=== PATIENT | female | born 1965 | race Caucasian/White ===

== ENCOUNTER 2016-04-30 02:35 | Observation (INO) | payer BC ==
[2016-04-30] MEDS ORDERED: SODIUM CHLORIDE 0.9% 500 ML IV STA (02:52)
[2016-04-30] MEDS ORDERED: SODIUM CHLORIDE 0.9% 1,000 ML IV STA ×2 (02:52)
[2016-04-30] MEDS ORDERED: RX INFO: IV CONTRAST WAS GIVEN 1 EACH MISC MISCELLANE PRN (02:52)
[2016-04-30] MEDS ORDERED: MORPHINE SULFATE 4 MG/ML SYRINGE IV STA (02:52)
--- NOTE | 2016-04-30 02:52 | ED ---
General Adult HPI - General Chief complaint: Abdominal Pain Stated complaint: HX: copd, cough, copper taste in mouth Time Seen by Provider: 04/30/16 02:51 Source: patient, RN notes reviewed, old records reviewed Mode of arrival: ambulatory Limitations: no limitations - History of Present Illness Initial comments: This is a 50-year-old female here for evaluation. This patient presents for evaluation of chest pain. Patient is severe anterior chest pain rating to back and ripping in nature. Patient has history of COPD, CVA TIA, denies history of smoking. Symptoms earlier today getting progressively worse. Mild known nonsignificant shortness of breath, no recent cough or congestion, no recent travel history, no emergency contacts. No fevers. - Related Data Home Medications Medication Instructions Recorded Confirmed Tiotropium 18 Mcg/Puff [Spiriva] 1 cap INHALATION RT-DAILY PRN 07/17/15 04/30/16 Aspirin EC [Ecotrin Low Dose] 81 mg PO DAILY 12/12/15 12/12/15 Previous Rx's Medication Instructions Recorded Albuterol Inhaler [Ventolin Hfa 2 puff INHALATION RT-Q6H #0 12/14/15 Inhaler] Budesonide-Formot 160-4.5 Mcg 2 puff INHALATION BID #1 inhaler 12/14/15 [Symbicort 160-4.5 Mcg Inhaler] Allergies Allergy/AdvReac Type Severity Reaction Status Date / Time No Known Allergies Allergy Verified 12/12/15 08:12 Review of Systems ROS Statement: Those systems with pertinent positive or pertinent negative responses have been documented in the HPI. ROS Other: All systems not noted in ROS Statement are negative. 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 Past Anesthesia/Blood Transfusion Reactions: No Reported Reaction Past Psychological History: No Psychological Hx Reported Additional Psychological History / Comment(s): Pt resides with spouse and son. She is independent. She uses no assistive device. She drives. Smoking Status: Current every day smoker Past Alcohol Use History: Daily Additional Past Alcohol Use History / Comment(s): Pt states she is a smoker. She was up to 2 ppd but only a couple since this illness began a week ago. she drinks 8 drinks/week.Pt. states, "I'm down to 2 ppd." Past Drug Use History: None Reported - Past Family History Father History Unknown: Yes Mother Family Medical History: Cancer Additional Family Medical History / Comment(s): Mother had some kind of cancer but pt does not know what kind. She at age 65 or 67yrs. General Exam Limitations: no limitations General appearance: alert, in no apparent distress, anxious Head exam: Present: atraumatic, normocephalic, normal inspection Eye exam: Present: normal appearance, PERRL, EOMI. Absent: scleral icterus, conjunctival injection, periorbital swelling ENT exam: Present: normal exam, mucous membranes moist Neck exam: Present: normal inspection. Absent: tenderness, meningismus, lymphadenopathy Respiratory exam: Present: normal lung sounds bilaterally. Absent: respiratory distress, wheezes, rales, rhonchi, stridor Cardiovascular Exam: Present: regular rate, normal rhythm, normal heart sounds. Absent: systolic murmur, diastolic murmur, rubs, gallop, clicks GI/Abdominal exam: Present: soft, normal bowel sounds. Absent: distended, tenderness, guarding, rebound, rigid Extremities exam: Present: normal inspection, full ROM, normal capillary refill. Absent: tenderness, pedal edema, joint swelling, calf tenderness Back exam: Present: normal inspection Neurological exam: Present: alert, oriented X3, CN II-XII intact Psychiatric exam: Present: normal affect, normal mood Skin exam: Present: warm, dry, intact, normal color. Absent: rash Course Vital Signs 04/30/16 02:39 Temperature 97.3 F L Pulse Rate 78 Respiratory 18 Rate Blood Pressure 135/70 O2 Sat by Pulse 94 L Oximetry - Reevaluation(s) Reevaluation #1: 04/30/16 04:16 Patient's pain is mildly improved but not resolved EKG Findings - EKG Comments: EKG Findings:: EKG shows sinus at a rate of 73, MA 110, QRS I6, QTC 440 Medical Decision Making - Medical Decision Making 50 female here for evaluation of chest pain ripping chest pain after coughing, patient still with chest pain, CTA negative for dissection or PE, patient will be admitted for cardiac observation and treatment of COPD - Lab Data Result diagrams: 04/30/16 03:00 04/30/16 03:00 Lab Results 04/30/16 04/30/16 04/30/16 Range/Units 03:00 03:00 03:00 WBC 9.7 (3.8-10.6) k/uL RBC 4.55 (3.80-5.40) m/uL Hgb 14.9 (11.4-16.0) gm/dL Hct 44.1 (34.0-46.0) % MCV 97.0 (80.0-100.0) fL MCH 32.7 (25.0-35.0) pg MCHC 33.8 (31.0-37.0) g/dL RDW 13.5 (11.5-15.5) % Plt Count 270 (150-450) k/uL Neutrophils % 62 % Lymphocytes % 28 % Monocytes % 4 % Eosinophils % 1 % Basophils % 1 % Neutrophils # 6.1 (1.3-7.7) k/uL Lymphocytes # 2.7 (1.0-4.8) k/uL Monocytes # 0.4 (0-1.0) k/uL Eosinophils # 0.1 (0-0.7) k/uL Basophils # 0.1 (0-0.2) k/uL PT (9.0-12.0) sec INR (<1.1) Sodium 135 L (137-145) mmol/L Potassium 4.6 (3.5-5.1) mmol/L Chloride 97 L (98-107) mmol/L Carbon Dioxide 22 (22-30) mmol/L Anion Gap 16 mmol/L BUN 5 L (7-17) mg/dL Creatinine 0.50 L (0.52-1.04) mg/dL Est GFR (MDRD) Af Amer >60 (>60 ml/min/1.73 sqM) Est GFR (MDRD) Non-Af >60 (>60 ml/min/1.73 sqM) Glucose 106 H (74-99) mg/dL Calcium 9.7 (8.4-10.2) mg/dL Total Bilirubin 0.4 (0.2-1.3) mg/dL AST 49 H (14-36) U/L ALT 54 H (9-52) U/L Alkaline Phosphatase 81 (38-126) U/L Total Creatine Kinase 134 (30-135) U/L CK-MB (CK-2) 0.4 (0.0-2.4) ng/mL CK-MB (CK-2) Rel Index 0.3 Troponin I <0.012 (0.000-0.034) ng/mL Total Protein 7.9 (6.3-8.2) g/dL Albumin 4.9 (3.5-5.0) g/dL Amylase 45 (30-110) U/L Lipase 90 (23-300) U/L 04/30/16 Range/Units 03:00 WBC (3.8-10.6) k/uL RBC (3.80-5.40) m/uL Hgb (11.4-16.0) gm/dL Hct (34.0-46.0) % MCV (80.0-100.0) fL MCH (25.0-35.0) pg MCHC (31.0-37.0) g/dL RDW (11.5-15.5) % Plt Count (150-450) k/uL Neutrophils % % Lymphocytes % % Monocytes % % Eosinophils % % Basophils % % Neutrophils # (1.3-7.7) k/uL Lymphocytes # (1.0-4.8) k/uL Monocytes # (0-1.0) k/uL Eosinophils # (0-0.7) k/uL Basophils # (0-0.2) k/uL PT 10.4 (9.0-12.0) sec INR 1.0 (<1.1) Sodium (137-145) mmol/L Potassium (3.5-5.1) mmol/L Chloride (98-107) mmol/L Carbon Dioxide (22-30) mmol/L Anion Gap mmol/L BUN (7-17) mg/dL Creatinine (0.52-1.04) mg/dL Est GFR (MDRD) Af Amer (>60 ml/min/1.73 sqM) Est GFR (MDRD) Non-Af (>60 ml/min/1.73 sqM) Glucose (74-99) mg/dL Calcium (8.4-10.2) mg/dL Total Bilirubin (0.2-1.3) mg/dL AST (14-36) U/L ALT (9-52) U/L Alkaline Phosphatase (38-126) U/L Total Creatine Kinase (30-135) U/L CK-MB (CK-2) (0.0-2.4) ng/mL CK-MB (CK-2) Rel Index Troponin I (0.000-0.034) ng/mL Total Protein (6.3-8.2) g/dL Albumin (3.5-5.0) g/dL Amylase (30-110) U/L Lipase (23-300) U/L - Radiology Data Radiology results: report reviewed (CTA is negative for acute disease,), image reviewed Critical Care Time Critical Care Time: Yes Total Critical Care Time: 31 Disposition Clinical Impression: COPD with acute exacerbation, Chest pain Disposition: ADMITTED IP TO THIS HOSP Condition: Fair Referrals: Shravan Paul DO [Primary Care Provider] - 1-2 days
[2016-04-30 03:23] LABS: Basophils # (A) 0.1 k/uL (0-0.2); Basophils % (A) 1 %; CH 33.3; CHCM 34.5; Eosinophils # (A) 0.1 k/uL (0-0.7); Eosinophils % (A) 1 %; HCT 44.1 % (34.0-46.0); HDW 2.11; HGB 14.9 gm/dL (11.4-16.0); Luc # (Auto) 0.37; Luc % (Auto) 4; Lymphocytes # (A) 2.7 k/uL (1.0-4.8); Lymphocytes % (A) 28 %; MCH 32.7 pg (25.0-35.0); MCHC 33.8 g/dL (31.0-37.0); Mean Platelet Volume 7.2; Monocytes # (A) 0.4 k/uL (0-1.0); Monocytes % (A) 4 %; Neutrophils # (A) 6.1 k/uL (1.3-7.7); Neutrophils % (A) 62 %; RBC 4.55 m/uL (3.80-5.40); RDW 13.5 % (11.5-15.5); WBC 9.7 k/uL (3.8-10.6); WBC (Perox) 9.78
[2016-04-30 03:24] LABS: Prothrombin Time 10.4 sec (9.0-12.0)
[2016-04-30 03:35] LABS: ALT 54 U/L (9-52); AST 49 U/L (14-36); Alkaline Phosphatase 81 U/L (38-126); Amylase 45 U/L (30-110); Anion Gap 16 mmol/L; Blood Urea Nitrogen 5 mg/dL (7-17); Calcium 9.7 mg/dL (8.4-10.2); Carbon Dioxide 22 mmol/L (22-30); Chloride 97 mmol/L (98-107); Glucose 106 mg/dL (74-99); Non-African American GFR(MDRD) >60 (>60 ml/min/1.73 sqM); Potassium 4.6 mmol/L (3.5-5.1); Sodium 135 mmol/L (137-145); Total Bilirubin 0.4 mg/dL (0.2-1.3); Total Protein 7.9 g/dL (6.3-8.2)
[2016-04-30 03:50] LABS: Creatine Kinase 134 U/L (30-135)
--- NOTE | 2016-04-30 04:02 | CT ---
EXAMINATION TYPE: CT angio thoracic/abd aorta DATE OF EXAM: 04/30/2016 3:55 AM COMPARISON: NONE HISTORY: pt has epigastric pain, cough, congestion, and ripping sensation near diaphragm, evaluate ao rta CT DLP: 435.50 mGycm Automated exposure control for dose reduction was used. CONTRAST: Performed with IV Contrast, patient injected with 100 mL of Omnipaque 350. FINDINGS: There are 3-D post processed images. The visualized lung rincon are clear of consolidation. There is no pleural effusion. Heart size is no rmal. There are no hilar masses. There is normal contrast opacification of the thoracic aorta. There is minimal atherosclerotic calcif ication in the thoracic aorta. There is no evidence of aneurysm or dissection. There is no evidence o f pulmonary embolism. Liver spleen pancreas and gallbladder appear normal. Bile ducts are not dilated. Abdominal aorta is n ormal size. There is patency of the renal arteries, superior mesenteric, celiac arteries. There is pa tency of the iliac arteries. The bladder distends smoothly. There is no sign of a pelvic mass. Kidney s show normal contrast opacification. There is no hydronephrosis. IMPRESSION: NEGATIVE CT ANGIOGRAM OF THE THORACIC AND ABDOMINAL AORTA. MINIMAL ATHEROSCLEROTIC VASCULAR DISEASE. NO EVIDENCE OF ANEURYSM OR DISSECTION. NO EVIDENCE OF PULMONARY EMBOLISM.
[2016-04-30 04:03] LABS: Creatine Kinase MB 0.4 ng/mL (0.0-2.4); Troponin I <0.012 ng/mL (0.000-0.034)
[2016-04-30] MEDS ORDERED: MORPHINE SULFATE 4 MG/ML SYRINGE IVP STA (04:12)
[2016-04-30] MEDS ORDERED: methylPREDNISolone SOD SUCCI 125 MG/2 ML VIAL IV STA (04:12)
[2016-04-30] MEDS ORDERED: KETOROLAC 30 MG/ML 1 ML VIAL IVP STA (04:12)
[2016-04-30] MEDS ORDERED: IPRATROPIUM-ALBUTEROL 3 ML NEB INHALATION STA (04:12)
[2016-04-30] MEDS ORDERED: MORPHINE SULFATE 4 MG/ML SYRINGE IV PRN (04:13)
[2016-04-30] MEDS ORDERED: NITROGLYCERIN SL TABS 0.4 MG TAB SUBLINGUAL PRN (04:13)
[2016-04-30] MEDS ORDERED: HEPARIN SODIUM,PORCINE 5,000 UNIT/ML 1 ML VIAL IV ONE (04:13)
[2016-04-30] MEDS ORDERED: HEPARIN SODIUM,PORCINE 5,000 UNIT/ML 1 ML VIAL IV PRN (04:13)
[2016-04-30] MEDS ORDERED: HEPARIN SODIUM,PORCINE/D5W PMX 25,000 UNIT in DEXTROSE/WATER 1 500ML.BAG IV SCH (04:15)
[2016-04-30] MEDS ORDERED: SODIUM CHLORIDE 0.9% 1,000 ML IV SCH (04:15)
[2016-04-30] MEDS ORDERED: HYDROmorphone 1 MG/ML 1 ML SYRINGE IVP STA (05:38)
--- NOTE | 2016-04-30 05:40 | ED ---
Medical Decision Making - Medical Decision Making 50 female [place] with chest pain, patient now purporting more right-sided rib pain and abdominal pain. Again worse when she coughs. Mild epigastric tenderness, no elevation of liver enzymes or alk phos, no elevation of lipase. Patient wasn 't gallbladder ultrasounding addition to therapy for COPD, patient refusing therapy for her heart and she has had full evaluation of chest pain and cardiac evaluation which was negative - Lab Data Result diagrams: 04/30/16 03:00 04/30/16 03:00 Lab Results 04/30/16 04/30/16 04/30/16 Range/Units 03:00 03:00 03:00 WBC 9.7 (3.8-10.6) k/uL RBC 4.55 (3.80-5.40) m/uL Hgb 14.9 (11.4-16.0) gm/dL Hct 44.1 (34.0-46.0) % MCV 97.0 (80.0-100.0) fL MCH 32.7 (25.0-35.0) pg MCHC 33.8 (31.0-37.0) g/dL RDW 13.5 (11.5-15.5) % Plt Count 270 (150-450) k/uL Neutrophils % 62 % Lymphocytes % 28 % Monocytes % 4 % Eosinophils % 1 % Basophils % 1 % Neutrophils # 6.1 (1.3-7.7) k/uL Lymphocytes # 2.7 (1.0-4.8) k/uL Monocytes # 0.4 (0-1.0) k/uL Eosinophils # 0.1 (0-0.7) k/uL Basophils # 0.1 (0-0.2) k/uL PT (9.0-12.0) sec INR (<1.1) Sodium 135 L (137-145) mmol/L Potassium 4.6 (3.5-5.1) mmol/L Chloride 97 L (98-107) mmol/L Carbon Dioxide 22 (22-30) mmol/L Anion Gap 16 mmol/L BUN 5 L (7-17) mg/dL Creatinine 0.50 L (0.52-1.04) mg/dL Est GFR (MDRD) Af Amer >60 (>60 ml/min/1.73 sqM) Est GFR (MDRD) Non-Af >60 (>60 ml/min/1.73 sqM) Glucose 106 H (74-99) mg/dL Calcium 9.7 (8.4-10.2) mg/dL Total Bilirubin 0.4 (0.2-1.3) mg/dL AST 49 H (14-36) U/L ALT 54 H (9-52) U/L Alkaline Phosphatase 81 (38-126) U/L Total Creatine Kinase 134 (30-135) U/L CK-MB (CK-2) 0.4 (0.0-2.4) ng/mL CK-MB (CK-2) Rel Index 0.3 Troponin I <0.012 (0.000-0.034) ng/mL Total Protein 7.9 (6.3-8.2) g/dL Albumin 4.9 (3.5-5.0) g/dL Amylase 45 (30-110) U/L Lipase 90 (23-300) U/L 04/30/16 Range/Units 03:00 WBC (3.8-10.6) k/uL RBC (3.80-5.40) m/uL Hgb (11.4-16.0) gm/dL Hct (34.0-46.0) % MCV (80.0-100.0) fL MCH (25.0-35.0) pg MCHC (31.0-37.0) g/dL RDW (11.5-15.5) % Plt Count (150-450) k/uL Neutrophils % % Lymphocytes % % Monocytes % % Eosinophils % % Basophils % % Neutrophils # (1.3-7.7) k/uL Lymphocytes # (1.0-4.8) k/uL Monocytes # (0-1.0) k/uL Eosinophils # (0-0.7) k/uL Basophils # (0-0.2) k/uL PT 10.4 (9.0-12.0) sec INR 1.0 (<1.1) Sodium (137-145) mmol/L Potassium (3.5-5.1) mmol/L Chloride (98-107) mmol/L Carbon Dioxide (22-30) mmol/L Anion Gap mmol/L BUN (7-17) mg/dL Creatinine (0.52-1.04) mg/dL Est GFR (MDRD) Af Amer (>60 ml/min/1.73 sqM) Est GFR (MDRD) Non-Af (>60 ml/min/1.73 sqM) Glucose (74-99) mg/dL Calcium (8.4-10.2) mg/dL Total Bilirubin (0.2-1.3) mg/dL AST (14-36) U/L ALT (9-52) U/L Alkaline Phosphatase (38-126) U/L Total Creatine Kinase (30-135) U/L CK-MB (CK-2) (0.0-2.4) ng/mL CK-MB (CK-2) Rel Index Troponin I (0.000-0.034) ng/mL Total Protein (6.3-8.2) g/dL Albumin (3.5-5.0) g/dL Amylase (30-110) U/L Lipase (23-300) U/L Disposition Clinical Impression: COPD with acute exacerbation, Chest pain, Abdominal pain Disposition: ADMITTED IP TO THIS HOSP Condition: Fair
[2016-04-30 06:18] VITALS: BMI 19.7
[2016-04-30] MEDS: HYDROmorphone 1 MG/ML 1 ML SYRINGE IVP PRN ×2 (06:27→12:34)
--- NOTE | 2016-04-30 08:57 | US ---
EXAMINATION TYPE: US gallbladder DATE OF EXAM: 04/30/2016 8:45 AM COMPARISON: CT in pacs CLINICAL HISTORY: gallbladder. Abdomen pain and diarrhea x 2 days EXAM MEASUREMENTS: Liver Length: 16.4 cm Gallbladder Wall: 0.2 cm CBD: 0.5 cm Right Kidney: 9.2 x 3.8 x 4.7 cm Findings: Pancreas: Visualized portions have a normal appearance. Liver: Liver homogeneous with no evidence of mass. Gallbladder: No evidence of gallstones. Evidence for sonographic Rose's sign: yes CBD: wnl Right Kidney: No hydronephrosis or nephrolithiasis. IMPRESSION: 1. No acute process.
[2016-04-30] MEDS ORDERED: ATORVASTATIN 80 MG TAB PO SCH (09:00)
[2016-04-30 10:36] LABS: Creatine Kinase 102 U/L (30-135)
[2016-04-30 10:49] LABS: Creatine Kinase MB 0.5 ng/mL (0.0-2.4); Troponin I <0.012 ng/mL (0.000-0.034)
--- NOTE | 2016-04-30 11:31 | P.CNPUL ---
History of Present Illness Consult date: 04/30/16 Reason for consult: other Chief complaint: Abdominal pain History of present illness: This is a 50-year-old female who was seen in the emergency room for complaints of pain in the right upper quadrant of the abdomen. The pain is right upper quadrant and lower right chest area. The pain radiates to the back a bit. The pain as a deli. Not sharp. Not worse with breathing or body movements. Denies any shortness of breath or difficulty breathing. No cough. No chest congestion. No phlegm production. No fever no chills. No trauma to the area. She apparently has a history of severe COPD for which she sees my partner. She also has a history of CVA/TIA. Today she feels great. No breathing issues. The pain is better. She apparently was told that it was "" a pulled muscle. Review of Systems A 12 point review of system is positive for abdominal pain and lower chest pain on the right side. It's in the area of the gallbladder. The pain is resolved. She is apparently going to be discharged home today. 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 Past Anesthesia/Blood Transfusion Reactions: No Reported Reaction Past Psychological History: No Psychological Hx Reported Additional Psychological History / Comment(s): Pt resides with spouse and son. She is independent. She uses no assistive device. She drives. Smoking Status: Current every day smoker Past Alcohol Use History: Daily Additional Past Alcohol Use History / Comment(s): Pt states she is a smoker. She was up to 2 ppd but only a couple since this illness began a week ago. she drinks 8 drinks/week.Pt. states, "I'm down to 2 ppd." Past Drug Use History: None Reported - Past Family History Father History Unknown: Yes Mother Family Medical History: Cancer Additional Family Medical History / Comment(s): Mother had some kind of cancer but pt does not know what kind. She at age 65 or 67yrs. Medications and Allergies Home Medications Medication Instructions Recorded Confirmed Type Tiotropium 18 Mcg/Puff [Spiriva] 1 cap INHALATION RT-DAILY PRN 07/17/15 History Albuterol Inhaler [Ventolin Hfa 2 puff INHALATION RT-Q6H PRN 04/30/16 04/30/16 History Inhaler] Allergies Allergy/AdvReac Type Severity Reaction Status Date / Time No Known Allergies Allergy Verified 04/30/16 06:10 Physical Exam Osteopathic Statement: *. No significant issues noted on an osteopathic structural exam other than those noted in the History and Physical/Consult. Vitals: Vital Signs Temp Pulse Pulse Resp BP BP Pulse Ox 04/30/16 06:52 18 04/30/16 06:11 98.4 F 70 18 149/84 93 L 04/30/16 05:03 75 04/30/16 05:00 97.6 F 80 20 164/89 94 L 04/30/16 04:47 78 04/30/16 04:18 72 18 121/63 97 Intake and Output 04/29/16 04/30/16 04/30/16 22:59 06:59 14:59 Intake Total 1600 120 Balance 1600 120 Intake: Amount of Fluid Infused ( 1600 ml) Oral 120 Other: Voiding Method Toilet # Voids 1 Weight 48.9 kg No acute distress, no respiratory distress, oriented 3. HEENT examination is grossly unremarkable. Mucous membranes are moist. Supple. Full range of motion. No adenopathy or thyromegaly. Cardiovascular examination reveals regular rhythm rate. S1-S2 normal. No S3- S4. No murmur. Lungs reveal few scattered rhonchi. Breath sounds diminished. There is slight prolongation on forced liver. No wheezes or crackles. Abdomen soft bowel sounds are heard. There is no masses. There is no tenderness on palpation. Extremities are intact. Results - Laboratory Findings CBC and BMP: 04/30/16 03:00 04/30/16 03:00 PT/INR, D-dimer PT 10.4 sec (9.0-12.0) 04/30/16 03:00 INR 1.0 (<1.1) 04/30/16 03:00 - Diagnostic Findings Chest x-ray: image reviewed Assessment and Plan (1) Abdominal pain Status: Acute Plan: Plan The patient's abdominal discomfort has resolved. I will take the time to review medications x-rays labs, etc. She has a follow-up appointment set up with Dr. Flores my partner ready. She is on good medications for her COPD. She should continue on those. No additional recommendations are made. Time with Patient: Greater than 30
[2016-04-30] MEDS ORDERED: methylPREDNISolone SOD SUCCI 125 MG/2 ML VIAL IV SCH (12:00)
[2016-04-30 12:13] VITALS: BP 123/71; PULSE 66; RESP 16; TEMP 97.3
--- NOTE | 2016-04-30 13:06 | HP ---
DATE OF ADMISSION: HISTORY AND PHYSICAL AND DISCHARGE SUMMARY CHIEF COMPLAINT: Abdominal pain. HISTORY OF PRESENT ILLNESS: Ms. Villeda is a 50-year-old female with a past medical history of hypertension, COPD, CVA/TIA in May 2014, coming into the hospital with a chief complaint of right upper quadrant abdominal pain. The patient states that the pain started 2 days back. Pain is mostly in the right upper quadrant and it is aggravated by turning and twisting movements. Patient has been having an upper respiratory tract infection for the past 4 days and so has been coughing, and she denies having any fever, but she was coughing really hard and since then started to have this abdominal pain. She denies having any chest discomfort. No difficulty in breathing. But since having this abdominal pain, she states that she is not able to cough due to the pain she is having. The patient also had 2 episodes of diarrhea yesterday. So she came into the hospital for further evaluation. The patient did have a thoracic aorta CT in the ED, which was negative for any aneurysm or dissection. It was showing minimal atherosclerotic vascular disease and she also had a gallbladder ultrasound, which was showing no acute process. The patient was continued on her home medications. Since admission, the patient did not have any episodes of diarrhea. Her abdominal pain is slightly better. REVIEW OF SYSTEMS: CONSTITUTIONAL: Denies having any fevers, chills or rigors. ENT: Patient has mild upper respiratory tract infection for the past 4 days. CARDIOVASCULAR: No chest pain and palpitations. GI: As per HPI. RESPIRATORY: Has been having cough, nonproductive. : No dysuria or hematuria. HEMATOLOGICAL: No history of recurrent infection or easy bruising. All 13 review of systems are done and negative except for the ones mentioned in the HPI. Past medical history is significant for hypertension, COPD, CVA/TIA in May 2014. ALLERGIES: No known drug allergies. HOME MEDICATIONS: Spiriva, albuterol and Symbicort. SMOKING HISTORY: Patient is an everyday smoker, smokes 1/2 pack every day. Occasional alcohol. No history of intravenous drug abuse. Family history is positive for an unknown cancer in her mother and she at the age of 65 years. ON EXAMINATION: PATIENT'S VITAL SIGNS: Temperature 98.4, heart rate 70, respiratory rate 18, blood pressure 149/84 saturating 93% on room air. GENERAL EXAMINATION: ( ) female, lying in bed, appears to be in no acute distress. HEAD: Atraumatic, normocephalic. EYES: Pupils round and reactive to light. No pallor. No icterus. NECK: No JVD. No thyromegaly. CARDIOVASCULAR: S1, S2 heard. No additional sounds. RESPIRATORY: Bilateral breath sounds are diminished in all lung rincon. No crackles and/or wheezes. GI: Abdomen is soft, nontender, no organomegaly. Bowel sounds are positive. EXTREMITIES: No edema. No cyanosis. No clubbing. Peripheral pulses are felt. SOCIAL SERVICE MANAGER: Alert, awake, oriented x3. No focal neurological deficits. PSYCHIATRIC: Appropriate mood and affect. MUSCULOSKELETAL: No joint swellings or deformities. The patient's labs: White count is 9,7, hemoglobin is 14.9, platelets of 270. Sodium 135, potassium 4.6, chloride 97, bicarb 22, BUN 5, creatinine 0.50. AST 49, ALT 59. Troponin 0.012. Patient had an EKG, thoracic aorta CT and ultrasound of the gallbladder that are within normal limits. ASSESSMENT AND PLAN: 1. Acute abdominal pain, most likely musculoskeletal in nature because she has been having cough for the past 5 days and probably pulled a muscle. No evidence of any other acute process going on. 2. Recent upper respiratory tract infection. 3. Hypertension. 4. Stroke/transient ischemic attack in May of 2014. 5. History of chronic obstructive pulmonary disease. PLAN: The patient's workup for acute abdominal pain was negative and she probably has musculoskeletal pain. Will give her some muscle relaxant. She is advised to continue with the rest of her home medications. Counseled on smoking cessation. She is being discharged home in stable condition. Patient's discharge medications: 1. Spiriva 18 mcg per puff 1 puff daily. 2. Albuterol inhaler 2 puffs q.6 hours p.r.n. for shortness of breath. 3. Symbicort 160/4.5 mcg inhaler 2 puffs b.i.d. 4. Cyclobenzaprine 10 mg 3 times a day p.r.n. for muscle spasms. This patient is being discharged home and advised to follow up with her PCP within one week of time.
[2016-05-01] MEDS ORDERED: ASPIRIN 325 MG TAB PO SCH (09:00)
== END 2016-04-30 13:41 | disposition home or self-care (01) ==
LOC: EC 02:35 → 3OBS 04:16
PROVIDERS: ADMIT Hospitalist; ATTEND Hospitalist
DX: R10.9 Unspecified abdominal pain (principal); J06.9 Acute upper respiratory infection, unspecified; J44.1 Chronic obstructive pulmonary disease with (acute) exacerbation; R10.816 Epigastric abdominal tenderness; I10 Essential (primary) hypertension; F17.210 Nicotine dependence, cigarettes, uncomplicated; K58.0 Irritable bowel syndrome with diarrhea; Z86.73 Personal history of transient ischemic attack (TIA), and cerebral infarction without residual deficits; Z79.82 Long term (current) use of aspirin; Z79.51 Long term (current) use of inhaled steroids; Z79.899 Other long term (current) drug therapy
CPT/HCPCS: 99291 ×2; 96374 ×2; 96375 ×3; 96376 ×3; 96361 ×3; 36415; 93005; 80053; 82150; 82550; 82553; 83690; 84484; 85025; 85610; 85730; 76705; 75635; 71275; G0378; J2270; J2930; Q9967; J1885; J1170; 96372; 99285

== ENCOUNTER 2016-08-18 02:00 | Emergency (ER) | payer BC ==
--- NOTE | 2016-08-18 02:37 | ED ---
Psych HPI - General Source: patient, EMS, RN notes reviewed Mode of arrival: EMS <Rosa Bennett - Last Filed: 08/18/16 02:55> <Bhavin Blue - Last Filed: 08/18/16 11:01> - General Chief Complaint: Psychiatric Symptoms Stated Complaint: ETOH Time Seen by Provider: 08/18/16 02:03 - History of Present Illness Initial Comments: 50-year-old female presents emergency room chief complaint of alcoholism and suicidal ideation. Patient states that she wants help. Patient denies any specific plan. Patient states that she needs help to get better. Patient denies any recent fever, chills, shortness of breath, chest pain, back pain, abdominal pain, nausea vomiting, numbness or tingling, dysuria or hematuria, constipation or diarrhea, headaches or visual changes, or any other current symptoms. (Rosa Bennett) - Related Data Previous Rx's Medication Instructions Recorded chlordiazePOXIDE HCl [Librium] 25 mg PO DIRECTED #22 capsule 08/18/16 cloNIDine HCL [Catapres] 0.1 mg PO BID #6 tab 08/18/16 Allergies Allergy/AdvReac Type Severity Reaction Status Date / Time No Known Allergies Allergy Verified 08/18/16 02:03 Review of Systems ROS Other: All systems not noted in ROS Statement are negative. <Rosa Bennett - Last Filed: 08/18/16 02:55> ROS Other: All systems not noted in ROS Statement are negative. <Bhavin Blue - Last Filed: 08/18/16 11:01> ROS Statement: Those systems with pertinent positive or pertinent negative responses have been documented in the HPI. 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 Past Anesthesia/Blood Transfusion Reactions: No Reported Reaction Past Psychological History: No Psychological Hx Reported Additional Psychological History / Comment(s): Pt resides with spouse and son. She is independent. She uses no assistive device. She drives. Smoking Status: Current every day smoker Past Alcohol Use History: Abuse, Daily Additional Past Alcohol Use History / Comment(s): Pt states she is a smoker. She was up to 2 ppd but only a couple since this illness began a week ago. she drinks 8 drinks/week.Pt. states, "I'm down to 2 ppd." Past Drug Use History: None Reported - Past Family History Father History Unknown: Yes Mother Family Medical History: Cancer Additional Family Medical History / Comment(s): Mother had some kind of cancer but pt does not know what kind. She at age 65 or 67yrs. <Rosa Bennett - Last Filed: 08/18/16 02:55> General Exam Limitations: no limitations General appearance: alert, in no apparent distress ENT exam: Present: normal exam, mucous membranes moist Neck exam: Present: normal inspection. Absent: tenderness, meningismus, lymphadenopathy Respiratory exam: Present: normal lung sounds bilaterally. Absent: respiratory distress, wheezes, rales, rhonchi, stridor Cardiovascular Exam: Present: regular rate, normal rhythm, normal heart sounds. Absent: systolic murmur, diastolic murmur, rubs, gallop, clicks Neurological exam: Present: alert, oriented X3 Psychiatric exam: Present: depressed, suicidal ideation. Absent: homicidal ideation Skin exam: Present: warm, dry, intact, normal color. Absent: rash <Rosa Bennett - Last Filed: 08/18/16 02:55> Course <Rosa Bennett - Last Filed: 08/18/16 02:55> <Bhavin Blue - Last Filed: 08/18/16 11:01> Vital Signs 08/18/16 08/18/16 08/18/16 02:04 06:36 08:18 Temperature 97.4 F L 98.5 F 98 F Pulse Rate 84 73 78 Respiratory 18 17 Rate Blood Pressure 161/91 111/61 125/65 O2 Sat by Pulse 94 L 94 L 93 L Oximetry - Reevaluation(s) Reevaluation #1: 08/18/16 02:55 THis case will be signed out to DR. Owens. (Rosa Bennett) Medical Decision Making <Rosa Bennett - Last Filed: 08/18/16 02:55> <Bhavin Blue - Last Filed: 08/18/16 11:01> - Medical Decision Making 50-year-old female presents emergency department with a chief complaint of suicidal ideation and alcoholism. At this time the patient does not appear to be suffering from any acute medical emergencies. At this time the patient is cleared to be evaluated by psychiatry. (Rosa Bennett) Patient was examined here in the emergency room by mental patient is denying any suicidal intentions at this time. She states that she feels more depressed when she is drinking and has argued with her . She states this is what happened yesterday. At this time mental health recommends the patient can follow-up outpatient they have tried to facilitate a detox facility for her. There is the option of a possible open bed down at [facility]. She is been updated of this given the information. She states feels like this might be too far to go to. She's been given further information for detox programs that may be closer for her. At this time she is not suicidal feels comfortable being discharged home. Will be given prescription for clonidine and Librium for her withdrawals. Advised return to emergency room for any concerns. (Bhavin Blue ) - Lab Data Lab Results 08/18/16 Range/Units 02:17 Urine Opiates Screen Not Detected (NotDetected) Ur Oxycodone Screen Not Detected (NotDetected) Urine Methadone Screen Not Detected (NotDetected) Ur Propoxyphene Screen Not Detected (NotDetected) Ur Barbiturates Screen Not Detected (NotDetected) U Tricyclic Antidepress Not Detected (NotDetected) Ur Phencyclidine Scrn Not Detected (NotDetected) Ur Amphetamines Screen Not Detected (NotDetected) U Methamphetamines Scrn Not Detected (NotDetected) U Benzodiazepines Scrn Not Detected (NotDetected) Urine Cocaine Screen Not Detected (NotDetected) U Marijuana (THC) Screen Not Detected (NotDetected) Disposition <Rosa Bennett - Last Filed: 08/18/16 02:55> Time of Disposition: 11:00 <Bhavin Blue - Last Filed: 08/18/16 11:01> Clinical Impression: Alcohol abuse Disposition: HOME SELF-CARE Condition: Stable Instructions: Alcohol Withdrawal (ED) Additional Instructions: Please follow-up with detox programs as discussed here in emergency room. Please use medications as prescribed and return to emergency room for any other concerns. Prescriptions: chlordiazePOXIDE HCl [Librium] 25 mg PO DIRECTED #22 capsule cloNIDine HCL [Catapres] 0.1 mg PO BID #6 tab Referrals: Shravan Paul DO [Primary Care Provider] - 1-2 days
[2016-08-18 11:46] VITALS: BP 152/81; PULSE 66; RESP 16; TEMP 97.9
== END 2016-08-18 11:45 | disposition home or self-care (01) ==
LOC: EC 02:00
DX: F10.10 Alcohol abuse, uncomplicated (principal); R45.851 Suicidal ideations; F17.200 Nicotine dependence, unspecified, uncomplicated
CPT/HCPCS: 80306; 82075; 99284

== ENCOUNTER 2019-03-28 19:43 | Emergency (ER) | payer BC ==
--- NOTE | 2019-03-28 20:19 | ED ---
General Adult HPI - General Source: patient Mode of arrival: ambulatory Limitations: no limitations <Umesh Garcia D - Last Filed: 03/28/19 21:01> <Karin Greenwood P - Last Filed: 03/28/19 22:36> - General Chief complaint: Abdominal Pain Stated complaint: Abd pain Time Seen by Provider: 03/28/19 20:10 - History of Present Illness Initial comments: Dictation was produced using [employer] dictation software. please excuse any grammatical, word or spelling errors. Chief Complaint: 53-year-old female past medical history of COPD, CVA presents with abdominal pain. History of Present Illness: 53-year-old female presents with abdominal pain. Patient's history of and left oophorectomy. Patient reports that her symptoms have been intermittent for the last several weeks however today she states that her pain was severe and different from what it's been like recently. Patient locates the pain to her right lower quadrant. States that she still has her appendix and her gallbladder. Patient has any history of diverticulitis. Denies any constitutional symptoms however she has had nausea vomiting. No vaginal discharge. Patient states she has daily diarrhea. The ROS documented in this emergency department record has been reviewed and confirmed by me. Those systems with pertinent positive or negative responses have been documented in the HPI. All other systems are other negative and/or noncontributory. PHYSICAL EXAM: General Impression: Alert and oriented x3, not in acute distress HEENT: Normocephalic atraumatic, extra-ocular movements intact, pupils equal and reactive to light bilaterally, mucous membranes moist. Cardiovascular: Heart regular rate and rhythm, S1&S2 audible, no murmurs, rubs or gallops Chest: Lungs clear to auscultation bilaterally, no rhonchi, no wheeze, no rales Abdomen: Bowel sounds present, abdomen soft, tenderness in McBurney's point, positive rebound tenderness Musculoskeletal: Pulses present and equal in all extremities, no peripheral e jose Motor: no focal deficits noted Neurological: CN II-XII grossly intact, no focal motor or sensory deficits noted Skin: Intact with no visualized rashes Psych: Normal affect and mood ED course: 53-year-old female presents with chief complaint of abdominal pain. As upon arrival are within acceptable limits. There is some concern for acute appendicitis. Patient is signed out to Dr. Greenwood for follow-up of labs and CT imaging. (Umesh Garcia) - Related Data Previous Rx's Medication Instructions Recorded chlordiazePOXIDE HCl [Librium] 25 mg PO DIRECTED #22 capsule 08/18/16 cloNIDine HCL [Catapres] 0.1 mg PO BID #6 tab 08/18/16 Allergies Allergy/AdvReac Type Severity Reaction Status Date / Time No Known Allergies Allergy Verified 03/28/19 19:55 Review of Systems ROS Other: All systems not noted in ROS Statement are negative. <Umesh Garcia - Last Filed: 03/28/19 21:01> ROS Other: All systems not noted in ROS Statement are negative. <Karin Greenwood - Last Filed: 03/28/19 22:36> ROS Statement: Those systems with pertinent positive or pertinent negative responses have been documented in the HPI. 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, History of Any Multi-Drug Resistant Organisms: None Reported Past Surgical History: Section, Tonsillectomy Additional Past Surgical History / Comment(s): L oophorectomy due to cyst Past Anesthesia/Blood Transfusion Reactions: No Reported Reaction Past Psychological History: No Psychological Hx Reported Smoking Status: Current every day smoker Past Alcohol Use History: Abuse, Daily Past Drug Use History: None Reported - Past Family History Father History Unknown: Yes Mother Family Medical History: Cancer Additional Family Medical History / Comment(s): Mother had some kind of cancer but pt does not know what kind. She at age 65 or 67yrs. <Umesh Garcia - Last Filed: 03/28/19 21:01> General Exam Limitations: no limitations <Umesh Garcia - Last Filed: 03/28/19 21:01> Course Vital Signs 03/28/19 03/28/19 19:51 21:49 Temperature 98 F 98.2 F Pulse Rate 100 69 Respiratory 20 16 Rate Blood Pressure 132/84 114/70 O2 Sat by Pulse 96 100 Oximetry Medical Decision Making - Lab Data Result diagrams: 03/28/19 20:45 <Umesh Garcia - Last Filed: 03/28/19 21:01> - Lab Data Result diagrams: 03/28/19 20:45 03/28/19 20:45 <Karin Greenwood - Last Filed: 03/28/19 22:36> - Lab Data Lab Results 03/28/19 03/28/19 03/28/19 Range/Units 20:45 20:45 20:45 WBC 6.2 (3.8-10.6) k/uL RBC 4.35 (3.80-5.40) m/uL Hgb 14.5 (11.4-16.0) gm/dL Hct 42.9 (34.0-46.0) % MCV 98.7 (80.0-100.0) fL MCH 33.2 (25.0-35.0) pg MCHC 33.7 (31.0-37.0) g/dL RDW 13.1 (11.5-15.5) % Plt Count 283 (150-450) k/uL Neutrophils % 45 % Lymphocytes % 42 % Monocytes % 5 % Eosinophils % 3 % Basophils % 2 % Neutrophils # 2.8 (1.3-7.7) k/uL Lymphocytes # 2.6 (1.0-4.8) k/uL Monocytes # 0.3 (0-1.0) k/uL Eosinophils # 0.2 (0-0.7) k/uL Basophils # 0.1 (0-0.2) k/uL PT 9.6 (9.0-12.0) sec INR 0.9 (<1.2) APTT 26.4 (22.0-30.0) sec Sodium 136 L (137-145) mmol/L Potassium 4.2 (3.5-5.1) mmol/L Chloride 100 (98-107) mmol/L Carbon Dioxide 24 (22-30) mmol/L Anion Gap 12 mmol/L BUN 8 (7-17) mg/dL Creatinine 0.55 (0.52-1.04) mg/dL Est GFR (CKD-EPI)AfAm >90 (>60 ml/min/1.73 sqM) Est GFR (CKD-EPI)NonAf >90 (>60 ml/min/1.73 sqM) Glucose 109 H (74-99) mg/dL Calcium 9.5 (8.4-10.2) mg/dL Total Bilirubin 0.3 (0.2-1.3) mg/dL AST 110 H (14-36) U/L ALT 57 H (4-34) U/L Alkaline Phosphatase 101 (38-126) U/L Total Protein 8.1 (6.3-8.2) g/dL Albumin 5.1 H (3.5-5.0) g/dL Lipase 234 (23-300) U/L Urine Color Urine Appearance (Clear) Urine pH (5.0-8.0) Ur Specific [place] (1.001-1.035) Urine Protein (Negative) Urine Glucose (UA) (Negative) Urine Ketones (Negative) Urine Blood (Negative) Urine Nitrite (Negative) Urine Bilirubin (Negative) Urine Urobilinogen (<2.0) mg/dL Ur Leukocyte Esterase (Negative) 03/28/19 Range/Units Unknown WBC (3.8-10.6) k/uL RBC (3.80-5.40) m/uL Hgb (11.4-16.0) gm/dL Hct (34.0-46.0) % MCV (80.0-100.0) fL MCH (25.0-35.0) pg MCHC (31.0-37.0) g/dL RDW (11.5-15.5) % Plt Count (150-450) k/uL Neutrophils % % Lymphocytes % % Monocytes % % Eosinophils % % Basophils % % Neutrophils # (1.3-7.7) k/uL Lymphocytes # (1.0-4.8) k/uL Monocytes # (0-1.0) k/uL Eosinophils # (0-0.7) k/uL Basophils # (0-0.2) k/uL PT (9.0-12.0) sec INR (<1.2) APTT (22.0-30.0) sec Sodium (137-145) mmol/L Potassium (3.5-5.1) mmol/L Chloride (98-107) mmol/L Carbon Dioxide (22-30) mmol/L Anion Gap mmol/L BUN (7-17) mg/dL Creatinine (0.52-1.04) mg/dL Est GFR (CKD-EPI)AfAm (>60 ml/min/1.73 sqM) Est GFR (CKD-EPI)NonAf (>60 ml/min/1.73 sqM) Glucose (74-99) mg/dL Calcium (8.4-10.2) mg/dL Total Bilirubin (0.2-1.3) mg/dL AST (14-36) U/L ALT (4-34) U/L Alkaline Phosphatase (38-126) U/L Total Protein (6.3-8.2) g/dL Albumin (3.5-5.0) g/dL Lipase (23-300) U/L Urine Color Light Yellow Urine Appearance Clear (Clear) Urine pH 5.5 (5.0-8.0) Ur Specific [place] 1.003 (1.001-1.035) Urine Protein Negative (Negative) Urine Glucose (UA) Negative (Negative) Urine Ketones Negative (Negative) Urine Blood Negative (Negative) Urine Nitrite Negative (Negative) Urine Bilirubin Negative (Negative) Urine Urobilinogen <2.0 (<2.0) mg/dL Ur Leukocyte Esterase Negative (Negative) Disposition <Umesh Garcia D - Last Filed: 03/28/19 21:01> Is patient prescribed a controlled substance at d/c from ED?: No <Karin Greenwood P - Last Filed: 03/28/19 22:36> Clinical Impression: Abdominal pain Disposition: HOME SELF-CARE Condition: Stable Additional Instructions: I have a suspicion that her pain may be due to your gallbladder, I recommend a low fat diet. Small meals. Follow-up with her primary care provider for possible further imaging including ultrasound which you declined in the ER today. Return to the ER when necessary any worsening abdominal pain nausea, vomiting concern for dehydration or any new or concerning symptoms Referrals: Shravan Paul DO [Primary Care Provider] - 1-2 days
[2019-03-28 20:56] LABS: Basophils # (A) 0.1 k/uL (0-0.2); Basophils % (A) 2 %; Eosinophils # (A) 0.2 k/uL (0-0.7); Eosinophils % (A) 3 %; HCT 42.9 % (34.0-46.0); HGB 14.5 gm/dL (11.4-16.0); Lymphocytes # (A) 2.6 k/uL (1.0-4.8); Lymphocytes % (A) 42 %; MCH 33.2 pg (25.0-35.0); MCHC 33.7 g/dL (31.0-37.0); MCV 98.7 fL (80.0-100.0); Mean Platelet Volume 7.2; Monocytes # (A) 0.3 k/uL (0-1.0); Monocytes % (A) 5 %; Neutrophils # (A) 2.8 k/uL (1.3-7.7); Neutrophils % (A) 45 %; Platelet Count 283 k/uL (150-450); RBC 4.35 m/uL (3.80-5.40); RDW 13.1 % (11.5-15.5); WBC 6.2 k/uL (3.8-10.6)
[2019-03-28 20:57] LABS: Appearance,Urine Clear (Clear); Bilirubin,Urine Negative (Negative); Blood,Urine Negative (Negative); Color,Urine Light Yellow; Glucose,Urine (UA) Negative (Negative); Ketones,Urine Negative (Negative); Leukocyte Esterase,Urine Negative (Negative); Nitrite,Urine Negative (Negative); PH, Urine 5.5 (5.0-8.0); Protein,Urine Negative (Negative); Specific Gravity,Urine 1.003 (1.001-1.035); Urobilinogen,Urine <2.0 mg/dL (<2.0)
[2019-03-28 21:04] LABS: ALT 57 U/L (4-34); AST 110 U/L (14-36); African American GFR (CKD) >90 (>60 ml/min/1.73 sqM); Albumin 5.1 g/dL (3.5-5.0); Alkaline Phosphatase 101 U/L (38-126); Anion Gap 12 mmol/L; Blood Urea Nitrogen 8 mg/dL (7-17); Calcium 9.5 mg/dL (8.4-10.2); Carbon Dioxide 24 mmol/L (22-30); Chloride 100 mmol/L (98-107); Glucose 109 mg/dL (74-99); INR 0.9 (<1.2); Non-African American GFR(CKD) >90 (>60 ml/min/1.73 sqM); Partial Thromboplastin Time 26.4 sec (22.0-30.0); Potassium 4.2 mmol/L (3.5-5.1); Prothrombin Time 9.6 sec (9.0-12.0); Sodium 136 mmol/L (137-145); Total Bilirubin 0.3 mg/dL (0.2-1.3); Total Protein 8.1 g/dL (6.3-8.2)
--- NOTE | 2019-03-28 21:20 | CT ---
EXAMINATION TYPE: CT abdomen pelvis w con DATE OF EXAM: 03/28/2019 COMPARISON: None HISTORY: Right sided abdominal pain. CT DLP: 433.3 mGycm Automated exposure control for dose reduction was used. CONTRAST: Performed with IV Contrast, patient injected with 100ml mL of Isovue 300. Lung bases are clear. There is no pleural effusion. Heart size is normal. Liver spleen stomach pancreas appear normal. Bile ducts are not dilated. Gallbladder appears normal. There is no adrenal mass. Kidneys show satisfactory contrast opacification. There is no hydronephrosi s. Ureters are not dilated. Bladder distends smoothly. There is no inguinal hernia. There are numerou s phleboliths in the pelvis. I see no evidence of a pelvic mass. Uterus is anteverted. There is no free fluid in the pelvis. There is no mesenteric edema. There is no ascites or free air. Appendix is not seen. There is no sign of t hickened appendix. Lumbar spine is intact. Bony pelvis is intact. There is no evidence of bowel obstruction. IMPRESSION: There is some atherosclerotic vascular calcification. Appendix not seen. No sign of appendicitis. No renal stone or obstruction.
[2019-03-28 21:50] VITALS: RESP 16
[2019-03-28 22:39] VITALS: BP 158/83; PULSE 79; TEMP 98.5
== END 2019-03-28 22:35 | disposition home or self-care (01) ==
LOC: EC 19:43
DX: R10.9 Unspecified abdominal pain (principal); F17.200 Nicotine dependence, unspecified, uncomplicated; Z86.73 Personal history of transient ischemic attack (TIA), and cerebral infarction without residual deficits; Z90.721 Acquired absence of ovaries, unilateral
CPT/HCPCS: 36415; 80053; 83690; 85025; 85610; 85730; 81003; 74177; 99284; Q9967

== ENCOUNTER 2021-12-28 00:20 | Inpatient (IN) | payer BC ==
[2021-12-28 00:50] LABS: Basophils # (A) 0.1 k/uL (0-0.2); Basophils % (A) 1 %; Eosinophils # (A) 0.1 k/uL (0-0.7); Eosinophils % (A) 2 %; HCT 46.3 % (34.0-46.0); HGB 15.6 gm/dL (11.4-16.0); Lymphocytes # (A) 1.5 k/uL (1.0-4.8); Lymphocytes % (A) 23 %; MCH 33.1 pg (25.0-35.0); MCHC 33.7 g/dL (31.0-37.0); MCV 98.1 fL (80.0-100.0); Mean Platelet Volume 7.9; Monocytes # (A) 0.4 k/uL (0-1.0); Monocytes % (A) 6 %; Neutrophils # (A) 4.1 k/uL (1.3-7.7); Neutrophils % (A) 65 %; Platelet Count 293 k/uL (150-450); RBC 4.71 m/uL (3.80-5.40); RDW 12.8 % (11.5-15.5); WBC 6.3 k/uL (3.8-10.6)
[2021-12-28 01:00] LABS: INR 0.9 (<1.2); Partial Thromboplastin Time 28.1 sec (22.0-30.0); Prothrombin Time 9.9 sec (9.0-12.0)
[2021-12-28 01:01] LABS: ALT 51 U/L (4-34); AST 77 U/L (14-36); African American GFR (CKD) >90 (>60 ml/min/1.73 sqM); Albumin 5.3 g/dL (3.5-5.0); Alkaline Phosphatase 144 U/L (38-126); Anion Gap 21 mmol/L; Blood Urea Nitrogen 4 mg/dL (7-17); Calcium 9.5 mg/dL (8.4-10.2); Carbon Dioxide 16 mmol/L (22-30); Chloride 89 mmol/L (98-107); Glucose 97 mg/dL (74-99); Non-African American GFR(CKD) >90 (>60 ml/min/1.73 sqM); Potassium 4.8 mmol/L (3.5-5.1); Sodium 126 mmol/L (137-145); Total Bilirubin 0.5 mg/dL (0.2-1.3); Total Protein 8.4 g/dL (6.3-8.2)
--- NOTE | 2021-12-28 01:11 | CT ---
EXAMINATION TYPE: CT brain wo con DATE OF EXAM: 12/28/2021 COMPARISON: 01/20/2015 HISTORY: Weakness CT DLP: mGycm Automated exposure control for dose reduction was used. Images obtained of the brain with no contrast. Ventricles and sulci appear normal. There is no mass effect nor midline shift. No evidence of intracr anial hemorrhage. The calvarium is intact. Skull base is intact. There is normal aeration of the mast oid sinuses. IMPRESSION: Negative CT scan of the brain. No change.
--- NOTE | 2021-12-28 01:12 | XR ---
EXAMINATION TYPE: XR pelvis AP view DATE OF EXAM: 12/28/2021 COMPARISON: NONE HISTORY: Left hip pain TECHNIQUE: Single view FINDINGS: The pelvic ring is intact. Proximal femurs and hip joints are intact. Acetabula appear norm al. Sacroiliac joints are intact. IMPRESSION: Negative pelvis x-ray exam.
--- NOTE | 2021-12-28 01:14 | XR ---
EXAMINATION TYPE: XR chest 1V DATE OF EXAM: 12/28/2021 COMPARISON: 12/12/2015 HISTORY: Altered mental status TECHNIQUE: Single view FINDINGS: There is a 3.2 cm irregular mass in the right lower lobe. Left lung is clear. Heart and med iastinum are normal. There is slight increased density at the inferior right pulmonary hilum. This co uld be minimal adenopathy. There are chest leads. No pleural effusion. Bony thorax is intact. IMPRESSION: Right lower lobe mass. Follow-up is recommended. This appears new compared to old exam. T umor is possible.
[2021-12-28 01:19] LABS: Appearance,Urine Clear (Clear); Bilirubin,Urine Negative (Negative); Blood,Urine Negative (Negative); Color,Urine Colorless; Glucose,Urine (UA) Negative (Negative); Ketones,Urine Negative (Negative); Leukocyte Esterase,Urine Negative (Negative); Nitrite,Urine Negative (Negative); Protein,Urine Negative (Negative); Specific Gravity,Urine 1.005 (1.001-1.035); Urobilinogen,Urine <2.0 mg/dL (<2.0)
--- NOTE | 2021-12-28 01:30 | CT ---
EXAMINATION TYPE: CT angio head neck DATE OF EXAM: 12/28/2021 COMPARISON: None HISTORY: Weakness CT DLP: mGycm Automated exposure control for dose reduction was used. CONTRAST: There are Three-D postprocessed images. The contrast was Isovue 65 mL. There is normal branching pattern of the great vessels of the aortic arch. There is bilateral arteria l flow in the subclavian arteries. There is arterial flow in the common internal and external carotid arteries bilaterally. There is fairly wide patency of the carotid artery bifurcations. There is some mild plaque formation on the posterior wall right carotid artery bifurcation. There is arterial flow in both vertebral arteries. There is arterial flow in the vertebrobasilar artery system. Basilar art christy fills mostly from the left side. No evidence of carotid or vertebral artery aneurysm or dissectio n. There is arterial flow in the anterior middle and posterior cerebral arteries bilaterally. No mass ef fect. No evidence of intracranial aneurysm or buzz vascularity. No sign of cerebral edema. There is no rmal enhancement of the venous sinuses. No evidence of intracranial hemodynamic arterial stenosis. IMPRESSION: Negative CT angiogram of the neck. Negative CT angiogram of the brain.
[2021-12-28] MEDS ORDERED: SODIUM CHLORIDE 0.9% 1,000 ML IV ONE (01:31)
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
--- NOTE | 2021-12-28 02:08 | CT ---
EXAMINATION TYPE: CT chest wo con DATE OF EXAM: 12/28/2021 COMPARISON: HISTORY: Lung mass CT DLP: 183.2 mGycm Automated exposure control for dose reduction was used. Images obtained from the thoracic inlet to the diaphragm with no contrast. There is a 3 cm stellate mass without calcification in the right lower lobe. There is spiculation of the margins. No definite hilar mass. Heart size is normal. There is some coronary artery calcificatio n. No mediastinal adenopathy. Thoracic aorta is atheromatous. There is mild linear density right posterior lung base. Left lung is clear. No pneumothorax. No pleur al effusion. The thoracic spine is intact. No compression fracture. Sternum is intact. There is an additional 7 mm stellate density in the superior segment right lower lobe. IMPRESSION: Stellate mass right lower lobe suspicious for primary malignancy. Additional similar stellate density measuring 7 mm right lower lobe could be second primary tumor.
[2021-12-28] MEDS ORDERED: ASPIRIN 325 MG TAB PO STA (02:36)
[2021-12-28] MEDS ORDERED: LORazepam 2 MG/ML INJ IV PRN ×3 (02:59)
[2021-12-28] MEDS ORDERED: THIAMINE 100 MG/ML 2 ML VIAL IM STA (02:59)
[2021-12-28] MEDS: SODIUM CHLORIDE 0.9% 1,000 ML IV SCH ×2 (04:22→15:50)
[2021-12-28] MEDS: ATORVASTATIN 40 MG TAB PO SCH (08:55)
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
[2021-12-28 11:34] LABS: African American GFR (CKD) >90 (>60 ml/min/1.73 sqM); Anion Gap 9 mmol/L; Blood Urea Nitrogen 11 mg/dL (7-17); Calcium 9.3 mg/dL (8.4-10.2); Carbon Dioxide 29 mmol/L (22-30); Chloride 97 mmol/L (98-107); Glucose 95 mg/dL (74-99); Non-African American GFR(CKD) >90 (>60 ml/min/1.73 sqM); Potassium 5.4 mmol/L (3.5-5.1); Sodium 135 mmol/L (137-145)
[2021-12-28] MEDS: methylPREDNISolone SOD SUCCI 40 MG/ML 1 ML VIAL IV SCH ×2 (11:43→16:29)
[2021-12-28] MEDS: IPRATROPIUM-ALBUTEROL 3 ML NEB INHALATION SCH ×3 (11:45→20:02)
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
[2021-12-28] MEDS: NICOTINE 14MG/24HR PATCH TRANSDERM SCH (16:29)
[2021-12-28 16:48] LABS: Glucose,Whole Blood 181 mg/dL (70-110)
[2021-12-28] MEDS: THIAMINE 100 MG TAB PO SCH (17:12)
[2021-12-28 19:48] LABS: Glucose,Whole Blood 207 mg/dL (70-110)
[2021-12-28] MEDS: SYMBICORT 160-4.5 MCG INHALER INHALATION SCH (20:02)
[2021-12-28] MEDS: INSULIN ASPART (NovoLOG) 100 UNIT/ML VIAL SQ SCH (22:05)
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
[2021-12-29] MEDS: SODIUM CHLORIDE 0.9% 1,000 ML IV SCH ×2 (00:31→14:16)
[2021-12-29] MEDS: HEPARIN SODIUM,PORCINE/PF 5,000 UNIT/0.5 ML SYRINGE SQ SCH ×3 (00:31→16:40)
[2021-12-29] MEDS: methylPREDNISolone SOD SUCCI 40 MG/ML 1 ML VIAL IV SCH ×3 (00:31→16:45)
[2021-12-29 05:58] LABS: Glucose,Whole Blood 167 mg/dL (70-110)
[2021-12-29 06:07] LABS: Basophils % (A) 0 %; Eosinophils % (A) 0 %; HCT 42.2 % (34.0-46.0); HGB 14.4 gm/dL (11.4-16.0); Lymphocytes # (A) 0.5 k/uL (1.0-4.8); Lymphocytes % (A) 7 %; MCHC 34.2 g/dL (31.0-37.0); MCV 99.3 fL (80.0-100.0); Mean Platelet Volume 8.8; Monocytes # (A) 0.1 k/uL (0-1.0); Monocytes % (A) 2 %; Neutrophils # (A) 5.9 k/uL (1.3-7.7); Neutrophils % (A) 89 %; Platelet Count 276 k/uL (150-450); RBC 4.24 m/uL (3.80-5.40); RDW 12.9 % (11.5-15.5); WBC 6.6 k/uL (3.8-10.6)
[2021-12-29 06:12] LABS: African American GFR (CKD) >90 (>60 ml/min/1.73 sqM); Anion Gap 13 mmol/L; Blood Urea Nitrogen 11 mg/dL (7-17); Calcium 9.7 mg/dL (8.4-10.2); Carbon Dioxide 22 mmol/L (22-30); Chloride 96 mmol/L (98-107); Glucose 165 mg/dL (74-99); Non-African American GFR(CKD) >90 (>60 ml/min/1.73 sqM); Potassium 4.3 mmol/L (3.5-5.1); Sodium 131 mmol/L (137-145)
[2021-12-29] MEDS: INSULIN ASPART (NovoLOG) 100 UNIT/ML VIAL SQ SCH ×3 (06:57→16:41)
[2021-12-29] MEDS: THIAMINE 100 MG TAB PO SCH ×2 (06:57→16:45)
[2021-12-29] MEDS: IPRATROPIUM-ALBUTEROL 3 ML NEB INHALATION SCH ×3 (07:59→15:15)
[2021-12-29] MEDS: SYMBICORT 160-4.5 MCG INHALER INHALATION SCH (07:59)
[2021-12-29] MEDS ORDERED: ASPIRIN 325 MG TAB PO SCH (09:00)
[2021-12-29] MEDS: NICOTINE 14MG/24HR PATCH TRANSDERM SCH (09:28)
--- NOTE | 2021-12-29 09:45 | CA ---
Transthoracic Echo Report Name: Jil Villeda Age: 56 Gender: F : 1965 Exam Date: 12/28/2021 11:03 Exam Location: [facility] Ht (in): 62 Wt (lb): 103 Ordering Physician: Daron Chawla MD Attending/Referring Phys: [employer] Technician Archana Son RDCS Procedure CPT: Indications: per Dr Chawla. Cardiac Hx: Technical Quality: Fair Contrast 1: Total Dose (mL): Contrast 2: Total Dose (mL): MEASUREMENTS (Male / Female) Normal Values 2D ECHO LV Diastolic Diameter PLAX 3.3 cm 4.2 - 5.9 / 3.9 - 5.3 cm LV Systolic Diameter PLAX 2.1 cm IVS Diastolic Thickness 1.1 cm 0.6 - 1.0 / 0.6 - 0.9 cm LVPW Diastolic Thickness 1.0 cm 0.6 - 1.0 / 0.6 - 0.9 cm LV Relative Wall Thickness 0.6 M-MODE Aortic Root Diameter MM 3.1 cm LA Systolic Diameter MM 3.6 cm LA Ao Ratio MM 1.2 AV Cusp Separation MM 1.5 cm DOPPLER AV Peak Velocity 125.6 cm/s AV Peak Gradient 6.3 mmHg MV Area PHT 3.3 cm??? Mitral E Point Velocity 80.1 cm/s Mitral A Point Velocity 79.6 cm/s Mitral E to A Ratio 1.0 MV Deceleration Time 226.6 ms TR Peak Velocity 254.6 cm/s TR Peak Gradient 25.9 mmHg Right Ventricular Systolic Press 30.9 mmHg FINDINGS Left Ventricle Mildly increased left ventricular wall thickness. Normal left ventricular systolic function with no obvious regional wall motion abnormalities. Left ventricular ejection fraction is estimated at 55-60 %. Right Ventricle Normal right ventricular size and function. Right ventricular systolic pressure within normal limits. Right Atrium Normal right atrial size. Left Atrium Normal left atrial size. Mitral Valve Structurally normal mitral valve. Trace mitral regurgitation. Aortic Valve No aortic valve stenosis or regurgitation. Tricuspid Valve Pulmonic Valve Trace pulmonic regurgitation. Pericardium No pericardial effusion. Aorta Normal size aortic root and proximal ascending aorta. CONCLUSIONS Normal left ventricular dimension and systolic function Previewed by: Dr. Johnson Douglass MD (Electronically Signed) Final Date: 29 December 2021 09:44
[2021-12-29 11:07] LABS: Chol/HDL Ratio 1.59 Ratio; LDL Cholesterol,Calculated 65.8 mg/dL (0.0-131.0); VLDL Calculation 10.16 mg/dL (5.00-40.00)
[2021-12-29] MEDS ORDERED: LACTATED RINGERS 1,000 ML IV ONE (11:16)
--- NOTE | 2021-12-29 11:31 | CT ---
EXAMINATION TYPE: CT Chest neal Milner Protocol DATE OF EXAM: 12/29/2021 COMPARISON: 12/28/2021 HISTORY: pre-op bronch CT DLP: 604 mGycm, Automated exposure control for dose reduction was used. CONTRAST: None TECHNIQUE: Axial images were obtained at 5 mm thick sections. Reconstructed images are reviewed on [employer] computer in the coronal plane. FINDINGS: Portion of the thyroid visualized is normal. There is a mass in the posterior right lung base measuring 2.8 x 3.1 cm. Series 6 image 46. Additiona l small nodule measuring 0.6 cm in the right lower lobe. Series 6 image 39. Subcarinal lymph node is enlarged measuring 1.9 cm. There is a subtle suggestion this may be slightly hypodense within the center. Some enlarged right hilar adenopathy suspected. Lack of intravenous con trast causes limitation. The ascending aorta diameter at the level of the main pulmonary artery is 3.4 cm. The main pulmonary artery diameter at the bifurcation is 2.[address] sections are obtained through the upper abdomen. Abdomen is essentially unremarkable. IMPRESSIONS: 1. Right lower lobe lung mass. CT performed for bronchoscopy navigation. 2. Suspected subcarinal and possible right hilar adenopathy. Evaluation over somewhat limited with la ck of intravenous contrast.
[2021-12-29] MEDS ORDERED: PROPOFOL 10 MG/ML 20 ML VIAL IV ONE (12:00)
[2021-12-29] MEDS ORDERED: KETAMINE 10 MG/ML 20 ML VIAL ONE (12:00)
[2021-12-29] MEDS ORDERED: SUCCINYLCHOLINE CHLORIDE 200 MG/10 ML VIAL IV ONE (12:00)
[2021-12-29] MEDS ORDERED: MIDAZOLAM 2 MG/2 ML VIAL ONE (12:00)
[2021-12-29] MEDS ORDERED: LIDOCAINE 2% INJ 20 MG/ML (2 ML VIAL) ONE (12:00)
[2021-12-29] MEDS ORDERED: fentaNYL (PF) 50 MCG/ML 2 ML AMP ONE (12:00)
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
[2021-12-29] MEDS ORDERED: IV FLUID CONTINUATION 1,000 ML IV ONE ×2 (13:12)
--- NOTE | 2021-12-29 13:58 | XR ---
EXAMINATION TYPE: XR chest 1V portable DATE OF EXAM: 12/29/2021 COMPARISON: 12/28/2021 HISTORY: Post right bronchoscopy TECHNIQUE: Single frontal view of the chest is obtained. FINDINGS: There is a 3 cm mass in the right lower lobe. There is diffuse hyperinflation. There is a small pleural reflection within the right lower lobe laterally.. No focal pneumonia. No edema. Size normal. Atherosclerotic change aorta. IMPRESSION: 1. Small pleural reflection near the right costophrenic angle not seen on prior exam and representing approximately 1-2% right sided pneumothorax. Follow-up x-ray recommended. 2. Right lower lobe lung mass with diffuse COPD.
[2021-12-29] MEDS: ATORVASTATIN 40 MG TAB PO SCH (14:22)
[2021-12-29 14:23] LABS: Glucose,Whole Blood 153 mg/dL (70-110)
[2021-12-29 16:33] VITALS: BP 150/76; PULSE 68; RESP 15; TEMP 97.9
[2021-12-29 16:33] LABS: Glucose,Whole Blood 216 mg/dL (70-110)
--- NOTE | 2021-12-29 16:43 | P.PN ---
Subjective Progress Note Date: 12/29/21 Principal diagnosis: acute TIA, and the right lung mass This is a 56-year-old female patient with a known history of daily alcohol use, chronic and ongoing tobacco dependence 50 years, CVA/TIA, hypertension, chronic obstructive pulmonary disease. She was seen in our office back in 2017. Her FEV1 value is 57% of predicted. She was recommended Symbicort and Spiriva. She presented to the emergency room last evening with a several hour history of left upper extremity weakness and numbness. The weakness had resolved prior to her coming to the emergency room. Computed tomography scan of the brain was negative for acute intracranial process. CT angiogram of the head and neck revealed no significant stenosis. Chest x-ray did reveal a right lower lobe mass. Computed tomography scan of the chest revealed a stellate mass in the right lower lobe suspicious for malignancy. This was measuring 3 cm. There is an additional similar stellate density measuring 7 mm in the right lower lobe. We're consulted for the same. She is seen today in consultation in the emergency department. She is currently resting comfortably on a stretcher. Awake and alert in no acute distress. She denies any worsening shortness of breath, cough or congestion. No hemoptysis. No significant weight loss. Her lungs sounds do reveal bilateral end expiratory wheeze, diminished. Maintaining O2 saturations in the mid 90s on room air. Patient was reevaluated today on 12/29/21 patient is doing well, no further neurological symptoms, sodium is up to 131, patient is doing well, she is mario eduled to undergo bronchoscopy and biopsy of right lower lobe mass.patient was seen by neurology, and I believe the plan is to eventually send the patient home on aspirin and Plavix. Objective - Vital Signs Vital signs: Vital Signs Temp 97.9 F 12/29/21 16:00 Pulse 68 12/29/21 16:00 Resp 15 12/29/21 16:00 BP 150/76 12/29/21 16:00 Pulse Ox 92 L 12/29/21 16:00 FiO2 Intake & Output 12/28/21 12/29/21 12/29/21 18:59 06:59 18:59 Intake Total 880 600 Balance 880 600 Weight 43.5 kg Intake: IV 600 Intake, IV Titration 700 Amount Sodium Chloride 0.9% 1, 700 000 ml @ 100 mls/hr IV . Q10H MARIO Rx#:[id number] Oral 180 Other: Voiding Method Toilet Toilet # Voids 2 - Labs CBC & Chem 7: 12/29/21 05:24 12/29/21 05:24 Labs: Abnormal Lab Results - Last 24 Hours (Table) 12/28/21 12/28/21 12/28/21 Range/Units 01:12 16:46 19:46 Lymphocytes # (1.0-4.8) k/uL Sodium (137-145) mmol/L Chloride (98-107) mmol/L Creatinine (0.52-1.04) mg/dL Glucose (74-99) mg/dL POC Glucose (mg/dL) 181 H 207 H (70-110) mg/dL Cholesterol (0.00-200.00) mg/dL HDL Cholesterol (40.00-60.00) mg/dL Ur Random Sodium <20 L (40-220) mmol/L 12/29/21 12/29/21 12/29/21 Range/Units 05:24 05:24 05:55 Lymphocytes # 0.5 L (1.0-4.8) k/uL Sodium 131 L (137-145) mmol/L Chloride 96 L (98-107) mmol/L Creatinine 0.46 L (0.52-1.04) mg/dL Glucose 165 H (74-99) mg/dL POC Glucose (mg/dL) 167 H (70-110) mg/dL Cholesterol 205.00 H (0.00-200.00) mg/dL HDL Cholesterol 129.00 H (40.00-60.00) mg/dL Ur Random Sodium (40-220) mmol/L 12/29/21 12/29/21 Range/Units 14:22 16:31 Lymphocytes # (1.0-4.8) k/uL Sodium (137-145) mmol/L Chloride (98-107) mmol/L Creatinine (0.52-1.04) mg/dL Glucose (74-99) mg/dL POC Glucose (mg/dL) 153 H 216 H (70-110) mg/dL Cholesterol (0.00-200.00) mg/dL HDL Cholesterol (40.00-60.00) mg/dL Ur Random Sodium (40-220) mmol/L Assessment and Plan Assessment: Physical Exam: Revealed a 56-year-old female in no distress Head: Atraumatic normocephalic HEENT:[Neck is supple.] [No neck masses.] [No thyromegaly.] [No JVD.] Chest: [diminished breath sounds at the bases no rhonchi and no wheezes Cardiac Exam: [Normal S1 and S2, no S3 gallop, no murmur.] Abdomen: [Soft, nontender, no megaly, no rebound, no guarding, normal bowel sounds.] Extremities: [No clubbing, no edema, no cyanosis.] Neurological Exam: [No focal neurologic deficit.]alert oriented 3 Psychiatric: Normal mood affect and normal mental status examination. Skin: No rashes Plan: impression: Acute TIA Right lower lobe mass highly suggestive of bronchogenic carcinoma Underlying COPD, FEV1 in the range of 57% [id number] smoking history Daily alcohol use Previous history of TIA Recommendation: Continue present supportive care measures Continue bronchodilators Continue CIWA protocol Continue aspirin and statin and Plavix as recommended by neurology Patient will have bronchoscopy/navigational bronchoscopy today and biopsy of right lower lobe mass After the biopsy the patient could be considered for discharge home if agreeable with other consultants and admitting physician Time with Patient: Less than 30
--- NOTE | 2021-12-29 20:16 | OP ---
OPERATIVE REPORT PROCEDURES PERFORMED: Navigational bronchoscopy, multiple transbronchial biopsies of right lower lobe mass, multiple brushings of right lower lobe mass, transbronchial needle aspiration of right lower lobe mass, and bronchoalveolar lavage of medial segment of right lower lobe. PREOPERATIVE DIAGNOSIS: Right lower lobe mass, highly suspicious for bronchogenic carcinoma. POSTOPERATIVE DIAGNOSIS: Right lower lobe mass, highly suspicious for bronchogenic carcinoma. ANESTHESIA USED: The patient had general anesthesia, this was done by Dr. Mcfarlane. DESCRIPTION OF PROCEDURE: The patient had the preoperative computed tomography scan of the chest using the Veran protocol. CAT scan images were reviewed. The right lower lobe mass was identified, mapping was done, and CAT scan images were uploaded into a USB and then into the [employer] navigational tower. The patient was intubated by [employer], and she was connected to mechanical ventilation. An adapter was applied. Then, the scope was advanced through the endotracheal tube, and the markings were done of the main megan and the left secondary megan. Then, the bronchoscope was advanced down into the area of the right lower lobe and followed the navigational findings on the screen until the right lower lobe was identified. Multiple transbronchial biopsies were done from the lesion. After transbronchial biopsies were done, we used a needle with 3 brushes, and the area was brushed using navigational approach. After brushing of the mass, we used a Veran needle, and it was advanced into the area of the right lower lobe mass, and multiple aspirations were done from the mass itself. Then, lavage of the medial segment of the right lower lobe was done. Procedure was well tolerated. No evidence of any immediate complications. Bleeding was extremely minimal. Then, the bronchoscope was pulled out of the airways, re-examined the airways fully, and there was no evidence of any significant bleeding or any endobronchial lesions. MMODL / IJN: [id number] /
--- NOTE | 2022-01-04 11:02 | CDI ---
ocumentation Clarification Form Date: 01/04/22 From: Mago Avila Admit Date: 12/28/2021 02:37:00 AM Patient Name: Jil Villeda Visit Number: [id number] Discharge Date: 12/29/2021 05:21:00 PM ATTENTION: The Clinical Documentation Specialists (CDI) and [facility] Coding Staff appreciate your assistance in clarifying documentation. Please respond to the clarification below the line at the bottom and electronically sign. The CDI & [facility] Coding staff will review the response and follow-up if needed. Please note: Queries are made part of the Legal Health Record. If you have any questions, please contact the author of this message via ITS. Dr. 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 Coding guidelines do not allow coding professionals to code based on pathology results; therefore, clarification is requested. History/risk factors: TIA, COPD, HX CVA/TIA, smoker Clinical Indicators: Right lung mass on CXR. Treatment: Navigational bronchoscopy, multiple transbronchial biopsies of right lower lobe mass, multiple brushings of right lower lobe mass, transbronchial needle aspiration of right lower lobe mass, and bronchoalveolar lavage of medial segment of right lower lobe. 

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
== END 2021-12-29 17:21 | disposition home or self-care (01) | DRG 69 ==
LOC: EC 00:20 → 3SCARD 02:37
PROVIDERS: ADMIT Hospitalist; ATTEND Hospitalist
PROC: 0BDF8ZX Extraction of Right Lower Lung Lobe, Via Natural or Artificial Opening Endoscopic, Diagnostic (ICD-10-PCS; principal; 2021-12-29 07:30)
PROC: 0BD68ZX Extraction of Right Lower Lobe Bronchus, Via Natural or Artificial Opening Endoscopic, Diagnostic (ICD-10-PCS; principal; 2021-12-29 07:30)
PROC: 0B968ZZ Drainage of Right Lower Lobe Bronchus, Via Natural or Artificial Opening Endoscopic (ICD-10-PCS; principal; 2021-12-29 07:30)
DX: G45.9 Transient cerebral ischemic attack, unspecified (principal); E87.1 Hypo-osmolality and hyponatremia; S06.0X9A Concussion with loss of consciousness of unspecified duration, initial encounter; C34.31 Malignant neoplasm of lower lobe, right bronchus or lung; J44.9 Chronic obstructive pulmonary disease, unspecified; I10 Essential (primary) hypertension; R07.89 Other chest pain; S00.93XA Contusion of unspecified part of head, initial encounter; F10.10 Alcohol abuse, uncomplicated; F17.210 Nicotine dependence, cigarettes, uncomplicated; Z71.6 Tobacco abuse counseling; Z86.73 Personal history of transient ischemic attack (TIA), and cerebral infarction without residual deficits; V40.5XXA Car driver injured in collision with pedestrian or animal in traffic accident, initial encounter; Y92.481 Parking lot as the place of occurrence of the external cause
CPT/HCPCS: 31623; 31624; 31625; 31627; 31629; 36415; 70450; 70496; 70498; 71045; 71250; 72170; 80048; 80053; 80061; 81003; 83930; 83935; 84300; 84484; 85025; 85610; 85730; 87070; 87102; 87116; 87205; 87206; 87252; 87496; 87498; 87502; 87529; 87634; 87798; 88104; 88108; 88305; 88341; 88342; 93005; 93306; 94640; 96360; 96372; 99285

== ENCOUNTER → 2022-01-21 | Outpatient (CLI) | payer BC ==
--- NOTE | 2022-01-23 08:49 | PE ---
EXAMINATION TYPE: PET CT fusion skull to thigh DATE OF EXAM: 01/21/2022 COMPARISON: Prior chest CT December 28, 2021. CT abdomen and pelvis March 28, 2019 HISTORY: Abnormal CT, solitary pulmonary nodule. TECHNIQUE: Following the intravenous administration of 11.2 mCi of F-18 FDG, whole body images are p erformed from the skull base to the midthigh. Images are reviewed on the computer in the coronal, ax ial, and sagittal planes. Reconstructed rotating images are created on independent workstation and r eviewed on the computer. A localization and attenuation correction CT is performed in conjunction w ith the PET scan. Blood glucose level equals 112. SCAN: Initial Scan FINDINGS: SKULL BASE AND NECK: No areas of abnormal hypermetabolic uptake. CHEST, MEDIASTINUM, AND HILAR REGION: [id number] underlying emphysematous changes are redemonst rated. Stable 8 x 6 mm spiculated nodule or scarring posterior right upper lobe which is ametabolic a xial image 59. Additional scattered small right-sided scars or nodules redemonstrated including 9 x 5 mm right lower lobe ametabolic nodule axial image 99. Right lower lobe larger nodule measuring 3.0 x 2.9 cm axial image 108 has max SUV of 8.75. Right hilar adenopathy measuring approximately 2.2 x 1.5 cm with suprahilar extension has max SUV 7.6 6 on axial image 94. Abnormal 2.1 x 2.1 cm hypermetabolic subcarinal lymph node has max SUV 8.29 on axial image 84. ABDOMEN AND PELVIS: No adrenal masses. Normal excretion. Mild nonspecific bowel uptake in the transve rse colon. No abnormal hypermetabolic uptake OSSEOUS STRUCTURES: Mild abnormal hypermetabolic uptake anterior right second rib has max SUV less th an 2.5. Finding correlates with healing fracture. No additional areas of abnormal hypermetabolic upta ke noted. OTHER CT: Three-vessel coronary artery calcification is redemonstrated. Patient has little intra-abdominal fat. There are diverticula throughout the colon. There are numerou s scattered pelvic phleboliths. Uterus surgically absent or markedly atrophic. IMPRESSION: Confirmation of right lower lobe 3.0 cm suspicious mass or neoplasm with right hilar and subcarinal adenopathy. No distal metastatic disease. Healing anterior right second rib fracture noted . Correlate clinically.
== END | disposition home or self-care (01) ==
LOC: RADPETMAIN 11:50
PROVIDERS: ATTEND Internal Medicine
DX: R91.1 Solitary pulmonary nodule (principal); S22.31XA Fracture of one rib, right side, initial encounter for closed fracture
CPT/HCPCS: 78815; A9552

== ENCOUNTER → 2022-02-03 | Outpatient (CLI) | payer BC ==
--- NOTE | 2022-02-04 11:55 | MR ---
EXAMINATION TYPE: MR brain wo/w con DATE OF EXAM: 02/03/2022 COMPARISON: MR brain 05/19/2014, PET/CT 01/21/2022 CT 12/28/2021 HISTORY: Headaches, lung cancer. TECHNIQUE: Multiplanar, multisequence images of the brain and brainstem is performed without and with IV contras t, utilizing 4.5 mL intravenous Gadavist . FINDINGS: Diffusion weighted images demonstrate no evidence of a recent infarct or other diffusion ab normality. There is no extra-axial fluid collection. There is scattered deep white matter high T2 si gnal. The ventricular system and cisternal spaces are normal in size and appearance. The brain volu me is age appropriate. Midline structures demonstrate normal morphology. The craniocervical junction appears within normal limits. Post contrast images demonstrate no abnormal enhancement. The dural venous sinuses appear pa tent. The visualized sinuses are clear and the globes are intact. IMPRESSION: 1. No evidence of intracranial mass, acute/subacute infarct, or abnormal enhancement. 2. Nonspecific white matter changes, likely related to small vessel ischemic disease
== END | disposition home or self-care (01) ==
LOC: RADMRIMAIN 18:47
PROVIDERS: ATTEND Internal Medicine
DX: C34.31 Malignant neoplasm of lower lobe, right bronchus or lung (principal)
CPT/HCPCS: 70553; A9585

== ENCOUNTER → 2022-04-18 | Outpatient (CLI) | payer BC ==
[2022-04-18 14:52] LABS: African American GFR (CKD) >90 (>60 ml/min/1.73 sqM); Blood Urea Nitrogen 18 mg/dL (7-17); Non-African American GFR(CKD) >90 (>60 ml/min/1.73 sqM)
--- NOTE | 2022-04-19 09:51 | CT ---
EXAMINATION TYPE: CT chest abdomen w con DATE OF EXAM: 04/18/2022 INDICATION: Lung CA COMPARISON: PET CT 01/21/2022, CT chest 12/28/2021 CT DLP: 390.9 mGycm CONTRAST: Performed with Oral Contrast and with IV Contrast, patient injected with 100 cc mL of Isovue 300. TECHNIQUE: Axial images at 5 mm thick sections. Reconstructed images in the coronal plane. Delayed images through the kidneys. FINDINGS: CT CHEST: Portion of the thyroid visualized is normal. No suspicious lung nodules or focal infiltrates are present. There is a dense consolidation through the right lower lobe. Large mass or pneumonia considered. Prev ious right lower lobe mass is not identified and likely obscured by the large mass currently present. There may be a necrotic subcarinal lymph node present. Some right hilar adenopathy is likely present to correspond to the PET CT. The ascending aorta diameter at the level of the main pulmonary artery is 3.1 cm. The main pulmonary artery diameter at the bifurcation is 2.[address] ABDOMEN: Liver: Normal. There may be some mild hepatomegaly at 16.2 cm. Normal less than 15.5 cm. Spleen: Normal Pancreas: Normal Adrenal glands: The adrenal glands is limitedly visualized are normal. Gallbladder: Partially decompressed. Kidneys: No masses are evident. No hydronephrosis is present. No cysts are present. Delayed images were obtained through the kidneys, which remain unremarkable. Aorta: Vascular calcification is within the aorta. Inferior vena cava: Normal. There are some fluid-filled small bowel loops. Majority small bowel loops contain oral contrast. [place] n appears unremarkable. There are loops of bowel which are incompletely distended or lack oral contra st limiting their evaluation. Pelvis is out of the [id number]. IMPRESSIONS: 1. Large opacification in the right lower lobe suspicious for diffuse neoplastic infiltration. Pneumo gregory potentially could be considered within the differential. 2. Suspected necrotic subcarinal lymph node with some right hilar adenopathy remaining present.
== END | disposition home or self-care (01) ==
LOC: RADCTMAIN 14:01
PROVIDERS: ATTEND Internal Medicine
DX: C34.31 Malignant neoplasm of lower lobe, right bronchus or lung (principal); J44.9 Chronic obstructive pulmonary disease, unspecified; I67.89 Other cerebrovascular disease; R91.8 Other nonspecific abnormal finding of lung field; Z71.3 Dietary counseling and surveillance
CPT/HCPCS: 82565; 84520; 71260; 74160; 36415; Q9967 ×2

== ENCOUNTER 2022-04-21 16:56 | Inpatient (IN) | payer BC ==
--- NOTE | 2022-04-21 18:11 | ED ---
General Adult HPI - General Chief complaint: Shortness of Breath Stated complaint: post op, hypotension, abn labs Time Seen by Provider: 04/21/22 17:27 Source: patient Mode of arrival: ambulatory Limitations: no limitations - History of Present Illness Initial comments: This patient is a 56-year-old woman with history of stage III lung cancer, recently completed chemo and radiation therapies, start of this month. The patient states she has been feeling generalized weakness and fatigue since early April. She had follow-up with her oncologist today Dr. Joss Brannon, who saw her today in clinic and sent her here for admission for possible pneumonia. Recent computed tomography scan of the chest did show some inflammation at the right lung base, possibility of pneumonia versus post radiation change. The patient also reportedly hypotensive in the clinic 80/50. Patient is denying fever or chills. No productive cough though she does have chronic cough going back months. No hemoptysis. No change in urination or bowel movements. No leg pain or swelling. Onset/Timin -: week(s) Severity scale (1-10): 0 Improves with: none Worsens with: none Associated Symptoms: cough, malaise, weakness Treatments Prior to Arrival: none - Related Data Previous Rx's Medication Instructions Recorded Albuterol Sulfate [Albuterol 2 puff PO Q6H #8.5 gm 04/23/22 Sulfate Hfa] Budesonide/Formoterol Fumarate 1 puff INHALATION BID #10.2 gm 04/23/22 [Symbicort 160-4.5 Mcg Inhaler] Famotidine [Pepcid] 20 mg PO BID #60 tab 04/23/22 cefUROXime axetiL [Ceftin] 500 mg PO BID #6 tab 04/23/22 predniSONE 10 mg PO DAILY #30 tab 04/23/22 Allergies Allergy/AdvReac Type Severity Reaction Status Date / Time No Known Allergies Allergy Verified 04/21/22 18:13 Review of Systems ROS Statement: Those systems with pertinent positive or pertinent negative responses have been documented in the HPI. ROS Other: All systems not noted in ROS Statement are negative. Constitutional: Reports: weakness. Denies: fever, chills Respiratory: Reports: cough. Denies: dyspnea, wheezes, hemoptysis Cardiovascular: Denies: chest pain, palpitations, edema Gastrointestinal: Denies: abdominal pain, vomiting, diarrhea Genitourinary: Denies: dysuria, hematuria Musculoskeletal: Denies: back pain Skin: Denies: rash Neurological: Denies: headache, weakness, numbness Past Medical History Past Medical History: Cancer, COPD, CVA/TIA Additional Past Medical History / Comment(s): COPD, spastic colon, CVA/TIA. LUNG CANCER-RLL NSCLC. History of Any Multi-Drug Resistant Organisms: None Reported Past Surgical History: Section, Tonsillectomy Additional Past Surgical History / Comment(s): L oophorectomy due to cyst Past Anesthesia/Blood Transfusion Reactions: No Reported Reaction Past Psychological History: No Psychological Hx Reported Smoking Status: Current every day smoker - Past Family History Father History Unknown: Yes Family Medical History: No Reported History Additional Family Medical History / Comment(s): at early age from gunshot Mother Family Medical History: Cancer Additional Family Medical History / Comment(s): Mother had some kind of cancer but pt does not know what kind. She at age 65 or 67yrs. General Exam Limitations: no limitations General appearance: alert, in no apparent distress Head exam: Present: atraumatic, normocephalic Eye exam: Present: normal appearance. Absent: scleral icterus, conjunctival injection Neck exam: Present: normal inspection Respiratory exam: Present: normal lung sounds bilaterally. Absent: respiratory distress, wheezes, rales, rhonchi, stridor, accessory muscle use Cardiovascular Exam: Present: regular rate, normal rhythm, normal heart sounds. Absent: systolic murmur, diastolic murmur, rubs, gallop GI/Abdominal exam: Present: soft. Absent: distended, tenderness, guarding, rebound, rigid, mass Extremities exam: Present: normal inspection, normal capillary refill. Absent: pedal edema, calf tenderness Back exam: Present: normal inspection. Absent: CVA tenderness (R), CVA tenderness (L) Neurological exam: Present: alert Skin exam: Present: warm, dry, intact, normal color. Absent: rash Course Vital Signs 04/21/22 04/21/22 04/21/22 17:20 17:48 20:00 Temperature 98 F Pulse Rate 94 90 105 H Respiratory 16 20 18 Rate Blood Pressure 105/72 97/71 106/77 O2 Sat by Pulse 93 L 93 L 93 L Oximetry 04/21/22 04/21/22 20:11 21:31 Temperature Pulse Rate 100 Respiratory 18 18 Rate Blood Pressure 106/71 O2 Sat by Pulse 94 L Oximetry EKG Findings - EKG Results: EKG: interpreted by ANAYA, sinus rhythm (Rate 91 bpm), normal axis, normal QRS, normal ST/T, no acute changes Medical Decision Making - Medical Decision Making Patient's 56-year-old woman here with generalized weakness and fatigue. She is sent from her oncologist (Dr. Joss Brannon) office to have an admission with concern about possibility of developing pneumonia versus other electrolyte abnormality. The patient's studies here do reveal hyponatremia. There is no obvious pneumonia. Patient will be admitted to have sodium replacement. Cultures are pending, will hold antibiotics, as the patient is not neutropenic. Case discussed with the admitting physician and patient feeling a little better than on arrival. Chest x-ray was obtained which I interpreted as not showing pulmonary infiltrate or cardiomegaly. Was pt. sent in by a medical professional or institution? @ -Sent by patient's oncologist Did you speak to anyone other than the patient for history? @ -No Did you review nursing and triage notes? @ -[agree Were old charts reviewed? @ -[Past medical record Differential Diagnosis? @ -[Differential Weakness: Hypoglycemia, shock, sepsis, hyponatremia, anemia, infection, VT, ETOH, adverse medicine reaction, this is not meant to be an all-inclusive list. EKG interpreted by me (3pts min.)? @ -[See chart X-rays interpreted by me (1pt min.)? @ -[See chart CT interpreted by me (1pt min.)? @ -[none] U/S interpreted by me (1pt. min.)? @ -[none] What testing was considered but not performed? (CT, X-rays, U/S, labs)? Why? @ [ What meds were considered but not given? Why? @ -[none] Did you discuss the management of the patient with other professionals? @ -[Case discussed with the admitting physician as well as the patient's oncologist Did you reconcile home meds? @ -[none] Was smoking cessation discussed for >3mins.? @ -[none] Was critical care preformed (if so, how long)? @ -[none] Were there social determinants of health that impacted care today? How? (Homelessness, low income, unemployed, alcoholism, drug addiction, transportation, low edu. Level, literacy, decrease access to med. care, shelter, rehab)? @ -[no Was there de-escalation of care discussed even if they declined? (Discuss DNR or withdrawal of care, Hospice)? @ -[no What co-morbidities impacted this encounter? (DM, HTN, Smoking, COPD, CAD, Cancer, CVA, Hep., AIDS, mental health diagnosis, sleep apnea, morbid obesity)? @ -[Lung cancer Was patient admitted / discharged? @ -[Admitted Undiagnosed new problem with uncertain prognosis? @ -[none] Drug Therapy requiring intensive monitoring for toxicity (Heparin, Nitro, Insulin, Cardizem)? @ -[none] Were any procedures done? @ -[none] Diagnosis/symptom? @ -[1. Acute hyponatremia 2. Generalized weakness and fatigue, acute Acute, or Chronic, or Acute on Chronic? @ -[default] Uncomplicated (without systemic symptoms) or Complicated (systemic symptoms)? @ -[Uncomplicated Side effects of treatment? @ -[none] Exacerbation, Progression, or Severe Exacerbation] @ -[no] Poses a threat to life or bodily function? @ -[no] - Lab Data Result diagrams: 04/21/22 18:38 04/23/22 05:17 Lab Results 04/21/22 04/21/22 04/21/22 Range/Units 11:58 18:38 18:38 WBC 13.0 H (3.8-10.6) k/uL RBC 3.98 (3.80-5.40) m/uL Hgb 13.4 (11.4-16.0) gm/dL Hct 39.5 (34.0-46.0) % MCV 99.3 (80.0-100.0) fL MCH 33.7 (25.0-35.0) pg MCHC 33.9 (31.0-37.0) g/dL RDW 16.2 H (11.5-15.5) % Plt Count 461 H (150-450) k/uL MPV 7.2 Neutrophils % 91 % Lymphocytes % 2 % Monocytes % 5 % Eosinophils % 0 % Basophils % 0 % Neutrophils # 11.8 H (1.3-7.7) k/uL Lymphocytes # 0.3 L (1.0-4.8) k/uL Monocytes # 0.7 (0-1.0) k/uL Eosinophils # 0.0 (0-0.7) k/uL Basophils # 0.0 (0-0.2) k/uL Anisocytosis Slight Macrocytosis Slight PT 11.9 (9.0-12.0) sec INR 1.2 H (<1.2) APTT 28.3 (22.0-30.0) sec Sodium (137-145) mmol/L Potassium (3.5-5.1) mmol/L Chloride (98-107) mmol/L Carbon Dioxide (22-30) mmol/L Anion Gap mmol/L BUN (7-17) mg/dL Creatinine (0.52-1.04) mg/dL Est GFR (CKD-EPI)AfAm (>60 ml/min/1.73 sqM) Est GFR (CKD-EPI)NonAf (>60 ml/min/1.73 sqM) Glucose (74-99) mg/dL Plasma Lactic Acid [place] (0.7-2.0) mmol/L Calcium (8.4-10.2) mg/dL Total Bilirubin (0.2-1.3) mg/dL AST (14-36) U/L ALT (4-34) U/L Alkaline Phosphatase (38-126) U/L Total Protein (6.3-8.2) g/dL Albumin (3.5-5.0) g/dL Procalcitonin (0.02-0.09) ng/mL Urine Color Light Yellow Urine Appearance Clear (Clear) Urine pH 6.5 (5.0-8.0) Ur Specific [place] 1.005 (1.001-1.035) Urine Protein Negative (Negative) Urine Glucose (UA) 2+ H (Negative) Urine Ketones Negative (Negative) Urine Blood Negative (Negative) Urine Nitrite Negative (Negative) Urine Bilirubin Negative (Negative) Urine Urobilinogen <2.0 (<2.0) mg/dL Ur Leukocyte Esterase Negative (Negative) 04/21/22 04/21/22 04/21/22 Range/Units 18:38 18:38 18:38 WBC (3.8-10.6) k/uL RBC (3.80-5.40) m/uL Hgb (11.4-16.0) gm/dL Hct (34.0-46.0) % MCV (80.0-100.0) fL MCH (25.0-35.0) pg MCHC (31.0-37.0) g/dL RDW (11.5-15.5) % Plt Count (150-450) k/uL MPV Neutrophils % % Lymphocytes % % Monocytes % % Eosinophils % % Basophils % % Neutrophils # (1.3-7.7) k/uL Lymphocytes # (1.0-4.8) k/uL Monocytes # (0-1.0) k/uL Eosinophils # (0-0.7) k/uL Basophils # (0-0.2) k/uL Anisocytosis Macrocytosis PT (9.0-12.0) sec INR (<1.2) APTT (22.0-30.0) sec Sodium 123 L (137-145) mmol/L Potassium 3.6 (3.5-5.1) mmol/L Chloride 93 L (98-107) mmol/L Carbon Dioxide 22 (22-30) mmol/L Anion Gap 8 mmol/L BUN 6 L (7-17) mg/dL Creatinine 0.33 L (0.52-1.04) mg/dL Est GFR (CKD-EPI)AfAm >90 (>60 ml/min/1.73 sqM) Est GFR (CKD-EPI)NonAf >90 (>60 ml/min/1.73 sqM) Glucose 96 (74-99) mg/dL Plasma Lactic Acid [place] 1.3 (0.7-2.0) mmol/L Calcium 7.7 L (8.4-10.2) mg/dL Total Bilirubin 0.4 (0.2-1.3) mg/dL AST 62 H (14-36) U/L ALT 41 H (4-34) U/L Alkaline Phosphatase 176 H (38-126) U/L Total Protein 5.3 L (6.3-8.2) g/dL Albumin 2.8 L (3.5-5.0) g/dL Procalcitonin 0.24 H (0.02-0.09) ng/mL Urine Color Urine Appearance (Clear) Urine pH (5.0-8.0) Ur Specific [place] (1.001-1.035) Urine Protein (Negative) Urine Glucose (UA) (Negative) Urine Ketones (Negative) Urine Blood (Negative) Urine Nitrite (Negative) Urine Bilirubin (Negative) Urine Urobilinogen (<2.0) mg/dL Ur Leukocyte Esterase (Negative) Disposition Clinical Impression: Hyponatremia Disposition: ADMITTED IP TO THIS HOSP Is patient prescribed a controlled substance at d/c from ED?: No
[2022-04-21 19:06] LABS: ALT 41 U/L (4-34); AST 62 U/L (14-36); African American GFR (CKD) >90 (>60 ml/min/1.73 sqM); Albumin 2.8 g/dL (3.5-5.0); Alkaline Phosphatase 176 U/L (38-126); Anion Gap 8 mmol/L; Blood Urea Nitrogen 6 mg/dL (7-17); Calcium 7.7 mg/dL (8.4-10.2); Carbon Dioxide 22 mmol/L (22-30); Chloride 93 mmol/L (98-107); Glucose 96 mg/dL (74-99); Non-African American GFR(CKD) >90 (>60 ml/min/1.73 sqM); Potassium 3.6 mmol/L (3.5-5.1); Sodium 123 mmol/L (137-145); Total Bilirubin 0.4 mg/dL (0.2-1.3); Total Protein 5.3 g/dL (6.3-8.2)
[2022-04-21 19:15] LABS: INR 1.2 (<1.2); Partial Thromboplastin Time 28.3 sec (22.0-30.0); Prothrombin Time 11.9 sec (9.0-12.0)
[2022-04-21 19:22] LABS: Anisocytosis Slight; Basophils % (A) 0 %; Eosinophils % (A) 0 %; HCT 39.5 % (34.0-46.0); HGB 13.4 gm/dL (11.4-16.0); Lymphocytes # (A) 0.3 k/uL (1.0-4.8); Lymphocytes % (A) 2 %; MCH 33.7 pg (25.0-35.0); MCHC 33.9 g/dL (31.0-37.0); MCV 99.3 fL (80.0-100.0); Macrocytosis Slight; Mean Platelet Volume 7.2; Monocytes # (A) 0.7 k/uL (0-1.0); Monocytes % (A) 5 %; Neutrophils # (A) 11.8 k/uL (1.3-7.7); Neutrophils % (A) 91 %; Platelet Count 461 k/uL (150-450); RBC 3.98 m/uL (3.80-5.40); RDW 16.2 % (11.5-15.5)
--- NOTE | 2022-04-21 19:29 | XR ---
EXAMINATION: XR chest 2V: 04/21/2022 6:52 PM CLINICAL INDICATION: Fever TECHNIQUE: Departmental protocol COMPARISON: Topogram from CT 04/18/2022 FINDINGS: Right middle lobe and right lower lobe airlessness is similar to that seen at time of 04/18/2022 CT. Right upper and midlung zones are well expanded and clear. Right pleural space is negative for pneumothorax, but exclusion of right pleural effusion cannot be m jose ramon radiographically. Left upper, mid, and lower lung zone are well-expanded and clear. Left pleural space is negative for pneumothorax and pleural effusion. The cardiac silhouette is not enlarged. The skeletal structures and soft tissues are negative for acute findings. IMPRESSION: Stable abnormalities when compared with the CT 04/18/2022. No new process evident.
[2022-04-21] MEDS ORDERED: SODIUM CHLORIDE 0.9% 1,000 ML IV STA (20:40)
[2022-04-21] MEDS ORDERED: SODIUM CHLORIDE 0.9% 500 ML 800 ML IV STA (20:40)
[2022-04-21] MEDS ORDERED: NALOXONE 0.4 MG/ML 1 ML VIAL IV PRN (20:43)
[2022-04-21] MEDS ORDERED: ACETAMINOPHEN TAB 325 MG TAB PO PRN (20:43)
[2022-04-21] MEDS: SODIUM CHLORIDE 0.9% 1,000 ML IV SCH (21:15)
[2022-04-21] MEDS: FAMOTIDINE 20 MG TAB PO SCH (21:18)
--- NOTE | 2022-04-21 21:37 | P.HPIM ---
History of Present Illness H&P Date: 04/21/22 Chief Complaint: Short of breath This is a pleasant 56-year-old patient who follows with Dr. Scott Yost. Patient was diagnosed with lung cancer, non-small cell. Patient since then has received chemotherapy and radiation treatment. Stage III. Patient was sent in by her oncologist for decrease appetite weight loss feeling cold dizzy lightheaded cough no sputum production. Short of breath and wheezing. Distant cough. Not really able to expectorate. Patient's and 2 daughters at the bedside in the ER. Patient is a smoker. Patient also been losing sign ificant weight. Rather weak and tired. Review of systems: GEN.: Weight loss decrease appetite tired EYES: None HEENT: None NECK: None RESPIRATORY: As above] CARDIOVASCULAR: None GASTROINTESTINAL: None GENITOURINARY: Some joint pains MUSCULOSKELETAL: Loss muscle mass and weakness] LYMPHATICS: None HEMATOLOGICAL: None PSYCHIATRY: None NEUROLOGICAL: None Past medical history to include: Non-small cell lung cancer, COPD, spastic colon, Social history: Lives with her . Patient averaged 2-3 packs a day most of October. Now down to half a pack a day. Patient drinks 2-4 beers a day. 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 EYES: [Pupils equal. Conjunctiva pale. HEENT: External appearance of nose and ears normal, oral cavity grossly normal. NECK: JVD not raised; masses not palpable. HEART: First and second heart sounds are normal; no edema. LUNGS: Respiratory rate increased; decreased breath sounds wheezing coarse breath sounds. ABDOMEN: Soft, nontender, liver spleen not palpable, no masses palpable. PSYCH: Alert and oriented x3; mood and affect anxiousl. MUSCULOSKELETAL:No Clubbing/cyanosis;muscles-grossly intact. Prominent bones. Loss of muscle mass epididymis fat NEUROLOGICAL: Cranial nerves grossly intact; no facial asymmetry, power and sensation grossly intact. LYMPHATICS: No lymph nodes palpable in the axilla and neck INVESTIGATIONS, reviewed in the clinical context: White count 13 hemoglobin 13.4 platelets 461 potassium 3.6 sodium 123 BUN 6 creatinine 0.33 AST 62 ALT 41 albumin 2.8 EKG tracing personally reviewed by me-normal sinus rhythm Chest x-ray film personally reviewed by me-right lower lobe collapse. Mediastinum both of the right. Cannot rule out right basilar infiltrate/effusion Assessment and plan: -Acute COPD exacerbation in a current smoker DuoNeb 4 times a day, IV Solu Medrol, nebulized Perforomist, nebulized Pulmicort -Right basilar pneumonia versus tracheobronchitis Mucinex. Sputum for Gram stain and culture. IV ceftriaxone. Ultrasound right chest rule out pleural effusion -Non-small cell lung cancer diagnosed in December 2021. She has received chemotherapy and radiation treatment being followed by Dr. Scott Yost from oncology. -Severe protein calorie malnutrition from poor oral intake Ensure one can 3 times a day. Consult dietitian. -Severe nutritional myopathy PTOT. -Chronic nicotine dependence, surgery smoker Nicotine patch -Hyponatremia likely hypoosmolar from poor solute intake. Saline. Increase salt intake. -Full code Past Medical History Past Medical History: Cancer, COPD, CVA/TIA Additional Past Medical History / Comment(s): COPD, spastic colon, CVA/TIA. LUNG CANCER-RLL NSCLC. History of Any Multi-Drug Resistant Organisms: None Reported Past Surgical History: Section, Tonsillectomy Additional Past Surgical History / Comment(s): L oophorectomy due to cyst Past Anesthesia/Blood Transfusion Reactions: No Reported Reaction Past Psychological History: No Psychological Hx Reported Smoking Status: Current every day smoker - Past Family History Father History Unknown: Yes Family Medical History: No Reported History Additional Family Medical History / Comment(s): at early age from gunshot Mother Family Medical History: Cancer Additional Family Medical History / Comment(s): Mother had some kind of cancer but pt does not know what kind. She at age 65 or 67yrs. Medications and Allergies Home Medications Medication Instructions Recorded Confirmed Type No Known Home Medications 04/21/22 04/21/22 History Allergies Allergy/AdvReac Type Severity Reaction Status Date / Time No Known Allergies Allergy Verified 04/21/22 18:13 Physical Exam Vitals: Vital Signs Temp Pulse Resp BP Pulse Ox 04/21/22 20:11 18 04/21/22 20:00 105 H 18 106/77 93 L 04/21/22 17:48 90 20 97/71 93 L 04/21/22 17:20 98 F 94 16 105/72 93 L Intake and Output 04/21/22 04/21/22 04/21/22 06:59 14:59 22:59 Other: Weight 40.37 kg Results CBC & Chem 7: 04/21/22 18:38 04/21/22 18:38 Labs: Abnormal Lab Results - Last 24 Hours (Table) 04/21/22 04/21/22 04/21/22 Range/Units 18:38 18:38 18:38 WBC 13.0 H (3.8-10.6) k/uL RDW 16.2 H (11.5-15.5) % Plt Count 461 H (150-450) k/uL Neutrophils # 11.8 H (1.3-7.7) k/uL Lymphocytes # 0.3 L (1.0-4.8) k/uL INR 1.2 H (<1.2) Sodium 123 L (137-145) mmol/L Chloride 93 L (98-107) mmol/L BUN 6 L (7-17) mg/dL Creatinine 0.33 L (0.52-1.04) mg/dL Calcium 7.7 L (8.4-10.2) mg/dL AST 62 H (14-36) U/L ALT 41 H (4-34) U/L Alkaline Phosphatase 176 H (38-126) U/L Total Protein 5.3 L (6.3-8.2) g/dL Albumin 2.8 L (3.5-5.0) g/dL
[2022-04-21] MEDS ORDERED: LORazepam 0.5 MG TAB PO PRN (22:00)
[2022-04-21] MEDS ORDERED: TEMAZEPAM 15 MG CAP PO PRN (22:00)
[2022-04-21] MEDS: guaiFENesin 600 MG TABLET.ER PO SCH (22:12)
[2022-04-21] MEDS: ENOXAPARIN 40 MG/0.4 ML SYRINGE SQ SCH (22:12)
[2022-04-21] MEDS: methylPREDNISolone SOD SUCCI 125 MG/2 ML VIAL IV SCH (22:13)
[2022-04-21] MEDS: BUDESONIDE 1 MG/2 ML NEBU INHALATION SCH (23:10)
[2022-04-21] MEDS: FORMOTEROL FUMARATE 20 MCG/2 ML NEBU INHALATION SCH (23:10)
[2022-04-21] MEDS: IPRATROPIUM-ALBUTEROL 3 ML NEB INHALATION SCH (23:11)
--- NOTE | 2022-04-21 23:46 | US ---
EXAMINATION TYPE: US chest DATE OF EXAM: 04/21/2022 COMPARISON: NONE CLINICAL HISTORY: Right-sided marking for thoracentesis. right pleural effusion TECHNIQUE: Targeted ultrasound of the posterior lower bilateral hemithoraces EXAM MEASUREMENTS: Right Pleural Effusion pocket size: unable to visualize significant fluid collection Left Pleural Effusion pocket size: no significant fluid visualized Right side NOT marked for possible thoracentesis outside the dept. Left side NOT marked for possible thoracentesis outside the dept. Pulmonologists are able to review the images in the patient?s EMR. IMPRESSIONS: No evidence of left or right pleural effusion.
[2022-04-22] MEDS ORDERED: CALCIUM CARBONATE 500 MG CHEWABLE PO PRN
[2022-04-22] MEDS ORDERED: ONDANSETRON 4 MG/2 ML VIAL IVP PRN
[2022-04-22] MEDS: IPRATROPIUM-ALBUTEROL 3 ML NEB INHALATION SCH ×6 (03:50→23:39)
[2022-04-22] MEDS: methylPREDNISolone SOD SUCCI 125 MG/2 ML VIAL IV SCH ×3 (05:52→21:09)
[2022-04-22] MEDS: SODIUM CHLORIDE 0.9% 1,000 ML IV SCH ×3 (05:54→21:09)
[2022-04-22] MEDS: FORMOTEROL FUMARATE 20 MCG/2 ML NEBU INHALATION SCH ×2 (07:52→19:50)
[2022-04-22] MEDS: BUDESONIDE 1 MG/2 ML NEBU INHALATION SCH ×2 (07:52→19:49)
[2022-04-22] MEDS: FAMOTIDINE 20 MG TAB PO SCH ×2 (08:30→21:09)
[2022-04-22] MEDS: guaiFENesin 600 MG TABLET.ER PO SCH ×4 (08:30→21:09)
[2022-04-22] MEDS: ENOXAPARIN 40 MG/0.4 ML SYRINGE SQ SCH (08:30)
[2022-04-22] MEDS ORDERED: LACTULOSE 20 GM/30 ML CUP PO PRN (09:00)
[2022-04-22 09:42] VITALS: BMI 16.2
[2022-04-22 12:37] LABS: Appearance,Urine Clear (Clear); Bilirubin,Urine Negative (Negative); Blood,Urine Negative (Negative); Color,Urine Light Yellow; Glucose,Urine (UA) 2+ (Negative); Ketones,Urine Negative (Negative); Leukocyte Esterase,Urine Negative (Negative); Nitrite,Urine Negative (Negative); PH, Urine 6.5 (5.0-8.0); Protein,Urine Negative (Negative); Specific Gravity,Urine 1.005 (1.001-1.035); Urobilinogen,Urine <2.0 mg/dL (<2.0)
--- NOTE | 2022-04-22 17:30 | P.PN ---
Progress Note - Text Progress Note Date: 04/22/22 Chief Complaint: Short of breath This is a pleasant 56-year-old patient who follows with Dr. Scott Yost. Patient was diagnosed with lung cancer, non-small cell. Patient since then has received chemotherapy and radiation treatment. Stage III. Patient was sent in by her oncologist for decrease appetite weight loss feeling cold dizzy lightheaded cough no sputum production. Short of breath and wheezing. Distant cough. Not really able to expectorate. Patient's and 2 daughters at the bedside in the ER. Patient is a smoker. Patient also been losing significant weight. Rather weak and tired. Admitted with severe COPD exacerbation, tracheal bronchitis. 04/22/2022: Seen by dietitian. Eating some. Some shortness of breath wheezing. On IV Solu-Medrol, bronchodilators. IV ceftriaxone. Nebulized Perforomist. Tired. In bed. Active Medications Acetaminophen (Acetaminophen Tab 325 Mg Tab) 650 mg PO Q6HR PRN PRN Reason: Mild Pain or Fever > 100.5 Albuterol/Ipratropium (Ipratropium-Albuterol 3 Ml Neb) 3 ml INHALATION RT-Q4H [facility] Last Admin: 04/22/22 15:48 Dose: Not Given Budesonide (Budesonide 1 Mg/2 Ml Nebu) 1 mg INHALATION RT-BID [facility] Last Admin: 04/22/22 07:52 Dose: 1 mg Calcium Carbonate/Glycine (Calcium Carbonate 500 Mg Chewable) 1,000 mg PO Q4HR PRN PRN Reason: Dyspepsia Enoxaparin Sodium (Enoxaparin 40 Mg/0.4 Ml Syringe) 40 mg SQ DAILY [facility] Last Admin: 04/22/22 08:30 Dose: 40 mg Famotidine (Famotidine 20 Mg Tab) 20 mg PO BID [facility] Last Admin: 04/22/22 08:30 Dose: 20 mg Formoterol Fumarate (Formoterol Fumarate 20 Mcg/2 Ml Nebu) 20 mcg INHALATION RT-BID [facility] Last Admin: 04/22/22 07:52 Dose: 20 mcg Guaifenesin (Guaifenesin 600 Mg Tablet.Er) 600 mg PO QID [facility] Last Admin: 04/22/22 12:55 Dose: 600 mg Sodium Chloride (Saline 0.9%) 1,000 mls @ 130 mls/hr IV .Q7H42M [facility] Last Admin: 04/22/22 12:54 Dose: 130 mls/hr Ceftriaxone Sodium 1 gm/ (Sodium Chloride) 50 mls @ 100 mls/hr IVPB Q12H [facility]; Protocol Last Admin: 04/22/22 08:31 Dose: 100 mls/hr Lactulose (Lactulose 20 Gm/30 Ml Cup) 20 gm PO DAILY PRN PRN Reason: Constipation Lorazepam (Lorazepam 0.5 Mg Tab) 0.5 mg PO Q6HR PRN PRN Reason: Anxiety Methylprednisolone Sodium Succinate (Methylprednisolone Sod Succi 125 Mg/2 Ml Vial) 60 mg IV Q8H [facility] Last Admin: 04/22/22 12:55 Dose: 60 mg Naloxone HCl (Naloxone 0.4 Mg/Ml 1 Ml Vial) 0.2 mg IV Q2M PRN PRN Reason: Opioid Reversal Ondansetron HCl (Ondansetron 4 Mg/2 Ml Vial) 4 mg IVP Q8HR PRN PRN Reason: Nausea And Vomiting Temazepam (Temazepam 15 Mg Cap) 15 mg PO HS PRN PRN Reason: Insomnia Past medical history to include: Non-small cell lung cancer, COPD, spastic colon, Social history: Lives with her . Patient averaged 2-3 packs a day most of October. Now down to half a pack a day. Patient drinks 2-4 beers a day. 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 Conjunctiva pale. HEENT: External appearance of nose and ears normal, oral cavity grossly normal. NECK: JVD not raised; masses not palpable. HEART: First and second heart sounds are normal; no edema. LUNGS: Respiratory rate increased; decreased breath sounds wheezing ABDOMEN: Soft, nontender, liver spleen not palpable, no masses palpable. PSYCH: Alert and oriented x3; mood and affect anxiousl. MUSCULOSKELETAL:No Clubbing/cyanosis;muscles-grossly intact. Prominent bones. Loss of muscle mass epididymis fat INVESTIGATIONS, reviewed in the clinical context: Chest ultrasound showing no effusion Influenza type A/IVPB/RSV/COVID-19: Not detected White count 13 hemoglobin 13.4 platelets 461 potassium 3.6 sodium 123 BUN 6 creatinine 0.33 AST 62 ALT 41 albumin 2.8 EKG tracing personally reviewed by me-normal sinus rhythm Chest x-ray film personally reviewed by me-right lower lobe collapse. Mediastinum both of the right. Cannot rule out right basilar infiltrate/effusion Assessment and plan: -Acute COPD exacerbation in a current smoker: Slow to respond DuoNeb 4 times a day, IV Solu Medrol, nebulized Perforomist, nebulized Pulmicort -Right basilar pneumonia versus tracheobronchitis Mucinex. Sputum for Gram stain and culture. IV ceftriaxone. Ultrasound right chest negative for effusion -Non-small cell lung cancer diagnosed in December 2021. She has received chemotherapy and radiation treatment being followed by Dr. Scott Yost from oncology. -Severe protein calorie malnutrition from poor oral intake Ensure one can 3 times a day. Consult dietitian. -Severe nutritional myopathy PTOT. -Chronic nicotine dependence, surgery smoker Nicotine patch -Hyponatremia likely hypoosmolar from poor solute intake. Saline. Increase salt intake. -Full code
[2022-04-23] MEDS: IPRATROPIUM-ALBUTEROL 3 ML NEB INHALATION SCH ×3 (03:47→11:04)
[2022-04-23] MEDS: methylPREDNISolone SOD SUCCI 125 MG/2 ML VIAL IV SCH (05:03)
[2022-04-23] MEDS: SODIUM CHLORIDE 0.9% 1,000 ML IV SCH ×2 (05:03→12:39)
[2022-04-23 05:49] LABS: African American GFR (CKD) >90 (>60 ml/min/1.73 sqM); Anion Gap 6 mmol/L; Blood Urea Nitrogen 9 mg/dL (7-17); Calcium 7.7 mg/dL (8.4-10.2); Carbon Dioxide 21 mmol/L (22-30); Chloride 102 mmol/L (98-107); Glucose 183 mg/dL (74-99); Non-African American GFR(CKD) >90 (>60 ml/min/1.73 sqM); Sodium 129 mmol/L (137-145)
[2022-04-23] MEDS: BUDESONIDE 1 MG/2 ML NEBU INHALATION SCH (07:22)
[2022-04-23] MEDS: FORMOTEROL FUMARATE 20 MCG/2 ML NEBU INHALATION SCH (07:22)
[2022-04-23 08:02] VITALS: BP 106/63; RESP 13; TEMP 98.2
[2022-04-23] MEDS: guaiFENesin 600 MG TABLET.ER PO SCH ×2 (09:28→12:43)
[2022-04-23] MEDS: ENOXAPARIN 40 MG/0.4 ML SYRINGE SQ SCH (09:28)
[2022-04-23] MEDS: FAMOTIDINE 20 MG TAB PO SCH (09:28)
--- NOTE | 2022-04-23 10:54 | P.CONS ---
History of Present Illness - Reason for Consult Consult date: 04/22/22 known Requesting physician: Martín Owens - Chief Complaint SOB, PNA - History of Present Illness Ms. Villeda is a 56 year old woman with PMH significant for TIA, stage IV COPD and recent diagnosis of stage IIIA, unresectable NSCLC. Initially presented with TIA to [facility] on 12/28/21. CTA head & neck were negative, as was CT of brain. CT chest 12/28/21 noted incidental 3 cm stellate masses in the right lower lobe with spiculation of margins,l 7 mm stellate density in the RLL was also observed. On pre-bronchoscopy CT chest on 12/29/21, subcarinal LAD measuring 1.9 cm along with enlarged hilar lymph nodes were observed. RLL biopsy 12/29/21 path positive for adenocarcinoma (+TTF-1, napsin A; -p40, synaptophysin, CD56, chromogranin A). BAL of the right lower lobe revealed cluster atypical cells consistent with NSCLC. Staging PET/CT 01/22/22, revealing ametabolic nodule in the RLL in 9 x 5 mm. Right lower lobe nodule 3 x 2.9 cm with SUV 8.75, right hilar LAD measuring 2.2 x 1.5 cm with SUV 7.66, and subcarinal LAD measuring 2.1 x 2.1 cm with SUV 8.29. A noted healing fracture of the right 2nd rib with an SUV 2.5. Prior to presentation, she reports having had intermittent night sweats along with some unintended weight loss. She has had recent onset of dull headache over the past 2 months in the left frontal region with feeling of occasional loss of balance. She did have a traumatic fall off slippery wet steps having caught her right chest on stair pole, which is what is believed to have caused rib fracture. Molecular testing showed PD-L1 is 5% with HER-2 amplification. She started concurrent weekly carboplatin/taxol with concurrent XRT 03/01/2022 and completed her last cycle of chemotherapy on 04/05/2022 and last day of radiation therapy on 04/07/2022. CT chest,abd 04/18/2022 revealed no evidence of disease progression, but did note consolidative changes in the right lower lobe concerning for radiation pneumonitis versus possible pneumonia. She was seen in office 04/21 with noted hypoxia on exertion with desaturation to 87% on room air with blood pressure 80/50 on manual cuff. Concern for pneumonia vs radiation pneumonitis. She was sent to ER for for work up, abx. When seen 04/22, pt report feeling much better, her cough is less, she denies fevers but is covered with many blankets and is noted to have damp hospital gown when examined. She is able to tolerate oral intake, no oral irritation, N,V, chest pain, abd pain, acute changes in bowel or bladder, swelling in her legs, she has walked to the bathroom independently. Review of Systems 10 point review systems is negative except as stated in HPI Past Medical History Past Medical History: Cancer, COPD, CVA/TIA Additional Past Medical History / Comment(s): COPD, spastic colon, CVA/TIA. LUNG CANCER-RLL NSCLC. History of Any Multi-Drug Resistant Organisms: None Reported Past Surgical History: Section, Tonsillectomy Additional Past Surgical History / Comment(s): L oophorectomy due to cyst Past Anesthesia/Blood Transfusion Reactions: No Reported Reaction Past Psychological History: No Psychological Hx Reported Smoking Status: Current every day smoker - Past Family History Father History Unknown: Yes Family Medical History: No Reported History Additional Family Medical History / Comment(s): at early age from gunshot Mother Family Medical History: Cancer Additional Family Medical History / Comment(s): Mother had some kind of cancer but pt does not know what kind. She at age 65 or 67yrs. Medications and Allergies Home Medications Medication Instructions Recorded Confirmed Type No Known Home Medications 04/21/22 04/21/22 History Allergies Allergy/AdvReac Type Severity Reaction Status Date / Time No Known Allergies Allergy Verified 04/21/22 18:13 Physical Exam Vitals: Vital Signs Temp Pulse Pulse Resp BP BP Pulse Ox 04/22/22 08:12 90 04/22/22 08:04 88 04/22/22 08:03 88 04/22/22 07:53 88 94 L 04/22/22 07:35 98 F 88 18 101/65 93 L 04/22/22 05:20 98/67 04/22/22 03:30 96/64 04/22/22 02:58 110/69 04/22/22 02:47 98.4 F 78 16 87/52 94 L 04/21/22 23:18 100 04/21/22 23:13 100 04/21/22 22:09 98.9 F 98 16 102/65 96 04/21/22 21:31 100 18 106/71 94 L 04/21/22 20:11 18 04/21/22 20:00 105 H 18 106/77 93 L 04/21/22 17:48 90 20 97/71 93 L 04/21/22 17:20 98 F 94 16 105/72 93 L Intake and Output 04/21/22 04/22/22 04/22/22 22:59 06:59 14:59 Other: # Voids 1 Weight 40.37 kg 40.37 kg - Constitutional Petite General appearance: cooperative, no acute distress, thin - EENT Coated tongue Eyes: anicteric sclerae, EOMI ENT: hearing grossly normal - Neck Neck: no lymphadenopathy - Respiratory Respiratory: bilateral: diminished - Cardiovascular Rhythm: regular Heart sounds: normal: S1, S2 Abnormal Heart Sounds: no systolic murmur, no diastolic murmur, no rub, no S3 Gallop, no S4 Gallop, no click, no other - Gastrointestinal General gastrointestinal: no absent bowel sounds, no decreased bowel sounds, no distended, no hepatomegaly, no hyperactive bowel sounds, normal bowel sounds, no organomegaly, no rigid, no scaphoid, soft, no splenomegaly, no tenderness, no umbilical hernia, no ventral hernia - Integumentary Integumentary: normal - Neurologic Neurologic: CNII-XII intact - Musculoskeletal Musculoskeletal: strength equal bilaterally - Psychiatric Psychiatric: A&O x's 3, appropriate affect, intact judgment & insight Results CBC & Chem 7: 04/21/22 18:38 04/23/22 05:17 Labs: Abnormal Lab Results - Last 24 Hours (Table) 04/21/22 04/21/22 04/21/22 Range/Units 18:38 18:38 18:38 WBC 13.0 H (3.8-10.6) k/uL RDW 16.2 H (11.5-15.5) % Plt Count 461 H (150-450) k/uL Neutrophils # 11.8 H (1.3-7.7) k/uL Lymphocytes # 0.3 L (1.0-4.8) k/uL INR 1.2 H (<1.2) Sodium 123 L (137-145) mmol/L Chloride 93 L (98-107) mmol/L BUN 6 L (7-17) mg/dL Creatinine 0.33 L (0.52-1.04) mg/dL Calcium 7.7 L (8.4-10.2) mg/dL AST 62 H (14-36) U/L ALT 41 H (4-34) U/L Alkaline Phosphatase 176 H (38-126) U/L Total Protein 5.3 L (6.3-8.2) g/dL Albumin 2.8 L (3.5-5.0) g/dL Procalcitonin (0.02-0.09) ng/mL 04/21/22 Range/Units 18:38 WBC (3.8-10.6) k/uL RDW (11.5-15.5) % Plt Count (150-450) k/uL Neutrophils # (1.3-7.7) k/uL Lymphocytes # (1.0-4.8) k/uL INR (<1.2) Sodium (137-145) mmol/L Chloride (98-107) mmol/L BUN (7-17) mg/dL Creatinine (0.52-1.04) mg/dL Calcium (8.4-10.2) mg/dL AST (14-36) U/L ALT (4-34) U/L Alkaline Phosphatase (38-126) U/L Total Protein (6.3-8.2) g/dL Albumin (3.5-5.0) g/dL Procalcitonin 0.24 H (0.02-0.09) ng/mL Comments: Ultrasound of the chest report reviewed Chest x-ray: report reviewed Assessment and Plan (1) Shortness of breath Current Visit: Yes Status: Acute Priority: High Code(s): R06.02 - SH ORTNESS OF BREATH SNOMED Code(s): 271805500 (2) Non-small cell lung cancer (NSCLC) Current Visit: Yes Status: Acute Priority: High Code(s): C34.90 - MALIGNANT NEOPLASM OF UNSP PART OF UNSP BRONCHUS OR LUNG SNOMED Code(s): 459701642 Plan: Non-small cell lung cancer stage IIIa -Patient completed concurrent chemotherapy and radiation. Did very well overall -Due to start PD-1 maintenance durvalumab Shortness of breath and cough -Patient was sent to the hospital to be evaluated for possible pneumonia versus pneumonitis from treatment. Her symptoms have improved since admission with antibiotics, was also started on steroids. Most likely underlying infectious process based her quick recovery but, will see how pt does as she is weaned off of steroids. attests: I have seen and examined patient, performed H&P, developed impression and plan of care. Discussed with dictator. Agree with documentation, dictated as scribe.
[2022-04-23 11:29] VITALS: PULSE 91
[2022-04-23] MEDS ORDERED: Potassium Replacement Protocol 1 EACH MISC MISCELLANE PRN (12:08)
[2022-04-23] MEDS: POTASSIUM CHLORIDE ER 20 MEQ TAB.ER PO SCH ×2 (12:39→13:15)
--- NOTE | 2022-04-23 12:40 | P.CNPUL ---
History of Present Illness Consult date: 04/23/22 Requesting physician: Adrian Healy Reason for consult: dyspnea, hypoxemia, pleural effusion, lung mass, abnormal CXR/CT Chief complaint: Hypotension, weakness. History of present illness: Pulmonary consult dated 04/23/2022. 56-year-old female who looks much older than her stated age, was sent over by her medical oncologist, because of shortness of breath, abnormal labs, and hypotension. The patient has a history of stage III lung cancer, and recently completed both chemo and radiation therapy. She apparently was not a surgical candidate. She seen today in room 518. She's on room air. She's getting saline at 130 mL an hour. She was diagnosed by our group, back in December of last year, with a navigational bronchoscopy. Her cancer was adenocarcinoma. According to her, my partner told her she was not a surgical candidate. She is feeling much better at this time, and is possibly being considered for discharge. White count 13, hemoglobin 13.4, hematocrit 39.5, and platelet count 461,000. Sodium 129, up from 123, potassium 3, chlorides 102, CO2 21, BUN 9, and creatinine 0.36. Pro-calcitonin level is 0.24. AST is 62 with an ALT of 41. Urine is negative. She tested negative for influenza, RSV, and coronavirus. Chest x-ray shows either infiltrate, volume loss, or pleural effusion, in the right lower lobe. Ultrasound the right chest, did not reveal any fluid. No need for thoracentesis at this time. Review of Systems REVIEW OF SYSTEMS: CONSTITUTIONAL: Weakness. NEUROLOGIC: [ Negative.] HEENT: [ Negative.] CARDIAC: Hypotension, resolved. PULMONARY: [Negative.] GI: [Negative.] : [Negative.] RHEUMATOLOGIC: [ Negative.] IMMUNOLOGIC: [ Negative.] ENDOCRINE: [Negative. ] DERMATOLOGIC: [Negative.] Past Medical History Past Medical History: Cancer, COPD, CVA/TIA Additional Past Medical History / Comment(s): COPD, spastic colon, CVA/TIA. LUNG CANCER-RLL NSCLC. History of Any Multi-Drug Resistant Organisms: None Reported Past Surgical History: Section, Tonsillectomy Additional Past Surgical History / Comment(s): L oophorectomy due to cyst Past Anesthesia/Blood Transfusion Reactions: No Reported Reaction Past Psychological History: No Psychological Hx Reported Smoking Status: Current every day smoker - Past Family History Father History Unknown: Yes Family Medical History: No Reported History Additional Family Medical History / Comment(s): at early age from gunshot Mother Family Medical History: Cancer Additional Family Medical History / Comment(s): Mother had some kind of cancer but pt does not know what kind. She at age 65 or 67yrs. Medications and Allergies Home Medications Medication Instructions Recorded Confirmed Type Albuterol Sulfate [Albuterol 2 puff PO Q6H #8.5 gm 04/23/22 Rx Sulfate Hfa] Budesonide/Formoterol Fumarate 1 puff INHALATION BID #10.2 gm 04/23/22 Rx [Symbicort 160-4.5 Mcg Inhaler] Famotidine [Pepcid] 20 mg PO BID #60 tab 04/23/22 Rx cefUROXime axetiL [Ceftin] 500 mg PO BID #6 tab 04/23/22 Rx predniSONE 10 mg PO DAILY #30 tab 04/23/22 Rx Allergies Allergy/AdvReac Type Severity Reaction Status Date / Time No Known Allergies Allergy Verified 04/21/22 18:13 Physical Exam Osteopathic Statement: *. No significant issues noted on an osteopathic structural exam other than those noted in the History and Physical/Consult. Vitals: Vital Signs Temp Pulse Pulse Resp BP Pulse Ox FiO2 04/23/22 11:16 84 04/23/22 11:04 84 04/23/22 08:45 91 13 04/23/22 07:53 84 04/23/22 07:37 84 04/23/22 07:36 84 04/23/22 07:22 84 96 04/23/22 07:18 98.2 F 91 13 106/63 04/23/22 03:57 88 04/23/22 03:47 88 04/23/22 02:28 97.2 F L 90 16 122/78 95 04/22/22 23:51 80 04/22/22 23:41 76 04/22/22 20:09 80 04/22/22 20:00 80 04/22/22 19:59 80 04/22/22 19:50 79 97 21 04/22/22 19:07 98.7 F 86 16 122/69 98 Intake and Output 04/22/22 04/23/2223 22:59 06:59 14:59 Intake Total 1610 Balance 1610 Intake: Intake, IV Titration 1610 Amount Sodium Chloride 0.9% 1, 1560 000 ml @ 130 mls/hr IV . Q7H42M MADISYN Rx#:[id number] cefTRIAXone 1 gm In 50 Sodium Chloride 0.9% 50 ml @ 100 mls/hr IVPB Q12H MADISYN Rx#:[id number] Other: # Voids 2 No acute distress, oriented 3. No respiratory distress or difficulty. Cu rrently on room air. HEENT examination is grossly unremarkable. Neck supple. Full range of motion. No adenopathy thyromegaly or neck vein distention. Cardiovascular examination reveals regular rhythm rate. S1-S2 normal. No S3 or S4. No discernible murmur noted. Heart rate 84 bpm. Lungs reveal clear breath sounds. Breath sounds are equal bilaterally. No adventitious lung sounds including wheezes rhonchi or crackles. Room air saturation is 96%. Abdomen soft bowel sounds are heard. No masses or tenderness. Extremities are intact. No cyanosis clubbing or edema. Skin is without rash or lesion. Neurologic examination is brief but nonfocal. Results - Laboratory Findings CBC and BMP: 04/21/22 18:38 04/23/22 05:17 PT/INR, D-dimer PT 11.9 sec (9.0-12.0) 04/21/22 18:38 INR 1.2 (<1.2) H 04/21/22 18:38 Abnormal lab findings: Abnormal Labs 04/21/22 04/21/22 04/21/22 11:58 18:38 18:38 WBC 13.0 H RDW 16.2 H Plt Count 461 H Neutrophils # 11.8 H Lymphocytes # 0.3 L INR 1.2 H Sodium Potassium Chloride Carbon Dioxide BUN Creatinine Glucose Calcium AST ALT Alkaline Phosphatase Total Protein Albumin Procalcitonin Urine Glucose (UA) 2+ H 04/21/22 04/21/22 04/23/22 18:38 18:38 05:17 WBC RDW Plt Count Neutrophils # Lymphocytes # INR Sodium 123 L 129 L Potassium 3.0 L Chloride 93 L Carbon Dioxide 21 L BUN 6 L Creatinine 0.33 L 0.36 L Glucose 183 H Calcium 7.7 L 7.7 L AST 62 H ALT 41 H Alkaline Phosphatase 176 H Total Protein 5.3 L Albumin 2.8 L Procalcitonin 0.24 H Urine Glucose (UA) - Diagnostic Findings Chest x-ray: image reviewed Assessment and Plan Assessment: Advanced non-small cell lung cancer/adenocarcinoma, status post chemotherapy and radiation therapy. No significant pleural effusion, right chest. Hypotension, resolved. Hyponatremia, improved. History of COPD. History of CVA. Plan: Plan dated 04/23/2022. The patient is stable from my perspective. The patient's not having any respiratory issues at this time. Her chest x-ray stable. There is no significant pleural effusion in the right chest. The patient's hypotension has resolved. The sodium is much improved. The patient could be considered for possible discharge. Time with Patient: Greater than 30
--- NOTE | 2022-04-23 19:03 | P.DS ---
Providers Date of admission: 04/21/22 20:43 Expected date of discharge: 04/23/22 Attending physician: Adrian Healy Consults: 04/21/22 20:43 Consult Physician Routine Consulting Provider: Joss Diaz Consult Reason/Comments: Your patient Do you want consulting provider notified?: Yes 04/22/22 17:30 Consult Physician Routine Consulting Provider: Bailee Michael Consult Reason/Comments: COPD Do you want consulting provider notified?: Yes Primary care physician: [facility] Course: Chief Complaint: Short of breath This is a pleasant 56-year-old patient who follows with Dr. Scott Yost. Patient was diagnosed with lung cancer, non-small cell. Patient since then has received chemotherapy and radiation treatment. Stage III. Patient was sent in by her oncologist for decrease appetite weight loss feeling cold dizzy lightheaded cough no sputum production. Short of breath and wheezing. Distant cough. Not really able to expectorate. Patient's and 2 daughters at the bedside in the ER. Patient is a smoker. Patient also been losing significant weight. Rather weak and tired. Admitted with severe COPD exacerbation, tracheal bronchitis. 04/22/2022: Seen by dietitian. Eating some. Some shortness of breath wheezing. On IV Solu-Medrol, bronchodilators. IV ceftriaxone. Nebulized Perforomist. Tired. In bed. 04/23/2022: Breathing better. Eating better. Up to the bathroom. Had a long discussion with the patient has been out of the bedside. Counseled again about smoking. We'll discharge in Symbicort albuterol. Patient to follow-up with her oncologist and PCP. Questions answered. Continue with nutritional supplements. Prednisone taper Discussion and discharge planning more than 35 minutes Past medical history to include: Non-small cell lung cancer, COPD, spastic colon, Social history: Lives with her . Patient averaged 2-3 packs a day most of October. Now down to half a pack a day. Patient drinks 2-4 beers a day. 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 Conjunctiva pale. HEENT: External appearance of nose and ears normal, oral cavity grossly normal. NECK: JVD not raised; masses not palpable. HEART: First and second heart sounds are normal; no edema. LUNGS: Respiratory rate increased; decreased breath sounds ABDOMEN: Soft, nontender, liver spleen not palpable, no masses palpable. PSYCH: Alert and oriented x3; mood and affect anxiousl. MUSCULOSKELETAL:No Clubbing/cyanosis;muscles-grossly intact. Prominent bones. Loss of muscle mass epididymis fat INVESTIGATIONS, reviewed in the clinical context: Chest ultrasound showing no effusion Influenza type A/IVPB/RSV/COVID-19: Not detected White count 13 hemoglobin 13.4 platelets 461 potassium 3.6 sodium 123 BUN 6 creatinine 0.33 AST 62 ALT 41 albumin 2.8 EKG tracing personally reviewed by me-normal sinus rhythm Chest x-ray film personally reviewed by me-right lower lobe collapse. Mediastinum both of the right. Cannot rule out right basilar infiltrate/effusion Assessment and plan: -Acute COPD exacerbation in a current smoker: Better DuoNeb 4 times a day, IV Solu Medrol, nebulized Perforomist, nebulized Pulmicort Discharged on prednisone taper. Symbicort 160/8.5 one puff twice a day. Albuterol. -Right basilar pneumonia versus tracheobronchitis Mucinex. Sputum for Gram stain and culture. IV ceftriaxone. Ultrasound right chest negative for effusion Complete 3 days of Ceftin -Non-small cell lung cancer diagnosed in December 2021. She has received chemotherapy and radiation treatment being followed by Dr. Scott Yost from oncology. -Severe protein calorie malnutrition from poor oral intake Ensure one can 3 times a day. Seen by dietitian -Severe nutritional myopathy -Chronic nicotine dependence, surgery smoker Nicotine patch -Hyponatremia likely hypoosmolar from poor solute intake. Saline. Increase salt intake. -Full code Plan - Discharge Summary Discharge Rx Participant: Yes New Discharge Prescriptions: New Famotidine [Pepcid] 20 mg PO BID #60 tab predniSONE 10 mg PO DAILY #30 tab Budesonide/Formoterol Fumarate [Symbicort 160-4.5 Mcg Inhaler] 1 puff INHA LATION BID #10.2 gm Albuterol Sulfate [Albuterol Sulfate Hfa] 2 puff PO Q6H #8.5 gm cefUROXime axetiL [Ceftin] 500 mg PO BID #6 tab Discharge Medication List Albuterol Sulfate [Albuterol Sulfate Hfa] 2 puff PO Q6H #8.5 gm 04/23/22 [Rx] Budesonide/Formoterol Fumarate [Symbicort 160-4.5 Mcg Inhaler] 1 puff INHALATION BID #10.2 gm 04/23/22 [Rx] Famotidine [Pepcid] 20 mg PO BID #60 tab 04/23/22 [Rx] cefUROXime axetiL [Ceftin] 500 mg PO BID #6 tab 04/23/22 [Rx] predniSONE 10 mg PO DAILY #30 tab 04/23/22 [Rx] Follow up Appointment(s)/Referral(s): Joss Diaz MD [STAFF PHYSICIAN] - 1 Week Marj Garcia [Primary Care Provider] - 1-2 days Patient Instructions/Handouts: Lung Cancer (DC), Hyponatremia (DC) Activity/Diet/Wound Care/Special Instructions: DIET TOLERATED Activity Limited until seen by DR. Harrell on Monday to schedule appointments Discharge Disposition: HOME SELF-CARE
[2022-04-23] MEDS ORDERED: SYMBICORT 160-4.5 MCG INHALER INHALATION SCH (20:00)
== END 2022-04-23 13:58 | disposition home or self-care (01) | DRG 190 ==
LOC: EC 16:56 → 5NMEDONC 20:43
PROVIDERS: ADMIT Hospitalist; ATTEND Hospitalist
DX: J44.1 Chronic obstructive pulmonary disease with (acute) exacerbation (principal); E43 Unspecified severe protein-calorie malnutrition; E87.1 Hypo-osmolality and hyponatremia; Z68.1 Body mass index [BMI] 19.9 or less, adult; G72.89 Other specified myopathies; I95.9 Hypotension, unspecified; J44.0 Chronic obstructive pulmonary disease with (acute) lower respiratory infection; F17.210 Nicotine dependence, cigarettes, uncomplicated; K58.9 Irritable bowel syndrome, unspecified; Z20.822 Contact with and (suspected) exposure to COVID-19; Z92.21 Personal history of antineoplastic chemotherapy; Z92.3 Personal history of irradiation; Z85.118 Personal history of other malignant neoplasm of bronchus and lung; Z86.73 Personal history of transient ischemic attack (TIA), and cerebral infarction without residual deficits; Z87.81 Personal history of (healed) traumatic fracture; Z79.51 Long term (current) use of inhaled steroids; Z79.899 Other long term (current) drug therapy
CPT/HCPCS: 36415; 71046; 76604; 80048; 80053; 81003; 83605; 84145; 85025; 85610; 85730; 87040; 87636; 93005; 94640; 94760; 99285

== ENCOUNTER → 2022-07-04 | Outpatient (CLI) | payer BC ==
[2022-07-04 16:33] LABS: African American GFR (CKD) >90 (>60 ml/min/1.73 sqM); Blood Urea Nitrogen 9 mg/dL (7-17); Non-African American GFR(CKD) >90 (>60 ml/min/1.73 sqM)
--- NOTE | 2022-07-04 18:06 | CT ---
EXAMINATION TYPE: CT chest wo/w con DATE OF EXAM: 07/04/2022 COMPARISON: 04/18/2022, 01/21/2022, 12/28/2021 HISTORY: 56-year-old female C3 4.31 lung cancer. Status post chemoradiation, last treatment February 2022 to April 2022. TECHNIQUE: Contiguous axial scanning of the chest after the administration of 100 cc mL of Isovue 300 . Coronal/sagittal reconstructions performed. CT DLP: 236.2mGycm. Automatic exposure control utilized for a dose reduction. FINDINGS: The heart is normal size. Some scattered LAD and RCA coronary calcifications are noted. A new small a nterior pericardial effusion is present measuring 7 mm thick. Aorta normal caliber with mild atherosclerotic arch calcifications and conventional arch vessel branc cole anatomy. Subcarinal node has entirely resolved now. Low right paratracheal node stable at 5 mm. No new or prog ressive thoracic lymphadenopathy identified. There is a small right pleural effusion now present but overall aeration throughout the right lower l obe has considerably improved with some residual irregular basilar opacities and some scattered groun dglass change. Aeration in the right middle lobe has nearly normalized. Some subtle groundglass nodul arity remains measuring up to 6 mm and should be reassessed at follow-up. Background moderate intralobular emphysema. Vague 9 mm density posterior right upper lobe is unchange d. 5 mm left upper lobe nodule, axial image 21 not clearly seen previously and should be reassessed a t follow-up. Visualized upper abdomen shows no gross abnormality. Bones: No osseous destructive process. Suspect some healing sclerosis along the right anterior second rib end corresponding to prior rib fracture. IMPRESSION: 1. COPD with moderate emphysema. There is now a small right pleural effusion but aeration in the righ t lower lobe has considerably improved. Some irregular patchy opacity remains, likely posttreatment c hange and scarring. Ongoing follow-up recommended. 2. Aeration the right middle lobe has essentially normalized. Some residual groundglass nodularity re saul here measuring up to 6 mm and should be reassessed at follow-up. A 5 mm left upper lobe pulmona ry nodule was not well seen previously and should also be reassessed at follow-up. Infectious/inflamm atory etiology favored.
== END | disposition home or self-care (01) ==
LOC: RADCTMAIN 15:41
PROVIDERS: ATTEND Radiology Radiation Oncology
DX: C34.31 Malignant neoplasm of lower lobe, right bronchus or lung (principal); C77.1 Secondary and unspecified malignant neoplasm of intrathoracic lymph nodes; J43.9 Emphysema, unspecified; J90 Pleural effusion, not elsewhere classified; R91.8 Other nonspecific abnormal finding of lung field; Z92.21 Personal history of antineoplastic chemotherapy; Z92.3 Personal history of irradiation
CPT/HCPCS: 82565; 84520; 71270; 36415; Q9967

== ENCOUNTER → 2022-10-10 | Outpatient (CLI) | payer BC ==
--- NOTE | 2022-10-10 12:59 | CT ---
EXAMINATION TYPE: CT ChestAbdPelvis wo/w con CT DLP: 699.6 mGycm, Automated exposure control for dose reduction was used. DATE OF EXAM: 10/10/2022 12:31 PM COMPARISON: 07/04/2022, 04/18/2022, PET/CT 01/21/2022 CLINICAL INDICATION:Female, 57 years old with history of C34.31 lung ca, lung CA, f/u Technique: Multiple axial images of the chest, abdomen, and pelvis were obtained. Two-dimensional cor onal and sagittal reconstructions were obtained. Contrast used:100 mL of Isovue 300 with IV Contrast, Oral contrast used: with Oral Contrast Findings: CHEST: LUNGS/ PLEURA: Moderate centrilobular emphysema changes. No focal consolidation, pneumothorax or pleu ral fusion. Right upper lobe nodular densities series 4 image 16 are not significant changed. Right u pper lobe posterior nodule is more prominent on today's exam. Series 4 image 26 and measures up to 4 mm. And may be more prominent due to slice selection on prior imaging on 07/04/2022. Other stable nodul ar densities in the left upper lung series 4 image 15 groundglass opacity series 4 image 33 small 2 m m nodule left lower lung series 4 image 34 which is unchanged. No focal consolidation, pneumothorax or pleural fusion. Moderate emphysema changes. Right lower lung demonstrates streaky atelectasis/scarring. Overall findings have improved from 023. AIRWAY: Patent and unremarkable. HEART: Size within normal limits. Atherosclerosis of the coronary arteries. MEDIASTINUM: The prior subcarinal and right hilar FDG avid lymph nodes are not well appreciated and m ay be due to posttreatment change. Evaluation without contrast Limited of the right pulmonary hilum. VASCULATURE: Atherosclerotic calcifications are present throughout the aorta and its branches. MUSCULOSKELETAL: No acute osseous abnormalities. SOFT TISSUES/LYMPH NODES: Unremarkable. LOWER NECK: No significant findings. ABDOMEN: ABDOMEN LIVER: Unremarkable GALLBLADDER AND BILE DUCTS: Unremarkable. PANCREAS: Unremarkable. SPLEEN: Unremarkable. ADRENAL GLANDS: Unremarkable. KIDNEYS AND URETERS: No evidence of hydronephrosis or renal calculus. The ureters are unremarkable. PELVIS BLADDER: Unremarkable REPRODUCTIVE: Unremarkable. ABDOMEN & PELVIS STOMACH AND BOWEL: No evidence of bowel obstruction. PERITONEUM: No evidence of pneumoperitoneum or free fluid. VASCULATURE: No evidence of aortic aneurysm. MUSCULOSKELETAL: No acute osseous abnormalities LYMPH NODES: No gross evidence for lymphadenopathy. SOFT TISSUE/ABDOMINAL WALL: Unremarkable IMPRESSION: 1. Posttreatment changes with Improved right lower lung streaky post treatment changes. No evidence for lymphadenopathy seen on prior PET/CT. 2. Stable scattered parenchymal changes, a 4 mm right upper lung nodule appears more prominent which could be due to slice flexion. Attention on follow-up imaging.
== END | disposition home or self-care (01) ==
LOC: RADCTMAIN 10:29
PROVIDERS: ATTEND Radiology Radiation Oncology
DX: C77.1 Secondary and unspecified malignant neoplasm of intrathoracic lymph nodes (principal); C34.31 Malignant neoplasm of lower lobe, right bronchus or lung; R91.1 Solitary pulmonary nodule
CPT/HCPCS: 71270; 74178; Q9967

== ENCOUNTER → 2023-04-10 | Outpatient (CLI) | payer BC ==
--- NOTE | 2023-04-15 13:15 | CT ---
EXAMINATION TYPE: CT abdomen pelvis w con CT DLP: 289.8 mGycm, Automated exposure control for dose reduction was used. DATE OF EXAM: 04/10/2023 3:08 PM COMPARISON: CT abdomen 01/02/2023, CT chest abdomen pelvis 10/10/2022 CLINICAL INDICATION:Female, 57 years old with history of C34.31 LUNG CA; lung ca TECHNIQUE: Axial CT of the abdomen and pelvis. Sagittal and coronal reformats were created on a [employer] workstation. Contrast used:100 mL of Isovue 300 with IV Contrast, (none if empty) Oral contrast used: with Oral Contrast (none if empty) FINDINGS: LOWER CHEST: Please see separate CT chest for findings ABDOMEN LIVER: Stable, no evidence of mass GALLBLADDER AND BILE DUCTS: Unremarkable gallbladder. Mildly prominent biliary tree, similar to prior . PANCREAS: Unremarkable. SPLEEN: Unremarkable. ADRENAL GLANDS: Not well seen, no evidence of mass.. KIDNEYS AND URETERS: Kidneys enhance symmetrically. No evidence of hydronephrosis or visible renal ca lculus. The ureters are unremarkable. Delayed phase shows contrast in the upper collecting systems an d ureters bilaterally. PELVIS BLADDER: Unremarkable REPRODUCTIVE: The uterus appears small or absent, correlate for hysterectomy. No pelvic mass suggest ed. ABDOMEN & PELVIS STOMACH AND BOWEL: Contrast traverses the stomach and small bowel loops. Stomach and small bowel are nondistended, no evidence of obstruction. Appendix is not identified with certainty, however there is no inflammatory process seen in the RLQ. Moderate stool throughout the colon without focal abnorm ality. PERITONEUM/RETROPERITONEUM: No evidence of pneumoperitoneum or free fluid. VASCULATURE: Moderate atherosclerotic calcifications are present throughout the abdominal aorta and i ts branches. No evidence of aortic aneurysm. Diffuse calcific plaque throughout the iliac arterial t lan with multifocal stenoses suggested. LYMPH NODES: No gross evidence for lymphadenopathy. SOFT TISSUE/ABDOMINAL WALL: Unremarkable MUSCULOSKELETAL: Osseous structures appear unchanged. No evidence of metastatic lesion. IMPRESSION: No evidence of abdominal pelvic metastatic disease. Report
== END | disposition home or self-care (01) ==
LOC: RADCTMAIN 12:59
PROVIDERS: ATTEND Internal Medicine
DX: C34.31 Malignant neoplasm of lower lobe, right bronchus or lung (principal); I67.89 Other cerebrovascular disease; J44.9 Chronic obstructive pulmonary disease, unspecified; Z71.3 Dietary counseling and surveillance
CPT/HCPCS: 74177

== ENCOUNTER → 2023-04-10 | Outpatient (CLI) | payer BC ==
--- NOTE | 2023-04-15 12:54 | CT ---
EXAMINATION TYPE: CT chest wo/w con CT DLP: 235.4 mGycm, Automated exposure control for dose reduction was used. DATE OF EXAM: 04/10/2023 3:07 PM COMPARISON: CT chest 01/02/2023 and older exams . CLINICAL INDICATION:Female, 57 years old with history of C34.31 lung ca; PHH, f/u lung ca TECHNIQUE: Multiple axial images were obtained through the chest. Sagittal and coronal reformats were created for review. Contrast used:100 mL of Isovue 300 without and with IV Contrast (None if empty) Oral contrast used: (None if empty) FINDINGS: LUNGS/ PLEURA: Moderate background emphysematous changes. Continued stable posttreatment appearance o f the right lower lobe, with strandy and bandlike opacities again noted. A central more focal area of opacity measuring about 16 x 12 mm image 49 series 4, remains stable. Other scattered subcentimeter nodular densities on the right, including 5.5 mm image 17 right upper lobe, 5 mm image 26 posterior r ight upper lobe, 4.5 mm inferior right upper lobe image 36, 4 mm right middle lobe image 43, 4 mm rig ht middle lobe image 48, remain stable. A 4 mm nodule right upper lobe anteriorly image 26 is not def initely seen on priors, this could be new or just better seen due to slice selection. On the left, ar ound image 14 small nodular densities left upper lobe identified before are less conspicuous and not measurable. Small semicircular juxtapleural nodular density left lower lobe image 48 remains stable. A 4 mm nodular density left lower lobe image 38 is stable. A 4 mm nodular density in the left upper l obe abutting the pleural surface along the anterior mediastinum image 34 remains stable. Otherwise th ere are no definite new or enlarging pulmonary lesions to suggest progressive disease. No consolidati on, pleural effusion, or pneumothorax. AIRWAY: Central airways are patent. LOWER NECK: No significant findings. MEDIASTINUM: Indistinct mediastinal soft tissues again noted without measurable adenopathy.. HEART: Normal heart size. Mild to moderate coronary artery calcification and/or stents. No appreciabl e pericardial effusion. VASCULATURE: Moderate atherosclerotic calcifications of the aorta and branches. Ascending aorta is 3 .1 CM, descending is 2.1 CM. Aorta is considered normal in size. Atherosclerotic plaque causes under 50% diameter stenosis of the right brachiocephalic artery and proximal left subclavian artery. Parti ally visualized plaque in the mid left common carotid artery causes under 50% diameter stenosis. Pulmonary trunk measures 2.4 CM. Pulmonary trunk is normal in size. Grossly preserved enhancement of the pulmonary arteries, in the limits of non-CTA exam. SOFT TISSUES/LYMPH NODES: Unremarkable soft tissues. No axillary adenopathy. UPPER ABDOMEN: Adrenals not well seen, no mass is suggested. Additional atherosclerotic calcification of the upper abdominal aorta. MUSCULOSKELETAL: No acute osseous abnormalities. Mild disc degeneration changes are present throughou t the thoracolumbar spine. IMPRESSION: 1. Presumed posttreatment changes in the right lower lobe remain unchanged. 2. Scattered subcentimeter nodular densities bilaterally, largely remain stable. A 4 mm nodule in th e right upper lobe is questionably new, or simply better seen due to slice selection. Attention on fo llow-up. 3. Otherwise stable appearance the chest, without evidence of new or worsening metastatic disease.
== END | disposition home or self-care (01) ==
LOC: RADCTMAIN 13:00
PROVIDERS: ATTEND Radiology Radiation Oncology
DX: J98.4 Other disorders of lung (principal); R91.1 Solitary pulmonary nodule; C77.1 Secondary and unspecified malignant neoplasm of intrathoracic lymph nodes; C34.31 Malignant neoplasm of lower lobe, right bronchus or lung; J44.9 Chronic obstructive pulmonary disease, unspecified; I67.89 Other cerebrovascular disease; Z71.3 Dietary counseling and surveillance
CPT/HCPCS: 71270; Q9967

== ENCOUNTER → 2023-07-25 | Outpatient (CLI) | payer BC ==
[2023-07-25 13:40] LABS: African American GFR (CKD) >90 (>60 ml/min/1.73 sqM); Blood Urea Nitrogen 9 mg/dL (7-17); Non-African American GFR(CKD) >90 (>60 ml/min/1.73 sqM)
--- NOTE | 2023-08-01 10:04 | CT ---
EXAMINATION TYPE: CT Chest Abd Pelvis w con CT DLP: 399.8 mGycm, Automated exposure control for dose reduction was used. DATE OF EXAM: 07/25/2023 3:29 PM COMPARISON: None. CLINICAL INDICATION:Female, 57 years old with history of C34.31 LUNG CANCER; PH, follow up lung canc er. Technique: CT chest abdomen and pelvis with contrast; Multiple axial images were obtained. Two-dimens ional coronal and sagittal reconstructions were obtained. Contrast used:100ml mL of Isovue 300 with IV Contrast, Oral contrast used: with Oral Contrast Findings: CHEST: LUNGS/ PLEURA: Right lower lobe nodule appears smaller on today's study compared to 04/10/2023. Previ ously nodules measured 10 mm and currently 8 mm. The degree of spiculation is less on the current doreen dy. No other right pulmonary nodules. The left lung is clear without nodules. AIRWAY: Patent and unremarkable. HEART: Size within normal limits. MEDIASTINUM: No gross evidence of adenopathy. VASCULATURE: No aortic aneurysm. MUSCULOSKELETAL: No acute osseous abnormalities. SOFT TISSUES/LYMPH NODES: Unremarkable. LOWER NECK: No significant findings. ABDOMEN: ABDOMEN LIVER: Unremarkable GALLBLADDER AND BILE DUCTS: Unremarkable. PANCREAS: Unremarkable. SPLEEN: Unremarkable. ADRENAL GLANDS: Unremarkable. KIDNEYS AND URETERS: No evidence of hydronephrosis or renal calculus. The ureters are unremarkable. PELVIS BLADDER: Unremarkable REPRODUCTIVE: Unremarkable. ABDOMEN & PELVIS STOMACH AND BOWEL: Stomach and duodenum are unremarkable. No evidence of bowel obstruction. PERITONEUM: No evidence of pneumoperitoneum or free fluid. VASCULATURE: No evidence of aortic aneurysm. MUSCULOSKELETAL: No acute osseous abnormalities LYMPH NODES: No gross evidence for lymphadenopathy. SOFT TISSUE/ABDOMINAL WALL: Unremarkable IMPRESSION: 1. Slight decrease in size of right lower lobe pulmonary nodule. No grossly evident metastatic diseas e.
== END | disposition home or self-care (01) ==
LOC: RADCTMAIN 13:06
PROVIDERS: ATTEND Internal Medicine
DX: C34.31 Malignant neoplasm of lower lobe, right bronchus or lung (principal); R91.1 Solitary pulmonary nodule; I67.89 Other cerebrovascular disease; J44.9 Chronic obstructive pulmonary disease, unspecified; Z71.3 Dietary counseling and surveillance
CPT/HCPCS: 82565; 84520; 71260; 74177; 36415; Q9967

== ENCOUNTER → 2023-11-14 | Outpatient (CLI) | payer BC ==
--- NOTE | 2023-12-09 20:08 | CT ---
Patient: Jil Villeda L Ordering Physician: Unknown, Unknown ID: [id number] Phone, Pager: Phone: N/A Pager: N/A : 1965 Age/Gender: 58Y, F Primary Location: N/A Procedure: CT Chest w Contrast CT Abd and Pelvis w Contrast Study Date: 11/14/2023 3:26:00 PM EXAMINATION TYPE: CT ChestAbdPelvis w con CT DLP: 395 mGycm, Automated exposure control for dose reduction was used. DATE OF EXAM: 11/22/2023 9:20 AM COMPARISON: 07/25/2023 CLINICAL INDICATION: Carcinoma right lower lung. Technique: CT ChestAbdPelvis w con; Multiple axial images were obtained. Two-dimensional coronal and sagittal reconstructions were obtained. Contrast used: mL of 100 cc Isovue-370 Oral contrast used: Findings: CHEST: LUNGS/ PLEURA: Similar streaky scarring/atelectasis in the right lower lung.. Nodule-like area more l ateral in the right lower lobe measuring 11 x 7 mm not clearly seen on prior. Upper lobe nodules post eriorly are also maeve given differences in slice selection measuring 8 mm series 4 image 26 and 4 mm image 27. No focal consolidation, pneumothorax or pleural effusion. AIRWAY: Patent and unremarkable. HEART: Size within normal limits. MEDIASTINUM: No gross evidence of adenopathy. VASCULATURE: No aortic aneurysm. MUSCULOSKELETAL: No acute osseous abnormalities. SOFT TISSUES/LYMPH NODES: Unremarkable. LOWER NECK: No significant findings. ABDOMEN: ABDOMEN LIVER: Unremarkable GALLBLADDER AND BILE DUCTS: Unremarkable. PANCREAS: Unremarkable. SPLEEN: Unremarkable. ADRENAL GLANDS: Unremarkable. KIDNEYS AND URETERS: No evidence of hydronephrosis or renal calculus. The ureters are unremarkable. PELVIS BLADDER: Unremarkable REPRODUCTIVE: Unremarkable. ABDOMEN & PELVIS STOMACH AND BOWEL: No evidence of bowel obstruction. The appendix is normal. Moderate stool burden th roughout the colon. Scattered colonic diverticula. PERITONEUM: No evidence of pneumoperitoneum or free fluid. VASCULATURE: No evidence of aortic aneurysm. MUSCULOSKELETAL: No acute osseous abnormalities LYMPH NODES: No gross evidence for lymphadenopathy. SOFT TISSUE/ABDOMINAL WALL: Unremarkable IMPRESSION: New from prior Right lower lobe nodule measuring 11 x 7 mm follow-up PET/CTs recommended. No evidence for acute thoracic or abdominal process. No lymphadenopathy.
== END | disposition home or self-care (01) ==
LOC: RADCTMAIN 13:35
PROVIDERS: ATTEND Internal Medicine
DX: C34.31 Malignant neoplasm of lower lobe, right bronchus or lung (principal); I67.89 Other cerebrovascular disease; J44.9 Chronic obstructive pulmonary disease, unspecified; K57.30 Diverticulosis of large intestine without perforation or abscess without bleeding; Z71.3 Dietary counseling and surveillance
CPT/HCPCS: 71260; 74177; 36415; Q9967

== ENCOUNTER → 2023-12-29 | Outpatient (CLI) | payer BC ==
--- NOTE | 2023-12-31 23:10 | PE ---
EXAMINATION TYPE: PET CT fusion skull to thigh DATE OF EXAM: 12/29/2023 COMPARISON: Chest abdomen and pelvis 11/14/2023 Prior PET/CT: 01/21/2022 HISTORY: Lung cancer TECHNIQUE: Following the intravenous administration of 9.88 mCi of F-18 FDG, whole body images are p erformed from the skull base to the midthigh. Images are reviewed on the computer in the coronal, ax ial, and sagittal planes. Reconstructed rotating images are created on independent workstation and r eviewed on the computer. A localization and attenuation correction CT is performed in conjunction w ith the PET scan. DLP: 156.37 mGycm SCAN: Subsequent Blood glucose: 89 mg/dL Average Mediastinum SUV: 1.6 Average Liver SUV: 1.7 FINDINGS: NECK: There are several areas of increased uptake within the bilateral supraclavicular region. Examp le image 55, medial right side measuring 3.4, lateral left side measuring 3.80. In the coronal plane this may be muscular discrete enlarged lymph nodes are not identified. Additional focus of uptake letitia ears to be in the left posterior lateral vocal cord level, image 54, SUV 4.37 THORAX: There is a focus of intense radiotracer within the small nodule posterior right upper lung fi eld 4.79. There is some mild uptake within an area of increased density within the posterior lateral right lung , example image 118, SUV to 4 bilaterally somewhat more medial 5. This is nonspecific and could be in flammatory in nature. No suspicious mediastinal uptake is evident. Note is made of some intercostal uptake suggesting underlying COPD with intercostal muscular use duri ng injection. ABDOMEN: There is intense uptake within the prominent right-sided lymph node with an SUV of 6.38 susp icious for metastatic disease. PELVIS: No suspicious uptake. OSSEOUS STRUCTURES: No suspicious uptake. LOCALIZATION CT: Coronary artery calcification is present. COMPARISON: Posterior right upper lobe nodule has increased in size over the interval. Density in the posterior lateral right midlung is similar to slightly enlarged rate IMPRESSION: 1. Increased uptake within right posterior lateral increasing size nodule suspicious for neoplasm. 2. Intermediate uptake within the right lower lobe lung densities which are similar to slightly large r than comparison. 3. Uptake within the right adrenal gland static disease. 4. Uptake within the neck may be supraclavicular musculature which appears somewhat elongated in the coronal plane. Symmetrical metastases felt to be less likely. [facility], , 12/31/2023 11:07 PM
== END | disposition home or self-care (01) ==
LOC: RADPETMAIN 13:22
PROVIDERS: ATTEND Internal Medicine
DX: C34.31 Malignant neoplasm of lower lobe, right bronchus or lung (principal)
CPT/HCPCS: 78815

== ENCOUNTER → 2024-03-08 | Outpatient (CLI) | payer BC ==
--- NOTE | 2024-03-09 15:08 | MR ---
INDICATION: Patient age:Female; 58 years old; Reason for study: CARCINOMA OF THE LUNGC34.31; [facility]. COMPARISON: PET/CT 12/29/2023, MRI brain 02/03/2022, CT brain 12/28/2021. TECHNIQUE: Multi planar, multi sequence imaging was performed through the brain. The patient was then given 4 cc of Gadobutrol intravenously and multi planar, T1 fat-saturation images were obtained. FINDINGS: Motion degraded examination. The andre-white junctions, ventricular system, basal cisterns appear unremarkable. Age-appropriate cer ebral parenchymal volume. Diffusion-weighted imaging shows no evidence of restricted diffusion to sug gest acute/subacute infarct. Intracranial arterial flow voids are maintained. Midline structures show no abnormality. Patchy areas of high T2/FLAIR signal intensity are seen within the periventricular a nd subcortical white matter. This has increased from prior MRI. The susceptibility weighted images de monstrate 2 foci of blooming artifact within the right frontal lobe and one within the left cerebella r hemisphere. No corresponding surrounding FLAIR signal. After administration of gadolinium, no abnor mal enhancement is seen. The bone marrow signal is within normal limits. Moderate mucosal thickening in the bilateral maxillar y sinuses and ethmoid sinuses. The globes are unremarkable. IMPRESSION: 1. No evidence of intracranial mass, acute/subacute infarct, or abnormal enhancement to suggest metas tasis. 2. Mild progression of nonspecific white matter changes, likely related to small vessel ischemic dise ase. 3. Development of 3 foci of blooming artifact within the right frontal lobe and left cerebellar hemis phere likely related to prior microhemorrhage. 4. Moderate paranasal sinus disease. [facility], , 03/09/2024 3:05 PM
== END | disposition home or self-care (01) ==
LOC: RADMRIMAIN 17:26
PROVIDERS: ATTEND Internal Medicine
DX: C34.31 Malignant neoplasm of lower lobe, right bronchus or lung (principal); R90.82 White matter disease, unspecified; J34.89 Other specified disorders of nose and nasal sinuses
CPT/HCPCS: 70553; A9585

== ENCOUNTER → 2024-03-14 | Outpatient (CLI) | payer BC ==
--- NOTE | 2024-03-14 15:29 | CT ---
EXAMINATION TYPE: CT ChestAbdPelvis w con CT DLP: 382.4 mGycm, Automated exposure control for dose reduction was used. DATE OF EXAM: 03/14/2024 3:10 PM COMPARISON: PET CT 12/29/2023, MRI brain 03/08/2024, CT chest abdomen pelvis 11/22/2023, 07/25/2023, 2023 CLINICAL INDICATION:Female, 58 years old with history of C34.31 MALIGNANT NEOPLASM OF LOWER LOBE, RIG HT BRO; PH, F/u for malignant neoplasm of lung - right lower lobe. Technique: Multiple axial images of the chest, abdomen, and pelvis were obtained following the intrav enous administration of 100 mL Isovue-300. Oral contrast was administered. Two-dimensional coronal an d sagittal reconstructions were obtained. Findings: CHEST: LUNGS/ PLEURA: Similar streaky scarring/atelectasis in the right lower lobe. Nodule-like area more la teral in the right lower lobe measuring 1.6 cm is relatively stable (series 4, image 45). Stable righ t middle lobe 5 mm pulmonary nodule (series 4, image 41). Increasing size of spiculated posterior rig ht upper lung 1.4 cm pulmonary nodule (series 4, image 22), previously measured 1.0 cm on PET/CT. Thi s demonstrated FDG activity in prior PET/CT. Similar size of adjacent satellite nodule measuring up t o 4 mm (series 4, image 22). Stable right middle lobe 5 mm pulmonary nodule (series 4, image 46). No new definitive pulmonary nodules. Mild centrilobular emphysematous changes. No focal consolidation, p neumothorax or pleural effusion. AIRWAY: Patent and unremarkable. HEART: Size within normal limits.No pericardial effusion MEDIASTINUM: No definitive evidence of adenopathy. VASCULATURE: No aortic aneurysm. Mild to moderate atherosclerotic calcification of the aorta and its branches. MUSCULOSKELETAL: No acute osseous abnormalities. No aggressive osseous lesion. SOFT TISSUES/LYMPH NODES: Unremarkable. LOWER NECK: No significant findings. ABDOMEN: ABDOMEN LIVER: Unremarkable GALLBLADDER AND BILE DUCTS: Unremarkable. PANCREAS: Unremarkable. SPLEEN: Unremarkable. ADRENAL GLANDS: Left adrenal gland is unremarkable. Marked enlargement of heterogenous right adrenal mass measuring 6.2 x 5.0 x 9.3 cm. Previously measured 3.4 x 2.9 cm. KIDNEYS AND URETERS: No evidence of hydronephrosis or renal calculus. The kidneys enhance symmetrical ly. This demonstrated within both collecting systems on the delayed phase. PELVIS BLADDER: Incompletely distended but grossly unremarkable. REPRODUCTIVE: Unremarkable. ABDOMEN & PELVIS STOMACH AND BOWEL: No evidence of bowel obstruction. The appendix is normal. Moderate stool burden th roughout the colon. Scattered colonic diverticula. Enteric contrast reaches the descending colon. PERITONEUM: No evidence of pneumoperitoneum or free fluid. VASCULATURE: No evidence of aortic aneurysm. Mild atherosclerotic calcification of the aorta and its branches. Multiple pelvic phleboliths. MUSCULOSKELETAL: No acute osseous abnormalities. No aggressive osseous lesion. LYMPH NODES: No evidence for lymphadenopathy. SOFT TISSUE/ABDOMINAL WALL: Unremarkable IMPRESSION: 1. Increased size of posterior right upper lung spiculated 1.4 cm spiculated pulmonary nodule from pr ior PET CT where it demonstrated FDG activity. This is highly concerning for metastatic disease. 2. Additional few scattered pulmonary nodules are stable in size and did not demonstrate FDG activity on prior PET CT. Attention on follow-up exams. 3. Marked enlargement of right adrenal gland mass measuring up to 9.3 cm which demonstrated FDG activ ity on prior PET/CT and is highly concerning for metastatic disease. [facility], , 03/14/2024 3:26 PM
== END | disposition home or self-care (01) ==
LOC: RADCTMAIN 13:05
PROVIDERS: ATTEND Internal Medicine
DX: C34.31 Malignant neoplasm of lower lobe, right bronchus or lung (principal); I67.89 Other cerebrovascular disease; J44.9 Chronic obstructive pulmonary disease, unspecified; Z71.3 Dietary counseling and surveillance; E27.9 Disorder of adrenal gland, unspecified
CPT/HCPCS: 71260; 74177; Q9967

== ENCOUNTER → 2024-03-18 | Outpatient (CLI) | payer BC ==
--- NOTE | 2024-03-18 17:25 | CA ---
Transthoracic Echo Report Name: Jil Villeda Age: 58 Gender: F : 1965 Exam Date: 03/18/2024 13:21 Exam Location: [facility] Ht (in): 62 Wt (lb): 85 Ordering Physician: Joss Diaz MD Attending/Referring Phys: Pato Carrizales MD Front Office Attendant Nidia Henry, [facility] Procedure CPT: Indications: Z01.818 Chemo exposure Cardiac Hx: To evaluate LV function a patient who had chemotherapy Technical Quality: Good Contrast 1: Total Dose (mL): Contrast 2: Total Dose (mL): MEASUREMENTS (Male / Female) Normal Values 2D ECHO LV Diastolic Diameter PLAX 3.2 cm 4.2 - 5.9 / 3.9 - 5.3 cm LV Systolic Diameter PLAX 2.3 cm IVS Diastolic Thickness 0.8 cm 0.6 - 1.0 / 0.6 - 0.9 cm LVPW Diastolic Thickness 0.9 cm 0.6 - 1.0 / 0.6 - 0.9 cm LV Relative Wall Thickness 0.5 RV Internal Dim ED PLAX 3.1 cm LA Systolic Diameter LX 2.2 cm 3.0 - 4.0 / 2.7 - 3.8 cm LV Diastolic Volume MOD 4C 47.9 cm??? LV Systolic Volume MOD 4C 23.4 cm??? LV Ejection Fraction MOD 4C 51.1 % LV Cardiac Index MOD 4C 1865.8 cm???/min???m??? LV Diastolic Length 4C 6.8 cm LV Systolic Length 4C 6.3 cm LV Diastolic Volume MOD 2C 51.0 cm??? LV Systolic Volume MOD 2C 20.9 cm??? LV Ejection Fraction MOD 2C 59.1 % LV Cardiac Index MOD 2C 2301.8 cm???/min???m??? LV Diastolic Length 2C 7.1 cm LV Systolic Length 2C 6.0 cm LA Volume 14.0 cm??? 18 - 58 / 22 - 52 cm??? LA Volume Index 10.9 cm???/m??? 16 - 28 cm???/m??? M-MODE Aortic Root Diameter MM 3.0 cm AV Cusp Separation MM 2.2 cm DOPPLER AV Peak Velocity 127.4 cm/s AV Peak Gradient 6.5 mmHg AI Peak Velocity 393.8 cm/s AI Peak Gradient 62.0 mmHg AI Pressure Half Time 1439.3 ms MV Area PHT 3.0 cm??? Mitral E Point Velocity 78.3 cm/s Mitral A Point Velocity 90.7 cm/s Mitral E to A Ratio 0.9 MV Deceleration Time 252.3 ms TR Peak Velocity 258.0 cm/s TR Peak Gradient 26.6 mmHg Right Ventricular Systolic Press 36.0 mmHg FINDINGS Left Ventricle Left ventricular ejection fraction is estimated at 55-60 %. Small left ventricular cavity. Left ventricular wall thickness normal. Good systolic strain Right Ventricle Normal right ventricular size and function. Mild pulmonary hypertension. Right Atrium Normal right atrial size. No right atrial thrombus or mass seen. Left Atrium Normal left atrial size. No left atrial thrombus or mass present. Mitral Valve Structurally normal mitral valve. No mitral stenosis, regurgitation or prolapse. Aortic Valve Trileaflet aortic valve. Mild aortic regurgitation. Tricuspid Valve Structurally normal tricuspid valve. Mild tricuspid regurgitation. Pulmonic Valve Structurally normal pulmonic valve. No pulmonic regurgitation. Pericardium No pericardial or pleural effusion. Aorta Normal size aortic root and proximal ascending aorta. CONCLUSIONS Normal LV function Mild pulmonary hypertension Previewed by: Dr. Edvin Batres MD (Electronically Signed) Final Date: 18 March 2024 17:24
== END | disposition home or self-care (01) ==
LOC: RADECHMAIN 13:10
PROVIDERS: ATTEND Internal Medicine
DX: Z01.818 Encounter for other preprocedural examination (principal); C34.31 Malignant neoplasm of lower lobe, right bronchus or lung; I67.89 Other cerebrovascular disease; J44.9 Chronic obstructive pulmonary disease, unspecified; Z71.3 Dietary counseling and surveillance; I27.20 Pulmonary hypertension, unspecified
CPT/HCPCS: 93306

== ENCOUNTER → 2024-06-14 | Outpatient (CLI) | payer BC ==
--- NOTE | 2024-06-15 16:38 | PE ---
EXAMINATION TYPE: PET CT fusion skull to thigh DATE OF EXAM: 06/14/2024 CLINICAL INDICATION:Female, 58 years old with history of C34.31 MALIGNANT NEOPLASM OF LOWER LOBE, RIG HT BRO; TECHNIQUE: Following the intravenous administration of 10.76 mCi of F-18 FDG, whole body images are performed from the skull base to the midthigh. Images are reviewed on the computer in the coronal, axial, and sagittal planes. Reconstructed rotating images are created on independent workstation and reviewed on the computer. A non-contrast CT is performed in conjunction with the PET scan. Glucose level 102 mg/dL CT DLP: 139.47 mGycm, Automated exposure control for dose reduction was used. COMPARISON: CT 03/14/2024, 12/03/2023, 07/25/2023, 04/10/2023, 01/02/2023, 10/10/2022, PET/CT 12/29/2023, , MRI: 03/08/2024 FINDINGS: Mediastinal SUV mean is 1.9. Hepatic parenchyma SUV mean is 2.1. SKULL BASE AND NECK: No suspicious radiotracer activity. CHEST, MEDIASTINUM, AND HILAR REGION: Redemonstration of posterior right upper lobe 1.2 cm nodule with a maximum SUV of 15.2. Previously m easured 1.0 cm on prior PET/CT with max SUV of 6.9. Adjacent subcentimeter satellite nodule does not demonstrate FDG activity which can be below the threshold for PET CT. Scarring of the right lung base without suspicious FDG activity above background levels. ABDOMEN AND PELVIS: Redemonstration of right adrenal gland mass measuring at least 5.9 cm. Demonstrates a maximum SUV of 15.6. Previously measured up to 3.4 cm on prior PET/CT with a max SUV of 9.3. Causes mild mass effect upon the right kidney. MUSCULOSKELETAL STRUCTURES: No suspicious radiotracer activity. OTHER CT: Right carotid bulb calcifications. Atherosclerotic calcification of the aorta and its branc hes. Mild coronary tail calcifications. Multiple pelvic phleboliths. IMPRESSION: Progression of disease with increasing size and FDG activity of right upper lobe pulmonary nodule and right adrenal gland mass. [facility], , 06/15/2024 4:36 PM
== END | disposition home or self-care (01) ==
LOC: RADPETMAIN 13:31
PROVIDERS: ATTEND Internal Medicine
DX: C34.31 Malignant neoplasm of lower lobe, right bronchus or lung (principal); E27.8 Other specified disorders of adrenal gland
CPT/HCPCS: 78815; A9552

== ENCOUNTER → 2024-09-06 | Outpatient (CLI) | payer BC ==
[2024-09-07 02:49] LABS: Blood Urea Nitrogen 7.4 mg/dL (9.0-27.0); Calcium 8.4 mg/dL (8.7-10.3); Carbon Dioxide 21.7 mmol/L (21.6-31.8); Chloride 91 mmol/L (96-109); Glucose 89 mg/dL (70-110); Potassium 4.2 mmol/L (3.5-5.5); Sodium 125 mmol/L (135-145)
== END | disposition home or self-care (01) ==
LOC: LABWHC1 14:31
DX: E87.1 Hypo-osmolality and hyponatremia (principal)
CPT/HCPCS: 36415; 80048

== ENCOUNTER 2024-09-18 16:29 | Inpatient (IN) | payer BC ==
[2024-09-18] MEDS: SODIUM CHLORIDE 0.9% 1,000 ML IV ONE (17:09)
[2024-09-18 17:18] LABS: Basophils # (A) 0.04 10*3/uL (0.00-0.10); Basophils % (A) 0.2 %; Eosinophils # (A) 0.04 10*3/uL (0.04-0.35); Eosinophils % (A) 0.2 %; Lymphocytes # (A) 1.12 10*3/uL (0.90-5.00); Lymphocytes % (A) 5.4 %; MCH 31.4 pg (27.0-32.0); MCHC 36.3 g/dL (32.0-37.0); MCV 86.4 fL (80.0-97.0); Mean Platelet Volume 8.7 fL (9.5-12.2); Monocytes # (A) 2.43 10*3/uL (0.20-1.00); Monocytes % (A) 11.7 %; Neutrophils # (A) 16.87 10*3/uL (1.80-7.70); Neutrophils % (A) 81.3 %; RBC 1.69 10*6/uL (4.10-5.20); RDW 18.2 % (11.5-14.5); WBC 20.75 10*3/uL (4.50-10.00)
[2024-09-18 17:22] LABS: HCT 14.6 % (37.2-46.3); HGB 5.3 g/dL (12.0-15.0); Platelet Count 748 10*3/uL (140-440)
[2024-09-18 17:28] LABS: INR 1.3 (<1.2); Partial Thromboplastin Time 29.2 sec (22.0-30.0); Prothrombin Time 13.8 sec (10.0-12.5)
[2024-09-18 17:32] LABS: Albumin 3.2 g/dL (3.5-5.0)
[2024-09-18 17:35] LABS: ALT 24 U/L (4-34); AST 89 U/L (14-36); African American GFR (CKD) >90 (>60 ml/min/1.73 sqM); Alkaline Phosphatase 393 U/L (38-126); Anion Gap 12 mmol/L; Blood Urea Nitrogen 17 mg/dL (7-17); Carbon Dioxide 21 mmol/L (22-30); Chloride 85 mmol/L (98-107); Glucose 83 mg/dL (74-99); Magnesium 1.8 mg/dL (1.6-2.3); Non-African American GFR(CKD) >90 (>60 ml/min/1.73 sqM); Potassium 4.6 mmol/L (3.5-5.1); Total Bilirubin 1.4 mg/dL (0.2-1.3); Total Protein 5.9 g/dL (6.3-8.2)
--- NOTE | 2024-09-18 17:46 | XR ---
EXAMINATION TYPE: XR chest 2V DATE OF EXAM: 09/18/2024 5:22 PM COMPARISON: Chest radiograph 08/30/2024. CLINICAL INDICATION: Female, 59 years old with history of Weakness; [facility] TECHNIQUE: XR chest 2V Frontal and lateral views of the chest. FINDINGS: Lungs/Pleura: Patchy consolidating opacities, most pronounced at the right lung base. There is likely loculated right-sided pleural effusion.r new and/or increasing nodular densities at the left lung ba se measuring up to 25 mm. Additional metastatic nodules appears similar from prior study 08/31/2024. Pulmonary vascularity: Unremarkable. Heart/mediastinum: Cardiomediastinal silhouette is unremarkable. Musculoskeletal: No acute osseous pathology. Other findings: None IMPRESSION: 1. Worsening aeration of lungs compared to prior study of 08/30/2024, likely reflects accommodation o f disease progression and possible multifocal pneumonia. 2. Partially loculated small right pleural effusion. [facility], , 09/18/2024 5:43 PM
--- NOTE | 2024-09-18 17:58 | ED ---
General Adult HPI - General Chief complaint: Shortness of Breath Stated complaint: Dizziness/IAN Time Seen by Provider: 09/18/24 16:39 Source: patient, RN notes reviewed, old records reviewed Mode of arrival: wheelchair Limitations: no limitations - History of Present Illness Initial comments: 59-year-old female with stage IV lung cancer presenting with generalized weakness and dyspnea. Patient denies cough or fever. She is currently awaiting recommendations by oncology regarding progression of her cancer and possible treatment. She denies specific new pain complaints. - Related Data Previous Rx's Medication Instructions Recorded HYDROcodone/APAP 5-325MG [[place] 1 each PO Q6HR PRN #20 tab 09/03/24 5-325] Sodium Chloride Tab 1 gm PO BID #60 tab 09/03/24 Allergies Allergy/AdvReac Type Severity Reaction Status Date / Time No Known Allergies Allergy Verified 09/18/24 16:35 Review of Systems ROS Statement: Those systems with pertinent positive or pertinent negative responses have been documented in the HPI. ROS Other: All systems not noted in ROS Statement are negative. Past Medical History Past Medical History: Cancer, COPD, CVA/TIA Additional Past Medical History / Comment(s): COPD, spastic colon, CVA/TIA. LUNG CANCER-RLL NSCLC. History of Any Multi-Drug Resistant Organisms: None Reported Past Surgical History: Section, Tonsillectomy Additional Past Surgical History / Comment(s): L oophorectomy due to cyst Past Anesthesia/Blood Transfusion Reactions: No Reported Reaction Past Psychological History: No Psychological Hx Reported Smoking Status: Current every day smoker - Past Family History Father History Unknown: Yes Family Medical History: No Reported History Additional Family Medical History / Comment(s): at early age from gunshot Mother Family Medical History: Cancer Additional Family Medical History / Comment(s): Mother had some kind of cancer but pt does not know what kind. She at age 65 or 67yrs. General Exam Limitations: no limitations General appearance: alert, cachectic Head exam: Present: atraumatic, normocephalic Eye exam: Present: normal appearance, PERRL ENT exam: Present: mucous membranes dry Neck exam: Present: normal inspection. Absent: tenderness Respiratory exam: Absent: respiratory distress, wheezes, rales Cardiovascular Exam: Present: regular rate, normal rhythm GI/Abdominal exam: Present: soft. Absent: distended, tenderness Extremities exam: Present: normal inspection, normal capillary refill Neurological exam: Present: alert, oriented X3 Psychiatric exam: Present: normal affect, normal mood Skin exam: Present: pallor Course Vital Signs 09/18/24 16:31 Temperature 97.5 F L Pulse Rate 106 H Respiratory 20 Rate Blood Pressure 92/58 O2 Sat by Pulse 98 Oximetry Medical Decision Making - Medical Decision Making Was pt. sent in by a medical professional or institution (, SENA, ARTIFICIAL TEETH INSPECTOR, urgent care, hospital, or snf...) When possible be specific @ -No Did you speak to anyone other than the patient for history (EMS, parent, family, police, friend...)? What history was obtained from this source @ -No Did you review nursing and triage notes (agree or disagree)? Why? @ -I reviewed and agree with nursing and triage notes Were old charts reviewed (outside hosp., previous admission, EMS record, old EKG, old radiological studies, urgent care reports/EKG's, snf records)? Report findings @ -No old charts were reviewed Differential Weakness: Hypoglycemia, shock, sepsis, hyponatremia, anemia, infection, [place], ETOH, adverse medicine reaction, overdose, stroke, this is not meant to be an all-inclusive list. EKG interpreted by me (3pts min.). @ -Sinus tachycardia rate of 103, AR interval 125, QRS duration 96, QTc [address] segment elevation. X-rays interpreted by me (1pt min.). @ -Chest x-ray shows persistent known cancer, possible concurrent pneumonia CT interpreted by me (1pt min.). @ -None done U/S interpreted by me (1pt. min.). @ -None done What testing was considered but not performed or refused? (CT, X-rays, U/S, labs)? Why? @ -None What meds were considered but not given or refused? Why? @ -None Did you discuss the management of the patient with other professionals (professionals i.e. SENA Ramirez, ARTIFICIAL TEETH INSPECTOR, lab, RT, psych nurse, social secretary, canal tender, teacher, logistics supply officer, case picker)? Give summary @ -[Dr. Hogan Was smoking cessation discussed for >3mins.? @ -No Was critical care preformed (if so, how long)? @Yes, 35 minutes Were there social determinants of health that impacted care today? How? (Homelessness, low income, unemployed, alcoholism, drug addiction, transportation, low edu. Level, literacy, decrease access to med. care, custodial, rehab)? @ -No Was there de-escalation of care discussed even if they declined (Discuss DNR or withdrawal of care, Hospice)? DNR status @ -No What co-morbidities impacted this encounter? (DM, HTN, Smoking, COPD, CAD, Cancer, CVA, ARF, Chemo, Hep., AIDS, mental health diagnosis, sleep apnea, morbid obesity)? @ -[Stage IV lung cancer Was patient admitted / discharged? Hospital course, mention meds given and route, prescriptions, significant lab abnormalities, going to OR and other pertinent info. @ -59-year-old female with known lung cancer presenting with weakness, dyspnea. Patient is pale, cachectic. Hemoglobin 5.3 requiring 2 unit transfusion. She also has a leukocytosis which is uptrending and chest x-ray of possible concurrent pneumonia in addition to her known lung cancer. Given a dose of cefepime in the emergency department. She also has a sodium of 118 and was placed on normal saline. Patient will be admitted for further evaluation and treatment of anemia, hyponatremia, stage IV lung cancer. Undiagnosed new problem with uncertain prognosis? @ -No Drug Therapy requiring intensive monitoring for toxicity (Heparin, Nitro, Insulin, Cardizem)? @ -No Were any procedures done? @ -No Diagnosis/symptom? @Anemia, hyponatremia Acute, or Chronic, or Acute on Chronic? @Acute on chronic Uncomplicated (without systemic symptoms) or Complicated (systemic symptoms)? @ -Default Side effects of treatment? @ -No Exacerbation, Progression, or Severe Exacerbation? @ -No Poses a threat to life or bodily function? How? (Chest pain, [place], NJ, pneumonia, PE, COPD, DKA, ARF, appy, cholecystitis, CVA, Diverticulitis, Homicidal, Suicidal, threat to staff... and all critical care pts) @Yes, cancer progressive, anemia, sepsis, electrolyte abnormality - Lab Data Result diagrams: 09/18/24 17:08 09/18/24 17:08 Lab Results 09/18/24 09/18/24 09/18/24 Range/Units 17:08 17:08 17:08 WBC 20.75 H (4.50-10.00) 10*3/uL RBC 1.69 L (4.10-5.20) 10*6/uL Hgb 5.3 L* D (12.0-15.0) g/dL Hct 14.6 L* (37.2-46.3) % MCV 86.4 (80.0-97.0) fL MCH 31.4 (27.0-32.0) pg MCHC 36.3 (32.0-37.0) g/dL Plt Count 748 H D (140-440) 10*3/uL MPV 8.7 L (9.5-12.2) fL Immature Gran % (Auto) 1.2 % Neutrophils % 81.3 % Lymphocytes % 5.4 % Monocytes % 11.7 % Eosinophils % 0.2 % Basophils % 0.2 % Immature Gran # 0.25 H (0.00-0.04) 10*3/uL Neutrophils # 16.87 H (1.80-7.70) 10*3/uL Lymphocytes # 1.12 (0.90-5.00) 10*3/uL Monocytes # 2.43 H (0.20-1.00) 10*3/uL Eosinophils # 0.04 (0.04-0.35) 10*3/uL Basophils # 0.04 (0.00-0.10) 10*3/uL PT 13.8 H (10.0-12.5) sec INR 1.3 H (<1.2) APTT 29.2 (22.0-30.0) sec Sodium 118 L* (137-145) mmol/L Potassium 4.6 (3.5-5.1) mmol/L Chloride 85 L (98-107) mmol/L Carbon Dioxide 21 L (22-30) mmol/L Anion Gap 12 mmol/L BUN 17 (7-17) mg/dL Creatinine 0.61 (0.52-1.04) mg/dL Est GFR (CKD-EPI)AfAm >90 (>60 ml/min/1.73 sqM) Est GFR (CKD-EPI)NonAf >90 (>60 ml/min/1.73 sqM) Glucose 83 (74-99) mg/dL Plasma Lactic Acid Ones[place] (0.7-2.0) mmol/L Calcium 9.0 (8.4-10.2) mg/dL Magnesium 1.8 (1.6-2.3) mg/dL Total Bilirubin 1.4 H (0.2-1.3) mg/dL AST 89 H (14-36) U/L ALT 24 (4-34) U/L Alkaline Phosphatase 393 H (38-126) U/L Total Protein 5.9 L (6.3-8.2) g/dL Albumin 3.2 L (3.5-5.0) g/dL Blood Type Blood Type Recheck Bld Type Recheck Status Antibody Screen Spec Expiration Date 09/18/24 09/18/24 Range/Units 17:08 17:32 WBC (4.50-10.00) 10*3/uL RBC (4.10-5.20) 10*6/uL Hgb (12.0-15.0) g/dL Hct (37.2-46.3) % MCV (80.0-97.0) fL MCH (27.0-32.0) pg MCHC (32.0-37.0) g/dL Plt Count (140-440) 10*3/uL MPV (9.5-12.2) fL Immature Gran % (Auto) % Neutrophils % % Lymphocytes % % Monocytes % % Eosinophils % % Basophils % % Immature Gran # (0.00-0.04) 10*3/uL Neutrophils # (1.80-7.70) 10*3/uL Lymphocytes # (0.90-5.00) 10*3/uL Monocytes # (0.20-1.00) 10*3/uL Eosinophils # (0.04-0.35) 10*3/uL Basophils # (0.00-0.10) 10*3/uL PT (10.0-12.5) sec INR (<1.2) APTT (22.0-30.0) sec Sodium (137-145) mmol/L Potassium (3.5-5.1) mmol/L Chloride (98-107) mmol/L Carbon Dioxide (22-30) mmol/L Anion Gap mmol/L BUN (7-17) mg/dL Creatinine (0.52-1.04) mg/dL Est GFR (CKD-EPI)AfAm (>60 ml/min/1.73 sqM) Est GFR (CKD-EPI)NonAf (>60 ml/min/1.73 sqM) Glucose (74-99) mg/dL Plasma Lactic Acid [place] 1.7 (0.7-2.0) mmol/L Calcium (8.4-10.2) mg/dL Magnesium (1.6-2.3) mg/dL Total Bilirubin (0.2-1.3) mg/dL AST (14-36) U/L ALT (4-34) U/L Alkaline Phosphatase (38-126) U/L Total Protein (6.3-8.2) g/dL Albumin (3.5-5.0) g/dL Blood Type O Positive Blood Type Recheck O Pos Bld Type Recheck Status No Antibody Screen NEGATIVE Spec Expiration Date 09/21/20242331 Critical Care Time Critical Care Time: Yes Total Critical Care Time: 35 Disposition Clinical Impression: Non-small cell lung cancer (NSCLC), Anemia, Hyponatremia Disposition: ADMITTED IP TO THIS [facility] Condition: Stable Is patient prescribed a controlled substance at d/c from ED?: No Referrals: None,Stated [Primary Care Provider] - 1-2 days Time of Disposition: 19:16
[2024-09-18 18:34] LABS: Sodium 118 mmol/L (137-145)
[2024-09-18] MEDS ORDERED: NALOXONE 0.4 MG/ML 1 ML VIAL IV PRN (19:12)
[2024-09-18] MEDS: SODIUM CHLORIDE 0.9% 1,000 ML IV SCH (19:40)
[2024-09-18] MEDS: CEFEPIME 2 GM in SODIUM CHLORIDE 0.9% 100 ML IVPB STA (19:40)
[2024-09-18] MEDS: HYDROmorphone 0.5 MG/0.5 ML SYRINGE IVP PRN (19:45)
[2024-09-18] MEDS ORDERED: HYDROcodone/APAP 5-325MG 1 EACH TAB PO PRN (19:56)
[2024-09-18 19:58] LABS: Appearance,Urine Cloudy (Clear); Bacteria,Urine Many /hpf; Bilirubin,Urine Negative (Negative); Blood,Urine Trace (Negative); Color,Urine Yellow; Glucose,Urine (UA) Negative (Negative); Ketones,Urine Negative (Negative); Leukocyte Esterase,Urine Large (Negative); Mucus,Urine Rare /hpf; Nitrite,Urine Negative (Negative); Protein,Urine Trace (Negative); RBC,Urine 1 /hpf (0-5); Specific Gravity,Urine 1.008 (1.001-1.035); Squamous Epithelial Cell,Urine <1 /hpf (0-4); Urobilinogen,Urine <2.0 mg/dL (<2.0); WBC,Urine 107 /hpf (0-5)
[2024-09-18 23:34] LABS: Influenza A Not Detected (Not Detectd); Influenza B Not Detected (Not Detectd); RSV Not Detected (Not Detectd)
[2024-09-19 04:32] LABS: HCT 25.9 % (37.2-46.3); MCH 30.8 pg (27.0-32.0); MCHC 35.1 g/dL (32.0-37.0); MCV 87.8 fL (80.0-97.0); Mean Platelet Volume 8.5 fL (9.5-12.2); Platelet Count 581 10*3/uL (140-440); RBC 2.95 10*6/uL (4.10-5.20); RDW 15.3 % (11.5-14.5); WBC 19.04 10*3/uL (4.50-10.00)
[2024-09-19 04:45] LABS: HGB 9.1 g/dL (12.0-15.0)
[2024-09-19 04:56] LABS: African American GFR (CKD) >90 (>60 ml/min/1.73 sqM); Anion Gap 8 mmol/L; Blood Urea Nitrogen 15 mg/dL (7-17); Calcium 8.5 mg/dL (8.4-10.2); Carbon Dioxide 22 mmol/L (22-30); Chloride 91 mmol/L (98-107); Glucose 83 mg/dL (74-99); Non-African American GFR(CKD) >90 (>60 ml/min/1.73 sqM); Potassium 4.3 mmol/L (3.5-5.1); Sodium 121 mmol/L (137-145)
[2024-09-19] MEDS: ENOXAPARIN 40 MG/0.4 ML SYRINGE SQ SCH (10:07)
[2024-09-19] MEDS: SODIUM CHLORIDE TAB 1 GM TAB PO SCH (10:07)
[2024-09-19] MEDS ORDERED: NALOXONE 0.4 MG/ML 1 ML VIAL IVP PRN (12:10)
[2024-09-19 12:24] VITALS: BMI 15.3
[2024-09-19] MEDS: CEFEPIME 2 GM in SODIUM CHLORIDE 0.9% 100 ML IVPB SCH (12:39)
[2024-09-19] MEDS ORDERED: RX INFO: IV CONTRAST WAS GIVEN 1 EACH MISC MISCELLANE PRN (13:11)
[2024-09-19] MEDS: traMADol 50 MG TAB PO PRN (13:26)
[2024-09-19 13:28] LABS: T4, Free (Free Thyroxine) 2.14 ng/dL (0.78-2.19)
--- NOTE | 2024-09-19 15:23 | P.HPIM ---
History of Present Illness H&P Date: 09/19/24 Patient is a 58-year-old female with a history of COPD (no home oxygen) and stage IV lung cancer currently undergoing chemotherapy by Dr. Diaz at [facility] here for generalized weakness with dyspnea. Since her discharge, her weakness started to recur and worsened. She is also reported to have a low appetite despite having a sensation of hunger. She denied productive chest pain, palpitations, cough, fever, abdominal pain, extremity swelling, focal weakness, recent illness, recent trauma or fall. Chills, chest pain, palpitations. Recently admitted on 08/30/2024 for hyponatremia and normocytic anemia that required 1 unit of packed RBC. On admission: Vitals: Temperature 97.5 F, ID 106, RR 20, BP 92/58, O2 saturation 98% on room air Labs: WBC 20.7, hemoglobin 5.3, MCV 86.4, platelet count 748,000, sodium 118, potassium 4.6, bicarb 11, BUN 17, creatinine 0.6, magnesium 1.8, AST 11, alk phos 393, albumin 3.2. Urinalysis shows large leukocyte esterase, negative nitrate, negative ketones, negative glucose, trace blood, many bacteria. Cepheid 4 Plex negative. Imaging: EKG independently interpreted showed sinus tachycardia with a rate of 103 bpm, normal axis, no ST-T changes, QTc 404 MS. chest x-ray showed worsening aeration of the lungs compared to prior study and partial loculated small right pleural effusion ED documentation reviewed. Review of systems: Pertinent positives and negatives as discussed in HPI, a complete review of systems was performed and all other systems are negative. Physical examination: Vital signs reviewed General: non toxic, no distress, appears older than age, thin and frail appearing Derm: no unusual rashes/lesions, warm Head: atraumatic, normocephalic, symmetric Eyes: EOMI, anicteric sclera, pupils equal round reactive to light ENT: Nose and ears atraumatic Neck: No cervical lymphadenopathy, trachea midline, supple Mouth: no lip lesion, mucus membranes moist Cardiovascular: S1S2 reg, no murmur Lungs: CTA bilateral, no rhonchi, no rales, no accessory muscle use Abdominal: soft, nondistended, nontender to palpation, no guarding Ext: muscle strength 5 out of 5 in all 4 extremities grossly, no gross muscle atrophy, no contractures, positive dorsalis pedis pulse bilateral, no edema Neuro: CN II-XI grossly intact, no gross focal neuro deficits Psych: Alert and oriented x 3, appropriate affect and mood Assessment/Plan: The patient is admitted with an anticipated greater than 2 midnight stay for giovanna luation of debility, hyponatremia and anemia Active: #Normocytic anemia, status post 2 units packed RBC transfusion Hemoglobin 5.3 on admission. 9.1 today Monitor CBC #Stage IV lung cancer #Hyponatremia, likely in setting of SIADH from malignancy #Thrombocytosis in the setting of malignancy #Transaminitis in the setting of malignancy #Leukocytosis in the setting of malignancy #Debility Chest x-ray showed worsening aeration of the lungs compared to prior study and partial loculated small right pleural effusion Sodium 118 -> 121 today Monitor sodium levels Currently on IV fluids 0.9 normal saline 75 cc/h. Discontinue if sodium decreases Continue home salt tabs 1 g daily Continue IV and p.o meds for pain control Check TSH, Cortisol, urine sodium, urine Osm Consult heme-onc Consult PT/OT Chronic Conditions: #COPD #Chronic nicotine use Orderd DuoNeb as needed DVT ppx: Lovenox subcu daily CODE STATUS: Full Discussed with: Patient Anticipated discharge place: Home Karin Hernandez MD PGY-1 Internal Medicine Dictation was produced using [employer] dictation software. please excuse any grammatical, word or spelling errors. Past Medical History Past Medical History: Cancer, COPD, CVA/TIA Additional Past Medical History / Comment(s): COPD, spastic colon, CVA/TIA. LUNG CANCER-RLL NSCLC. History of Any Multi-Drug Resistant Organisms: None Reported Past Surgical History: Section, Tonsillectomy Additional Past Surgical History / Comment(s): L oophorectomy due to cyst Past Anesthesia/Blood Transfusion Reactions: No Reported Reaction Past Psychological History: No Psychological Hx Reported Smoking Status: Current every day smoker - Past Family History Father History Unknown: Yes Family Medical History: No Reported History Additional Family Medical History / Comment(s): at early age from gunshot Mother Family Medical History: Cancer Additional Family Medical History / Comment(s): Mother had some kind of cancer but pt does not know what kind. She at age 65 or 67yrs. Medications and Allergies Home Medications Medication Instructions Recorded Confirmed Type Amoxic-Pot Clav 500-125 mg 1 tab PO Q12HR #14 tab 09/27/24 09/29/24 Rx [Augmentin 500-125 mg] Magnesium Hydroxide [Dulcolax Oral 5 mg PO DAILY PRN #30 ml 09/27/24 09/29/24 Rx Susp] Megestrol [Megace] 400 mg PO DAILY #14 ml 09/27/24 09/29/24 Rx Ondansetron Odt [Zofran ODT] 8 mg PO Q8HR PRN #20 tab 09/27/24 09/29/24 Rx Sodium Chloride Tab 1 gm PO BID #30 tab 09/27/24 09/29/24 Rx Sulfamethox-Tmp 800-160Mg [Bactrim 1 tab PO Q12HR #14 tab 09/27/24 09/29/24 Rx DS 800-160 mg] polyethylene glycoL 3350 [Miralax] 17 gm PO DAILY PRN #7 gm 09/27/24 09/29/24 Rx oxyCODONE-APAP 7.5-325MG [Percocet 1 tab PO Q6HR PRN 09/29/24 09/29/24 History 7.5-325 mg] Allergies Allergy/AdvReac Type Severity Reaction Status Date / Time No Known Allergies Allergy Verified 09/29/24 11:34 Physical Exam Vitals: Vital Signs Temp Pulse Resp BP Pulse Ox 09/19/24 06:19 98 F 92 16 119/73 95 09/19/24 03:07 97.8 F 87 16 138/57 95 09/19/24 00:59 98.3 F 78 19 110/61 99 09/19/24 00:39 98.3 F 78 18 104/58 100 09/19/24 00:23 97.7 F 80 19 113/62 99 09/19/24 00:09 97.6 F 79 19 109/55 99 09/18/24 22:22 97.8 F 81 18 106/61 99 09/18/24 22:02 97.7 F 83 18 95/58 99 09/18/24 21:50 97.5 F L 83 18 95/57 99 09/18/24 19:28 85 16 98/56 100 09/18/24 16:31 97.5 F L 106 H 20 92/58 98 Intake and Output 09/18/24 09/19/24 09/19/24 22:59 06:59 14:59 Intake Total 0 620 Balance 0 620 Intake: Blood Product 0 620 Rc Irr As1 Unit 310 [id number] Rc Irr As1 Unit 0 310 [id number] Other: Weight 38.102 kg Results CBC & Chem 7: 09/27/24 06:50 09/27/24 06:50 Labs: Abnormal Lab Results - Last 24 Hours (Table) 09/18/24 09/18/24 09/18/24 Range/Units 17:08 17:08 17:08 WBC 20.75 H (4.50-10.00) 10*3/uL RBC 1.69 L (4.10-5.20) 10*6/uL Hgb 5.3 L* D (12.0-15.0) g/dL Hct 14.6 L* (37.2-46.3) % Plt Count 748 H D (140-440) 10*3/uL MPV 8.7 L (9.5-12.2) fL Immature Gran # 0.25 H (0.00-0.04) 10*3/uL Neutrophils # 16.87 H (1.80-7.70) 10*3/uL Monocytes # 2.43 H (0.20-1.00) 10*3/uL PT 13.8 H (10.0-12.5) sec INR 1.3 H (<1.2) Sodium 118 L* (137-145) mmol/L Chloride 85 L (98-107) mmol/L Carbon Dioxide 21 L (22-30) mmol/L Creatinine (0.52-1.04) mg/dL Total Bilirubin 1.4 H (0.2-1.3) mg/dL AST 89 H (14-36) U/L Alkaline Phosphatase 393 H (38-126) U/L Total Protein 5.9 L (6.3-8.2) g/dL Albumin 3.2 L (3.5-5.0) g/dL Urine Appearance (Clear) Urine Protein (Negative) Urine Blood (Negative) Ur Leukocyte Esterase (Negative) Urine WBC (0-5) /hpf Urine WBC Clumps (None) /hpf Urine Bacteria (None) /hpf Urine Mucus (None) /hpf Crossmatch 09/18/24 09/18/24 09/19/24 Range/Units 17:32 19:15 04:15 WBC 19.04 H (4.50-10.00) 10*3/uL RBC 2.95 L (4.10-5.20) 10*6/uL Hgb 9.1 L D (12.0-15.0) g/dL Hct 25.9 L (37.2-46.3) % Plt Count 581 H (140-440) 10*3/uL MPV 8.5 L (9.5-12.2) fL Immature Gran # (0.00-0.04) 10*3/uL Neutrophils # (1.80-7.70) 10*3/uL Monocytes # (0.20-1.00) 10*3/uL PT (10.0-12.5) sec INR (<1.2) Sodium (137-145) mmol/L Chloride (98-107) mmol/L Carbon Dioxide (22-30) mmol/L Creatinine (0.52-1.04) mg/dL Total Bilirubin (0.2-1.3) mg/dL AST (14-36) U/L Alkaline Phosphatase (38-126) U/L Total Protein (6.3-8.2) g/dL Albumin (3.5-5.0) g/dL Urine Appearance Cloudy H (Clear) Urine Protein Trace H (Negative) Urine Blood Trace H (Negative) Ur Leukocyte Esterase Large H (Negative) Urine WBC 107 H (0-5) /hpf Urine WBC Clumps Few H (None) /hpf Urine Bacteria Many H (None) /hpf Urine Mucus Rare H (None) /hpf Crossmatch See Detail 09/19/24 Range/Units 04:15 WBC (4.50-10.00) 10*3/uL RBC (4.10-5.20) 10*6/uL Hgb (12.0-15.0) g/dL Hct (37.2-46.3) % Plt Count (140-440) 10*3/uL MPV (9.5-12.2) fL Immature Gran # (0.00-0.04) 10*3/uL Neutrophils # (1.80-7.70) 10*3/uL Monocytes # (0.20-1.00) 10*3/uL PT (10.0-12.5) sec INR (<1.2) Sodium 121 L (137-145) mmol/L Chloride 91 L (98-107) mmol/L Carbon Dioxide (22-30) mmol/L Creatinine 0.50 L (0.52-1.04) mg/dL Total Bilirubin (0.2-1.3) mg/dL AST (14-36) U/L Alkaline Phosphatase (38-126) U/L Total Protein (6.3-8.2) g/dL Albumin (3.5-5.0) g/dL Urine Appearance (Clear) Urine Protein (Negative) Urine Blood (Negative) Ur Leukocyte Esterase (Negative) Urine WBC (0-5) /hpf Urine WBC Clumps (None) /hpf Urine Bacteria (None) /hpf Urine Mucus (None) /hpf Crossmatch Assessment and Plan Assessment: 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
[2024-09-19] MEDS ORDERED: traMADol 50 MG TAB PO SCH (16:00)
--- NOTE | 2024-09-19 16:55 | CT ---
EXAMINATION TYPE: CT brain w con CT DLP: 1121 mGycm, Automated exposure control for dose reduction was used. DATE OF EXAM: 09/19/2024 4:46 PM COMPARISON: MR brain 03/08/2024, 02/03/2022, CT brain 12/28/2021 CLINICAL INDICATION:Female, 59 years old with history of weakness, met lung cancer, r/o brain mets; P HH, Metastatic lung cancer, r/o brain mets TECHNIQUE: Axial CT images of the brain were obtained after the administration of 100 cc of ISO-view 370 IV contrast. One or more CT dose reduction strategies were utilized during this examination. Emily nal and sagittal reformats reviewed. FINDINGS: Extra-axial spaces: No abnormal extra-axial fluid collections. Ventricular system: Within normal limits Cerebral parenchyma: No acute intraparenchymal hemorrhage or mass effect. CSF attenuation encephalom alacia within the left caudate nucleus consistent with remote lacunar infarct. The andre-white junctio n is well differentiated. Scattered hypoattenuating areas are seen within the periventricular white m atter. No abnormal enhancement is seen after the administration of intravenous contrast. Partial empt y sella morphology. Cerebellum: Unremarkable. Mass effect: No evidence of midline shift. Intracranial vasculature: Atherosclerotic calcifications of the intracranial vessels. Soft tissues: Left scalp vertex 1.3 cm lesion without definitive enhancement. Probably represents a s ebaceous cyst. Calvarium/osseous structures: No depressed skull fracture. Paranasal sinuses and mastoid air cells: Clear. Visualized orbits: Orbital contents are intact. IMPRESSION: 1. No acute intracranial process and no evidence to suggest intracranial mass. 2. Remote lacunar injury along with nonspecific white matter changes likely secondary to chronic micr oangiopathy. [facility], , 09/19/2024 4:53 PM
--- NOTE | 2024-09-19 17:49 | P.CONS ---
History of Present Illness - Reason for Consult Consult date: 09/19/24 lung cancer Requesting physician: Boaz Molina - Chief Complaint weakness - History of Present Illness Consult note from 08/30/24 Ms. Villeda is a 58 year old woman with a PMHx significant for TIA and Gold stage IV COPD who presents for evaluation of newly diagnosed lung cancer. She initially presented with TIA to [facility] on 12/28/21. CTA of the head & neck were negative as was CT of brain. CT chest on 12/28/21 noted incidental 3 cm stellate mass in the right lower lobe with spiculation of margins. No hilar or mediastinal LAD was seen. Additional 7 mm stellate density in the superior right lower lobe was also observed. On pre-bronchoscopy CT chest on 12/29/21, subcarinal LAD measuring 1.9 cm along with enlarged hilar lymph nodes were observed. Bronchoscopy with biopsy of the right lower lobe mass on 12/29/21 noted pulmonary adenocarcinoma (+TTF-1, napsin A; -p40, synaptophysin, CD56, chromogranin A). BAL of the right lower lobe revealed cluster atypical cells consistent with NSCLC. She was subsequently discharged and had PET/CT on 01/22/22, revealing ametabolic nodule in the RLL in 9 x 5 mm. Right lower lobe nodule 3 x 2.9 cm with SUV 8.75, right hilar LAD measuring 2.2 x 1.5 cm with SUV 7.66, and subcarinal LAD measuring 2.1 x 2.1 cm with SUV 8.29. A noted healing fracture of the right 2nd rib with an SUV 2.5. She had stage IIIA (T1N2M0) adenocarcinoma of the right lung. PD-L1 is 5% with HER-2 amplification. She started concurrent weekly carboplatin AUC 2/paclitaxel 45 mg/m2 along with daily radiation therapy on 03/01/2022 and completed her last cycle of chemotherapy on 04/05/2022 and last day of radiation therapy on 04/07/2022. CT chest and abdomen on 04/18/2022 revealed no evidence of disease progression, but did note consolidat jasiel changes in the right lower lobe concerning for radiation pneumonitis versus possible pneumonia. I reviewed CT imaging with Dr. Carrizales of radiation oncology, who agreed changes in the right lower lobe due to radiation. Given her improvement, we discussed proceeding with maintenance durvalumab monthly for 1 year per the PACIFIC trial. She initiated cycle 1 of consolidative durvalumab on 06/16/2022 and most completed cycle 12 on 04/20/2023. Staging CT scans on 11/14/2023 during the [facility] cyber attack noted concern for right lower lobe nodule measuring 1.1 cm x 0.7 cm. Prior staging scans also noted nodule in the right lower lobe. Is was not clear if this was new finding or consistent with prior nodule. PET/CT performed on 12/29/2023 noted to FDG avid lung lesions in the right upper lobe and right middle lobe along with right adrenal gland FDG avidity concerning for metastatic disease. Her case was discussed at [facility] multidisciplinary thoracic tumor on 01/16/2024 further recommendation for biopsy along with systemic treatment and possible SBRT to the 2 lung lesions. She eventually proceeded to have biopsy of the right adrenal gland lesion on 02/19/2024 after further consideration. This did reveal metastatic non-small cell carcinoma that was TTF-1 positive consistent with lung primary. Brain MRI on 03/08/2024 revealed no evidence of intracranial metastases.Staging CT scans performed on 03/14/2024 revealed increased size of the right adrenal gland up to 9.3 cm along with increased size of the right upper lobe lesion at 1.4 cm compared to prior imaging. Cycle 1 of Enhertu given prior HER2 amplification was started on 04/18/2024 and most recently received cycle 7 on 08/27/24. Unfortunately CT scans on 08/30/24, showed disease progression. Enhertu was stopped, and pt was scheduled to follow up with Dr. Joss Diaz on 09/23 to further discuss treatment options Patient represented to the emergency room with complaints of generalized weakness, disorientation, dizziness and shortness of breath. Patient reports decreased oral intake over the last 2 to 3 weeks. She also reports rigth sided and right sided back pain, and is experiencing nausea with norco. Upon admit hemoglobin was noted at 5.3, MCV 86.4, 2 units PRBCs have been given. Repeat hemoglobin today showing appropriate response with hemoglobin 9.1. Patient denies any acute episodes of bleeding. She is reporting improvement in symptoms today after blood transfusions. WBC 20.7, platelets 748,000. Nutritional studies obtained during last admit were consistent with anemia of inflammation. Viral PCR negative. UA suspicious for UTI. Urine culture pending. Sodium 118 on admit repeat today 121. Chest x-ray showing worsening aeration of lungs compared to prior study, likely reflects accommodation of disease progression and possible multifocal pneumonia. Partially loculated small right pleural effusion. IV antibiotics started. Review of Systems 10 point ROS is negative except as stated in the HPI Past Medical History Past Medical History: Cancer, COPD, CVA/TIA Additional Past Medical History / Comment(s): COPD, spastic colon, CVA/TIA. LUNG CANCER-RLL NSCLC. History of Any Multi-Drug Resistant Organisms: None Reported Past Surgical History: Section, Tonsillectomy Additional Past Surgical History / Comment(s): L oophorectomy due to cyst Past Anesthesia/Blood Transfusion Reactions: No Reported Reaction Past Psychological History: No Psychological Hx Reported Smoking Status: Current every day smoker - Past Family History Father History Unknown: Yes Family Medical History: No Reported History Additional Family Medical History / Comment(s): at early age from gunshot Mother Family Medical History: Cancer Additional Family Medical History / Comment(s): Mother had some kind of cancer but pt does not know what kind. She at age 65 or 67yrs. Medications and Allergies Home Medications Medication Instructions Recorded Confirmed Type HYDROcodone/APAP 5-325MG [[place] 1 tab PO Q6HR PRN 09/19/24 09/19/24 History 5-325] Sodium Chloride Tab 1 gm PO DAILY 09/19/24 09/19/24 History Allergies Allergy/AdvReac Type Severity Reaction Status Date / Time No Known Allergies Allergy Verified 09/19/24 07:19 Physical Exam Vitals: Vital Signs Temp Pulse Pulse Resp BP BP Pulse Ox 09/19/24 07:55 99.8 F H 102 H 20 123/73 95 09/19/24 06:19 98 F 92 16 119/73 95 09/19/24 03:07 97.8 F 87 16 138/57 95 09/19/24 00:59 98.3 F 78 19 110/61 99 09/19/24 00:39 98.3 F 78 18 104/58 100 09/19/24 00:23 97.7 F 80 19 113/62 99 09/19/24 00:09 97.6 F 79 19 109/55 99 09/18/24 22:22 97.8 F 81 18 106/61 99 09/18/24 22:02 97.7 F 83 18 95/58 99 09/18/24 21:50 97.5 F L 83 18 95/57 99 09/18/24 19:28 85 16 98/56 100 09/18/24 16:31 97.5 F L 106 H 20 92/58 98 Intake and Output 09/18/24 09/19/24 09/19/24 22:59 06:59 14:59 Intake Total 0 620 Balance 0 620 Intake: Blood Product 0 620 Rc Irr As1 Unit 310 [id number] Rc Irr As1 Unit 0 310 [id number] Other: # Voids 1 Weight 38.102 kg 38.102 kg - Constitutional General appearance: no acute distress, thin - EENT Eyes: anicteric sclerae, EOMI ENT: hearing grossly normal - Respiratory Respiratory: bilateral: CTA - Cardiovascular Rhythm: regular - Gastrointestinal General gastrointestinal: soft, tenderness Localized gastrointestinal: tender: RUQ - Integumentary Integumentary: no cyanotic, no jaundiced - Musculoskeletal Musculoskeletal: generalized weakness - Psychiatric Psychiatric: A&O x's 3 Results CBC & Chem 7: 09/19/24 04:15 09/19/24 10:34 Labs: Abnormal Lab Results - Last 24 Hours (Table) 09/18/24 09/18/24 09/18/24 Range/Units 17:08 17:08 17:08 WBC 20.75 H (4.50-10.00) 10*3/uL RBC 1.69 L (4.10-5.20) 10*6/uL Hgb 5.3 L* D (12.0-15.0) g/dL Hct 14.6 L* (37.2-46.3) % Plt Count 748 H D (140-440) 10*3/uL MPV 8.7 L (9.5-12.2) fL Immature Gran # 0.25 H (0.00-0.04) 10*3/uL Neutrophils # 16.87 H (1.80-7.70) 10*3/uL Monocytes # 2.43 H (0.20-1.00) 10*3/uL PT 13.8 H (10.0-12.5) sec INR 1.3 H (<1.2) Sodium 118 L* (137-145) mmol/L Chloride 85 L (98-107) mmol/L Carbon Dioxide 21 L (22-30) mmol/L Creatinine (0.52-1.04) mg/dL Total Bilirubin 1.4 H (0.2-1.3) mg/dL AST 89 H (14-36) U/L Alkaline Phosphatase 393 H (38-126) U/L Total Protein 5.9 L (6.3-8.2) g/dL Albumin 3.2 L (3.5-5.0) g/dL TSH (0.465-4.680) mIU/L Urine Appearance (Clear) Urine Protein (Negative) Urine Blood (Negative) Ur Leukocyte Esterase (Negative) Urine WBC (0-5) /hpf Urine WBC Clumps (None) /hpf Urine Bacteria (None) /hpf Urine Mucus (None) /hpf Crossmatch 09/18/24 09/18/24 09/19/24 Range/Units 17:32 19:15 04:15 WBC 19.04 H (4.50-10.00) 10*3/uL RBC 2.95 L (4.10-5.20) 10*6/uL Hgb 9.1 L D (12.0-15.0) g/dL Hct 25.9 L (37.2-46.3) % Plt Count 581 H (140-440) 10*3/uL MPV 8.5 L (9.5-12.2) fL Immature Gran # (0.00-0.04) 10*3/uL Neutrophils # (1.80-7.70) 10*3/uL Monocytes # (0.20-1.00) 10*3/uL PT (10.0-12.5) sec INR (<1.2) Sodium (137-145) mmol/L Chloride (98-107) mmol/L Carbon Dioxide (22-30) mmol/L Creatinine (0.52-1.04) mg/dL Total Bilirubin (0.2-1.3) mg/dL AST (14-36) U/L Alkaline Phosphatase (38-126) U/L Total Protein (6.3-8.2) g/dL Albumin (3.5-5.0) g/dL TSH (0.465-4.680) mIU/L Urine Appearance Cloudy H (Clear) Urine Protein Trace H (Negative) Urine Blood Trace H (Negative) Ur Leukocyte Esterase Large H (Negative) Urine WBC 107 H (0-5) /hpf Urine WBC Clumps Few H (None) /hpf Urine Bacteria Many H (None) /hpf Urine Mucus Rare H (None) /hpf Crossmatch See Detail 09/19/24 09/19/24 09/19/24 Range/Units 04:15 04:15 10:34 WBC (4.50-10.00) 10*3/uL RBC (4.10-5.20) 10*6/uL Hgb (12.0-15.0) g/dL Hct (37.2-46.3) % Plt Count (140-440) 10*3/uL MPV (9.5-12.2) fL Immature Gran # (0.00-0.04) 10*3/uL Neutrophils # (1.80-7.70) 10*3/uL Monocytes # (0.20-1.00) 10*3/uL PT (10.0-12.5) sec INR (<1.2) Sodium 121 L 119 L* (137-145) mmol/L Chloride 91 L (98-107) mmol/L Carbon Dioxide (22-30) mmol/L Creatinine 0.50 L (0.52-1.04) mg/dL Total Bilirubin (0.2-1.3) mg/dL AST (14-36) U/L Alkaline Phosphatase (38-126) U/L Total Protein (6.3-8.2) g/dL Albumin (3.5-5.0) g/dL TSH 4.930 H (0.465-4.680) mIU/L Urine Appearance (Clear) Urine Protein (Negative) Urine Blood (Negative) Ur Leukocyte Esterase (Negative) Urine WBC (0-5) /hpf Urine WBC Clumps (None) /hpf Urine Bacteria (None) /hpf Urine Mucus (None) /hpf Crossmatch Assessment and Plan (1) Anemia Current Visit: Yes Status: Acute Priority: High Code(s): D64.9 - ANEMIA, UNSPECIFIED SNOMED Code(s): 463464003 (2) Hyponatremia Current Visit: Yes Status: Acute Priority: High Code(s): E87.1 - HYPO- OSMOLALITY AND HYPONATREMIA SNOMED Code(s): 58943531 (3) Non-small cell lung cancer (NSCLC) Current Visit: Yes Status: Acute Priority: High Code(s): C34.90 - MALIGNANT NEOPLASM OF UNSP PART OF UNSP BRONCHUS OR LUNG SNOMED Code(s): 040680110 (4) Generalized weakness Current Visit: Yes Status: Acute Priority: High Code(s): R53.1 - WEAKNESS SNOMED Code(s): 67107223 Plan: Anemia: Patient presented to the emergency room with generalized weakness, dizziness, FTT. She had recent admit for the same -On admit, hemoglobin was noted at 5.3, MCV 86.4, 2 units PRBCs have been given. Repeat hemoglobin today showing appropriate response with hemoglobin 9.1. -Denies any acute episodes of bleeding, rectal bleeding and melena -Nutritional studies obtained during last admit were consistent with anemia of inflammation. 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 Enhertu was discontinued. Plan was for clinic f/u, with Dr. Rodolfo Diaz on 09/23 -Due to reported increasing right adrenal mass, and complaints of right sided abdominal and back pain will consult rad onc to evaluate for palliative RT -Due to noted weakness and dizziness with obtain CT brain w/ contrast to r/o brain mets -Discussed possible treatment options with Taxotere. This will be further discussed at clinic f/u
[2024-09-19] MEDS ORDERED: ACETAMINOPHEN TAB 325 MG TAB PO PRN (19:57)
[2024-09-20] MEDS: HYDROcodone/APAP 5-325MG 1 EACH TAB PO PRN (05:33)
[2024-09-20] MEDS: ONDANSETRON 4 MG/2 ML VIAL IVP PRN (05:40)
[2024-09-20 06:55] LABS: Basophils # (A) 0.05 10*3/uL (0.00-0.10); Basophils % (A) 0.3 %; Eosinophils % (A) 0.5 %; HCT 22.8 % (37.2-46.3); HGB 8.2 g/dL (12.0-15.0); Lymphocytes # (A) 0.69 10*3/uL (0.90-5.00); Lymphocytes % (A) 3.6 %; MCH 31.2 pg (27.0-32.0); MCV 86.7 fL (80.0-97.0); Mean Platelet Volume 8.4 fL (9.5-12.2); Monocytes # (A) 2.02 10*3/uL (0.20-1.00); Monocytes % (A) 10.5 %; Neutrophils # (A) 16.23 10*3/uL (1.80-7.70); Platelet Count 438 10*3/uL (140-440); RBC 2.63 10*6/uL (4.10-5.20); RDW 15.5 % (11.5-14.5)
[2024-09-20 07:06] LABS: African American GFR (CKD) >90 (>60 ml/min/1.73 sqM); Anion Gap 7 mmol/L; Blood Urea Nitrogen 11 mg/dL (7-17); Calcium 8.2 mg/dL (8.4-10.2); Carbon Dioxide 21 mmol/L (22-30); Chloride 91 mmol/L (98-107); Glucose 78 mg/dL (74-99); Non-African American GFR(CKD) >90 (>60 ml/min/1.73 sqM); Potassium 3.7 mmol/L (3.5-5.1)
[2024-09-20 07:15] LABS: Sodium 119 mmol/L (137-145)
--- NOTE | 2024-09-20 10:51 | P.NPCON ---
History of Present Illness - Reason for Consult hyponatremia - History of Present Illness Reason for consultation: Hyponatremia History of present illness: Patient is a 59-year-old female seen in renal consultation for hyponatremia. Patient came to the hospital on September 18, 2024 due to generalized weakness. Patient denies any falls or syncopal episodes. She was noted to have a sodium level of 118. Patient has received IV fluids this admission but the sodium level has remained in the range of 119-123. Most recent sodium level from this morning was 120. Oral intake is just fair. She has been voiding. Denies hematuria or dysuria. No chest pain or shortness of breath at this time. She is on room air. Patient does have a history of stage IV lung cancer. She continues to smoke. Denies excessive fluid intake. Denies use of diuretics. Vital signs are stable. General: No acute distress. HEENT: Head exam is unremarkable. LUNGS: No audible rhonchi or wheezes. HEART: Rate and Rhythm are regular. ABDOMEN: Nontender. EXTREMITITES: No edema. Past Medical History Past Medical History: Cancer, COPD, CVA/TIA Additional Past Medical History / Comment(s): COPD, spastic colon, CVA/TIA. LUNG CANCER-RLL NSCLC. History of Any Multi-Drug Resistant Organisms: None Reported Past Surgical History: Section, Tonsillectomy Additional Past Surgical History / Comment(s): L oophorectomy due to cyst Past Anesthesia/Blood Transfusion Reactions: No Reported Reaction Past Psychological History: No Psychological Hx Reported Smoking Status: Current every day smoker - Past Family History Father History Unknown: Yes Family Medical History: No Reported History Additional Family Medical History / Comment(s): at early age from gunshot Mother Family Medical History: Cancer Additional Family Medical History / Comment(s): Mother had some kind of cancer but pt does not know what kind. She at age 65 or 67yrs. Medications and Allergies Home Medications Medication Instructions Recorded Confirmed Type HYDROcodone/APAP 5-325MG [[place] 1 tab PO Q6HR PRN 09/19/24 09/19/24 History 5-325] Sodium Chloride Tab 1 gm PO DAILY 09/19/24 09/19/24 History Allergies Allergy/AdvReac Type Severity Reaction Status Date / Time No Known Allergies Allergy Verified 09/19/24 07:19 Physical Exam Vitals: Vital Signs Temp Pulse Resp BP Pulse Ox 09/20/24 07:55 99.2 F 92 20 109/70 93 L 09/20/24 06:27 98.2 F 09/20/24 01:28 99.5 F 91 16 107/64 97 09/19/24 19:34 100.1 F H 81 18 125/67 97 09/19/24 12:00 99.1 F 86 20 121/72 97 Intake and Output 09/19/24 09/20/24 09/20/24 22:59 06:59 14:59 Intake Total 240 Balance 240 Intake: Oral 240 Other: Voiding Method Toilet # Voids 3 2 Results - Lab Results Most recent lab results Calcium 8.2 mg/dL (8.4-10.2) L 09/20/24 06:41 Magnesium 1.8 mg/dL (1.6-2.3) 09/18/24 17:08 09/20/24 06:41 09/20/24 08:45 Assessment and Plan Plan: Assessment: 1. Hyponatremia. Euvolemic. 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 Sodium level 120 this morning. Urine sodium 21 and urine osmolality 405. TSH slightly high at 4.9. 2. Acute blood loss anemia status post blood transfusion this admission. 3. Gram-negative UTI on antibiotics. 4. Stage IV lung cancer. Plan: Encouraged oral intake. Increase sodium chloride tabs frequency to twice daily. Maintain fluid restriction. Repeat labs in the morning. If no improvement in sodium level, we will consider Samsca. Follow-up a.m. cortisol level. Thank you for the consultation. I will continue to follow the patient with you during her hospital stay.
--- NOTE | 2024-09-20 15:58 | P.PN ---
Subjective Progress Note Date: 09/20/24 Patient is a 58-year-old female with a history of COPD (no home oxygen) and stage IV lung cancer currently undergoing chemotherapy by Dr. Diaz at [facility] here for generalized weakness with dyspnea. Since her discharge, her weakness started to recur and worsened. She is also reported to have a low appetite despite having a sensation of hunger. She denied productive chest pain, palpitations, cough, fever, abdominal pain, extremity swelling, focal weakness, recent illness, recent trauma or fall. Chills, chest pain, palpitations. Recently admitted on 08/30/2024 for hyponatremia and normocytic anemia that required 1 unit of packed RBC. On admission: Vitals: Temperature 97.5 F, VT 106, RR 20, BP 92/58, O2 saturation 98% on room air Labs: WBC 20.7, hemoglobin 5.3, MCV 86.4, platelet count 748,000, sodium 118, potassium 4.6, bicarb 11, BUN 17, creatinine 0.6, magnesium 1.8, AST 11, alk phos 393, albumin 3.2. Urinalysis shows large leukocyte esterase, negative nitrate, negative ketones, negative glucose, trace blood, many bacteria. Cepheid 4 Plex negative. Imaging: EKG independently interpreted showed sinus tachycardia with a rate of 103 bpm, normal axis, no ST-T changes, QTc 404 MS. chest x-ray showed worsening aeration of the lungs compared to prior study and partial loculated small right pleural effusion 09/20/2024 patient seen and examined at bedside. No acute events overnight Labs: WBC 19.3, hemoglobin 8.2, platelet count 438,000, sodium 119, potassium 5.7, bicarb 21, BUN 11, creatinine 0.39, calcium 8.2, glucose 78, TSH 4.9, T4 2.1, cortisol 24 Imaging: Brain CT showed no acute intracranial process or evidence of suggest intracranial mass, remote lacunar injury with white matter changes secondary to chronic microangiopathy Review of systems: Pertinent positives and negatives as discussed in HPI, a complete review of systems was performed and all other systems are negative. Physical examination: Vital signs reviewed General: non toxic, no distress, appears older than age, thin and frail appearing Derm: no unusual rashes/lesions, warm Head: atraumatic, normocephalic, symmetric Eyes: EOMI, anicteric sclera, pupils equal round reactive to light ENT: Nose and ears atraumatic Neck: No cervical lymphadenopathy, trachea midline, supple Mouth: no lip lesion, mucus membranes moist Cardiovascular: S1S2 reg, no murmur Lungs: CTA bilateral, no rhonchi, no rales, no accessory muscle use Abdominal: soft, nondistended, nontender to palpation, no guarding Ext: muscle strength 5 out of 5 in all 4 extremities grossly, no gross muscle a trophy, no contractures, positive dorsalis pedis pulse bilateral, no edema Neuro: CN II-XI grossly intact, no gross focal neuro deficits Psych: Alert and oriented x 3, appropriate affect and mood Assessment/Plan: The patient is admitted with an anticipated greater than 2 midnight stay for evaluation of debility, hyponatremia and anemia Active: #Normocytic anemia, status post 2 units packed RBC transfusion Hemoglobin 5.3 on admission. 8.2 today Monitor CBC #Stage IV lung cancer #Hyponatremia, in setting of SIADH from malignancy #Thrombocytosis in the setting of malignancy #Transaminitis in the setting of malignancy #Leukocytosis in the setting of malignancy #Debility Sodium 119 Monitor sodium levels On fluid restriction IVF Discontinued Continue home salt tabs 1 g increased to twice daily Continue IV and p.o meds for pain control Check TSH slightly elevated, T4 normal, Cortisol WNL Urine sodium 21 Urine Osm 405 presents ADH elevation with urine concentration Consult heme-onc Consult PT/OT Consult Nephrology Chronic Conditions: #COPD #Chronic nicotine use Orderd DuoNeb as needed DVT ppx: Lovenox subcu daily CODE STATUS: Full Discussed with: Patient Anticipated discharge place: Home Karin Hernandez MD PGY-1 Internal Medicine Dictation was produced using [employer] dictation software. please excuse any grammatical, word or spelling errors. Objective - Vital Signs Vital signs: Vital Signs Temp 99.2 F 09/20/24 07:55 Pulse 92 09/20/24 07:55 Resp 20 09/20/24 07:55 BP 109/70 09/20/24 07:55 Pulse Ox 93 L 09/20/24 07:55 FiO2 Intake & Output 09/19/24 09/20/24 09/20/24 18:59 06:59 18:59 Intake Total 240 Balance 240 Weight 38.102 kg Intake: Oral 240 Other: Voiding Method Toilet Toilet # Voids 3 2 - Labs CBC & Chem 7: 09/27/24 06:50 09/27/24 06:50 Labs: Abnormal Lab Results - Last 24 Hours (Table) 09/19/24 09/19/24 09/19/24 Range/Units 04:15 10:34 14:41 WBC (4.50-10.00) 10*3/uL RBC (4.10-5.20) 10*6/uL Hgb (12.0-15.0) g/dL Hct (37.2-46.3) % RDW (11.5-14.5) % MPV (9.5-12.2) fL Immature Gran # (0.00-0.04) 10*3/uL Neutrophils # (1.80-7.70) 10*3/uL Lymphocytes # (0.90-5.00) 10*3/uL Monocytes # (0.20-1.00) 10*3/uL Sodium 119 L* 123 L (137-145) mmol/L Chloride (98-107) mmol/L Carbon Dioxide (22-30) mmol/L Creatinine (0.52-1.04) mg/dL Calcium (8.4-10.2) mg/dL TSH 4.930 H (0.465-4.680) mIU/L Ur Random Sodium (40-220) mmol/L 09/19/24 09/19/24 09/19/24 Range/Units 15:40 18:39 23:24 WBC (4.50-10.00) 10*3/uL RBC (4.10-5.20) 10*6/uL Hgb (12.0-15.0) g/dL Hct (37.2-46.3) % RDW (11.5-14.5) % MPV (9.5-12.2) fL Immature Gran # (0.00-0.04) 10*3/uL Neutrophils # (1.80-7.70) 10*3/uL Lymphocytes # (0.90-5.00) 10*3/uL Monocytes # (0.20-1.00) 10*3/uL Sodium 119 L* 121 L (137-145) mmol/L Chloride (98-107) mmol/L Carbon Dioxide (22-30) mmol/L Creatinine (0.52-1.04) mg/dL Calcium (8.4-10.2) mg/dL TSH (0.465-4.680) mIU/L Ur Random Sodium 21 L (40-220) mmol/L 09/20/24 09/20/24 09/20/24 Range/Units 06:41 06:41 08:45 WBC 19.30 H (4.50-10.00) 10*3/uL RBC 2.63 L (4.10-5.20) 10*6/uL Hgb 8.2 L (12.0-15.0) g/dL Hct 22.8 L (37.2-46.3) % RDW 15.5 H (11.5-14.5) % MPV 8.4 L (9.5-12.2) fL Immature Gran # 0.21 H (0.00-0.04) 10*3/uL Neutrophils # 16.23 H (1.80-7.70) 10*3/uL Lymphocytes # 0.69 L (0.90-5.00) 10*3/uL Monocytes # 2.02 H (0.20-1.00) 10*3/uL Sodium 119 L* 120 L (137-145) mmol/L Chloride 91 L (98-107) mmol/L Carbon Dioxide 21 L (22-30) mmol/L Creatinine 0.39 L (0.52-1.04) mg/dL Calcium 8.2 L (8.4-10.2) mg/dL TSH (0.465-4.680) mIU/L Ur Random Sodium (40-220) mmol/L Assessment and Plan Assessment: Attestation Attestation/ Scientific Programmer Note: Attestation to Progress Note, Participation (I saw and evaluated the patient with the Resident, and I reviewed and discussed the patient with the Resident and agree with the Resident's findings and plans as documented above., management reviewed and discussed), I agree with findings & plan, Provider Signature (JASON WEN MD Time with Patient: Greater than 30
[2024-09-20] MEDS: TOLVAPTAN 15 MG TABLET PO ONE (18:07)
[2024-09-20] MEDS: SODIUM CHLORIDE TAB 1 GM TAB PO SCH (20:21)
[2024-09-20] MEDS: CALCIUM CARBONATE 500 MG CHEWABLE PO PRN (22:31)
[2024-09-21 04:28] LABS: Basophils # (A) 0.07 10*3/uL (0.00-0.10); Basophils % (A) 0.4 %; Eosinophils # (A) 0.03 10*3/uL (0.04-0.35); Eosinophils % (A) 0.2 %; HCT 22.1 % (37.2-46.3); Lymphocytes % (A) 3.2 %; MCH 31.4 pg (27.0-32.0); MCHC 36.2 g/dL (32.0-37.0); MCV 86.7 fL (80.0-97.0); Mean Platelet Volume 8.9 fL (9.5-12.2); Monocytes # (A) 2.16 10*3/uL (0.20-1.00); Monocytes % (A) 11.5 %; Neutrophils # (A) 15.68 10*3/uL (1.80-7.70); Neutrophils % (A) 83.6 %; Platelet Count 440 10*3/uL (140-440); RBC 2.55 10*6/uL (4.10-5.20); RDW 15.4 % (11.5-14.5); WBC 18.75 10*3/uL (4.50-10.00)
[2024-09-21 10:23] LABS: Calcium 8.4 mg/dL (8.7-10.3); Carbon Dioxide 21.3 mmol/L (21.6-31.8); Chloride 95 mmol/L (96-109); Glucose 97 mg/dL (70-110); Magnesium 1.8 mg/dL (1.5-2.4); Potassium 3.7 mmol/L (3.5-5.5); Sodium 128 mmol/L (135-145)
--- NOTE | 2024-09-21 10:33 | P.PN ---
Subjective Patient is seen in follow-up for hyponatremia. Sodium level 128 this morning. Oral intake fair. No chest pain or shortness of breath. Vital signs are stable. General: No acute distress. HEENT: Head exam is unremarkable. LUNGS: No audible rhonchi or wheezes. HEART: Rate and Rhythm are regular. ABDOMEN: Nontender. EXTREMITITES: No edema. Objective - Vital Signs Vital signs: Vital Signs Temp 98.0 F 09/21/24 07:30 Pulse 92 09/21/24 08:00 Resp 16 09/21/24 08:00 BP 102/65 09/21/24 07:30 Pulse Ox 98 09/21/24 07:30 FiO2 Intake & Output 09/20/24 09/21/24 09/21/24 18:59 06:59 18:59 Intake Total 240 240 Balance 240 240 Intake: Oral 240 240 Other: Voiding Method Toilet Toilet Toilet # Voids 2 - Labs CBC & Chem 7: 09/21/24 04:14 09/21/24 04:14 Labs: Abnormal Lab Results - Last 24 Hours (Table) 09/20/24 09/20/24 09/20/24 Range/Units 06:41 11:57 16:16 WBC (4.50-10.00) 10*3/uL RBC (4.10-5.20) 10*6/uL Hgb (12.0-15.0) g/dL Hct (37.2-46.3) % RDW (11.5-14.5) % MPV (9.5-12.2) fL Immature Gran # (0.00-0.04) 10*3/uL Neutrophils # (1.80-7.70) 10*3/uL Lymphocytes # (0.90-5.00) 10*3/uL Monocytes # (0.20-1.00) 10*3/uL Eosinophils # (0.04-0.35) 10*3/uL Sodium 120 L 118 L* (137-145) mmol/L Chloride (96-109) mmol/L Carbon Dioxide (21.6-31.8) mmol/L Creatinine (0.6-1.5) mg/dL BUN/Creatinine Ratio (12.00-20.00) Ratio Calcium (8.7-10.3) mg/dL Cortisol 24.0 H (3.1-22.4) UG/DL 09/20/24 09/21/24 09/21/24 Range/Units 19:55 04:14 04:14 WBC 18.75 H (4.50-10.00) 10*3/uL RBC 2.55 L (4.10-5.20) 10*6/uL Hgb 8.0 L (12.0-15.0) g/dL Hct 22.1 L (37.2-46.3) % RDW 15.4 H (11.5-14.5) % MPV 8.9 L (9.5-12.2) fL Immature Gran # 0.21 H (0.00-0.04) 10*3/uL Neutrophils # 15.68 H (1.80-7.70) 10*3/uL Lymphocytes # 0.60 L (0.90-5.00) 10*3/uL Monocytes # 2.16 H (0.20-1.00) 10*3/uL Eosinophils # 0.03 L (0.04-0.35) 10*3/uL Sodium 121 L 128 L (137-145) mmol/L Chloride 95 L (96-109) mmol/L Carbon Dioxide 21.3 L (21.6-31.8) mmol/L Creatinine 0.4 L (0.6-1.5) mg/dL BUN/Creatinine Ratio 25.00 H (12.00-20.00) Ratio Calcium 8.4 L (8.7-10.3) mg/dL Cortisol (3.1-22.4) UG/DL Microbiology - Last 24 Hours (Table) 09/18/24 19:15 Urine Culture - Preliminary Urine,Voided Escherichia coli 09/19/24 23:24 Blood Culture - Preliminary Blood Assessment and Plan Plan: Assessment: 1. Hyponatremia. Euvolemic. 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 Sodium level 128 this morning. Urine sodium 21 and urine osmolality 405. TSH slightly high at 4.9. Cortisol level not low. 2. Acute blood loss anemia status post blood transfusion this admission. 3. E. coli UTI on antibiotics. 4. Stage IV lung cancer. Plan: Encouraged oral intake. Discontinue salt tabs. Status post Samsca x 1 dose given September 28, 2024. Repeat labs in the morning.
--- NOTE | 2024-09-21 11:38 | P.PN ---
Subjective Progress Note Date: 09/21/24 Patient is a 58-year-old female with a history of COPD (no home oxygen) and stage IV lung cancer currently undergoing chemotherapy by Dr. Diaz at [facility] here for generalized weakness with dyspnea. Since her discharge, her weakness started to recur and worsened. She is also reported to have a low appetite despite having a sensation of hunger. She denied productive chest pain, palpitations, cough, fever, abdominal pain, extremity swelling, focal weakness, recent illness, recent trauma or fall. Chills, chest pain, palpitations. Recently admitted on 08/30/2024 for hyponatremia and normocytic anemia that required 1 unit of packed RBC. On admission: Vitals: Temperature 97.5 F, RI 106, RR 20, BP 92/58, O2 saturation 98% on room air Labs: WBC 20.7, hemoglobin 5.3, MCV 86.4, platelet count 748,000, sodium 118, potassium 4.6, bicarb 11, BUN 17, creatinine 0.6, magnesium 1.8, AST 11, alk phos 393, albumin 3.2. Urinalysis shows large leukocyte esterase, negative nitrate, negative ketones, negative glucose, trace blood, many bacteria. Cepheid 4 Plex negative. Imaging: EKG independently interpreted showed sinus tachycardia with a rate of 103 bpm, normal axis, no ST-T changes, QTc 404 MS. chest x-ray showed worsening aeration of the lungs compared to prior study and partial loculated small right pleural effusion 09/20/2024 patient seen and examined at bedside. No acute events overnight Labs: WBC 19.3, hemoglobin 8.2, platelet count 438,000, sodium 119, potassium 5.7, bicarb 21, BUN 11, creatinine 0.39, calcium 8.2, glucose 78, TSH 4.9, T4 2.1, cortisol 24 Imaging: Brain CT showed no acute intracranial process or evidence of suggest intracranial mass, remote lacunar injury with white matter changes secondary to chronic microangiopathy 09/21/2024 patient seen and examined at bedside. No acute events overnight. No new complaints or symptoms. Labs: WBC 18.7, hemoglobin 8, platelet count 440,000, most recent sodium 128, potassium 3.7, bicarb 21.3, BUN 10, creatinine 0.4, glucose 97, magnesium 1.8, calcium 8.4 Review of systems: Pertinent positives and negatives as discussed in HPI, a complete review of systems was performed and all other systems are negative. Physical examination: Vital signs reviewed General: non toxic, no distress, appears older than age, thin and frail appearing Derm: no unusual rashes/lesions, warm Head: atraumatic, normocephalic, symmetric Eyes: EOMI, anicteric sclera, pupils equal round reactive to light ENT: Nose and ears atraumatic Neck: No cervical lymphadenopathy, trachea midline, supple Mouth: no lip lesion, mucus membranes moist Cardiovascular: S1S2 reg, no murmur Lungs: CTA bilateral, no rhonchi, no rales, no accessory muscle use Abdominal: soft, nondistended, nontender to palpation, no guarding Ext: muscle strength 5 out of 5 in all 4 extremities grossly, no gross muscle atrophy, no contractures, positive dorsalis pedis pulse bilateral, no edema Neuro: CN II-XI grossly intact, no gross focal neuro deficits Psych: Alert and oriented x 3, appropriate affect and mood Assessment/Plan: The patient is admitted with an anticipated greater than 2 midnight stay for evaluation of debility, hyponatremia and anemia Active: #Normocytic anemia, status post 2 units packed RBC transfusion Hemoglobin 5.3 on admission. 8 today Monitor CBC #Stage IV lung cancer #Hyponatremia, in setting of SIADH from malignancy #Thrombocytosis in the setting of malignancy #Transaminitis in the setting of malignancy #Leukocytosis in the setting of malignancy #Debility TSH slightly elevated, T4 normal, Cortisol WNL Urine sodium 21 Urine Osm 405 presents ADH elevation with urine concentration Sodium 121 -> 128 Monitor sodium levels On fluid restriction Continue IV and p.o meds for pain control Consult heme-onc Consult PT/OT Consult Nephrology. Discontinue home salt tabs. Given Samsca x1 #Asymptomatic bacteriuria RI 106 with elevated with count on admission. Patient afebrile and no urinary complaints WBC improving Reflex urine culture growing pansensitive E. coli Blood cultures negative Discontinue IV Cefepime as she has completed course of antibiotics Chronic Conditions: #COPD #Chronic nicotine use Orderd DuoNeb as needed DVT ppx: Lovenox subcu daily CODE STATUS: Full Discussed with: Patient Anticipated discharge place: Home Karin Hernandez MD PGY-1 Internal Medicine Dictation was produced using [employer] dictation software. please excuse any grammatical, word or spelling errors. Objective - Vital Signs Vital signs: Vital Signs Temp 99.5 F 09/21/24 02:00 Pulse 94 09/21/24 02:00 Resp 16 09/21/24 02:00 BP 104/67 09/21/24 02:00 Pulse Ox 96 09/21/24 02:00 FiO2 Intake & Output 09/20/24 09/21/24 09/21/24 18:59 06:59 18:59 Intake Total 240 Balance 240 Intake: Oral 240 Other: Voiding Method Toilet Toilet # Voids 2 - Labs CBC & Chem 7: 09/27/24 06:50 09/27/24 06:50 Labs: Abnormal Lab Results - Last 24 Hours (Table) 09/20/24 09/20/24 09/20/24 Range/Units 06:41 08:45 11:57 WBC (4.50-10.00) 10*3/uL RBC (4.10-5.20) 10*6/uL Hgb (12.0-15.0) g/dL Hct (37.2-46.3) % RDW (11.5-14.5) % MPV (9.5-12.2) fL Immature Gran # (0.00-0.04) 10*3/uL Neutrophils # (1.80-7.70) 10*3/uL Lymphocytes # (0.90-5.00) 10*3/uL Monocytes # (0.20-1.00) 10*3/uL Eosinophils # (0.04-0.35) 10*3/uL Sodium 120 L 120 L (137-145) mmol/L Cortisol 24.0 H (3.1-22.4) UG/DL 09/20/24 09/20/24 09/21/24 Range/Units 16:16 19:55 04:14 WBC 18.75 H (4.50-10.00) 10*3/uL RBC 2.55 L (4.10-5.20) 10*6/uL Hgb 8.0 L (12.0-15.0) g/dL Hct 22.1 L (37.2-46.3) % RDW 15.4 H (11.5-14.5) % MPV 8.9 L (9.5-12.2) fL Immature Gran # 0.21 H (0.00-0.04) 10*3/uL Neutrophils # 15.68 H (1.80-7.70) 10*3/uL Lymphocytes # 0.60 L (0.90-5.00) 10*3/uL Monocytes # 2.16 H (0.20-1.00) 10*3/uL Eosinophils # 0.03 L (0.04-0.35) 10*3/uL Sodium 118 L* 121 L (137-145) mmol/L Cortisol (3.1-22.4) UG/DL Microbiology - Last 24 Hours (Table) 09/19/24 23:24 Blood Culture - Preliminary Blood 09/18/24 19:15 Urine Culture - Preliminary Urine,Voided Gram Neg Bacilli Assessment and Plan Assessment: Attestation Attestation/ Tool Maker Apprentice Note: Attestation to Progress Note, Participation (I saw and evaluated the patient with the Resident, and I reviewed and discussed the patient with the Resident and agree with the Resident's findings and plans as documented above., management reviewed and discussed), I agree with findings & plan, Provider Signature (BETTYE MCKEON, JASON King Time with Patient: Greater than 30
[2024-09-21] MEDS: ONDANSETRON ODT 8 MG TAB.RAPDIS PO PRN (12:18)
--- NOTE | 2024-09-21 12:49 | P.PN ---
Subjective Progress Note Date: 09/21/24 Principal diagnosis: Metastatic non-small cell lung cancer - Afebrile, no acute events overnight - Continues to have intermittent abdominal/right-sided back pain and nausea - She is taking tramadol as needed and is not using [place] due to reported nausea with this medication - She did receive tolvaptan x 1 for hyponatremia with improvement in sodium to 128 from 118 Objective - Vital Signs Vital signs: Vital Signs Temp 98.0 F 09/21/24 12:32 Pulse 103 H 09/21/24 12:32 Resp 16 09/21/24 12:32 BP 98/65 09/21/24 12:32 Pulse Ox 98 09/21/24 12:32 FiO2 Intake & Output 09/20/24 09/21/24 09/21/24 18:59 06:59 18:59 Intake Total 240 240 Balance 240 240 Intake: Oral 240 240 Other: Voiding Method Toilet Toilet Toilet # Voids 2 - Constitutional Constitutional Comment(s): Fatigued appearing and thin General appearance: Present: no acute distress - EENT Eyes: Present: EOMI - Respiratory Details: Nonlabored breathing - Cardiovascular Details: Warm and well-perfused - Gastrointestinal General gastrointestinal: Present: distended, tenderness. Absent: soft Localized gastrointestinal: tender: RUQ - Neurologic Neurologic: Present: CNII-XII intact. Absent: focal deficits - Psychiatric Psychiatric: Present: A&O x's 3 - Labs CBC & Chem 7: 09/21/24 04:14 09/21/24 04:14 Labs: Abnormal Lab Results - Last 24 Hours (Table) 09/20/24 09/20/24 09/21/24 Range/Units 16:16 19:55 04:14 WBC (4.50-10.00) 10*3/uL RBC (4.10-5.20) 10*6/uL Hgb (12.0-15.0) g/dL Hct (37.2-46.3) % RDW (11.5-14.5) % MPV (9.5-12.2) fL Immature Gran # (0.00-0.04) 10*3/uL Neutrophils # (1.80-7.70) 10*3/uL Lymphocytes # (0.90-5.00) 10*3/uL Monocytes # (0.20-1.00) 10*3/uL Eosinophils # (0.04-0.35) 10*3/uL Sodium 118 L* 121 L 128 L (137-145) mmol/L Chloride 95 L (96-109) mmol/L Carbon Dioxide 21.3 L (21.6-31.8) mmol/L Creatinine 0.4 L (0.6-1.5) mg/dL BUN/Creatinine Ratio 25.00 H (12.00-20.00) Ratio Calcium 8.4 L (8.7-10.3) mg/dL 09/21/24 Range/Units 04:14 WBC 18.75 H (4.50-10.00) 10*3/uL RBC 2.55 L (4.10-5.20) 10*6/uL Hgb 8.0 L (12.0-15.0) g/dL Hct 22.1 L (37.2-46.3) % RDW 15.4 H (11.5-14.5) % MPV 8.9 L (9.5-12.2) fL Immature Gran # 0.21 H (0.00-0.04) 10*3/uL Neutrophils # 15.68 H (1.80-7.70) 10*3/uL Lymphocytes # 0.60 L (0.90-5.00) 10*3/uL Monocytes # 2.16 H (0.20-1.00) 10*3/uL Eosinophils # 0.03 L (0.04-0.35) 10*3/uL Sodium (137-145) mmol/L Chloride (96-109) mmol/L Carbon Dioxide (21.6-31.8) mmol/L Creatinine (0.6-1.5) mg/dL BUN/Creatinine Ratio (12.00-20.00) Ratio Calcium (8.7-10.3) mg/dL Microbiology - Last 24 Hours (Table) 09/18/24 19:15 Urine Culture - Preliminary Urine,Voided Escherichia coli 09/19/24 23:24 Blood Culture - Preliminary Blood Assessment and Plan (1) Metastatic non-small cell lung cancer Current Visit: Yes Status: Acute Code(s): C34.90 - MALIGNANT NEOPLASM OF UNSP PART OF UNSP BRONCHUS OR LUNG SNOMED Code(s): 994749929 (2) Neutrophilic leukocytosis Current Visit: Yes Status: Acute Code(s): D72.828 - OTHER ELEVATED WHITE BLOOD CELL COUNT SNOMED Code(s): 897245712 (3) Anemia Current Visit: Yes Status: Acute Priority: High Code(s): D64.9 - ANEMIA, UNSPECIFIED SNOMED Code(s): 372200324 Plan: Metastatic non-small cell lung cancer: -Oncology history as dictated in the HPI -S/p Cycle 7 of Enhertu on 08/27/24 -Unfortunately, CT CAP on 08/30/24 showed disease progression. Enhertu was discontinued. Plan was for clinic f/u, with Dr. Rodolfo Diaz on 09/23 -CT brain with contrast obtained on 09/19/2024 due to MRI being nonfunctional revealed no evidence of metastatic disease -Radiation oncology has been consulted with recommendations pending. I do believe she would benefit from palliative RT to the right adrenal lesion -She could be a candidate for Taxotere outpatient, which was discussed on admission. We will further discuss this on outpatient follow-up -Continue tramadol as needed for pain with IV Dilaudid 0.5 mg ordered for breakthrough pain -Added Zofran 8 mg every 8 hours as needed for nausea. Oral Zofran should be tried first prior to IV Zofran that is currently ordered Neutrophilic leukocytosis, normocytic normochromic anemia: Patient presented to the emergency room with generalized weakness, dizziness, FTT. She had recent admit for the same -On admit, hemoglobin was noted at 5.3, MCV 86.4, 2 units PRBCs given with stable hemoglobin since then -Denies any acute episodes of bleeding, rectal bleeding and melena -Nutritional studies obtained during last admit were consistent with anemia of inflammation superimposed on possible anemia from prior enhertu treatment -She likely has neutrophilic leukocytosis and anemia of inflammation secondary to known metastatic NSCLC -Continue to monitor CBC, transfuse for hgb <7 or if symptomatic Hyponatremia: -118 on admission and on 09/20/2024 -Likely component of SIADH r/t malignancy -Received 1 dose of tolvaptan per nephrology with improvement to 128 -Follow up additional nephrology recommendations, appreciate assistance Joss Diaz MD
[2024-09-22 06:37] LABS: Basophils # (A) 0.09 10*3/uL (0.00-0.10); Basophils % (A) 0.5 %; Eosinophils # (A) 0.13 10*3/uL (0.04-0.35); Eosinophils % (A) 0.7 %; HCT 21.8 % (37.2-46.3); HGB 7.9 g/dL (12.0-15.0); Lymphocytes % (A) 4.6 %; MCH 31.7 pg (27.0-32.0); MCHC 36.2 g/dL (32.0-37.0); MCV 87.6 fL (80.0-97.0); Mean Platelet Volume 9.3 fL (9.5-12.2); Monocytes # (A) 1.91 10*3/uL (0.20-1.00); Monocytes % (A) 10.9 %; Neutrophils # (A) 14.36 10*3/uL (1.80-7.70); Neutrophils % (A) 82.1 %; Platelet Count 382 10*3/uL (140-440); RBC 2.49 10*6/uL (4.10-5.20); RDW 15.9 % (11.5-14.5)
[2024-09-22] MEDS: IPRATROPIUM-ALBUTEROL 3 ML NEB INHALATION PRN (09:03)
[2024-09-22 10:14] LABS: BUN/Creat Ratio 26.25 Ratio (12.00-20.00); Blood Urea Nitrogen 10.5 mg/dL (9.0-27.0); Calcium 8.4 mg/dL (8.7-10.3); Carbon Dioxide 21.3 mmol/L (21.6-31.8); Chloride 95 mmol/L (96-109); Glucose 112 mg/dL (70-110); Magnesium 1.9 mg/dL (1.5-2.4); Potassium 3.6 mmol/L (3.5-5.5); Sodium 129 mmol/L (135-145)
--- NOTE | 2024-09-22 11:38 | P.PN ---
Subjective Patient is seen in follow-up for hyponatremia. Sodium level 129 this morning. Oral intake fair. No chest pain or shortness of breath. Vital signs are stable. General: No acute distress. HEENT: Head exam is unremarkable. LUNGS: No audible rhonchi or wheezes. HEART: Rate and Rhythm are regular. ABDOMEN: Nontender. EXTREMITITES: No edema. Objective - Vital Signs Vital signs: Vital Signs Temp 97.8 F 09/22/24 07:00 Pulse 96 09/22/24 09:13 Resp 16 09/22/24 08:00 BP 94/62 09/22/24 07:00 Pulse Ox 99 09/22/24 09:07 FiO2 Intake & Output 09/21/24 09/22/24 09/22/24 18:59 06:59 18:59 Intake Total 3780 240 716 Balance 3780 240 716 Intake: Oral 3780 240 716 Other: Voiding Method Toilet Toilet Toilet # Voids 5 2 - Labs CBC & Chem 7: 09/22/24 06:15 09/22/24 06:15 Labs: Abnormal Lab Results - Last 24 Hours (Table) 09/22/24 09/22/24 Range/Units 06:15 06:15 WBC 17.50 H (4.50-10.00) 10*3/uL RBC 2.49 L (4.10-5.20) 10*6/uL Hgb 7.9 L (12.0-15.0) g/dL Hct 21.8 L (37.2-46.3) % RDW 15.9 H (11.5-14.5) % MPV 9.3 L (9.5-12.2) fL Immature Gran # 0.21 H (0.00-0.04) 10*3/uL Neutrophils # 14.36 H (1.80-7.70) 10*3/uL Lymphocytes # 0.80 L (0.90-5.00) 10*3/uL Monocytes # 1.91 H (0.20-1.00) 10*3/uL Sodium 129 L (135-145) mmol/L Chloride 95 L (96-109) mmol/L Carbon Dioxide 21.3 L (21.6-31.8) mmol/L Anion Gap 12.70 H (4.00-12.00) mmol/L Creatinine 0.4 L (0.6-1.5) mg/dL BUN/Creatinine Ratio 26.25 H (12.00-20.00) Ratio Glucose 112 H (70-110) mg/dL Calcium 8.4 L (8.7-10.3) mg/dL Microbiology - Last 24 Hours (Table) 09/19/24 23:24 Blood Culture - Preliminary Blood 09/18/24 19:15 Urine Culture - Preliminary Urine,Voided Escherichia coli Assessment and Plan Plan: Assessment: 1. Hyponatremia. Euvolemic. 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 Sodium level 129 this morning. Urine sodium 21 and urine osmolality 405. TSH slightly high at 4.9. Cortisol level not low. 2. Acute blood loss anemia status post blood transfusion this admission. 3. E. coli UTI s/p antibiotics. 4. Stage IV lung cancer. Plan: Encouraged oral intake. Status post Samsca x 1 dose given September 28, 2024. Patient not compliant with fluid restriction. Repeat labs in the morning.
--- NOTE | 2024-09-22 23:13 | P.PN ---
Subjective Progress Note Date: 09/22/24 Patient is a 58-year-old female with a history of COPD (no home oxygen) and stage IV lung cancer currently undergoing chemotherapy by Dr. Diaz at [facility] here for generalized weakness with dyspnea. Since her discharge, her weakness started to recur and worsened. She is also reported to have a low appetite despite having a sensation of hunger. She denied productive chest pain, palpitations, cough, fever, abdominal pain, extremity swelling, focal weakness, recent illness, recent trauma or fall. Chills, chest pain, palpitations. Recently admitted on 08/30/2024 for hyponatremia and normocytic anemia that required 1 unit of packed RBC. On admission: Vitals: Temperature 97.5 F, NJ 106, RR 20, BP 92/58, O2 saturation 98% on room air Labs: WBC 20.7, hemoglobin 5.3, MCV 86.4, platelet count 748,000, sodium 118, potassium 4.6, bicarb 11, BUN 17, creatinine 0.6, magnesium 1.8, AST 11, alk phos 393, albumin 3.2. Urinalysis shows large leukocyte esterase, negative nitrate, negative ketones, negative glucose, trace blood, many bacteria. Cepheid 4 Plex negative. Imaging: EKG independently interpreted showed sinus tachycardia with a rate of 103 bpm, normal axis, no ST-T changes, QTc 404 MS. chest x-ray showed worsening aeration of the lungs compared to prior study and partial loculated small right pleural effusion 09/20/2024 patient seen and examined at bedside. No acute events overnight Labs: WBC 19.3, hemoglobin 8.2, platelet count 438,000, sodium 119, potassium 5.7, bicarb 21, BUN 11, creatinine 0.39, calcium 8.2, glucose 78, TSH 4.9, T4 2.1, cortisol 24 Imaging: Brain CT showed no acute intracranial process or evidence of suggest intracranial mass, remote lacunar injury with white matter changes secondary to chronic microangiopathy 09/21/2024 patient seen and examined at bedside. No acute events overnight. No new complaints or symptoms. Labs: WBC 18.7, hemoglobin 8, platelet count 440,000, most recent sodium 128, potassium 3.7, bicarb 21.3, BUN 10, creatinine 0.4, glucose 97, magnesium 1.8, calcium 8.4 09/22/2024 patient is awake alert and oriented. Able to ambulate in the room. No complaints of chest pain or shortness of breath. Oral intake is fair. Laboratory data showed WBC 17.4 hemoglobin 7.9 and platelets 382 sodium 129 potassium 3.6 chloride 95 bicarb is 21.3 BUN 10.5 and creatinine 0.4 and blood sugar 112 and magnesium 1.9. Review of systems: Pertinent positives and negatives as discussed in HPI, a complete review of systems was performed and all other systems are negative. Physical examination: Vital signs reviewed General: non toxic, no distress, appears older than age, thin and frail appearing Derm: no unusual rashes/lesions, warm Head: atraumatic, normocephalic, symmetric Eyes: EOMI, anicteric sclera, pupils equal round reactive to light ENT: Nose and ears atraumatic Neck: No cervical lymphadenopathy, trachea midline, supple Mouth: no lip lesion, mucus membranes moist Cardiovascular: S1S2 reg, no murmur Lungs: CTA bilateral, no rhonchi, no rales, no accessory muscle use Abdominal: soft, nondistended, nontender to palpation, no guarding Ext: muscle strength 5 out of 5 in all 4 extremities grossly, no gross muscle atrophy, no contractures, positive dorsalis pedis pulse bilateral, no edema Neuro: CN II-XI grossly intact, no gross focal neuro deficits Psych: Alert and oriented x 3, appropriate affect and mood Assessment/Plan: The patient is admitted with an anticipated greater than 2 midnight stay for evaluation of debility, hyponatremia and anemia Active: #Normocytic anemia, status post 2 units packed RBC transfusion Hemoglobin 5.3 on admission. 7.9 today Monitor CBC #Stage IV lung cancer #Hyponatremia, in setting of SIADH from malignancy #Thrombocytosis in the setting of malignancy #Transaminitis in the setting of malignancy #Leukocytosis in the setting of malignancy #Debility TSH slightly elevated, T4 normal, Cortisol WNL Urine sodium 21 Urine Osm 405 presents ADH elevation with urine concentration Patient was given a dose of Samsca on 09/20/2024 Sodium 121 -> 128--129 Monitor sodium levels On fluid restriction Continue IV and p.o meds for pain control Consult heme-onc Consult PT/OT Consult Nephrology. Discontinue home salt tabs. #Asymptomatic bacteriuria NJ 106 with elevated with count on admission. Patient afebrile and no urinary complaints WBC improving Reflex urine culture growing pansensitive E. coli Blood cultures negative Discontinue IV Cefepime as she has completed course of antibiotics Chronic Conditions: #COPD #Chronic nicotine use Orderd DuoNeb as needed DVT ppx: Lovenox subcu daily CODE STATUS: Full Discussed with: Patient Anticipated discharge place: Home Karin Hernandez MD PGY-1 Internal Medicine Dictation was produced using [employer] dictation software. please excuse any grammatical, word or spelling errors. Objective - Vital Signs Vital signs: Vital Signs Temp 98.0 F 09/22/24 12:24 Pulse 70 09/22/24 12:24 Resp 16 09/22/24 12:24 BP 102/65 09/22/24 12:24 Pulse Ox 98 09/22/24 12:24 FiO2 Intake & Output 09/21/24 09/22/24 09/22/24 18:59 06:59 18:59 Intake Total 3780 240 956 Balance 3780 240 956 Intake: Oral 3780 240 956 Other: Voiding Method Toilet Toilet Toilet # Voids 5 2 - Labs CBC & Chem 7: 09/22/24 06:15 09/22/24 06:15 Labs: Abnormal Lab Results - Last 24 Hours (Table) 09/22/24 09/22/24 Range/Units 06:15 06:15 WBC 17.50 H (4.50-10.00) 10*3/uL RBC 2.49 L (4.10-5.20) 10*6/uL Hgb 7.9 L (12.0-15.0) g/dL Hct 21.8 L (37.2-46.3) % RDW 15.9 H (11.5-14.5) % MPV 9.3 L (9.5-12.2) fL Immature Gran # 0.21 H (0.00-0.04) 10*3/uL Neutrophils # 14.36 H (1.80-7.70) 10*3/uL Lymphocytes # 0.80 L (0.90-5.00) 10*3/uL Monocytes # 1.91 H (0.20-1.00) 10*3/uL Sodium 129 L (135-145) mmol/L Chloride 95 L (96-109) mmol/L Carbon Dioxide 21.3 L (21.6-31.8) mmol/L Anion Gap 12.70 H (4.00-12.00) mmol/L Creatinine 0.4 L (0.6-1.5) mg/dL BUN/Creatinine Ratio 26.25 H (12.00-20.00) Ratio Glucose 112 H (70-110) mg/dL Calcium 8.4 L (8.7-10.3) mg/dL Microbiology - Last 24 Hours (Table) 09/19/24 23:24 Blood Culture - Preliminary Blood
[2024-09-23 10:27] LABS: BUN/Creat Ratio 26.25 Ratio (12.00-20.00); Blood Urea Nitrogen 10.5 mg/dL (9.0-27.0); Calcium 8.3 mg/dL (8.7-10.3); Carbon Dioxide 23.1 mmol/L (21.6-31.8); Chloride 91 mmol/L (96-109); Glucose 90 mg/dL (70-110); Magnesium 1.8 mg/dL (1.5-2.4); Sodium 124 mmol/L (135-145)
[2024-09-23 11:21] LABS: Basophils % (A) 0.5 %; Eosinophils # (A) 0.17 X 10*3/uL (0.04-0.35); Eosinophils % (A) 0.9 %; HCT 20.3 % (37.2-46.3); HGB 6.8 g/dL (12.0-15.0); Hypochromasia (M) 2+ (None Seen); Lymphocytes # (A) 0.98 X 10*3/uL (0.90-5.00); MCH 30.5 pg (27.0-32.0); MCHC 33.5 g/dL (32.0-37.0); Mean Platelet Volume 9.9 FL (9.5-12.2); Monocytes # (A) 2.06 X 10*3/uL (0.20-1.00); Monocytes % (A) 10.5 %; NRBC Per 100 WBC 0 X 10*3/uL (0.00-0.01); Neutrophils # (A) 16.07 X 10*3/uL (1.80-7.70); Neutrophils % (A) 81.8 %; Platelet Count 393 X 10*3/uL (140-440); RBC 2.23 X 10*6/uL (4.10-5.20); RDW 16.2 % (11.5-14.5); WBC 19.64 X 10*3/uL (4.50-10.00)
--- NOTE | 2024-09-23 15:33 | P.PN ---
Subjective Progress Note Date: 09/23/24 Patient is a 58-year-old female with a history of COPD (no home oxygen) and stage IV lung cancer currently undergoing chemotherapy by Dr. Diaz at [facility] here for generalized weakness with dyspnea. Since her discharge, her weakness started to recur and worsened. She is also reported to have a low appetite despite having a sensation of hunger. She denied productive chest pain, palpitations, cough, fever, abdominal pain, extremity swelling, focal weakness, recent illness, recent trauma or fall. Chills, chest pain, palpitations. Recently admitted on 08/30/2024 for hyponatremia and normocytic anemia that required 1 unit of packed RBC. On admission: Vitals: Temperature 97.5 F, IN 106, RR 20, BP 92/58, O2 saturation 98% on room air Labs: WBC 20.7, hemoglobin 5.3, MCV 86.4, platelet count 748,000, sodium 118, potassium 4.6, bicarb 11, BUN 17, creatinine 0.6, magnesium 1.8, AST 11, alk phos 393, albumin 3.2. Urinalysis shows large leukocyte esterase, negative nitrate, negative ketones, negative glucose, trace blood, many bacteria. Cepheid 4 Plex negative. Imaging: EKG independently interpreted showed sinus tachycardia with a rate of 103 bpm, normal axis, no ST-T changes, QTc 404 MS. chest x-ray showed worsening aeration of the lungs compared to prior study and partial loculated small right pleural effusion 09/20/2024 patient seen and examined at bedside. No acute events overnight Labs: WBC 19.3, hemoglobin 8.2, platelet count 438,000, sodium 119, potassium 5.7, bicarb 21, BUN 11, creatinine 0.39, calcium 8.2, glucose 78, TSH 4.9, T4 2.1, cortisol 24 Imaging: Brain CT showed no acute intracranial process or evidence of suggest intracranial mass, remote lacunar injury with white matter changes secondary to chronic microangiopathy 09/21/2024 patient seen and examined at bedside. No acute events overnight. No new complaints or symptoms. Labs: WBC 18.7, hemoglobin 8, platelet count 440,000, most recent sodium 128, potassium 3.7, bicarb 21.3, BUN 10, creatinine 0.4, glucose 97, magnesium 1.8, calcium 8.4 09/22/2024 patient is awake alert and oriented. Able to ambulate in the room. No complaints of chest pain or shortness of breath. Oral intake is fair. Laboratory data showed WBC 17.4 hemoglobin 7.9 and platelets 382 sodium 129 potassium 3.6 chloride 95 bicarb is 21.3 BUN 10.5 and creatinine 0.4 and blood sugar 112 and magnesium 1.9. 09/23/2024 patient seen and examined at bedside. No acute events overnight. No new complaints or symptoms Labs: WBC 19.6, hemoglobin 6.8, MCV 91, platelet count 393,000, sodium 124, potassium 4, chloride 91, bicarb 23, BUN 10, creatinine 0.4, glucose 90, magnesium 1.8 Review of systems: Pertinent positives and negatives as discussed in HPI, a complete review of systems was performed and all other systems are negative. Physical examination: Vital signs reviewed General: non toxic, no distress, appears older than age, thin and frail appearing Derm: no unusual rashes/lesions, warm Head: atraumatic, normocephalic, symmetric Eyes: EOMI, anicteric sclera, pupils equal round reactive to light ENT: Nose and ears atraumatic Neck: No cervical lymphadenopathy, trachea midline, supple Mouth: no lip lesion, mucus membranes moist Cardiovascular: S1S2 reg, no murmur Lungs: CTA bilateral, no rhonchi, no rales, no accessory muscle use Abdominal: soft, nondistended, nontender to palpation, no guarding Ext: muscle strength 5 out of 5 in all 4 extremities grossly, no gross muscle atrophy, no contractures, positive dorsalis pedis pulse bilateral, no edema Neuro: CN II-XI grossly intact, no gross focal neuro deficits Psych: Alert and oriented x 3, appropriate affect and mood Assessment/Plan: The patient is admitted with an anticipated greater than 2 midnight stay for evaluation of debility, hyponatremia and anemia Active: #Normocytic anemia, status post 3 units packed RBC transfusion 6.8 today. Transfuse 1 unit packed RBC No bruising or bleeding Monitor CBC #Stage IV lung cancer #Hyponatremia, in setting of SIADH from malignancy #Thrombocytosis in the setting of malignancy #Transaminitis in the setting of malignancy #Leukocytosis in the setting of malignancy #Debility TSH slightly elevated, T4 normal, Cortisol WNL Urine sodium 21 Urine Osm 405 presents ADH elevation with urine concentration Patient was given a dose of Samsca on 09/20/2024 Sodium 124 today Monitor sodium levels On fluid restriction Continue IV and p.o meds for pain control Consult heme-onc Consult PT/OT Consult Nephrology. Discontinue home salt tabs. #Asymptomatic bacteriuria IN 106 with elevated with count on admission. Patient afebrile and no urinary complaints WBC improving Reflex urine culture growing pansensitive E. coli Blood cultures negative Discontinue IV Cefepime as she has completed course of antibiotics Chronic Conditions: #COPD #Chronic nicotine use Orderd DuoNeb as needed DVT ppx: Lovenox subcu daily CODE STATUS: Full Discussed with: Patient Anticipated discharge place: Home Karin Hernandez MD PGY-1 Internal Medicine Dictation was produced using [employer] dictation software. please excuse any grammatical, word or spelling errors. Attestation: I have seen and examined this patient with my resident, assessment and plan discussed with the resident, agree with assessment and plan as written above. Dr. Vega Objective - Vital Signs Vital signs: Vital Signs Temp 98.5 F 09/23/24 02:00 Pulse 96 09/23/24 02:00 Resp 12 09/23/24 02:00 BP 106/70 09/23/24 02:00 Pulse Ox 99 09/23/24 02:00 FiO2 Intake & Output 09/22/24 09/23/24 09/23/24 18:59 06:59 18:59 Intake Total 3396 540 Output Total 350 Balance 3396 190 Intake: Oral 3396 540 Output: Emesis 350 Other: Voiding Method Toilet Toilet # Voids 5 - Labs CBC & Chem 7: 09/23/24 04:13 09/23/24 04:13 Labs: Abnormal Lab Results - Last 24 Hours (Table) 09/22/24 Range/Units 06:15 Sodium 129 L (135-145) mmol/L Chloride 95 L (96-109) mmol/L Carbon Dioxide 21.3 L (21.6-31.8) mmol/L Anion Gap 12.70 H (4.00-12.00) mmol/L Creatinine 0.4 L (0.6-1.5) mg/dL BUN/Creatinine Ratio 26.25 H (12.00-20.00) Ratio Glucose 112 H (70-110) mg/dL Calcium 8.4 L (8.7-10.3) mg/dL Microbiology - Last 24 Hours (Table) 09/19/24 23:24 Blood Culture - Preliminary Blood
--- NOTE | 2024-09-23 18:37 | P.PN ---
Subjective Patient is seen for follow-up for hyponatremia. Serum sodium was up to 129 yesterday. Labs are pending from today. No significant complaints Status post Samsca on 09/20/2024 Objective - Vital Signs Vital signs: Vital Signs Temp 98.3 F 09/23/24 15:21 Pulse 92 09/23/24 15:21 Resp 16 09/23/24 15:21 BP 113/75 09/23/24 15:21 Pulse Ox 94 L 09/23/24 15:21 FiO2 Intake & Output 09/22/24 09/23/24 09/23/24 18:59 06:59 18:59 Intake Total 3396 540 310 Output Total 350 Balance 3396 190 310 Weight 38.102 kg Intake: Oral 3396 540 Blood Product 310 Rc Irr As1 Unit 310 [id number] Output: Emesis 350 Other: Voiding Method Toilet Toilet Toilet # Voids 5 - Exam Patient is awake, comfortable, no acute distress Examination of the heart S1 and S2 Examination of the lungs bilateral breath sounds are heard Abdomen is soft nontender Examination lower extremity shows no significant edema - Labs CBC & Chem 7: 09/23/24 04:13 09/23/24 04:13 Labs: Abnormal Lab Results - Last 24 Hours (Table) 09/23/24 09/23/24 09/23/24 Range/Units 04:13 04:13 12:37 WBC 19.64 H (4.50-10.00) X 10*3/uL RBC 2.23 L (4.10-5.20) X 10*6/uL Hgb 6.8 A* (12.0-15.0) g/dL Hct 20.3 L (37.2-46.3) % RDW 16.2 H (11.5-14.5) % Immature Gran # 0.26 H (0.00-0.04) X 10*3/uL Neutrophils # 16.07 H (1.80-7.70) X 10*3/uL Monocytes # 2.06 H (0.20-1.00) X 10*3/uL Hypochromasia (manual) 2+ A (None Seen) Sodium 124 L (135-145) mmol/L Chloride 91 L (96-109) mmol/L Creatinine 0.4 L (0.6-1.5) mg/dL BUN/Creatinine Ratio 26.25 H (12.00-20.00) Ratio Calcium 8.3 L (8.7-10.3) mg/dL Crossmatch See Detail Microbiology - Last 24 Hours (Table) 09/19/24 23:24 Blood Culture - Preliminary Blood Assessment and Plan Assessment: 1. Hyponatremia. Euvolemic. 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 Sodium level 129 yesterday. Urine sodium 21 and urine osmolality 405. TSH slightly high at 4.9. Cortisol level not low. 2. Acute blood loss anemia status post blood transfusion this admission. 3. E. coli UTI s/p antibiotics. 4. Stage IV lung cancer. Plan: Follow-up on sodium from today May need to repeat Samsca if sodium is lower Add sodium chloride tab since blood pressure is on the lower side.
[2024-09-23] MEDS ORDERED: TOLVAPTAN 15 MG TABLET PO ONE (19:00)
--- NOTE | 2024-09-23 19:47 | CDI ---
Documentation Clarification Form Date: 09/23/2024 07:17:29 PM From: Lenore Russell RN, CCDS Phone: [phone] Admit Date: 09/18/2024 07:12:00 PM Patient Name: Jil Villeda Visit Number: [id number] Discharge Date: ATTENTION: The Clinical Documentation Specialists (CDI) and [facility] Coding Staff appreciate your assistance in clarifying documentation. Please respond to the clarification below the line at the bottom and electronically sign. The CDI & [facility] Coding staff will review the response and follow-up if needed. Please note: Queries are made part of the Legal Health Record. If you have any questions, please contact the author of this message via ITS. Doctor. Tisha Vega The Registered Dietitian assessment on 09/19/24 indicates this patient meets criteria for malnutrition chronic, severe. Based on this information and the findings below, is there an additional diagnosis that is clinically appropriate for this patient? History/Risk Factors: Anemia, Hyponatremia, Stage 4 lung CA, COPD, CVA/TIA Clinical Indicators: 59-year-old female with stage IV lung ca. Decreased ability to consume sufficient energy. Intake have been decreased for the past 1month Current BMI: 15.4 5 ft 2 in Nutrition Assessment: Poor intake 0-25% 40% avg intakes x 4 days, 11 meals recorded Physical findings: Underweight moderate to severe muscle and fat defects noted. Severe muscle/fat losses: temporal, interosseous,triceps, trapezius RD Consult Assessment: Inadequate energy intake Malnutrition chronic, severe Treatment: Ensure Vanilla TID Is there an additional diagnosis that is clinically appropriate for this patient? [ x ] Severe Protein-Calorie Malnutrition [ ] No additional diagnosis/Not clinically significant [ ] Other condition, please specify [ ] Unable to Determine (Template Last Revised: October 2022) MTDD
[2024-09-23 20:27] LABS: Basophils % (A) 0.5 %; Eosinophils # (A) 0.19 10*3/uL (0.04-0.35); HCT 22.8 % (37.2-46.3); HGB 8.2 g/dL (12.0-15.0); Lymphocytes # (A) 0.99 10*3/uL (0.90-5.00); Lymphocytes % (A) 5.2 %; MCH 31.4 pg (27.0-32.0); MCV 87.4 fL (80.0-97.0); Mean Platelet Volume 9.3 fL (9.5-12.2); Monocytes # (A) 2.35 10*3/uL (0.20-1.00); Monocytes % (A) 12.2 %; Neutrophils # (A) 15.22 10*3/uL (1.80-7.70); Neutrophils % (A) 79.2 %; Platelet Count 347 10*3/uL (140-440); RBC 2.61 10*6/uL (4.10-5.20); RDW 15.4 % (11.5-14.5); WBC 19.21 10*3/uL (4.50-10.00)
[2024-09-23] MEDS: SODIUM CHLORIDE TAB 1 GM TAB PO SCH (21:07)
[2024-09-23] MEDS: TOLVAPTAN 15 MG TABLET PO ONE (21:07)
[2024-09-24 05:56] LABS: African American GFR (CKD) >90 (>60 ml/min/1.73 sqM); Anion Gap 8 mmol/L; Blood Urea Nitrogen 12 mg/dL (7-17); Calcium 8.7 mg/dL (8.4-10.2); Carbon Dioxide 24 mmol/L (22-30); Chloride 92 mmol/L (98-107); Glucose 85 mg/dL (74-99); Non-African American GFR(CKD) >90 (>60 ml/min/1.73 sqM); Sodium 124 mmol/L (137-145)
[2024-09-24 10:48] LABS: Basophils % (A) 0.5 %; Eosinophils # (A) 0.12 10*3/uL (0.04-0.35); Eosinophils % (A) 0.6 %; HCT 24.3 % (37.2-46.3); HGB 8.8 g/dL (12.0-15.0); Lymphocytes # (A) 0.92 10*3/uL (0.90-5.00); Lymphocytes % (A) 4.3 %; MCH 31.4 pg (27.0-32.0); MCHC 36.2 g/dL (32.0-37.0); MCV 86.8 fL (80.0-97.0); Mean Platelet Volume 9.6 fL (9.5-12.2); Monocytes # (A) 2.52 10*3/uL (0.20-1.00); Monocytes % (A) 11.7 %; Neutrophils # (A) 17.52 10*3/uL (1.80-7.70); Neutrophils % (A) 80.8 %; Platelet Count 373 10*3/uL (140-440); RDW 15.5 % (11.5-14.5); WBC 21.63 10*3/uL (4.50-10.00)
--- NOTE | 2024-09-24 12:46 | P.PN ---
Subjective Patient is seen for follow-up for hyponatremia. Serum sodium was up to 129. Sodium decreased to 124 yesterday and remains at 124 today No significant complaints Status post Samsca on 09/20/2024 Patient reports poor oral intake. She continues to complain of nausea. Received sodium chloride tabs and 1 dose of Samsca yesterday with no improvement in serum sodium Objective - Vital Signs Vital signs: Vital Signs Temp 99.1 F 09/24/24 12:07 Pulse 107 H 09/24/24 12:07 Resp 16 09/24/24 12:07 BP 113/77 09/24/24 12:07 Pulse Ox 93 L 09/24/24 12:07 FiO2 Intake & Output 09/23/24 09/24/24 09/24/24 18:59 06:59 18:59 Intake Total 310 1080 Balance 310 1080 Weight 38.102 kg Intake: Oral 1080 Blood Product 310 Rc Irr As1 Unit 310 [id number] Other: Voiding Method Toilet Toilet Toilet - Exam Patient is awake, comfortable, no acute distress Examination of the heart S1 and S2 Examination of the lungs bilateral breath sounds are heard Abdomen is soft nontender Examination lower extremity shows no significant edema - Labs CBC & Chem 7: 09/24/24 10:00 09/24/24 04:57 Labs: Abnormal Lab Results - Last 24 Hours (Table) 09/23/24 09/23/24 09/24/24 Range/Units 12:37 20:06 04:57 WBC 19.21 H (4.50-10.00) 10*3/uL RBC 2.61 L (4.10-5.20) 10*6/uL Hgb 8.2 L (12.0-15.0) g/dL Hct 22.8 L (37.2-46.3) % RDW 15.4 H (11.5-14.5) % MPV 9.3 L (9.5-12.2) fL Immature Gran # 0.36 H (0.00-0.04) 10*3/uL Neutrophils # 15.22 H (1.80-7.70) 10*3/uL Monocytes # 2.35 H (0.20-1.00) 10*3/uL Sodium 124 L (137-145) mmol/L Chloride 92 L (98-107) mmol/L Creatinine 0.33 L (0.52-1.04) mg/dL Crossmatch See Detail 09/24/24 Range/Units 10:00 WBC 21.63 H (4.50-10.00) 10*3/uL RBC 2.80 L (4.10-5.20) 10*6/uL Hgb 8.8 L (12.0-15.0) g/dL Hct 24.3 L (37.2-46.3) % RDW 15.5 H (11.5-14.5) % MPV (9.5-12.2) fL Immature Gran # 0.45 H (0.00-0.04) 10*3/uL Neutrophils # 17.52 H (1.80-7.70) 10*3/uL Monocytes # 2.52 H (0.20-1.00) 10*3/uL Sodium (137-145) mmol/L Chloride (98-107) mmol/L Creatinine (0.52-1.04) mg/dL Crossmatch Microbiology - Last 24 Hours (Table) 09/18/24 19:15 Urine Culture - Final Urine,Voided Escherichia coli Alcaligen. faecalis Assessment and Plan Assessment: 1. Hyponatremia. Euvolemic. Possibly hypovolemic. If sodium improves with normal saline challenge urine, then it is unlikely to be SIADH. Urine sodium 21 and urine osmolality 405. TSH slightly high at 4.9. Cortisol level not low. 2. Acute blood loss anemia status post blood transfusion this admission. 3. E. coli UTI s/p antibiotics. 4. Stage IV lung cancer. Plan: Challenge with normal saline and repeat sodium in 4 hours. If serum sodium improves with saline infusion it is unlikely to be SIADH. Continue with oral sodium chloride tabs for now
[2024-09-24] MEDS: SODIUM CHLORIDE 0.9% 1,000 ML IV SCH (14:12)
[2024-09-24] MEDS: MEGESTROL 400 MG/10 ML CUP PO SCH (14:12)
--- NOTE | 2024-09-24 15:28 | P.CONS ---
History of Present Illness - Reason for Consult Consult date: 09/24/24 Metastatic right adrenal lesion Requesting physician: Joss Diaz - Chief Complaint "I have right flank pain" - History of Present Illness Ms. Villeda is a 57-year-old female with a stage IIIA (cT2a, cN2, cM0) adenocarcinoma of the right lower lobe. She underwent a course of definitive concurrent chemoradiation to 60 Gy in 30 fractions, completing treatment on 04/08/2022. She subsequently developed metastatic disease, and progressed through [facility]. She presents with hyponatremia and right flank pain in the setting of a large adrenal metastatic focus. Since my last visit with the patient in 2023, she developed metastatic disease in the RUL and right adrenal gland. Biopsy of the adrenal gland was positive for NSCLC. She then progressed through [facility] chest/abdomen/pelvis in 08/2024 demonstrated progression with a 10.3 cm right adrenal gland lesion. Today, she notes ongoing pain the right flank. She is using Dilaudid every 3 hours. This is her only site of pain. Review of Systems as per HPI Past Medical History Past Medical History: Cancer, COPD, CVA/TIA Additional Past Medical History / Comment(s): COPD, spastic colon, CVA/TIA. LUNG CANCER-RLL NSCLC. History of Any Multi-Drug Resistant Organisms: None Reported Past Surgical History: Section, Tonsillectomy Additional Past Surgical History / Comment(s): L oophorectomy due to cyst Past Anesthesia/Blood Transfusion Reactions: No Reported Reaction Past Psychological History: No Psychological Hx Reported Smoking Status: Current every day smoker - Past Family History Father History Unknown: Yes Family Medical History: No Reported History Additional Family Medical History / Comment(s): at early age from gunshot Mother Family Medical History: Cancer Additional Family Medical History / Comment(s): Mother had some kind of cancer but pt does not know what kind. She at age 65 or 67yrs. Medications and Allergies Home Medications Medication Instructions Recorded Confirmed Type HYDROcodone/APAP 5-325MG [[place] 1 tab PO Q6HR PRN 09/19/24 09/19/24 History 5-325] Sodium Chloride Tab 1 gm PO DAILY 09/19/24 09/19/24 History Allergies Allergy/AdvReac Type Severity Reaction Status Date / Time No Known Allergies Allergy Verified 09/19/24 07:19 Physical Exam Vitals: Vital Signs Temp Pulse Pulse Resp BP BP Pulse Ox 09/24/24 12:38 96.3 F L 105 H 16 104/71 09/24/24 12:07 99.1 F 107 H 16 113/77 93 L 09/24/24 11:10 114 H 09/24/24 10:58 116 H 09/24/24 07:43 98.3 F 100 16 113/74 96 09/24/24 01:45 100.6 F H 91 16 110/74 96 09/23/24 20:00 99.2 F 92 14 102/63 94 L 09/23/24 18:46 99.0 F 78 16 106/73 94 L Intake and Output 09/24/24 09/24/24 09/24/24 06:59 14:59 22:59 Intake Total 540 Balance 540 Intake: Oral 540 Other: Voiding Method Toilet - Constitutional General appearance: no acute distress, thin - EENT Eyes: abnormal pupil - Respiratory Respiratory: negative: prolonged expiration, prolonged inspiration Results CBC & Chem 7: 09/24/24 10:00 09/24/24 04:57 Labs: Abnormal Lab Results - Last 24 Hours (Table) 09/23/24 09/23/24 09/24/24 Range/Units 12:37 20:06 04:57 WBC 19.21 H (4.50-10.00) 10*3/uL RBC 2.61 L (4.10-5.20) 10*6/uL Hgb 8.2 L (12.0-15.0) g/dL Hct 22.8 L (37.2-46.3) % RDW 15.4 H (11.5-14.5) % MPV 9.3 L (9.5-12.2) fL Immature Gran # 0.36 H (0.00-0.04) 10*3/uL Neutrophils # 15.22 H (1.80-7.70) 10*3/uL Monocytes # 2.35 H (0.20-1.00) 10*3/uL Sodium 124 L (137-145) mmol/L Chloride 92 L (98-107) mmol/L Creatinine 0.33 L (0.52-1.04) mg/dL Crossmatch See Detail 09/24/24 Range/Units 10:00 WBC 21.63 H (4.50-10.00) 10*3/uL RBC 2.80 L (4.10-5.20) 10*6/uL Hgb 8.8 L (12.0-15.0) g/dL Hct 24.3 L (37.2-46.3) % RDW 15.5 H (11.5-14.5) % MPV (9.5-12.2) fL Immature Gran # 0.45 H (0.00-0.04) 10*3/uL Neutrophils # 17.52 H (1.80-7.70) 10*3/uL Monocytes # 2.52 H (0.20-1.00) 10*3/uL Sodium (137-145) mmol/L Chloride (98-107) mmol/L Creatinine (0.52-1.04) mg/dL Crossmatch Microbiology - Last 24 Hours (Table) 09/18/24 19:15 Urine Culture - Final Urine,Voided Escherichia coli Alcaligen. faecalis Assessment and Plan Assessment: Ms. Villeda is a 57-year-old female with a stage IIIA (cT2a, cN2, cM0) adenocarcinoma of the right lower lobe. She underwent a course of definitive concurrent chemoradiation to 60 Gy in 30 fractions, completing treatment on 04/08/2022. She subsequently developed metastatic disease, and progressed through [facility]. She presents with hyponatremia and right flank pain in the setting of a large adrenal metastatic focus. Plan: I recommend a course of palliative radiation therapy to the right adrenal gland. I explained that treatment would be palliative and not curative in nature. I explained that radiation is preceded by a CT simulation. Treatments will take place Mondays-Fridays and span 1-2 weeks. I explained potential acute effects of radiation, including but not limited to f atigue and mild gastrointestinal upset. She will undergo CT simulation later this week. Pato Carrizales MD Radiation Oncology Time with Patient: Greater than 30
--- NOTE | 2024-09-24 16:20 | P.PN ---
Subjective Progress Note Date: 09/24/24 Patient is a 58-year-old female with a history of COPD (no home oxygen) and stage IV lung cancer currently undergoing chemotherapy by Dr. Diaz at [facility] here for generalized weakness with dyspnea. Since her discharge, her weakness started to recur and worsened. She is also reported to have a low appetite despite having a sensation of hunger. She denied productive chest pain, palpitations, cough, fever, abdominal pain, extremity swelling, focal weakness, recent illness, recent trauma or fall. Chills, chest pain, palpitations. Recently admitted on 08/30/2024 for hyponatremia and normocytic anemia that required 1 unit of packed RBC. On admission: Vitals: Temperature 97.5 F, SC 106, RR 20, BP 92/58, O2 saturation 98% on room air Labs: WBC 20.7, hemoglobin 5.3, MCV 86.4, platelet count 748,000, sodium 118, potassium 4.6, bicarb 11, BUN 17, creatinine 0.6, magnesium 1.8, AST 11, alk phos 393, albumin 3.2. Urinalysis shows large leukocyte esterase, negative nitrate, negative ketones, negative glucose, trace blood, many bacteria. Cepheid 4 Plex negative. Imaging: EKG independently interpreted showed sinus tachycardia with a rate of 103 bpm, normal axis, no ST-T changes, QTc 404 MS. chest x-ray showed worsening aeration of the lungs compared to prior study and partial loculated small right pleural effusion 09/20/2024 patient seen and examined at bedside. No acute events overnight Labs: WBC 19.3, hemoglobin 8.2, platelet count 438,000, sodium 119, potassium 5.7, bicarb 21, BUN 11, creatinine 0.39, calcium 8.2, glucose 78, TSH 4.9, T4 2.1, cortisol 24 Imaging: Brain CT showed no acute intracranial process or evidence of suggest intracranial mass, remote lacunar injury with white matter changes secondary to chronic microangiopathy 09/21/2024 patient seen and examined at bedside. No acute events overnight. No new complaints or symptoms. Labs: WBC 18.7, hemoglobin 8, platelet count 440,000, most recent sodium 128, potassium 3.7, bicarb 21.3, BUN 10, creatinine 0.4, glucose 97, magnesium 1.8, calcium 8.4 09/22/2024 patient is awake alert and oriented. Able to ambulate in the room. No complaints of chest pain or shortness of breath. Oral intake is fair. Laboratory data showed WBC 17.4 hemoglobin 7.9 and platelets 382 sodium 129 potassium 3.6 chloride 95 bicarb is 21.3 BUN 10.5 and creatinine 0.4 and blood sugar 112 and magnesium 1.9. 09/23/2024 patient seen and examined at bedside. No acute events overnight. No new complaints or symptoms Labs: WBC 19.6, hemoglobin 6.8, MCV 91, platelet count 393,000, sodium 124, potassium 4, chloride 91, bicarb 23, BUN 10, creatinine 0.4, glucose 90, magnesium 1.8 09/24/2024 patient seen and examined at bedside. Required 1 unit of packed RBC transfusion yesterday. No new complaints or symptoms today. Had a fever overnight but improved. Labs: WBC 21.6, hemoglobin 8.8, platelet count 373,000, sodium 124, chloride 90, BUN 12, creatinine 0.33, glucose 85 Review of systems: Pertinent positives and negatives as discussed in HPI, a complete review of systems was performed and all other systems are negative. Physical examination: Vital signs reviewed General: non toxic, no distress, appears older than age, thin and frail appearing Derm: no unusual rashes/lesions, warm Head: atraumatic, normocephalic, symmetric Eyes: EOMI, anicteric sclera, pupils equal round reactive to light ENT: Nose and ears atraumatic Neck: No cervical lymphadenopathy, trachea midline, supple Mouth: no lip lesion, mucus membranes moist Cardiovascular: S1S2 reg, no murmur Lungs: CTA bilateral, no rhonchi, no rales, no accessory muscle use Abdominal: soft, nondistended, nontender to palpation, no guarding Ext: muscle strength 5 out of 5 in all 4 extremities grossly, no gross muscle atrophy, no contractures, positive dorsalis pedis pulse bilateral, no edema Neuro: CN II-XI grossly intact, no gross focal neuro deficits Psych: Alert and oriented x 3, appropriate affect and mood Assessment/Plan: The patient is admitted with an anticipated greater than 2 midnight stay for evaluation of debility, hyponatremia and anemia Active: #Stage IV lung cancer #Hyponatremia, in setting of SIADH from malignancy #Thrombocytosis in the setting of malignancy #Transaminitis in the setting of malignancy #Leukocytosis in the setting of malignancy #Debility #Malnutrition in the setting of malignancy TSH slightly elevated, T4 normal, Cortisol WNL Urine sodium 21 Urine Osm 405 presents ADH elevation with urine concentration Patient was given a dose of Samsca on 09/20/2024 Sodium 124 today Monitor sodium levels On fluid restriction Continue IV and p.o meds for pain control Consult heme-onc. Consulted ran onc for pallative radiation of right adrenal gland. Consult PT/OT Consult Nephrology. Continue home salt tabs. IV fluid challenge #Asymptomatic bacteriuria #Leukocytosis SC 106 with elevated with count on admission Patient had a fever overnight No urinary dysuria or hematuria Blood cultures negative Reflex urine culture growing pansensitive E. coli WBC increasing. Unasyn IV for empiric coverage. ID consulted IV Cefepime discontinued on 09/21 #Normocytic anemia, status post 3 units packed RBC transfusion 8.8 today No bruising or bleeding Monitor CBC Chronic Conditions: #COPD #Chronic nicotine use Orderd DuoNeb as needed DVT ppx: Lovenox subcu daily CODE STATUS: Full Discussed with: Patient Anticipated discharge place: Home Karin Hernandez MD PGY-1 Internal Medicine Dictation was produced using [employer] dictation software. please excuse any grammatical, word or spelling errors. Attestation: I have seen and examined this patient with my resident, assessment and plan discussed with the resident, agree with assessment and plan as written above. Dr. Vega Objective - Vital Signs Vital signs: Vital Signs Temp 98.3 F 09/24/24 07:43 Pulse 100 09/24/24 07:43 Resp 16 09/24/24 07:43 BP 113/74 09/24/24 07:43 Pulse Ox 96 09/24/24 07:43 FiO2 Intake & Output 09/23/24 09/24/24 09/24/24 18:59 06:59 18:59 Intake Total 310 1080 Balance 310 1080 Weight 38.102 kg Intake: Oral 1080 Blood Product 310 Rc Irr As1 Unit 310 [id number] Other: Voiding Method Toilet Toilet - Labs CBC & Chem 7: 09/24/24 10:00 09/24/24 15:24 Labs: Abnormal Lab Results - Last 24 Hours (Table) 09/23/24 09/23/24 09/23/24 Range/Units 04:13 04:13 12:37 WBC 19.64 H (4.50-10.00) X 10*3/uL RBC 2.23 L (4.10-5.20) X 10*6/uL Hgb 6.8 A* (12.0-15.0) g/dL Hct 20.3 L (37.2-46.3) % RDW 16.2 H (11.5-14.5) % MPV (9.5-12.2) fL Immature Gran # 0.26 H (0.00-0.04) X 10*3/uL Neutrophils # 16.07 H (1.80-7.70) X 10*3/uL Monocytes # 2.06 H (0.20-1.00) X 10*3/uL Hypochromasia (manual) 2+ A (None Seen) Sodium 124 L (135-145) mmol/L Chloride 91 L (96-109) mmol/L Creatinine 0.4 L (0.6-1.5) mg/dL BUN/Creatinine Ratio 26.25 H (12.00-20.00) Ratio Calcium 8.3 L (8.7-10.3) mg/dL Crossmatch See Detail 09/23/24 09/24/24 Range/Units 20:06 04:57 WBC 19.21 H (4.50-10.00) X 10*3/uL RBC 2.61 L (4.10-5.20) X 10*6/uL Hgb 8.2 L (12.0-15.0) g/dL Hct 22.8 L (37.2-46.3) % RDW 15.4 H (11.5-14.5) % MPV 9.3 L (9.5-12.2) fL Immature Gran # 0.36 H (0.00-0.04) X 10*3/uL Neutrophils # 15.22 H (1.80-7.70) X 10*3/uL Monocytes # 2.35 H (0.20-1.00) X 10*3/uL Hypochromasia (manual) (None Seen) Sodium 124 L (135-145) mmol/L Chloride 92 L (96-109) mmol/L Creatinine 0.33 L (0.6-1.5) mg/dL BUN/Creatinine Ratio (12.00-20.00) Ratio Calcium (8.7-10.3) mg/dL Crossmatch Microbiology - Last 24 Hours (Table) 09/19/24 23:24 Blood Culture - Preliminary Blood
[2024-09-24] MEDS ORDERED: droNABinol 2.5 MG CAP PO SCH (17:30)
--- NOTE | 2024-09-24 18:42 | P.PN ---
Subjective Progress Note Date: 09/24/24 No acute events overnight. C/o persisting weakness and right sided flank pain. Pain meds helping control pain Objective - Vital Signs Vital signs: Vital Signs Temp 98.3 F 09/24/24 07:43 Pulse 114 H 09/24/24 11:10 Resp 16 09/24/24 07:43 BP 113/74 09/24/24 07:43 Pulse Ox 96 09/24/24 07:43 FiO2 Intake & Output 09/23/24 09/24/24 09/24/24 18:59 06:59 18:59 Intake Total 310 1080 Balance 310 1080 Weight 38.102 kg Intake: Oral 1080 Blood Product 310 Rc Irr As1 Unit 310 [id number] Other: Voiding Method Toilet Toilet Toilet - Constitutional General appearance: Present: no acute distress, thin - EENT Eyes: Present: anicteric sclerae, EOMI ENT: Present: hearing grossly normal - Respiratory Details: breathing is even and unlabored - Cardiovascular Details: skin warm and dry - Gastrointestinal General gastrointestinal: Present: soft. Absent: tenderness - Integumentary Integumentary: Absent: cyanotic, jaundiced - Musculoskeletal Musculoskeletal: Present: generalized weakness - Psychiatric Psychiatric: Present: A&O x's 3 - Labs CBC & Chem 7: 09/24/24 10:00 09/24/24 15:24 Labs: Abnormal Lab Results - Last 24 Hours (Table) 09/23/24 09/23/24 09/24/24 Range/Units 12:37 20:06 04:57 WBC 19.21 H (4.50-10.00) 10*3/uL RBC 2.61 L (4.10-5.20) 10*6/uL Hgb 8.2 L (12.0-15.0) g/dL Hct 22.8 L (37.2-46.3) % RDW 15.4 H (11.5-14.5) % MPV 9.3 L (9.5-12.2) fL Immature Gran # 0.36 H (0.00-0.04) 10*3/uL Neutrophils # 15.22 H (1.80-7.70) 10*3/uL Monocytes # 2.35 H (0.20-1.00) 10*3/uL Sodium 124 L (137-145) mmol/L Chloride 92 L (98-107) mmol/L Creatinine 0.33 L (0.52-1.04) mg/dL Crossmatch See Detail 09/24/24 Range/Units 10:00 WBC 21.63 H (4.50-10.00) 10*3/uL RBC 2.80 L (4.10-5.20) 10*6/uL Hgb 8.8 L (12.0-15.0) g/dL Hct 24.3 L (37.2-46.3) % RDW 15.5 H (11.5-14.5) % MPV (9.5-12.2) fL Immature Gran # 0.45 H (0.00-0.04) 10*3/uL Neutrophils # 17.52 H (1.80-7.70) 10*3/uL Monocytes # 2.52 H (0.20-1.00) 10*3/uL Sodium (137-145) mmol/L Chloride (98-107) mmol/L Creatinine (0.52-1.04) mg/dL Crossmatch Microbiology - Last 24 Hours (Table) 09/18/24 19:15 Urine Culture - Final Urine,Voided Escherichia coli Alcaligen. faecalis Assessment and Plan (1) Anemia Current Visit: Yes Status: Acute Priority: High Code(s): D64.9 - ANEMIA, UNSPECIFIED SNOMED Code(s): 267418023 (2) Hyponatremia Current Visit: Yes Status: Acute Priority: High Code(s): E87.1 - HYPO- OSMOLALITY AND HYPONATREMIA SNOMED Code(s): 04153181 (3) Non-small cell lung cancer (NSCLC) Current Visit: Yes Status: Acute Priority: High Code(s): C34.90 - MALIGNANT NEOPLASM OF UNSP PART OF UNSP BRONCHUS OR LUNG SNOMED Code(s): 839492031 (4) Generalized weakness Current Visit: Yes Status: Acute Priority: High Code(s): R53.1 - WEAKNESS SNOMED Code(s): 47946257 Plan: Metastatic non-small cell lung cancer: -Oncology history as dictated in the HPI -S/p Cycle 7 of Enhertu on 08/27/24 -Unfortunately, CT CAP on 08/30/24 showed disease progression. Enhertu was discontinued. Plan was for clinic f/u, with Dr. Rodolfo Diaz on 09/23 -CT brain with contrast obtained on 09/19/2024 due to MRI being nonfunctional revealed no evidence of metastatic disease -Radiation oncology has been consulted with recommendations pending. I do believe she would benefit from palliative RT to the right adrenal lesion -She could be a candidate for Taxotere outpatient, which was discussed on admission. We will further discuss this on outpatient follow-up -Continue tramadol as needed for pain with IV Dilaudid 0.5 mg ordered for breakthrough pain -Added Zofran 8 mg every 8 hours as needed for nausea. Oral Zofran should be tried first prior to IV Zofran that is currently ordered Anorexia: -Appetite remains diminished. Denies n/v -Marinol added, but is on back order. Will start megace for appetite stimulant Neutrophilic leukocytosis, normocytic normochromic anemia: Patient presented to the emergency room with generalized weakness, dizziness, FTT. She had recent admit for the same -On admit, hemoglobin was noted at 5.3, MCV 86.4, s/p 3 units since admit. Hgb today showing appropriate response, at 8.8 -Denies any acute episodes of bleeding, rectal bleeding and melena -Nutritional studies obtained during last admit were consistent with anemia of inflammation superimposed on possible anemia from prior enhertu treatment -She likely has neutrophilic leukocytosis and anemia of inflammation secondary to known metastatic NSCLC -Continue to monitor CBC, transfuse for hgb <7 or if symptomatic Hyponatremia: -118 on admission and on 09/20/2024 -Likely component of SIADH r/t malignancy -Received 1 dose of tolvaptan per nephrology -Sodium today 124 -Follow up additional nephrology recommendations, appreciate assistance
[2024-09-24] MEDS: AMPICILLIN-SULBACTAM 3 GM in SODIUM CHLORIDE 0.9% 100 ML IVPB SCH (20:06)
--- NOTE | 2024-09-24 22:31 | P.CONS ---
History of Present Illness - Reason for Consult Consult date: 09/24/24 Leukocytosis, positive urine culture Requesting physician: Karin Hernandez - Chief Complaint Shortness of breath and weakness x days - History of Present Illness Patient is a 59-year-old female past medical history significant for CVA TIA lung cancer COPD presenting to the hospital about 6 days ago for evaluation of weakness and shortness of breath in this patient symptom has been progressively getting worse patient denies high-grade fever or any chills howev er on presentation to the hospital patient initially febrile however has been running a low-grade fever with a temperature 100.1 on 09/19/2024 and 100.6 F at 1 AM, patient has been tachycardic but not hypotensive or hypoxic she did have a white count of 20,000 on admission which is up to 21.63 with a left shift did have a creatinine 0.4 sodium has been running low she did have a positive UA on 09/18/2024 with large leukocyte esterase 107 WBC influenza RSV COVID testing negative urine has been finalized with E. coli and Alcaligenes faecalis patient did have a chest x-ray on admission worsening aeration of the lungs compared to the prior study likely reflects a combination of disease progression and possible multifocal pneumonia patient was started on Unasyn 3 g every 12 hours infectious disease was consulted today concerning for leukocytosis and positive urine culture Review of Systems Positive point and negatives has been mentioned in the HPI, complete review of systems was performed and all other systems are negative Past Medical History Past Medical History: Cancer, COPD, CVA/TIA Additional Past Medical History / Comment(s): COPD, spastic colon, CVA/TIA. LUNG CANCER-RLL NSCLC. History of Any Multi-Drug Resistant Organisms: None Reported Past Surgical History: Section, Tonsillectomy Additional Past Surgical History / Comment(s): L oophorectomy due to cyst Past Anesthesia/Blood Transfusion Reactions: No Reported Reaction Past Psychological History: No Psychological Hx Reported Smoking Status: Current every day smoker - Past Family History Father History Unknown: Yes Family Medical History: No Reported History Additional Family Medical History / Comment(s): at early age from gunshot Mother Family Medical History: Cancer Additional Family Medical History / Comment(s): Mother had some kind of cancer but pt does not know what kind. She at age 65 or 67yrs. Medications and Allergies Home Medications Medication Instructions Recorded Confirmed Type HYDROcodone/APAP 5-325MG [Eighty Four 1 tab PO Q6HR PRN 09/19/24 09/19/24 History 5-325] Sodium Chloride Tab 1 gm PO DAILY 09/19/24 09/19/24 History Allergies Allergy/AdvReac Type Severity Reaction Status Date / Time No Known Allergies Allergy Verified 09/19/24 07:19 Physical Exam Vitals: Vital Signs Temp Pulse Pulse Resp BP BP Pulse Ox 09/24/24 12:38 96.3 F L 105 H 16 104/71 09/24/24 12:07 99.1 F 107 H 16 113/77 93 L 09/24/24 11:10 114 H 09/24/24 10:58 116 H 09/24/24 07:43 98.3 F 100 16 113/74 96 09/24/24 01:45 100.6 F H 91 16 110/74 96 09/23/24 20:00 99.2 F 92 14 102/63 94 L 09/23/24 18:46 99.0 F 78 16 106/73 94 L 09/23/24 15:21 98.3 F 92 16 113/75 94 L 09/23/24 15:01 98.4 F 94 17 99/61 94 L 09/23/24 14:32 98.5 F 93 16 94/66 92 L Intake and Output 09/23/24 09/24/24 09/24/24 22:59 06:59 14:59 Intake Total 850 540 Balance 850 540 Intake: Oral 540 540 Blood Product 310 Rc Irr As1 Unit 310 [id number] Other: Voiding Method Toilet Toilet GENERAL DESCRIPTION: Middle-age female lying in bed, no distress. No tachypnea or accessory muscle of respiration use. HEENT: Shows Pallor , no scleral icterus. Oral mucous membrane is dry. NECK: Trachea central, no thyromegaly. LUNGS: Unlabored breathing. Coarse breath sounds bilaterally HEART: S1, S2, regular rate and rhythm. No loud murmur ABDOMEN: Soft, prepubic tenderness EXTREMITIES: No edema of feet. SKIN: No rash, no masses palpable. NEUROLOGICAL: The patient is awake, alert, oriented x3, mood and affect normal. Results CBC & Chem 7: 09/24/24 10:00 09/24/24 15:24 Labs: Abnormal Lab Results - Last 24 Hours (Table) 09/23/24 09/23/24 09/24/24 Range/Units 12:37 20:06 04:57 WBC 19.21 H (4.50-10.00) 10*3/uL RBC 2.61 L (4.10-5.20) 10*6/uL Hgb 8.2 L (12.0-15.0) g/dL Hct 22.8 L (37.2-46.3) % RDW 15.4 H (11.5-14.5) % MPV 9.3 L (9.5-12.2) fL Immature Gran # 0.36 H (0.00-0.04) 10*3/uL Neutrophils # 15.22 H (1.80-7.70) 10*3/uL Monocytes # 2.35 H (0.20-1.00) 10*3/uL Sodium 124 L (137-145) mmol/L Chloride 92 L (98-107) mmol/L Creatinine 0.33 L (0.52-1.04) mg/dL Crossmatch See Detail 09/24/24 Range/Units 10:00 WBC 21.63 H (4.50-10.00) 10*3/uL RBC 2.80 L (4.10-5.20) 10*6/uL Hgb 8.8 L (12.0-15.0) g/dL Hct 24.3 L (37.2-46.3) % RDW 15.5 H (11.5-14.5) % MPV (9.5-12.2) fL Immature Gran # 0.45 H (0.00-0.04) 10*3/uL Neutrophils # 17.52 H (1.80-7.70) 10*3/uL Monocytes # 2.52 H (0.20-1.00) 10*3/uL Sodium (137-145) mmol/L Chloride (98-107) mmol/L Creatinine (0.52-1.04) mg/dL Crossmatch Microbiology - Last 24 Hours (Table) 09/18/24 19:15 Urine Culture - Final Urine,Voided Escherichia coli Alcaligen. faecalis Assessment and Plan (1) Sepsis Current Visit: Yes Status: Acute Code(s): A41.9 - SEPSIS, UNSPECIFIED ORGANISM SNOMED Code(s): 59995252 (2) UTI (urinary tract infection) Current Visit: Yes Status: Acute Code(s): N39.0 - URINARY TRACT INFECTION, SITE NOT SPECIFIED SNOMED Code(s): 55279169 (3) Pneumonia Current Visit: No Status: Acute Code(s): J18.9 - PNEUMONIA, UNSPECIFIED ORGANISM SNOMED Code(s): 313380419 Plan: 1patient with multiple comorbidities in the hospital with shortness of breath, patient did have a features of sepsis in this patient who did have fever tachycardia and elevated white count so slightly elevated she did have significantly positive UA suprapubic tenderness plus minus a component of postobstructive pneumonia in this patient did have history of lung cancer 2blood cultures have been negative urine is growing E. coli alcaligen fecalis we will try to obtain a sputum 3discontinue nystatin 4start patient on Zosyn 3.375 g every 8 hours We will follow on clinical condition and cultures to further adjust medication if needed Thank you for this consultation we will follow the patient along with you Dictation was produced using [employer] dictation software. please excuse any grammatical, word or spelling errors. Time with Patient: Greater than 30
[2024-09-24] MEDS: PIPERACILLIN-TAZOBACTAM 3.375 GM in SODIUM CHLORIDE 0.9% 100 ML IVPB SCH (23:56)
[2024-09-25 05:01] LABS: Basophils # (A) 0.08 10*3/uL (0.00-0.10); Basophils % (A) 0.4 %; Eosinophils # (A) 0.12 10*3/uL (0.04-0.35); Eosinophils % (A) 0.6 %; HCT 22.1 % (37.2-46.3); HGB 7.8 g/dL (12.0-15.0); Lymphocytes # (A) 0.82 10*3/uL (0.90-5.00); Lymphocytes % (A) 4.1 %; MCH 31.3 pg (27.0-32.0); MCHC 35.3 g/dL (32.0-37.0); MCV 88.8 fL (80.0-97.0); Mean Platelet Volume 9.8 fL (9.5-12.2); Monocytes % (A) 12.7 %; Neutrophils % (A) 80.5 %; Platelet Count 344 10*3/uL (140-440); RBC 2.49 10*6/uL (4.10-5.20); RDW 16.1 % (11.5-14.5); WBC 19.76 10*3/uL (4.50-10.00)
[2024-09-25 05:15] LABS: African American GFR (CKD) >90 (>60 ml/min/1.73 sqM); Anion Gap 10 mmol/L; Blood Urea Nitrogen 13 mg/dL (7-17); Calcium 8.6 mg/dL (8.4-10.2); Carbon Dioxide 23 mmol/L (22-30); Chloride 96 mmol/L (98-107); Glucose 76 mg/dL (74-99); Non-African American GFR(CKD) >90 (>60 ml/min/1.73 sqM); Potassium 4.2 mmol/L (3.5-5.1); Sodium 129 mmol/L (137-145)
--- NOTE | 2024-09-25 11:58 | P.PN ---
Subjective Progress Note Date: 09/25/24 Patient is a 58-year-old female with a history of COPD (no home oxygen) and stage IV lung cancer currently undergoing chemotherapy by Dr. Diaz at [facility] here for generalized weakness with dyspnea. Since her discharge, her weakness started to recur and worsened. She is also reported to have a low appetite despite having a sensation of hunger. She denied productive chest pain, palpitations, cough, fever, abdominal pain, extremity swelling, focal weakness, recent illness, recent trauma or fall. Chills, chest pain, palpitations. Recently admitted on 08/30/2024 for hyponatremia and normocytic anemia that required 1 unit of packed RBC. On admission: Vitals: Temperature 97.5 F, NC 106, RR 20, BP 92/58, O2 saturation 98% on room air Labs: WBC 20.7, hemoglobin 5.3, MCV 86.4, platelet count 748,000, sodium 118, potassium 4.6, bicarb 11, BUN 17, creatinine 0.6, magnesium 1.8, AST 11, alk phos 393, albumin 3.2. Urinalysis shows large leukocyte esterase, negative nitrate, negative ketones, negative glucose, trace blood, many bacteria. Cepheid 4 Plex negative. Imaging: EKG independently interpreted showed sinus tachycardia with a rate of 103 bpm, normal axis, no ST-T changes, QTc 404 MS. chest x-ray showed worsening aeration of the lungs compared to prior study and partial loculated small right pleural effusion 09/20/2024 patient seen and examined at bedside. No acute events overnight Labs: WBC 19.3, hemoglobin 8.2, platelet count 438,000, sodium 119, potassium 5.7, bicarb 21, BUN 11, creatinine 0.39, calcium 8.2, glucose 78, TSH 4.9, T4 2.1, cortisol 24 Imaging: Brain CT showed no acute intracranial process or evidence of suggest intracranial mass, remote lacunar injury with white matter changes secondary to chronic microangiopathy 09/21/2024 patient seen and examined at bedside. No acute events overnight. No new complaints or symptoms. Labs: WBC 18.7, hemoglobin 8, platelet count 440,000, most recent sodium 128, potassium 3.7, bicarb 21.3, BUN 10, creatinine 0.4, glucose 97, magnesium 1.8, calcium 8.4 09/22/2024 patient is awake alert and oriented. Able to ambulate in the room. No complaints of chest pain or shortness of breath. Oral intake is fair. Laboratory data showed WBC 17.4 hemoglobin 7.9 and platelets 382 sodium 129 potassium 3.6 chloride 95 bicarb is 21.3 BUN 10.5 and creatinine 0.4 and blood sugar 112 and magnesium 1.9. 09/23/2024 patient seen and examined at bedside. No acute events overnight. No new complaints or symptoms Labs: WBC 19.6, hemoglobin 6.8, MCV 91, platelet count 393,000, sodium 124, potassium 4, chloride 91, bicarb 23, BUN 10, creatinine 0.4, glucose 90, magnesium 1.8 09/24/2024 patient seen and examined at bedside. Required 1 unit of packed RBC transfusion yesterday. No new complaints or symptoms today. Had a fever overnight but improved. Labs: WBC 21.6, hemoglobin 8.8, platelet count 373,000, sodium 124, chloride 90, BUN 12, creatinine 0.33, glucose 85 09/25/2024 patient seen and examined at bedside. No acute events overnight. Noticed a lump on right chest. Still having minimal oral intake. Labs: WBC 19.7, hemoglobin 7.8, MCV 88.8, platelet count 3 44,000, sodium 129, potassium 4.2, chloride 96, bicarb 23, BUN 13, creatinine 0.3 Review of systems: Pertinent positives and negatives as discussed in HPI, a complete review of systems was performed and all other systems are negative. Physical examination: Vital signs reviewed General: non toxic, no distress, appears older than age, thin and frail appearing Derm: no unusual rashes/lesions, warm Head: atraumatic, normocephalic, symmetric Eyes: EOMI, anicteric sclera, pupils equal round reactive to light ENT: Nose and ears atraumatic Neck: No cervical lymphadenopathy, trachea midline, supple Mouth: no lip lesion, mucus membranes moist Cardiovascular: S1S2 reg, no murmur Lungs: CTA bilateral, no rhonchi, no rales, no accessory muscle use, soft nonmobile mass on right chest tender to palpation, no erythema or fluctuance noted Abdominal: soft, nondistended, nontender to palpation, no guarding Ext: muscle strength 5 out of 5 in all 4 extremities grossly, no gross muscle atrophy, no contractures, positive dorsalis pedis pulse bilateral, no edema Neuro: CN II-XI grossly intact, no gross focal neuro deficits Psych: Alert and oriented x 3, appropriate affect and mood Assessment/Plan: The patient is admitted with an anticipated greater than 2 midnight stay for evaluation of debility, hyponatremia and anemia Active: #Stage IV lung cancer #Hyponatremia, in setting of SIADH from malignancy #Thrombocytosis in the setting of malignancy #Transaminitis in the setting of malignancy #Leukocytosis in the setting of malignancy #Debility #Malnutrition in the setting of malignancy TSH slightly elevated, T4 normal, Cortisol WNL Urine sodium 21 Urine Osm 405 presents ADH elevation with urine concentration Patient was given a dose of Samsca on 09/20/2024 Sodium 129 today Monitor sodium levels On fluid restriction Continue IV and p.o meds for pain control Consult heme-onc. Initiated megace PO. Consulted ran onc for pallative radiation of right adrenal gland. Ordered rib xray for right chest mass Consult PT/OT Consult Nephrology. Continue home salt tabs. Continue IV fluids 0.9 NS 75cc/hr #Asymptomatic bacteriuria #Leukocytosis NC 106 with elevated with count on admission Patient had a fever overnight No urinary dysuria or hematuria Blood cultures negative Reflex urine culture growing pansensitive E. coli WBC improving to 19.7. ID consulted. Zosyn IV for empiric coverage. IV Cefepime discontinued on 09/21 #Normocytic anemia, status post 3 units packed RBC transfusion 8.8 today No bruising or bleeding Monitor CBC. Ordered Iron studies, B12, Folate and retic count Chronic Conditions: #COPD #Chronic nicotine use Orderd DuoNeb as needed DVT ppx: Lovenox subcu daily CODE STATUS: Full Discussed with: Patient Anticipated discharge place: Home Karin Hernandez MD PGY-1 Internal Medicine Dictation was produced using [employer] dictation software. please excuse any gramma tical, word or spelling errors. Attestation: I have seen and examined this patient with my resident, assessment and plan discussed with the resident, agree with assessment and plan as written above. Dr. Vega Objective - Vital Signs Vital signs: Vital Signs Temp 93.9 F L 09/25/24 07:37 Pulse 104 H 09/25/24 07:37 Resp 19 09/25/24 07:37 BP 95/64 09/25/24 07:37 Pulse Ox 97 09/25/24 01:42 FiO2 Intake & Output 09/24/24 09/25/24 09/25/24 18:59 06:59 18:59 Intake Total 780 1480 Balance 780 1480 Intake: Intake, IV Titration 1000 Amount Ampicillin-Sulbactam 3 gm 100 In Sodium Chloride 0.9% 100 ml @ 200 mls/hr IVPB Q12HR [facility] Rx#:[id number] Sodium Chloride 0.9% 1, 900 000 ml @ 75 mls/hr IV . [id number] [facility] Rx#:[id number] Oral 780 480 Other: Voiding Method Toilet Toilet # Voids 1 - Labs CBC & Chem 7: 09/25/24 04:38 09/25/24 04:38 Labs: Abnormal Lab Results - Last 24 Hours (Table) 09/24/24 09/24/24 09/25/24 Range/Units 10:00 15:24 00:41 WBC 21.63 H (4.50-10.00) 10*3/uL RBC 2.80 L (4.10-5.20) 10*6/uL Hgb 8.8 L (12.0-15.0) g/dL Hct 24.3 L (37.2-46.3) % RDW 15.5 H (11.5-14.5) % Immature Gran # 0.45 H (0.00-0.04) 10*3/uL Neutrophils # 17.52 H (1.80-7.70) 10*3/uL Lymphocytes # (0.90-5.00) 10*3/uL Monocytes # 2.52 H (0.20-1.00) 10*3/uL Sodium 123 L 129 L (137-145) mmol/L Chloride (98-107) mmol/L Creatinine (0.52-1.04) mg/dL 09/25/24 09/25/24 Range/Units 04:38 04:38 WBC 19.76 H (4.50-10.00) 10*3/uL RBC 2.49 L (4.10-5.20) 10*6/uL Hgb 7.8 L (12.0-15.0) g/dL Hct 22.1 L (37.2-46.3) % RDW 16.1 H (11.5-14.5) % Immature Gran # 0.34 H (0.00-0.04) 10*3/uL Neutrophils # 15.90 H (1.80-7.70) 10*3/uL Lymphocytes # 0.82 L (0.90-5.00) 10*3/uL Monocytes # 2.50 H (0.20-1.00) 10*3/uL Sodium 129 L (137-145) mmol/L Chloride 96 L (98-107) mmol/L Creatinine 0.36 L (0.52-1.04) mg/dL Microbiology - Last 24 Hours (Table) 09/19/24 23:24 Blood Culture - Final Blood 09/18/24 19:15 Urine Culture - Final Urine,Voided Escherichia coli Alcaligen. faecalis
[2024-09-25 13:43] VITALS: RESP 16
--- NOTE | 2024-09-25 14:38 | P.PN ---
Subjective Patient is seen for follow-up for hyponatremia. Serum sodium was up to 129. Sodium decreased to 124 yesterday and saline was restarted. Sodium has not improved again to 129 today. Overall patient states she is feeling better. She is trying to increase oral intake. Objective - Vital Signs Vital signs: Vital Signs Temp 99.3 F 09/25/24 13:41 Pulse 90 09/25/24 13:41 Resp 16 09/25/24 13:41 BP 100/63 09/25/24 13:41 Pulse Ox 97 09/25/24 13:41 FiO2 Intake & Output 09/24/24 09/25/24 09/25/24 18:59 06:59 18:59 Intake Total 780 1480 Balance 780 1480 Intake: Intake, IV Titration 1000 Amount Ampicillin-Sulbactam 3 gm 100 In Sodium Chloride 0.9% 100 ml @ 200 mls/hr IVPB Q12HR [facility] Rx#:[id number] Sodium Chloride 0.9% 1, 900 000 ml @ 75 mls/hr IV . [id number] [facility] Rx#:[id number] Oral 780 480 Other: Voiding Method Toilet Toilet Toilet # Voids 1 - Exam Patient is awake, comfortable, no acute distress Examination of the heart S1 and S2 Examination of the lungs bilateral breath sounds are heard Abdomen is soft nontender Examination lower extremity shows no significant edema - Labs CBC & Chem 7: 09/25/24 04:38 09/25/24 04:38 Labs: Abnormal Lab Results - Last 24 Hours (Table) 09/24/24 09/25/24 09/25/24 Range/Units 15:24 00:41 04:38 WBC 19.76 H (4.50-10.00) 10*3/uL RBC 2.49 L (4.10-5.20) 10*6/uL Hgb 7.8 L (12.0-15.0) g/dL Hct 22.1 L (37.2-46.3) % RDW 16.1 H (11.5-14.5) % Immature Gran # 0.34 H (0.00-0.04) 10*3/uL Neutrophils # 15.90 H (1.80-7.70) 10*3/uL Lymphocytes # 0.82 L (0.90-5.00) 10*3/uL Monocytes # 2.50 H (0.20-1.00) 10*3/uL Sodium 123 L 129 L (137-145) mmol/L Chloride (98-107) mmol/L Creatinine (0.52-1.04) mg/dL 09/25/24 Range/Units 04:38 WBC (4.50-10.00) 10*3/uL RBC (4.10-5.20) 10*6/uL Hgb (12.0-15.0) g/dL Hct (37.2-46.3) % RDW (11.5-14.5) % Immature Gran # (0.00-0.04) 10*3/uL Neutrophils # (1.80-7.70) 10*3/uL Lymphocytes # (0.90-5.00) 10*3/uL Monocytes # (0.20-1.00) 10*3/uL Sodium 129 L (137-145) mmol/L Chloride 96 L (98-107) mmol/L Creatinine 0.36 L (0.52-1.04) mg/dL Microbiology - Last 24 Hours (Table) 09/19/24 23:24 Blood Culture - Final Blood 09/18/24 19:15 Urine Culture - Final Urine,Voided Escherichia coli Alcaligen. faecalis Assessment and Plan Assessment: 1. Hyponatremia. Euvolemic. Possibly hypovolemic. sodium improved with saline administration. Urine sodium 21 and urine osmolality 405. TSH slightly high at 4.9. Cortisol level not low. 2. Acute blood loss anemia status post blood transfusion this admission. 3. E. coli UTI s/p antibiotics. 4. Stage IV lung cancer. Plan: continue with sodium chloride tabs Continue with normal saline infusion as well Repeat sodium later this evening [place] continue to encourage increase oral intake
[2024-09-25 15:12] LABS: Reticulocyte % 0.64 % (0.10-1.80)
--- NOTE | 2024-09-25 15:24 | XR ---
EXAMINATION TYPE: XR ribs RT w pa chest xray, 5 views DATE OF EXAM: 09/25/2024 1:12 PM COMPARISON: 09/18/[address] 08/30/2024 CLINICAL INDICATION: Female, 59 years old with history of edema/pain, Rt lateral chest wall, approx 5 -7th ribs; PHH, pain FINDINGS: Heart normal size. Hyperinflation. Right upper lobe nodule 1.3 cm. Left basilar nodule 2.3 cm. Right pleural-based density 5.7 cm (versus 4.0 cm, previously). Focal right basilar opacity is increasing. The displaced right rib fracture is seen. IMPRESSION: 1. COPD with underlying pulmonary nodules right upper lobe and left base measuring up to 2.3 cm also seen previously. 2. Pleural-based density lateral right midlung measures 5.7 cm versus 4.0 cm, previously. As no corre sponding abnormality was seen on the patient's 08/30/2024 CT, repeat CT may be indicated. 3. Worsening right basilar opacity/airspace disease. [facility], , 09/25/2024 3:21 PM
[2024-09-25 15:56] LABS: % Iron Saturation 37.61 (12.00-45.00)
--- NOTE | 2024-09-25 18:35 | P.PN ---
Subjective Progress Note Date: 09/25/24 C/o persisting weakness and right sided flank pain. Pain meds helping control pain. She is able to ambulate in room and to bathroom without assistance. Denies n/v, tolerating oral intake but appetite is diminished. Pt reporting tenderness along right lateral ribs. Rib with chest x-ray ordered to further evaluate Objective - Vital Signs Vital signs: Vital Signs Temp 96.6 F L 09/25/24 09:33 Pulse 104 H 09/25/24 08:10 Resp 19 09/25/24 08:10 BP 95/64 09/25/24 07:37 Pulse Ox 97 09/25/24 01:42 FiO2 Intake & Output 09/24/24 09/25/24 09/25/24 18:59 06:59 18:59 Intake Total 780 1480 Balance 780 1480 Intake: Intake, IV Titration 1000 Amount Ampicillin-Sulbactam 3 gm 100 In Sodium Chloride 0.9% 100 ml @ 200 mls/hr IVPB Q12HR [facility] Rx#:[id number] Sodium Chloride 0.9% 1, 900 000 ml @ 75 mls/hr IV . [id number] [facility] Rx#:[id number] Oral 780 480 Other: Voiding Method Toilet Toilet Toilet # Voids 1 - Constitutional General appearance: Present: no acute distress, thin - EENT Eyes: Present: anicteric sclerae ENT: Present: hearing grossly normal - Neurologic Neurologic: Present: CNII-XII intact - Musculoskeletal Musculoskeletal: Present: strength equal bilaterally - Psychiatric Psychiatric: Present: A&O x's 3 - Labs CBC & Chem 7: 09/25/24 04:38 09/25/24 04:38 Labs: Abnormal Lab Results - Last 24 Hours (Table) 09/24/24 09/25/24 09/25/24 Range/Units 15:24 00:41 04:38 WBC 19.76 H (4.50-10.00) 10*3/uL RBC 2.49 L (4.10-5.20) 10*6/uL Hgb 7.8 L (12.0-15.0) g/dL Hct 22.1 L (37.2-46.3) % RDW 16.1 H (11.5-14.5) % Immature Gran # 0.34 H (0.00-0.04) 10*3/uL Neutrophils # 15.90 H (1.80-7.70) 10*3/uL Lymphocytes # 0.82 L (0.90-5.00) 10*3/uL Monocytes # 2.50 H (0.20-1.00) 10*3/uL Sodium 123 L 129 L (137-145) mmol/L Chloride (98-107) mmol/L Creatinine (0.52-1.04) mg/dL 09/25/24 Range/Units 04:38 WBC (4.50-10.00) 10*3/uL RBC (4.10-5.20) 10*6/uL Hgb (12.0-15.0) g/dL Hct (37.2-46.3) % RDW (11.5-14.5) % Immature Gran # (0.00-0.04) 10*3/uL Neutrophils # (1.80-7.70) 10*3/uL Lymphocytes # (0.90-5.00) 10*3/uL Monocytes # (0.20-1.00) 10*3/uL Sodium 129 L (137-145) mmol/L Chloride 96 L (98-107) mmol/L Creatinine 0.36 L (0.52-1.04) mg/dL Microbiology - Last 24 Hours (Table) 09/19/24 23:24 Blood Culture - Final Blood 09/18/24 19:15 Urine Culture - Final Urine,Voided Escherichia coli Alcaligen. faecalis Assessment and Plan (1) Anemia Current Visit: Yes Status: Acute Priority: High Code(s): D64.9 - ANEMIA, UNSPECIFIED SNOMED Code(s): 118852480 (2) Hyponatremia Current Visit: Yes Status: Acute Priority: High Code(s): E87.1 - HYPO- OSMOLALITY AND HYPONATREMIA SNOMED Code(s): 90875190 (3) Non-small cell lung cancer (NSCLC) Current Visit: Yes Status: Acute Priority: High Code(s): C34.90 - MALIGNANT NEOPLASM OF UNSP PART OF UNSP BRONCHUS OR LUNG SNOMED Code(s): 662320447 (4) Generalized weakness Current Visit: Yes Status: Acute Priority: High Code(s): R53.1 - WEAKNESS SNOMED Code(s): 86274132 Plan: Metastatic non-small cell lung cancer: -Oncology history as dictated in the HPI -S/p Cycle 7 of Enhertu on 08/27/24 -Unfortunately, CT CAP on 08/30/24 showed disease progression. Enhertu was discontinued. Plan was for clinic f/u, with Dr. Rodolfo Diaz on 09/23 -CT brain with contrast obtained on 09/19/2024 due to MRI being nonfunctional revealed no evidence of metastatic disease -Radiation oncology has been consulted with recommendations pending. I do bel ieve she would benefit from palliative RT to the right adrenal lesion. Spoke with Dr. Carrizales, plan to initiate XRT to right adrenal gland later this week -She could be a candidate for Taxotere outpatient, which was discussed on admission. We will further discuss this on outpatient follow-up -Continue tramadol as needed for pain with IV Dilaudid 0.5 mg ordered for breakthrough pain. -Added Zofran 8 mg every 8 hours as needed for nausea. Oral Zofran should be tried first prior to IV Zofran that is currently ordered -Discussed pain control regimen in detail with pt. For nausea symptoms take z ofran 45 minutes prior to use of opiates as well as try to eat food before using pain meds. These should help improve reported symptoms Anorexia: -Appetite remains diminished. Denies n/v -Marinol added, but is on back order. Will start megace for appetite stimulant Neutrophilic leukocytosis, normocytic normochromic anemia: Patient presented to the emergency room with generalized weakness, dizziness, FTT. She had recent admit for the same -On admit, hemoglobin was noted at 5.3, MCV 86.4, s/p 3 units since admit. Hgb today showing appropriate response, at 8.8 -Denies any acute episodes of bleeding, rectal bleeding and melena -Nutritional studies obtained during last admit were consistent with anemia of inflammation superimposed on possible anemia from prior enhertu treatment -She likely has neutrophilic leukocytosis and anemia of inflammation secondary to known metastatic NSCLC -Continue to monitor CBC, transfuse for hgb <7 or if symptomatic Hyponatremia: -118 on admission and on 09/20/2024 -Likely component of SIADH r/t malignancy -Received 1 dose of tolvaptan per nephrology -Sodium improving, today 129 -Follow up additional nephrology recommendations, appreciate assistance Case discuss with admitting team, pt cleared from our standpoint for discharge. She has clinic f/u in discharge plan. Will need to f/u with rad onc this week for sim/RT
--- NOTE | 2024-09-25 23:05 | P.PN ---
Subjective Progress Note Date: 09/25/24 Principal diagnosis: Reason for follow-up follow-up is UTI/pneumonia Patient is a 59-year-old female past medical history significant for CVA TIA lung cancer COPD presenting to the hospital for evaluation of weakness and shortness of breath, patient also had fever elevated white count and positive UA and also noticed to have these on the chest x-ray concerning for possible pneumonia. On today's evaluation that is 09/25/2024,the patient noted to be hypothermic wi th a temperature of 93.9 this morning patient is currently breathing comfortably on room air P denies any chest pain she did have a cough bringing some blood- streaked sputum no hemoptysis no nausea vomiting abdominal pain no diarrhea. Patient white count slightly down to 19.76 blood culture negative for text Objective - Vital Signs Vital signs: Vital Signs Temp 99.3 F 09/25/24 13:41 Pulse 90 09/25/24 13:41 Resp 16 09/25/24 13:41 BP 100/63 09/25/24 13:41 Pulse Ox 97 09/25/24 13:41 FiO2 Intake & Output 09/24/24 09/25/24 09/25/24 18:59 06:59 18:59 Intake Total 780 1480 Balance 780 1480 Intake: Intake, IV Titration 1000 Amount Ampicillin-Sulbactam 3 gm 100 In Sodium Chloride 0.9% 100 ml @ 200 mls/hr IVPB Q12HR [facility] Rx#:[id number] Sodium Chloride 0.9% 1, 900 000 ml @ 75 mls/hr IV . [id number] [facility] Rx#:[id number] Oral 780 480 Other: Voiding Method Toilet Toilet Toilet # Voids 1 - Exam GENERAL DESCRIPTION: Middle-age female in bed in no distress RESPIRATORY SYSTEM: Unlabored breathing , coarse breath sound with wheezing HEART: S1 S2 regular rate and rhythm , ABDOMEN: Soft , no tenderness EXTREMITIES: No edema feet - Labs CBC & Chem 7: 09/25/24 04:38 09/25/24 04:38 Labs: Abnormal Lab Results - Last 24 Hours (Table) 09/24/24 09/25/24 09/25/24 Range/Units 15:24 00:41 04:38 WBC 19.76 H (4.50-10.00) 10*3/uL RBC 2.49 L (4.10-5.20) 10*6/uL Hgb 7.8 L (12.0-15.0) g/dL Hct 22.1 L (37.2-46.3) % RDW 16.1 H (11.5-14.5) % Immature Gran # 0.34 H (0.00-0.04) 10*3/uL Neutrophils # 15.90 H (1.80-7.70) 10*3/uL Lymphocytes # 0.82 L (0.90-5.00) 10*3/uL Monocytes # 2.50 H (0.20-1.00) 10*3/uL Sodium 123 L 129 L (137-145) mmol/L Chloride (98-107) mmol/L Creatinine (0.52-1.04) mg/dL 09/25/24 Range/Units 04:38 WBC (4.50-10.00) 10*3/uL RBC (4.10-5.20) 10*6/uL Hgb (12.0-15.0) g/dL Hct (37.2-46.3) % RDW (11.5-14.5) % Immature Gran # (0.00-0.04) 10*3/uL Neutrophils # (1.80-7.70) 10*3/uL Lymphocytes # (0.90-5.00) 10*3/uL Monocytes # (0.20-1.00) 10*3/uL Sodium 129 L (137-145) mmol/L Chloride 96 L (98-107) mmol/L Creatinine 0.36 L (0.52-1.04) mg/dL Microbiology - Last 24 Hours (Table) 09/19/24 23:24 Blood Culture - Final Blood 09/18/24 19:15 Urine Culture - Final Urine,Voided Escherichia coli Alcaligen. faecalis Assessment and Plan (1) Sepsis Current Visit: Yes Status: Acute Code(s): A41.9 - SEPSIS, UNSPECIFIED ORGANISM SNOMED Code(s): 19733286 (2) UTI (urinary tract infection) Current Visit: Yes Status: Acute Code(s): N39.0 - URINARY TRACT INFECTION, SITE NOT SPECIFIED SNOMED Code(s): 17982907 (3) Pneumonia Current Visit: No Status: Acute Code(s): J18.9 - PNEUMONIA, UNSPECIFIED ORGANISM SNOMED Code(s): 773144637 Plan: 1patient with multiple comorbidities in the hospital with shortness of breath, patient did have a features of sepsis in this patient who did have fever tachycardia and elevated white count so slightly elevated she did have significantly positive UA suprapubic tenderness plus minus a component of postobstructive pneumonia in this patient did have history of lung cancer 2blood cultures have been negative urine is growing E. coli alcaligen fecalis 3try to obtain a sputum for Gram stain and culture 4I will continue patient on Zosyn 3.375 g every 8 hours for at least another 24-48 hours before transition to oral antibiotic this were discussed with the resident physician Dictation was produced using [employer] dictation software. please excuse any grammatical, word or spelling errors. Time with Patient: Less than 30
[2024-09-26 06:30] LABS: Basophils # (A) 0.11 10*3/uL (0.00-0.10); Basophils % (A) 0.5 %; Eosinophils # (A) 0.14 10*3/uL (0.04-0.35); Eosinophils % (A) 0.7 %; HCT 22.6 % (37.2-46.3); Lymphocytes # (A) 1.12 10*3/uL (0.90-5.00); Lymphocytes % (A) 5.3 %; MCHC 35.4 g/dL (32.0-37.0); MCV 90.4 fL (80.0-97.0); Mean Platelet Volume 9.4 fL (9.5-12.2); Monocytes # (A) 2.46 10*3/uL (0.20-1.00); Monocytes % (A) 11.6 %; Neutrophils # (A) 16.98 10*3/uL (1.80-7.70); Neutrophils % (A) 80.2 %; Platelet Count 334 10*3/uL (140-440); RDW 16.9 % (11.5-14.5); WBC 21.17 10*3/uL (4.50-10.00)
[2024-09-26 06:45] LABS: African American GFR (CKD) >90 (>60 ml/min/1.73 sqM); Anion Gap 10 mmol/L; Blood Urea Nitrogen 11 mg/dL (7-17); Calcium 8.5 mg/dL (8.4-10.2); Carbon Dioxide 19 mmol/L (22-30); Chloride 101 mmol/L (98-107); Glucose 83 mg/dL (74-99); Non-African American GFR(CKD) >90 (>60 ml/min/1.73 sqM); Potassium 4.2 mmol/L (3.5-5.1); Sodium 130 mmol/L (137-145)
--- NOTE | 2024-09-26 12:44 | P.PN ---
Subjective Patient is a 58-year-old female with a history of COPD (no home oxygen) and stage IV lung cancer currently undergoing chemotherapy by Dr. Diaz at [facility] here for generalized weakness with dyspnea. Since her discharge, her weakness started to recur and worsened. She is also reported to have a low appetite despite having a sensation of hunger. She denied productive chest pain, palpitations, cough, fever, abdominal pain, extremity swelling, focal weakness, recent illness, recent trauma or fall. Chills, chest pain, palpitations. Recently admitted on 08/30/2024 for hyponatremia and normocytic anemia that required 1 unit of packed RBC. On admission: Vitals: Temperature 97.5 F, CA 106, RR 20, BP 92/58, O2 saturation 98% on room air Labs: WBC 20.7, hemoglobin 5.3, MCV 86.4, platelet count 748,000, sodium 118, potassium 4.6, bicarb 11, BUN 17, creatinine 0.6, magnesium 1.8, AST 11, alk phos 393, albumin 3.2. Urinalysis shows large leukocyte esterase, negative nitrate, negative ketones, negative glucose, trace blood, many bacteria. Cepheid 4 Plex negative. Imaging: EKG independently interpreted showed sinus tachycardia with a rate of 103 bpm, normal axis, no ST-T changes, QTc 404 MS. chest x-ray showed worsening aeration of the lungs compared to prior study and partial loculated small right pleural effusion 09/20/2024 patient seen and examined at bedside. No acute events overnight Labs: WBC 19.3, hemoglobin 8.2, platelet count 438,000, sodium 119, potassium 5.7, bicarb 21, BUN 11, creatinine 0.39, calcium 8.2, glucose 78, TSH 4.9, T4 2.1, cortisol 24 Imaging: Brain CT showed no acute intracranial process or evidence of suggest intracranial mass, remote lacunar injury with white matter changes secondary to chronic microangiopathy 09/21/2024 patient seen and examined at bedside. No acute events overnight. No new complaints or symptoms. Labs: WBC 18.7, hemoglobin 8, platelet count 440,000, most recent sodium 128, potassium 3.7, bicarb 21.3, BUN 10, creatinine 0.4, glucose 97, magnesium 1.8, calcium 8.4 09/22/2024 patient is awake alert and oriented. Able to ambulate in the room. No complai nts of chest pain or shortness of breath. Oral intake is fair. Laboratory data showed WBC 17.4 hemoglobin 7.9 and platelets 382 sodium 129 potassium 3.6 chloride 95 bicarb is 21.3 BUN 10.5 and creatinine 0.4 and blood sugar 112 and magnesium 1.9. 09/23/2024 patient seen and examined at bedside. No acute events overnight. No new complaints or symptoms Labs: WBC 19.6, hemoglobin 6.8, MCV 91, platelet count 393,000, sodium 124, potassium 4, chloride 91, bicarb 23, BUN 10, creatinine 0.4, glucose 90, magnesium 1.8 09/24/2024 patient seen and examined at bedside. Required 1 unit of packed RBC t ransfusion yesterday. No new complaints or symptoms today. Had a fever overnight but improved. Labs: WBC 21.6, hemoglobin 8.8, platelet count 373,000, sodium 124, chloride 90, BUN 12, creatinine 0.33, glucose 85 09/25/2024 patient seen and examined at bedside. No acute events overnight. Noticed a lump on right chest. Still having minimal oral intake. Labs: WBC 19.7, hemoglobin 7.8, MCV 88.8, platelet count 3 44,000, sodium 129, potassium 4.2, chloride 96, bicarb 23, BUN 13, creatinine 0.3 Review of systems: Pertinent positives and negatives as discussed in HPI, a complete review of systems was performed and all other systems are negative. 09/26/2024 Patient's white count went up. Patient is presently on Zosyn infectious disease following the patient. Patient's white count is worse. Will hold off on Dilaudid patient will be started on Percocet okay. Patient has rib x-ray which showed a mass which is clinically appreciable. Patient chest x-ray is read as worsening infiltrate patient is already on antibiotics at this time. Serum sodium did improve to 130. Patient is believed to have euvolemic hyponatremia SIADH. Initially patient had hypovolemic hyponatremia which improved with IV normal saline Physical examination: Vital signs reviewed General: non toxic, no distress, appears older than age, thin and frail appearing Derm: no unusual rashes/lesions, warm Head: atraumatic, normocephalic, symmetric Eyes: EOMI, anicteric sclera, pupils equal round reactive to light ENT: Nose and ears atraumatic Neck: No cervical lymphadenopathy, trachea midline, supple Mouth: no lip lesion, mucus membranes moist Cardiovascular: S1S2 reg, no murmur Lungs: CTA bilateral, no rhonchi, no rales, no accessory muscle use, soft nonmobile mass on right chest tender to palpation, no erythema or fluctuance noted Abdominal: soft, nondistended, nontender to palpation, no guarding Ext: muscle strength 5 out of 5 in all 4 extremities grossly, no gross muscle atrophy, no contractures, positive dorsalis pedis pulse bilateral, no edema Neuro: CN II-XI grossly intact, no gross focal neuro deficits Psych: Alert and oriented x 3, appropriate affect and mood Assessment/Plan: The patient is admitted with an anticipated greater than 2 midnight stay for evaluation of debility, hyponatremia and anemia Active: #Stage IV lung cancer #Hyponatremia, in setting of SIADH from malignancy #Thrombocytosis in the setting of malignancy #Transaminitis in the setting of malignancy #Leukocytosis in the setting of malignancy #Debility #Malnutrition in the setting of malignancy TSH slightly elevated, T4 normal, Cortisol WNL Urine sodium 21 Urine Osm 405 presents ADH elevation with urine concentration Patient was given a dose of Samsca on 09/20/2024 Sodium 130 today Monitor sodium levels On fluid restriction Patient's Dilaudid will be discontinued and patient will be started on high-dose of Percocet Consult heme-onc. Initiated megace PO. Consulted ran onc for pallative radiation of right adrenal gland. Ordered rib xray for right chest mass Consult PT/OT Consult Nephrology. Continue home salt tabs. Continue IV fluids 0.9 NS 75cc/hr #Asymptomatic bacteriuria #Leukocytosis For text Patient had a fever overnight No urinary dysuria or hematuria Blood cultures negative Reflex urine culture growing pansensitive E. coli WBC improving to 19.7. ID consulted. Zosyn IV for empiric coverage. IV Cefepime discontinued on 09/21 #Normocytic anemia, status post 3 units packed RBC transfusion 8.8 today No bruising or bleeding Monitor CBC. Ordered Iron studies, B12, Folate and retic count Chronic Conditions: #COPD #Chronic nicotine use Orderd DuoNeb as needed DVT ppx: Lovenox subcu daily CODE STATUS: Full Objective - Vital Signs Vital signs: Vital Signs Temp 97.9 F 06/26/25 06:57 Pulse 91 09/26/24 06:57 Resp 16 09/26/24 06:57 BP 94/64 09/26/24 06:57 Pulse Ox 99 09/26/24 06:57 FiO2 Intake & Output 09/25/24 09/26/24 09/26/24 18:59 06:59 18:59 Intake Total 1600 Balance 1600 Weight 38.102 kg Intake: Intake, IV Titration 1100 Amount Piperacillin-Tazobactam 3 200 .375 gm In Sodium Chloride 0.9% 100 ml @ 25 mls/hr IVPB Q8HR ON LICENSE OF [facility] Rx# :[id number] Sodium Chloride 0.9% 1, 900 000 ml @ 75 mls/hr IV . [id number] ON LICENSE OF [facility] Rx#:[id number] Oral 500 Other: Voiding Method Toilet Toilet # Voids 3 3 - Labs CBC & Chem 7: 09/26/24 06:16 09/26/24 06:16 Labs: Abnormal Lab Results - Last 24 Hours (Table) 09/25/24 09/25/24 09/26/24 Range/Units 09:12 09:12 06:16 WBC 21.17 H (4.50-10.00) 10*3/uL RBC 2.50 L (4.10-5.20) 10*6/uL Hgb 8.0 L (12.0-15.0) g/dL Hct 22.6 L (37.2-46.3) % RDW 16.9 H (11.5-14.5) % MPV 9.4 L (9.5-12.2) fL Immature Gran # 0.36 H (0.00-0.04) 10*3/uL Neutrophils # 16.98 H (1.80-7.70) 10*3/uL Monocytes # 2.46 H (0.20-1.00) 10*3/uL Basophils # 0.11 H (0.00-0.10) 10*3/uL Sodium (137-145) mmol/L Carbon Dioxide (22-30) mmol/L Creatinine (0.52-1.04) mg/dL Iron 41 L (50-170) UG/DL TIBC 109 L (228-460) UG/DL Transferrin 78.2 L 80.5 L (204.0-354.0) mg/dL Ferritin 3984.0 H (10.0-291.0) ng/mL Vitamin B12 1226.0 H (200.0-944.0) pg/mL / Range/Units 06:16 WBC (4.50-10.00) 10*3/uL RBC (4.10-5.20) 10*6/uL Hgb (12.0-15.0) g/dL Hct (37.2-46.3) % RDW (11.5-14.5) % MPV (9.5-12.2) fL Immature Gran # (0.00-0.04) 10*3/uL Neutrophils # (1.80-7.70) 10*3/uL Monocytes # (0.20-1.00) 10*3/uL Basophils # (0.00-0.10) 10*3/uL Sodium 130 L (137-145) mmol/L Carbon Dioxide 19 L (22-30) mmol/L Creatinine 0.43 L (0.52-1.04) mg/dL Iron (50-170) UG/DL TIBC (228-460) UG/DL Transferrin (204.0-354.0) mg/dL Ferritin (10.0-291.0) ng/mL Vitamin B12 (200.0-944.0) pg/mL
--- NOTE | 2024-09-26 13:17 | P.PN ---
Subjective Patient is seen for follow-up for hyponatremia. Serum sodium 130 today. Patient is asking to be allowed to drink more. Maintained on normal saline Objective - Vital Signs Vital signs: Vital Signs Temp 98.2 F 09/26/24 13:11 Pulse 98 09/26/24 13:11 Resp 16 09/26/24 13:11 BP 96/63 09/26/24 13:11 Pulse Ox 95 09/26/24 13:11 FiO2 Intake & Output 09/25/24 09/26/24 09/26/24 18:59 06:59 18:59 Intake Total 1600 Balance 1600 Weight 38.102 kg Intake: Intake, IV Titration 1100 Amount Piperacillin-Tazobactam 3 200 .375 gm In Sodium Chloride 0.9% 100 ml @ 25 mls/hr IVPB Q8HR [facility] Rx# :[id number] Sodium Chloride 0.9% 1, 900 000 ml @ 75 mls/hr IV . [id number] [facility] Rx#:[id number] Oral 500 Other: Voiding Method Toilet Toilet # Voids 3 3 - Exam Patient is awake, comfortable, no acute distress Examination of the heart S1 and S2 Examination of the lungs bilateral breath sounds are heard Abdomen is soft nontender Examination lower extremity shows no significant edema - Labs CBC & Chem 7: 09/26/24 06:16 09/26/24 06:16 Labs: Abnormal Lab Results - Last 24 Hours (Table) 09/25/24 09/25/24 09/25/24 Range/Units 09:12 09:12 09:12 WBC (4.50-10.00) 10*3/uL RBC (4.10-5.20) 10*6/uL Hgb (12.0-15.0) g/dL Hct (37.2-46.3) % RDW (11.5-14.5) % MPV (9.5-12.2) fL Immature Gran # (0.00-0.04) 10*3/uL Neutrophils # (1.80-7.70) 10*3/uL Monocytes # (0.20-1.00) 10*3/uL Basophils # (0.00-0.10) 10*3/uL Sodium (137-145) mmol/L Carbon Dioxide (22-30) mmol/L Creatinine (0.52-1.04) mg/dL Iron 41 L (50-170) UG/DL TIBC 109 L (228-460) UG/DL Transferrin 78.2 L 80.5 L (204.0-354.0) mg/dL Ferritin 3984.0 H (10.0-291.0) ng/mL Vitamin B12 1226.0 H (200.0-944.0) pg/mL RBC Folate 945 H (280 - 791) ng/mL 09/26/24 09/26/24 Range/Units 06:16 06:16 WBC 21.17 H (4.50-10.00) 10*3/uL RBC 2.50 L (4.10-5.20) 10*6/uL Hgb 8.0 L (12.0-15.0) g/dL Hct 22.6 L (37.2-46.3) % RDW 16.9 H (11.5-14.5) % MPV 9.4 L (9.5-12.2) fL Immature Gran # 0.36 H (0.00-0.04) 10*3/uL Neutrophils # 16.98 H (1.80-7.70) 10*3/uL Monocytes # 2.46 H (0.20-1.00) 10*3/uL Basophils # 0.11 H (0.00-0.10) 10*3/uL Sodium 130 L (137-145) mmol/L Carbon Dioxide 19 L (22-30) mmol/L Creatinine 0.43 L (0.52-1.04) mg/dL Iron (50-170) UG/DL TIBC (228-460) UG/DL Transferrin (204.0-354.0) mg/dL Ferritin (10.0-291.0) ng/mL Vitamin B12 (200.0-944.0) pg/mL RBC Folate (280 - 791) ng/mL Assessment and Plan Assessment: 1. Hyponatremia. Euvolemic. Possibly hypovolemic. sodium improved with saline administration. Maintained on salt tablets. Blood pressure remains on the lower side. Urine sodium 21 and urine osmolality 405. TSH slightly high at 4.9. Cortisol level not low. 2. Acute blood loss anemia status post blood transfusion this admission. 3. E. coli UTI s/p antibiotics. 4. Stage IV lung cancer. Plan: continue with sodium chloride tabs Continue with normal saline infusion as well until discharge DC fluid restriction continue to encourage increase oral intake
--- NOTE | 2024-09-26 14:43 | P.PN ---
Subjective Progress Note Date: 09/26/24 Principal diagnosis: Reason for follow-up follow-up is UTI/pneumonia Patient is a 59-year-old female past medical history significant for CVA TIA lung cancer COPD presenting to the hospital for evaluation of weakness and shortness of breath, patient also had fever elevated white count and positive UA and also noticed to have these on the chest x-ray concerning for possible pneumonia. On today's evaluation that is 09/26/2024,the patient remains to be afebrile, christine von is on room air not requiring supplemental oxygen and and breathing slightly comfortably still coughing up blood stains to sputum no chest pain some nausea with vomiting no diarrhea. The patient white count slightly up to 21.17 today creatinine 0.43 blood culture negative Objective - Vital Signs Vital signs: Vital Signs Temp 98.2 F 09/26/24 13:11 Pulse 98 09/26/24 13:11 Resp 16 09/26/24 13:11 BP 96/63 09/26/24 13:11 Pulse Ox 95 09/26/24 13:11 FiO2 Intake & Output 09/25/24 09/26/24 09/26/24 18:59 06:59 18:59 Intake Total 1600 Balance 1600 Weight 38.102 kg Intake: Intake, IV Titration 1100 Amount Piperacillin-Tazobactam 3 200 .375 gm In Sodium Chloride 0.9% 100 ml @ 25 mls/hr IVPB Q8HR [facility] Rx# :[id number] Sodium Chloride 0.9% 1, 900 000 ml @ 75 mls/hr IV . [id number] [facility] Rx#:[id number] Oral 500 Other: Voiding Method Toilet Toilet # Voids 3 3 - Exam GENERAL DESCRIPTION: Middle-age female in bed in no distress RESPIRATORY SYSTEM: Unlabored breathing , coarse breath sound with wheezing HEART: S1 S2 regular rate and rhythm , ABDOMEN: Soft , no tenderness EXTREMITIES: No edema feet - Labs CBC & Chem 7: 09/26/24 06:16 09/26/24 06:16 Labs: Abnormal Lab Results - Last 24 Hours (Table) 09/25/24 09/25/24 09/25/24 Range/Units 09:12 09:12 09:12 WBC (4.50-10.00) 10*3/uL RBC (4.10-5.20) 10*6/uL Hgb (12.0-15.0) g/dL Hct (37.2-46.3) % RDW (11.5-14.5) % MPV (9.5-12.2) fL Immature Gran # (0.00-0.04) 10*3/uL Neutrophils # (1.80-7.70) 10*3/uL Monocytes # (0.20-1.00) 10*3/uL Basophils # (0.00-0.10) 10*3/uL Sodium (137-145) mmol/L Carbon Dioxide (22-30) mmol/L Creatinine (0.52-1.04) mg/dL Iron 41 L (50-170) UG/DL TIBC 109 L (228-460) UG/DL Transferrin 78.2 L 80.5 L (204.0-354.0) mg/dL Ferritin 3984.0 H (10.0-291.0) ng/mL Vitamin B12 1226.0 H (200.0-944.0) pg/mL RBC Folate 945 H (280 - 791) ng/mL 09/26/24 09/26/24 Range/Units 06:16 06:16 WBC 21.17 H (4.50-10.00) 10*3/uL RBC 2.50 L (4.10-5.20) 10*6/uL Hgb 8.0 L (12.0-15.0) g/dL Hct 22.6 L (37.2-46.3) % RDW 16.9 H (11.5-14.5) % MPV 9.4 L (9.5-12.2) fL Immature Gran # 0.36 H (0.00-0.04) 10*3/uL Neutrophils # 16.98 H (1.80-7.70) 10*3/uL Monocytes # 2.46 H (0.20-1.00) 10*3/uL Basophils # 0.11 H (0.00-0.10) 10*3/uL Sodium 130 L (137-145) mmol/L Carbon Dioxide 19 L (22-30) mmol/L Creatinine 0.43 L (0.52-1.04) mg/dL Iron (50-170) UG/DL TIBC (228-460) UG/DL Transferrin (204.0-354.0) mg/dL Ferritin (10.0-291.0) ng/mL Vitamin B12 (200.0-944.0) pg/mL RBC Folate (280 - 791) ng/mL Assessment and Plan (1) Sepsis Current Visit: Yes Status: Acute Code(s): A41.9 - SEPSIS, UNSPECIFIED ORGANISM SNOMED Code(s): 58305797 (2) UTI (urinary tract infection) Current Visit: Yes Status: Acute Code(s): N39.0 - URINARY TRACT INFECTION, SITE NOT SPECIFIED SNOMED Code(s): 49200047 (3) Pneumonia Current Visit: No Status: Acute Code(s): J18.9 - PNEUMONIA, UNSPECIFIED ORGANISM SNOMED Code(s): 232574413 Plan: 1patient with multiple comorbidities in the hospital with shortness of breath, patient did have a features of sepsis in this patient who did have fever tachycardia and elevated white count so slightly elevated she did have significantly positive UA suprapubic tenderness plus minus a component of postobstructive pneumonia in this patient did have history of lung cancer 2blood cultures have been negative urine is growing E. coli alcaligen fecalis 3sputum has been collected on the table not send RN has been advised to send a sputum for culture for now continue with Zosyn waiting for the culture to finalize determine discharge antibiotics Dictation was produced using [employer] dictation software. please excuse any grammatical, word or spelling errors. Time with Patient: Less than 30
[2024-09-26] MEDS: oxyCODONE-APAP 7.5-325MG 1 EACH TAB PO PRN (15:45)
[2024-09-27 10:14] LABS: HCT 21.7 % (37.2-46.3); HGB 7.1 g/dL (12.0-15.0); MCH 30.3 pg (27.0-32.0); MCHC 32.7 g/dL (32.0-37.0); MCV 92.7 FL (80.0-97.0); Mean Platelet Volume 9.7 FL (9.5-12.2); NRBC Per 100 WBC 0 X 10*3/uL (0.00-0.01); Platelet Count 337 X 10*3/uL (140-440); RBC 2.34 X 10*6/uL (4.10-5.20); RDW 17.5 % (11.5-14.5); WBC 21.23 X 10*3/uL (4.50-10.00)
[2024-09-27 10:44] LABS: Blood Urea Nitrogen 12.6 mg/dL (9.0-27.0); Calcium 7.7 mg/dL (8.7-10.3); Chloride 100 mmol/L (96-109); Glucose 82 mg/dL (70-110); Sodium 133 mmol/L (135-145)
[2024-09-27 12:29] VITALS: PULSE 93; TEMP 98.1
[2024-09-27 12:32] VITALS: BP 106/70
--- NOTE | 2024-09-27 16:29 | P.PN ---
Subjective Patient is seen for follow-up for hyponatremia. Serum sodium 133 today. Patient is asking to be allowed to drink more. Maintained on normal saline Objective - Vital Signs Vital signs: Vital Signs Temp 98.1 F 09/27/24 12:28 Pulse 93 09/27/24 12:28 Resp 16 09/27/24 12:28 BP 92/61 09/27/24 12:28 Pulse Ox 94 L 09/27/24 12:28 FiO2 Intake & Output 09/26/24 09/27/24 09/27/24 18:59 06:59 18:59 Intake Total 1440 1200 Balance 1440 1200 Weight 38.102 kg Intake: Oral 1440 1200 Other: Voiding Method Toilet Toilet Toilet # Voids 4 3 5 - Exam Patient is awake, comfortable, no acute distress Examination of the heart S1 and S2 Examination of the lungs bilateral breath sounds are heard Abdomen is soft nontender Examination lower extremity shows no significant edema - Labs CBC & Chem 7: 09/27/24 06:50 09/27/24 06:50 Labs: Abnormal Lab Results - Last 24 Hours (Table) 09/27/24 09/27/24 Range/Units 06:50 06:50 WBC 21.23 H (4.50-10.00) X 10*3/uL RBC 2.34 L (4.10-5.20) X 10*6/uL Hgb 7.1 L (12.0-15.0) g/dL Hct 21.7 L (37.2-46.3) % RDW 17.5 H (11.5-14.5) % Sodium 133 L (135-145) mmol/L Carbon Dioxide 19.0 L (21.6-31.8) mmol/L Anion Gap 14.00 H (4.00-12.00) mmol/L Creatinine 0.5 L (0.6-1.5) mg/dL BUN/Creatinine Ratio 25.20 H (12.00-20.00) Ratio Calcium 7.7 L (8.7-10.3) mg/dL Microbiology - Last 24 Hours (Table) 09/25/24 11:56 Gram Stain - Preliminary Sputum Sputum Culture - Preliminary Assessment and Plan Assessment: 1. Hyponatremia. Euvolemic. Possibly hypovolemic. sodium improved with saline administration. Maintained on salt tablets as well. Blood pressure remains on the lower side. Urine sodium 21 and urine osmolality 405. TSH slightly high at 4.9. Cortisol level not low. 2. Acute blood loss anemia status post blood transfusion this admission. 3. E. coli UTI s/p antibiotics. 4. Stage IV lung cancer. Plan: continue with sodium chloride tabs Continue with normal saline infusion as well until discharge DC fluid restriction continue to encourage increase oral intake
--- NOTE | 2024-09-27 16:43 | P.DS ---
Providers Date of admission: 09/18/24 19:12 Attending physician: Mac Hogan Consults: 09/18/24 19:12 Consult Physician Routine Consulting Provider: Joss Diaz Consult Reason/Comments: Stage IV lung cancer Do you want consulting provider notified?: Yes 09/19/24 13:06 Consult Physician Routine Consulting Provider: Jamal Skaggs Consult Reason/Comments: eval for palliative RT to right adrenal gland Do you want consulting provider notified?: Yes 09/20/24 08:10 Consult Physician Routine Consulting Provider: Marco Infante Consult Reason/Comments: refractory Hyponatremia Do you want consulting provider notified?: Yes 09/24/24 12:33 Consult Physician Routine Consulting Provider: Ezekiel Ravi Consult Reason/Comments: Elevated white count, positive urine culture Do you want consulting provider notified?: Yes Primary care physician: Stated None Hospital Course: Hospital Course: Patient is a 58-year-old female with a history of COPD (no home oxygen) and stage IV lung cancer currently undergoing chemotherapy by Dr. Diaz at [facility] here for generalized weakness with dyspnea. Since her discharge, her weakness started to recur and worsened. She is also reported to have a low appetite despite having a sensation of hunger. She denied productive chest pain, palpitations, cough, fever, abdominal pain, extremity swelling, focal weakness, recent illness, recent trauma or fall. Chills, chest pain, palpitations. Recently admitted on 08/30/2024 for hyponatremia and normocytic anemia that required 1 unit of packed RBC. On admission: Vitals: Temperature 97.5 F, IA 106, RR 20, BP 92/58, O2 saturation 98% on room air Labs: WBC 20.7, hemoglobin 5.3, MCV 86.4, platelet count 748,000, sodium 118, potassium 4.6, bicarb 11, BUN 17, creatinine 0.6, magnesium 1.8, AST 11, alk phos 393, albumin 3.2. Urinalysis shows large leukocyte esterase, negative nitrate, negative ketones, negative glucose, trace blood, many bacteria. Cepheid 4 Plex negative. Imaging: EKG independently interpreted showed sinus tachycardia with a rate of 103 bpm, normal axis, no ST-T changes, QTc 404 MS. chest x-ray showed worsening aeration of the lungs compared to prior study and partial loculated small right pleural effusion Patient was admitted for the evaluation of hyponatremia and debility. IV fluids, TSH, cortisol, PT OT consult, fluid restriction, and home salt tabs were ordered. Nephrology and heme-onc consulted. TSH and cortisol were within normal limits. Patient was notably having low oral intake and encouraged to eat high-protein with protein shake supplementation and ordered Megace. Samsca was given once. Patient's sodium began to improve throughout her hospital stay. Brain CT was ordered by heme-onc for evaluation of possible metastasis showed no acute intracranial process or evidence suggesting of intracranial mass with noted remote lacunar injury. Patient notably complained of flank pain due to an adrenal mass from old imaging and radiology oncology was consulted for palliative radiation. Patient also had notable leukocytosis with concerning urinalysis and reflex urine culture grew pansensitive E. coli and [place] faecalis. Patient was placed on IV antibiotics for 3 days due to no development of urinary symptoms. However patient's leukocytosis continued to increase and was placed back on IV Zosyn for empiric coverage. Infectious disease was co nsulted. Sputum culture and blood culture was ordered which were both negative. Patient also required 3 units of packed RBC transfusions due to anemia. Iron studies showed elevated ferritin which is consistent with chronic disease. B12 and folate were within normal limits. Patient also noted a mass on right chest. [place] xray showed pleural based density in lateral midlung previously 4 cm now at 5.7cm. PT OT consult was refused by patient and home care was offered but refused by family and patient after further discussion. Patient is cleared for discharge today with Augmentin and Bactrim for 1 week, sodium tabs increased to twice a day, MiraLAX, Dulcolax, megestrol, Percocet and ondansetron oral. Home [place] was discontinued. She is advised to follow-up with PCP, artificial cherry maker, oncologist on outpatient basis. She may continue with palliative radiation for her adrenal mass in outpatient basis. Right midlung density and sodium levels is recommended for follow up out patient. Final Diagnosis: #Stage IV lung cancer #Hyponatremia, in setting of SIADH from malignancy and poor oral intake #Thrombocytosis in the setting of malignancy #Transaminitis in the setting of malignancy #Leukocytosis in the setting of malignancy #Debility #Malnutrition in the setting of malignancy #Asymptomatic bacteriuria #Normocytic anemia, status post 3 units packed RBC transfusion #Right chest mass, stable #COPD #Chronic nicotine use Physical examination: Vital signs reviewed General: non toxic, no distress, appears older than age, thin and frail appearing, on room air Derm: no unusual rashes/lesions, warm Head: atraumatic, normocephalic, symmetric Eyes: EOMI, anicteric sclera, pupils equal round reactive to light ENT: Nose and ears atraumatic Neck: No cervical lymphadenopathy, trachea midline, supple Mouth: no lip lesion, mucus membranes moist Cardiovascular: S1S2 reg, no murmur Lungs: CTA bilateral, no rhonchi, no rales, no accessory muscle use, soft nonmobile mass on right chest tender to palpation, no erythema or fluctuance noted Abdominal: soft, nondistended, nontender to palpation, no guarding Ext: muscle strength 5 out of 5 in all 4 extremities grossly, no gross muscle atrophy, no contractures, positive dorsalis pedis pulse bilateral, no edema Neuro: CN II-XI grossly intact, no gross focal neuro deficits Psych: Alert and oriented x 3, appropriate affect and mood Attestation: I have seen and examined this patient with my resident, assessment and plan discussed with the resident, agree with assessment and plan as written above. Dr. Vega Patient Condition at Discharge: Stable Plan - Discharge Summary Discharge Rx Participant: No New Discharge Prescriptions: New Amoxic-Pot Clav 500-125 mg [Augmentin 500-125 mg] 1 tab PO Q12HR #14 tab Sulfamethox-Tmp 800-160Mg [Bactrim DS 800-160 mg] 1 tab PO Q12HR #14 tab Sodium Chloride Tab 1 gm PO BID #30 tab polyethylene glycoL 3350 [Miralax] 17 gm PO DAILY PRN #7 gm PRN Reason: Constipation Megestrol [Megace] 400 mg PO DAILY #14 ml oxyCODONE-APAP 7.5-325MG [Percocet 7.5-325 mg] 1 each PO Q6HR PRN #20 tab PRN Reason: Pain Ondansetron Odt [Zofran ODT] 8 mg PO Q8HR PRN #20 tab PRN Reason: Nausea And Vomiting Magnesium Hydroxide [Dulcolax Oral Susp] 5 mg PO DAILY PRN #30 ml PRN Reason: Constipation Discontinued Sodium Chloride Tab 1 gm PO DAILY HYDROcodone/APAP 5-325MG [[place] 5-325] 1 tab PO Q6HR PRN PRN Reason: Moderate Pain (Scale 4 To 6) Discharge Medication List Amoxic-Pot Clav 500-125 mg [Augmentin 500-125 mg] 1 tab PO Q12HR #14 tab 09/27/24 [Rx] Magnesium Hydroxide [Dulcolax Oral Susp] 5 mg PO DAILY PRN #30 ml 09/27/24 [Rx] Megestrol [Megace] 400 mg PO DAILY #14 ml 09/27/24 [Rx] Ondansetron Odt [Zofran ODT] 8 mg PO Q8HR PRN #20 tab 09/27/24 [Rx] Sodium Chloride Tab 1 gm PO BID #30 tab 09/27/24 [Rx] Sulfamethox-Tmp 800-160Mg [Bactrim DS 800-160 mg] 1 tab PO Q12HR #14 tab 09/27/24 [Rx] oxyCODONE-APAP 7.5-325MG [Percocet 7.5-325 mg] 1 each PO Q6HR PRN #20 tab 09/27/24 [Rx] polyethylene glycoL 3350 [Miralax] 17 gm PO DAILY PRN #7 gm 09/27/24 [Rx] Follow up Appointment(s)/Referral(s): Tasia Swanson MD [STAFF PHYSICIAN] - 1 Week (The office is closed .) Joss Diaz MD [STAFF PHYSICIAN] - 10/07/24 2:45 pm (Appt at [facility] ) Pato Carrizales MD [STAFF PHYSICIAN] - 1 Week [facility] [NON-STAFF] - 1 Week Ambulatory/Diagnostic Orders: Basic Metabolic Panel [LAB.AMB] Time Frame: 3 Days, Location: None Selected Patient Instructions/Handouts: Hyponatremia (DC) Activity/Diet/Wound Care/Special Instructions: Please follow up with PCP, artificial cherry maker, Oncologist for follow up You will continue radiation with Radiology Oncology on out patient Discharge Disposition: HOME SELF-CARE
--- NOTE | 2024-09-27 17:00 | CDI ---
Documentation Clarification Form Date: 09/27/2024 04:57:47 PM From: Lenore Russell RN, CCDS Phone: [phone] Admit Date: 09/18/2024 07:12:00 PM Patient Name: Jil Villeda Visit Number: [id number] Discharge Date: ATTENTION: The Clinical Documentation Specialists (CDI) and [facility] Coding Staff appreciate your assistance in clarifying documentation. Please respond to the clarification below the line at the bottom and electronically sign. The CDI & [facility] Coding staff will review the response and follow-up if needed. Please note: Queries are made part of the Legal Health Record. If you have any questions, please contact the author of this message via ITS. Doctor. Rameshcristinaarmani Vega Sepsis is documented in the ID Medical consult on 09/24/24 which may lack sufficient clinical evidence/support in the medical record. Additional clarification is requested. History/Risk Factors: stage IV lung cancer, COPD, CVA/TIA, Current every day smoker Clinical Indicators: [id number] female presenting with generalized weakness and dyspnea. Patient denies cough or fever. 09/18 92/58 106 20 97.5 98% RA 09/18 WBC 20.75, HGB 5.3, 14.6 NA 118, CL 85 Bicarb 21 Plt 748 09/18 UA: Ur Leukocyte Esterase Large 09/18 Urine Culture: Escherichia coli Alcaligen. faecalis 09/18 CXR: Worsening aeration of lungs compared to prior study of 08/30/2024, likely reflects accommodation of disease progression and possible multifocal pneumonia. 2.Partially loculated small right pleural effusion. 09/24 ID Consult: Patient had fever elevated white count and positive UA. Chest x-ray concerning for possible pneumonia Sepsis, UTI, Pneumonia. "patient did have a features of sepsis in this patient who did have fever tachycardia and elevated white count so slightly elevated she did have significantly positive UA suprapubic tenderness plus minus a component of postobstructive pneumonia in this patient did have history of lung cancer" 09/24 VS (01:45) 110/74 91 16 100.6 09/24 Labs: WBC 21.63 Treatment: Zosyn 3.375 GM IVPB Q 8 HRS09/25-09/27 .9 NS @ 75 /ML/HR 09/24-09/27 Unasyn 3 GM IVPB Q 12 HRS Maxipime 2 GM ONCE 09/18.2 GM IVPB 09/19-09/21 After work up and study, please clarify which diagnosis is most appropriate? [ ] Sepsis is ruled out. The patient had a localized infection without systemic response or organ dysfunction. [ x] Sepsis was initially suspected, but subsequent clinical findings did not support the diagnosis, and it has been ruled out. [ ] Sepsis is clinically supported as evidenced by these additional clinical indicators: [ ] Other, please specify [ ] Unable to determine (Template Last Reviewed: April 2023) MTDD
--- NOTE | 2024-09-27 17:13 | P.PN ---
Subjective Progress Note Date: 09/27/24 C/o persisting weakness and right sided flank pain. Pain meds helping control pain. She is able to ambulate in room and to bathroom without assistance. Denies n/v, tolerating oral intake but appetite is diminished. Pt had simulation this morning Objective - Vital Signs Vital signs: Vital Signs Temp 98.1 F 09/27/24 12:28 Pulse 93 09/27/24 12:28 Resp 16 09/27/24 12:28 BP 92/61 09/27/24 12:28 Pulse Ox 94 L 09/27/24 12:28 FiO2 Intake & Output 09/26/24 09/27/24 09/27/24 18:59 06:59 18:59 Intake Total 1440 240 Balance 1440 240 Weight 38.102 kg Intake: Oral 1440 240 Other: Voiding Method Toilet Toilet Toilet # Voids 4 3 - Constitutional General appearance: Present: no acute distress, thin - EENT Eyes: Present: anicteric sclerae, EOMI ENT: Present: hearing grossly normal - Respiratory Details: breathing is even and unlabored - Integumentary Integumentary: Absent: cyanotic, jaundiced - Musculoskeletal Musculoskeletal: Present: generalized weakness - Psychiatric Psychiatric: Present: A&O x's 3 - Labs CBC & Chem 7: 09/27/24 06:50 09/27/24 06:50 Labs: Abnormal Lab Results - Last 24 Hours (Table) 09/27/24 09/27/24 Range/Units 06:50 06:50 WBC 21.23 H (4.50-10.00) X 10*3/uL RBC 2.34 L (4.10-5.20) X 10*6/uL Hgb 7.1 L (12.0-15.0) g/dL Hct 21.7 L (37.2-46.3) % RDW 17.5 H (11.5-14.5) % Sodium 133 L (135-145) mmol/L Carbon Dioxide 19.0 L (21.6-31.8) mmol/L Anion Gap 14.00 H (4.00-12.00) mmol/L Creatinine 0.5 L (0.6-1.5) mg/dL BUN/Creatinine Ratio 25.20 H (12.00-20.00) Ratio Calcium 7.7 L (8.7-10.3) mg/dL Microbiology - Last 24 Hours (Table) 09/25/24 11:56 Gram Stain - Preliminary Sputum Sputum Culture - Preliminary Assessment and Plan (1) Anemia Current Visit: Yes Status: Acute Priority: High Code(s): D64.9 - ANEMIA, UNSPECIFIED SNOMED Code(s): 219395407 (2) Hyponatremia Current Visit: Yes Status: Acute Priority: High Code(s): E87.1 - HYPO- OSMOLALITY AND HYPONATREMIA SNOMED Code(s): 94646692 (3) Non-small cell lung cancer (NSCLC) Current Visit: Yes Status: Acute Priority: High Code(s): C34.90 - MALIGNANT NEOPLASM OF UNSP PART OF UNSP BRONCHUS OR LUNG SNOMED Code(s): 067058084 (4) Generalized weakness Current Visit: Yes Status: Acute Priority: High Code(s): R53.1 - WEAKNESS SNOMED Code(s): 07918234 Plan: Metastatic non-small cell lung cancer: -Oncology history as dictated in the HPI -S/p Cycle 7 of Enhertu on 08/27/24 -Unfortunately, CT CAP on 08/30/24 showed disease progression. Enhertu was discontinued. Plan was for clinic f/u, with Dr. Rodolfo Diaz on 09/23 -CT brain with contrast obtained on 09/19/2024 due to MRI being nonfunctional revealed no evidence of metastatic disease -Radiation oncology has been consulted with recommendations pending. I do believe she would benefit from palliative RT to the right adrenal lesion. Spoke with Dr. Carrizales, plan to initiate XRT to right adrenal gland later this week -She could be a candidate for Taxotere outpatient, which was discussed on admission. We will further discuss this on outpatient follow-up -Continue tramadol as needed for pain with IV Dilaudid 0.5 mg ordered for breakthrough pain. -Added Zofran 8 mg every 8 hours as needed for nausea. Oral Zofran should be tried first prior to IV Zofran that is currently ordered -Discussed pain control regimen in detail with pt. For nausea symptoms take zofran 45 minutes prior to use of opiates as well as try to eat food before using pain meds. These should help improve reported symptoms Anorexia: -Appetite remains diminished. Denies n/v -Marinol added, but is on back order. Will start megace for appetite stimulant Neutrophilic leukocytosis, normocytic normochromic anemia: Patient presented to the emergency room with generalized weakness, dizziness, FTT. She had recent admit for the same -On admit, hemoglobin was noted at 5.3, MCV 86.4, s/p 3 units since admit. Hgb today showing appropriate response, at 8.8 -Denies rectal bleeding and melena. Been having mild hemoptysis, mostly in morning after waking up. -Nutritional studies obtained during last admit were consistent with anemia of inflammation superimposed on possible anemia from prior enhertu treatment -She likely has neutrophilic leukocytosis and anemia of inflammation secondary to known metastatic NSCLC -Continue to monitor CBC, transfuse for hgb <7 or if symptomatic Hyponatremia: -118 on admission and on 09/20/2024 -Likely component of SIADH r/t malignancy -Received 1 dose of tolvaptan per nephrology -Sodium improving, today 129 -Follow up additional nephrology recommendations, appreciate assistance Case discussed with admitting team, pt cleared from our standpoint for discharge. She has clinic f/u in discharge plan. Will f/u with rad onc to complete palliative RT Lab encounter for CBC recheck will be scheduled on 09/30
--- NOTE | 2024-09-28 09:49 | P.PN ---
Subjective Progress Note Date: 09/27/24 Principal diagnosis: Reason for follow-up follow-up is UTI/pneumonia Patient is a 59-year-old female past medical history significant for CVA TIA lung cancer COPD presenting to the hospital for evaluation of weakness and shortness of breath, patient also had fever elevated white count and positive UA and also noticed to have these on the chest x-ray concerning for possible pneumonia. On today's evaluation that is 09/27/2024, the patient continues to be afebrile, the patient is on room air and breathing comfortably, the Pt was busy on the phone at the time of evaluation did not answer any question no vomiting or diarrhea has been reported. Patient white count is 21.23, creatinine 0.5 sputum cultures currently pending blood culture negative Objective - Vital Signs Vital signs: Vital Signs Temp 98.1 F 09/27/24 12:28 Pulse 93 09/27/24 12:28 Resp 16 09/27/24 12:28 BP 92/61 09/27/24 12:28 Pulse Ox 94 L 09/27/24 12:28 FiO2 Intake & Output 09/26/24 09/27/24 09/27/24 18:59 06:59 18:59 Intake Total 1440 1200 Balance 1440 1200 Weight 38.102 kg Intake: Oral 1440 1200 Other: Voiding Method Toilet Toilet Toilet # Voids 4 3 5 - Exam GENERAL DESCRIPTION: Middle-age female in bed in no distress RESPIRATORY SYSTEM: Unlabored breathing , coarse breath sound with wheezing HEART: S1 S2 regular rate and rhythm , ABDOMEN: Soft , no tenderness EXTREMITIES: No edema feet - Labs CBC & Chem 7: 09/27/24 06:50 09/27/24 06:50 Labs: Abnormal Lab Results - Last 24 Hours (Table) 09/27/24 09/27/24 Range/Units 06:50 06:50 WBC 21.23 H (4.50-10.00) X 10*3/uL RBC 2.34 L (4.10-5.20) X 10*6/uL Hgb 7.1 L (12.0-15.0) g/dL Hct 21.7 L (37.2-46.3) % RDW 17.5 H (11.5-14.5) % Sodium 133 L (135-145) mmol/L Carbon Dioxide 19.0 L (21.6-31.8) mmol/L Anion Gap 14.00 H (4.00-12.00) mmol/L Creatinine 0.5 L (0.6-1.5) mg/dL BUN/Creatinine Ratio 25.20 H (12.00-20.00) Ratio Calcium 7.7 L (8.7-10.3) mg/dL Microbiology - Last 24 Hours (Table) 09/25/24 11:56 Gram Stain - Preliminary Sputum Sputum Culture - Preliminary Assessment and Plan (1) Sepsis Status: Acute Code(s): A41.9 - SEPSIS, UNSPECIFIED ORGANISM SNOMED Code(s): 58377530 (2) UTI (urinary tract infection) Status: Acute Code(s): N39.0 - URINARY TRACT INFECTION, SITE NOT SPECIFIED SNOMED Code(s): 29513591 (3) Pneumonia Status: Acute Code(s): J18.9 - PNEUMONIA, UNSPECIFIED ORGANISM SNOMED Code(s): 640363579 Plan: 1patient with multiple comorbidities in the hospital with shortness of breath, patient did have a features of sepsis in this patient who did have fever tachycardia and elevated white count so slightly elevated she did have significantly positive UA suprapubic tenderness plus minus a component of postobstructive pneumonia in this patient did have history of lung cancer 2blood cultures have been negative urine is growing E. coli alcaligen fecalis 3sputum has been collected and cultures are pending admittedly has been insisting on discharging the patient will consider 7-day course of Bactrim and Augmentin and close outpatient follow-up Dictation was produced using [employer] dictation software. please excuse any gramm atical, word or spelling errors. Time with Patient: Less than 30
== END 2024-09-27 16:59 | disposition home or self-care (01) | DRG 643 ==
LOC: EC 16:29 → 3SCARD 19:12 → 5NMEDONC 09-19 04:57
PROVIDERS: ADMIT Hospitalist; ATTEND Hospitalist
PROC: 30233N1 Transfusion of Nonautologous Red Blood Cells into Peripheral Vein, Percutaneous Approach (ICD-10-PCS; principal; 2024-09-18)
PROC: 05HC33Z Insertion of Infusion Device into Left Basilic Vein, Percutaneous Approach (ICD-10-PCS; 2024-09-24 14:55)
DX: E22.2 Syndrome of inappropriate secretion of antidiuretic hormone (principal); E43 Unspecified severe protein-calorie malnutrition; J18.9 Pneumonia, unspecified organism; C79.71 Secondary malignant neoplasm of right adrenal gland; R62.7 Adult failure to thrive; D62 Acute posthemorrhagic anemia; C34.31 Malignant neoplasm of lower lobe, right bronchus or lung; J44.0 Chronic obstructive pulmonary disease with (acute) lower respiratory infection; S22.31XA Fracture of one rib, right side, initial encounter for closed fracture; Z68.1 Body mass index [BMI] 19.9 or less, adult; N39.0 Urinary tract infection, site not specified; Z11.52 Encounter for screening for COVID-19; R00.0 Tachycardia, unspecified; R53.1 Weakness; F17.210 Nicotine dependence, cigarettes, uncomplicated; D64.89 Other specified anemias; B96.20 Unspecified Escherichia coli [E. coli] as the cause of diseases classified elsewhere; D75.839 Thrombocytosis, unspecified; Z85.118 Personal history of other malignant neoplasm of bronchus and lung; Z86.73 Personal history of transient ischemic attack (TIA), and cerebral infarction without residual deficits; Z90.721 Acquired absence of ovaries, unilateral
CPT/HCPCS: 36410; 36415; 36430; 70460; 71046; 76937; 77332; 80048; 80053; 81001; 82533; 82607; 82728; 82747; 83540; 83550; 83605; 83735; 83930; 83935; 84295; 84300; 84439; 84443; 84466; 85025; 85027; 85045; 85610; 85730; 86850; 86900; 86901; 86920; 87040; 87070; 87077; 87086; 87186; 87205; 87636; 93005; 94640; 94760; 96361; 96365; 96366; 96375; 99291

== ENCOUNTER 2024-09-29 03:10 | Inpatient (IN) | payer BC ==
[2024-09-29] MEDS: ONDANSETRON 4 MG/2 ML VIAL IVP STA (03:15)
[2024-09-29] MEDS: NOREPINEPHRINE 8 MG in SODIUM CHLORIDE 0.9% 250 ML IV SCH (03:35)
[2024-09-29] MEDS: SODIUM CHLORIDE 0.9% 1,000 ML IV ONE ×2 (03:35→04:00)
[2024-09-29] MEDS: ETOMIDATE 2 MG/ML 10 ML VIAL IVP STA (03:38)
[2024-09-29] MEDS: ROCURONIUM 10 MG/ML (5 ML VIAL) IV STA (03:39)
[2024-09-29] MEDS ORDERED: VANCOMYCIN IV PER PHARMACY 1 EACH MISC MISCELLANE PRN (03:46)
[2024-09-29] MEDS: NALOXONE 0.4 MG/ML 1 ML VIAL IVP STA (03:51)
[2024-09-29 03:58] LABS: HCT 20.5 % (37.2-46.3); HGB 7.1 g/dL (12.0-15.0); MCH 31.7 pg (27.0-32.0); MCHC 34.6 g/dL (32.0-37.0); MCV 91.5 fL (80.0-97.0); Platelet Count 381 10*3/uL (140-440); RBC 2.24 10*6/uL (4.10-5.20); RDW 18.2 % (11.5-14.5); WBC 48.54 10*3/uL (4.50-10.00)
[2024-09-29 03:59] LABS: Glucose,Whole Blood 92 mg/dL (70-110)
[2024-09-29 04:06] LABS: INR 1.5 (<1.2)
[2024-09-29 04:07] LABS: Partial Thromboplastin Time 28.1 sec (22.0-30.0); Prothrombin Time 15.5 sec (10.0-12.5)
[2024-09-29 04:09] LABS: AST 67 U/L (14-36); African American GFR (CKD) >90 (>60 ml/min/1.73 sqM); Albumin 2.2 g/dL (3.5-5.0); Alkaline Phosphatase 498 U/L (38-126); Anion Gap 15 mmol/L; Blood Urea Nitrogen 15 mg/dL (7-17); Calcium 8.0 mg/dL (8.4-10.2); Carbon Dioxide 11 mmol/L (22-30); Chloride 104 mmol/L (98-107); Glucose 77 mg/dL (74-99); Non-African American GFR(CKD) >90 (>60 ml/min/1.73 sqM); Potassium 4.2 mmol/L (3.5-5.1); Sodium 130 mmol/L (137-145); Total Protein 4.7 g/dL (6.3-8.2)
[2024-09-29 04:30] LABS: ALT 27 U/L (4-34); Lymphocytes # (M) 0.97 k/uL (1.0-4.8); Monocytes # (M) 1.94 k/uL (0-1.0); Neutrophils # (M) 45.62 k/uL (1.3-7.7); Neutrophils % (M) 69 %; Total Cells Counted 100
[2024-09-29 04:31] LABS: Anisocytosis (M) Present
[2024-09-29 04:54] LABS: Lactic Acid, Venous 6.5 mmol/L (0.7-2.0)
[2024-09-29] MEDS: LACTATED RINGERS 1,000 ML IV ONE ×2 (04:54→19:19)
[2024-09-29 04:56] LABS: ABG HCO3 17 mmol/L (21-25); ABG PCO2 38 mmHg (35-45); ABG PH 7.25 (7.35-7.45); ABG PO2 314 mmHg (83-108); ABG TCO2 18 mmol/L (19-24)
[2024-09-29] MEDS: NOREPINEPHRINE 32 MG in SODIUM CHLORIDE 0.9% 218 ML IV SCH (04:58)
--- NOTE | 2024-09-29 04:58 | XR ---
EXAM: XR Chest, 1 View CLINICAL HISTORY: ITS.REASON XR Reason: altered mental status TECHNIQUE: Frontal view of the chest. COMPARISON: X-ray dated 09/25/2024. FINDINGS: Lungs: Stable confluent opacity seen within the right lower lung. The left lung is clear. Pleural space: Increasing size of loculated pleural effusion or pleural- based mass seen within the lateral right lower lung. Right basilar pleural effusion. No pneumothorax. Heart: Unremarkable. No cardiomegaly. Mediastinum: Unremarkable. Normal mediastinal contour. Bones/joints: Degenerative changes are seen in the spine and shoulders. No acute fracture. Tubes, lines and devices: Endotracheal tube is in place from and enteric tube is in place traversing below level of the diaphragm. IMPRESSION: 1. Medical supportive devices as above. 2. Increase in size of pleural-based lesion versus loculated pleural fluid seen within the right lung. 3. Stable right upper lobe
[2024-09-29 05:02] LABS: Allen Test Performed? no
[2024-09-29] MEDS: VANCOMYCIN 1,000 MG in SODIUM CHLORIDE 0.9% 250 ML IVPB ONE (05:15)
--- NOTE | 2024-09-29 05:57 | ED ---
General Adult HPI - General Chief complaint: Altered Mental Status Stated complaint: difficutly breathing Time Seen by Provider: 09/29/24 03:10 Source: patient, EMS, RN notes reviewed, old records reviewed Mode of arrival: EMS - History of Present Illness Initial comments: 59-year-old female presents emergency department for altered mentation and respiratory distress. Patient apparently was seen at approximately 1 AM when she was going to bed and was acting normally. Patient found later on shortly prior to arrival lethargic, relatively unresponsive, in respiratory distress with agonal respirations. Patient was recently hospitalized and discharged home from this facility. She has a history of lung cancer, is currently being treated for pneumonia, was being set up for chemoradiation for the cancer. Patient was also being monitored for intermittent anemia of which they suspected was related to her cancer. She required blood transfusions on prior admission. Patient received Narcan from EMS with very minimal improvement. She did become slightly more alert but was still confused. Is unable to provide any history. Presents for further evaluation at this time. - Related Data Previous Rx's Medication Instructions Recorded Amoxic-Pot Clav 500-125 mg 1 tab PO Q12HR #14 tab 09/27/24 [Augmentin 500-125 mg] Magnesium Hydroxide [Dulcolax Oral 5 mg PO DAILY PRN #30 ml 09/27/24 Susp] Megestrol [Megace] 400 mg PO DAILY #14 ml 09/27/24 Ondansetron Odt [Zofran ODT] 8 mg PO Q8HR PRN #20 tab 09/27/24 Sodium Chloride Tab 1 gm PO BID #30 tab 09/27/24 Sulfamethox-Tmp 800-160Mg [Bactrim 1 tab PO Q12HR #14 tab 09/27/24 DS 800-160 mg] oxyCODONE-APAP 7.5-325MG [Percocet 1 each PO Q6HR PRN #20 tab 09/27/24 7.5-325 mg] polyethylene glycoL 3350 [Miralax] 17 gm PO DAILY PRN #7 gm 09/27/24 Allergies Allergy/AdvReac Type Severity Reaction Status Date / Time No Known Allergies Allergy Verified 09/19/24 07:19 Review of Systems ROS Statement: Those systems with pertinent positive or pertinent negative responses have been documented in the HPI. ROS Other: All systems not noted in ROS Statement are negative. Past Medical History Past Medical History: Cancer, COPD, CVA/TIA Additional Past Medical History / Comment(s): COPD, spastic colon, CVA/TIA. LUNG CANCER-RLL NSCLC. History of Any Multi-Drug Resistant Organisms: None Reported Past Surgical History: Section, Tonsillectomy Additional Past Surgical History / Comment(s): L oophorectomy due to cyst Past Anesthesia/Blood Transfusion Reactions: No Reported Reaction Past Psychological History: No Psychological Hx Reported Smoking Status: Current every day smoker Past Alcohol Use History: Unable to Obtain Past Drug Use History: Unable to Obtain - Past Family History Father History Unknown: Yes Family Medical History: No Reported History Additional Family Medical History / Comment(s): at early age from gunshot Mother Family Medical History: Cancer Additional Family Medical History / Comment(s): Mother had some kind of cancer but pt does not know what kind. She at age 65 or 67yrs. General Exam - General Exam Comments Initial Comments: General: Appears in respiratory distress with agonal respirations. Mildly cachectic. HEAD: Normal with no signs of head trauma. Negative Enriquez sign. Negative raccoon eyes. EYES: PERRLA, EOMI, conjunctiva normal, no discharge. Pupils 3 mm and equal bilaterally. ENT: Dry mucous membranes. Trachea is midline. RESPIRATORY: Coarse breath sounds bilaterally. Increased work of breathing. Agonal respirations. Hypoxia into the 80% on room air. Requiring nonrebreather to maintain adequate saturations. C/V: Tachycardic with regular rhythm. S1 and S2 auscultated. Peripheral pulses 2+ intact throughout. ABD: Abdomen is slightly distended. EXT: Normal range of motion, no obvious deformity SKIN: No rashes or lesions observed on exposed skin. NEURO: Not alert or oriented. GCS is approximately 6-8. Course Vital Signs 09/29/24 09/29/24 09/29/24 03:11 03:30 03:45 Temperature 97.5 F L Pulse Rate 152 H Pulse Rate [ 154 H 154 H M48/M60 Tank Driver ] Respiratory 24 20 20 Rate Blood Pressure 135/109 Blood Pressure 76/57 77/50 [Right Arm] O2 Sat by Pulse 90 L 100 100 Oximetry Fraction of 100 100 Inspired Oxygen (FIO2) 09/29/24 09/29/24 09/29/24 03:51 03:55 03:56 Temperature Pulse Rate Pulse Rate [ M48/M60 Tank Driver ] Respiratory 28 H Rate Blood Pressure Blood Pressure [Right Arm] O2 Sat by Pulse Oximetry Fraction of 100 100 Inspired Oxygen (FIO2) 09/29/24 09/29/24 09/29/24 04:00 05:00 05:56 Temperature Pulse Rate Pulse Rate [ 154 H 146 H M48/M60 Tank Driver ] Respiratory 20 20 Rate Blood Pressure Blood Pressure 77/53 99/60 [Right Arm] O2 Sat by Pulse 100 100 Oximetry Fraction of 100 100 60 Inspired Oxygen (FIO2) 09/29/24 09/29/24 09/29/24 06:00 06:55 07:14 Temperature Pulse Rate Pulse Rate [ 138 H 129 H M48/M60 Tank Driver ] Respiratory 20 20 Rate Blood Pressure Blood Pressure 119/51 76/38 [Right Arm] O2 Sat by Pulse 96 96 83 L Oximetry Fraction of 60 60 Inspired Oxygen (FIO2) 09/29/24 09/29/24 09/29/24 07:15 07:22 07:25 Temperature Pulse Rate 129 H 129 H 129 H Pulse Rate [ M48/M60 Tank Driver ] Respiratory 16 16 16 Rate Blood Pressure 78/38 107/47 73/48 Blood Pressure [Right Arm] O2 Sat by Pulse 83 L 94 L 93 L Oximetry Fraction of Inspired Oxygen (FIO2) 09/29/24 09/29/24 09/29/24 07:30 07:35 07:40 Temperature Pulse Rate 130 H 131 H 131 H Pulse Rate [ M48/M60 Tank Driver ] Respiratory 16 16 16 Rate Blood Pressure 73/47 73/47 82/53 Blood Pressure [Right Arm] O2 Sat by Pulse 95 100 Oximetry Fraction of 100 Inspired Oxygen (FIO2) 09/29/24 09/29/24 09/29/24 07:45 07:50 07:55 Temperature Pulse Rate 134 H 137 H 134 H Pulse Rate [ M48/M60 Tank Driver ] Respiratory 16 16 16 Rate Blood Pressure 74/49 82/51 92/57 Blood Pressure [Right Arm] O2 Sat by Pulse 100 100 100 Oximetry Fraction of 100 Inspired Oxygen (FIO2) 09/29/24 08:00 Temperature Pulse Rate 140 H Pulse Rate [ M48/M60 Tank Driver ] Respiratory 16 Rate Blood Pressure 91/58 Blood Pressure [Right Arm] O2 Sat by Pulse 100 Oximetry Fraction of 100 Inspired Oxygen (FIO2) Procedures - Arterial Line No standard instances Consent Obtained: verbal consent Technique Used: guide wire technique Post-Procedure: line sutured into place Patient Tolerated Procedure: well Complications: none - Central Line Placement Left Femoral Consent Obtained: emergent situation Patient Placed on Monitor/Pulse Ox: Yes MD Prep: mask, gown, gloves Central Line Prep: Chlorhexidine scrub, sterile drapes applied Local Anesthesia Used: Lidocaine 1% Amount of Anesthesia Used (mls): 1 Ultrasound Used for Placement: Yes Central Line Lumen Inserted: triple Central Line Position: good blood return, all ports aspirated, flushed, capped, sutured in place with nylon Dressing Applied: Tegaderm Patient Tolerated Procedure: well Complications: none - Intubation Sedative: Etomidate Mg Given: 20 Paralytic: Rocuronium Mg Given: 50 Laryngoscope: other (glidescope) ET Tube Size: 7.5 Tube Secured Depth (cm): 25 Tube Secured Location: lips Tube Placement Confirmation: visualized tube passing through cords, equal breath sounds bilaterally, no breath sounds over epigastrium, confirmation by capnometry Patient Tolerated Procedure: no complications Intubation Complications: none - Sepsis Sepsis Focused Exam #1 Time Sepsis Criteria Met: 07:00 Sepsis Focused Exam Date: 09/29/24 Sepsis Focused Exam Time: 03:10 Sepsis Focused Exam Complete: Yes Vital Signs & RN Notes Reviewed: Yes Capillary Refill: > 2 Seconds: Fingers, Toes Peripheral Pulses: Normal: Radial (R), Radial (L) Skin Color: Normal for Patient Respiratory Exam: rhonchi Cardiovascular Exam: tachycardia Medical Decision Making - Medical Decision Making Was pt. sent in by a medical professional or institution (CHRISTINE Ramirez, DIRECTOR OF ORTHOPEDICS, urgent care, hospital, or snf...) When possible be specific @ -No Did you speak to anyone other than the patient for history (EMS, parent, family, police, friend...)? What history was obtained from this source @ -EMS provided history of patient at home prior to arrival including administration Narcan which seemed to have minimal effect. Patient's family arrived to and states that she seemed to be fine throughout the day today when she went to bed no obvious complaints however they found her altered, with agona l respirations, and difficulty breathing. Did you review nursing and triage notes (agree or disagree)? Why? @ -I reviewed and agree with nursing and triage notes Were old charts reviewed (outside hosp., previous admission, EMS record, old EKG, old radiological studies, urgent care reports/EKG's, snf records)? Report findings @ -Reviewed chart from recent visit when she was discharged home on September 27, 2024. At that time was treated for hyponatremia, her lung cancer, pneumonia. Discharged home on antibiotics. Differential Diagnosis (chest pain, altered mental status, abdominal pain women, abdominal pain men, vaginal bleeding, weakness, fever, dyspnea, syncope, headache, dizziness, GI bleed, back pain, seizure, CVA, palpatations, mental health, musculoskeletal)? @ -Differential Dyspnea: Coronary syndrome, arrhythmia, tamponade, asthma, COPD, pulmonary embolism, pneumonia, pneumothorax, pulmonary effusion, anaphylaxis, diabetic ketoacidosis, flailed chest, pulmonary contusion, diaphragmatic rupture, anemia, neuromuscular, this is not meant to be an all-inclusive list. EKG interpreted by me (3pts min.). @ -As above X-rays interpreted by me (1pt min.). @ -Postintubation chest x-ray reveals adequate ET tube placement. Adequate OG tube placement. Possible infectious versus cancer in the right lung. Suspected malignancy in the right upper lobe. CT interpreted by me (1pt min.). @ -CT brain reveals no obvious acute intracranial process. CTA chest reveals no evidence of pulmonary embolism. Right lower lobe pneumonia present. Increasing size of the right upper lung malignancy. CT of the abdomen pelvis reveals enterocolitis there is also increasing size of bilateral adrenal masses. Bilateral pleural effusions. U/S interpreted by me (1pt. min.). @ -None done What testing was considered but not performed or refused? (CT, X-rays, U/S, labs)? Why? @ -None What meds were considered but not given or refused? Why? @ -None Did you discuss the management of the patient with other professionals (professionals i.e. , PA, DIRECTOR OF ORTHOPEDICS, lab, RT, psych nurse, child welfare social worker, track inspector, teacher, flight radio officer, shoe parts caser)? Give summary @ -Discussed with Dr. Flores of the ICU who is in agreement with plan for management accept the patient to the ICU. Discussed with admitting provider, Dr. Macias who accepted the admission. Was smoking cessation discussed for >3mins.? @ -No Was critical care preformed (if so, how long)? @ -Yes, 61 minutes Were there social determinants of health that impacted care today? How? (Homelessness, low income, unemployed, alcoholism, drug addiction, transportation, low edu. Level, literacy, decrease access to med. care, long-term, rehab)? @ -No Was there de-escalation of care discussed even if they declined (Discuss DNR or withdrawal of care, Hospice)? DNR status @ -No What co-morbidities impacted this encounter? (DM, HTN, Smoking, COPD, CAD, Cancer, CVA, ARF, Chemo, Hep., AIDS, mental health diagnosis, sleep apnea, morbid obesity)? @ -Lung cancer, pneumonia Was patient admitted / discharged? Hospital course, mention meds given and route, prescriptions, significant lab abnormalities, going to OR and other pertinent info. @ -Patient presents with altered mental status, agonal respirations. Initially thought it may be secondary to recent oxycodone prescription however patient had minimal response to Narcan prior to arrival. Ministered additional Narcan as I spoke with patient's who confirmed patient is a full code. Patient had no response to this Narcan. Therefore decision was made to intubate the christine longoria. She was tachycardic and hypotensive at this time so patient was bolus multiple liters of IV fluids, and started on Levophed drip. Patient tolerated intubation well. Left femoral central line and arterial line placed by myself. Patient placed on propofol for sedation. She is being treated for septic shock considering her recent infections, tachycardia, hypotension, respiratory distress. Patient met sepsis criteria upon arrival. Started on broad-spectrum vancomycin and Zosyn. Blood culture sent. Patient received a total of 3 L fluid bolus here in the department and placed on maintenance fluids. Lactic acid did return elevated at 6.5. Remainder the patient's labs remarkable for an indeterminate troponin of 0.020, negative viral swabs, elevated D-dimer likely secondary to malignancy. Patient was being monitored for leukocytosis likely secondary malignancy on last admission and today it is more than double to 48. It was in the 20s on last admission. Patient was anemic last admission as well and has a stable hemoglobin at 7.1 however I do suspect that I did diabetes out considering how any fluid boluses the patient received, and therefore patient will be empirically transfused a unit of packed red blood cells that have been irradiated. CT brain reveals no obvious acute intracranial process. CTA chest reveals no evidence of pulmonary embolism. Right lower lobe pneumonia present. Increasing size of the right upper lung malignancy. CT of the abdomen pelvis reveals enterocolitis there is also increasing size of bilateral adrenal masses. Bilateral pleural effusions. C. difficile ordered. At this time I updated family as well and they expressed understanding of the current situation. They understand prognosis is difficulty to remain at this stage however it does appear to be poor secondary to the fact that patient is requiring intubation, mechanical ventilation, is on pressors and considering her comorbidities. They expressed understanding. Discussed with Dr. Flores of the ICU who is in agreement with plan for management accept the patient to the ICU. Discussed with admitting provider, Dr. Macias who accepted the admission. Undiagnosed new problem with uncertain prognosis? @ -No Drug Therapy requiring intensive monitoring for toxicity (Heparin, Nitro, Insulin, Cardizem)? @ -No Were any procedures done? @ -Intubation, central line, arterial line Diagnosis/symptom? @ -Septic shock, altered mental status, pneumonia, enterocolitis, malignancy, anemia, hypoxic respiratory failure requiring intubation and mechanical ventilation Acute, or Chronic, or Acute on Chronic? @ -Acute Uncomplicated (without systemic symptoms) or Complicated (systemic symptoms)? @ -Complicated Side effects of treatment? @ -No Exacerbation, Progression, or Severe Exacerbation? @ -No Poses a threat to life or bodily function? How? (Chest pain, [place], [place], pneumonia, PE, COPD, DKA, ARF, appy, cholecystitis, CVA, Diverticulitis, Homicidal, Suicidal, threat to staff... and all critical care pts) @ -Yes - Lab Data Result diagrams: 09/29/24 03:46 09/29/24 03:46 Lab Results 09/29/24 09/29/24 09/29/24 Range/Units 03:46 03:46 03:46 WBC 48.54 H (4.50-10.00) 10*3/uL RBC 2.24 L (4.10-5.20) 10*6/uL Hgb 7.1 L (12.0-15.0) g/dL Hct 20.5 L (37.2-46.3) % MCV 91.5 (80.0-97.0) fL MCH 31.7 (27.0-32.0) pg MCHC 34.6 (32.0-37.0) g/dL Plt Count 381 (140-440) 10*3/uL MPV 9.6 (9.5-12.2) fL Immature Gran % (Auto) 1.9 % Neutrophils % (Manual) 69 % Band Neuts % (Manual) 25 % Lymphocytes % (Manual) 2 % Monocytes % (Manual) 4 % Immature Gran # 0.93 H (0.00-0.04) 10*3/uL Neutrophils # (Manual) 45.62 H (1.3-7.7) k/uL Lymphocytes # (Manual) 0.97 L (1.0-4.8) k/uL Monocytes # (Manual) 1.94 H (0-1.0) k/uL Nucleated RBCs 0 (0-0) /100 WBC Manual Slide Review Performed Anisocytosis (manual) Present PT 15.5 H (10.0-12.5) sec INR 1.5 H (<1.2) APTT 28.1 (22.0-30.0) sec D-Dimer (<0.60) mg/L FEU Sample Site ABG pH (7.35-7.45) ABG pCO2 (35-45) mmHg ABG pO2 (83-108) mmHg ABG HCO3 (21-25) mmol/L ABG Total CO2 (19-24) mmol/L ABG O2 Saturation (94-97) % ABG Base Excess mmol/L Jake Test FiO2 % Sodium 130 L (137-145) mmol/L Potassium 4.2 (3.5-5.1) mmol/L Chloride 104 (98-107) mmol/L Carbon Dioxide 11 L (22-30) mmol/L Anion Gap 15 mmol/L BUN 15 (7-17) mg/dL Creatinine 0.69 (0.52-1.04) mg/dL Est GFR (CKD-EPI)AfAm >90 (>60 ml/min/1.73 sqM) Est GFR (CKD-EPI)NonAf >90 (>60 ml/min/1.73 sqM) Glucose 77 (74-99) mg/dL POC Glucose (mg/dL) (70-110) mg/dL POC Glu Pocket Stitcher ID Lactic Ac Sepsis Rflx Plasma Lactic Acid Onesimo (0.7-2.0) mmol/L Calcium 8.0 L (8.4-10.2) mg/dL Total Bilirubin 1.0 (0.2-1.3) mg/dL AST 67 H (14-36) U/L ALT 27 (4-34) U/L Alkaline Phosphatase 498 H (38-126) U/L Ammonia (<30) umol/L Troponin I (0.000-0.034) ng/mL Total Protein 4.7 L (6.3-8.2) g/dL Albumin 2.2 L (3.5-5.0) g/dL Serum Alcohol <10 mg/dL Influenza Type A (PCR) (Not Detectd) Influenza Type B (PCR) (Not Detectd) RSV (PCR) (Not Detectd) SARS-CoV-2 (PCR) (Not Detectd) Blood Type Blood Type Recheck Bld Type Recheck Status Antibody Screen Crossmatch Spec Expiration Date 09/29/24 09/29/24 09/29/24 Range/Units 03:46 03:46 03:47 WBC (4.50-10.00) 10*3/uL RBC (4.10-5.20) 10*6/uL Hgb (12.0-15.0) g/dL Hct (37.2-46.3) % MCV (80.0-97.0) fL MCH (27.0-32.0) pg MCHC (32.0-37.0) g/dL Plt Count (140-440) 10*3/uL MPV (9.5-12.2) fL Immature Gran % (Auto) % Neutrophils % (Manual) % Band Neuts % (Manual) % Lymphocytes % (Manual) % Monocytes % (Manual) % Immature Gran # (0.00-0.04) 10*3/uL Neutrophils # (Manual) (1.3-7.7) k/uL Lymphocytes # (Manual) (1.0-4.8) k/uL Monocytes # (Manual) (0-1.0) k/uL Nucleated RBCs (0-0) /100 WBC Manual Slide Review Anisocytosis (manual) PT (10.0-12.5) sec INR (<1.2) APTT (22.0-30.0) sec D-Dimer 15.55 H (<0.60) mg/L FEU Sample Site ABG pH (7.35-7.45) ABG pCO2 (35-45) mmHg ABG pO2 (83-108) mmHg ABG HCO3 (21-25) mmol/L ABG Total CO2 (19-24) mmol/L ABG O2 Saturation (94-97) % ABG Base Excess mmol/L Jake Test FiO2 % Sodium (137-145) mmol/L Potassium (3.5-5.1) mmol/L Chloride (98-107) mmol/L Carbon Dioxide (22-30) mmol/L Anion Gap mmol/L BUN (7-17) mg/dL Creatinine (0.52-1.04) mg/dL Est GFR (CKD-EPI)AfAm (>60 ml/min/1.73 sqM) Est GFR (CKD-EPI)NonAf (>60 ml/min/1.73 sqM) Glucose (74-99) mg/dL POC Glucose (mg/dL) (70-110) mg/dL POC Glu Pocket Stitcher ID Lactic Ac Sepsis Rflx Plasma Lactic Acid Onesimo 6.5 H* (0.7-2.0) mmol/L Calcium (8.4-10.2) mg/dL Total Bilirubin (0.2-1.3) mg/dL AST (14-36) U/L ALT (4-34) U/L Alkaline Phosphatase (38-126) U/L Ammonia 34 H (<30) umol/L Troponin I 0.020 (0.000-0.034) ng/mL Total Protein (6.3-8.2) g/dL Albumin (3.5-5.0) g/dL Serum Alcohol mg/dL Influenza Type A (PCR) (Not Detectd) Influenza Type B (PCR) (Not Detectd) RSV (PCR) (Not Detectd) SARS-CoV-2 (PCR) (Not Detectd) Blood Type Blood Type Recheck Bld Type Recheck Status Antibody Screen Crossmatch Spec Expiration Date 09/29/24 09/29/24 09/29/24 Range/Units 03:55 03:57 04:41 WBC (4.50-10.00) 10*3/uL RBC (4.10-5.20) 10*6/uL Hgb (12.0-15.0) g/dL Hct (37.2-46.3) % MCV (80.0-97.0) fL MCH (27.0-32.0) pg MCHC (32.0-37.0) g/dL Plt Count (140-440) 10*3/uL MPV (9.5-12.2) fL Immature Gran % (Auto) % Neutrophils % (Manual) % Band Neuts % (Manual) % Lymphocytes % (Manual) % Monocytes % (Manual) % Immature Gran # (0.00-0.04) 10*3/uL Neutrophils # (Manual) (1.3-7.7) k/uL Lymphocytes # (Manual) (1.0-4.8) k/uL Monocytes # (Manual) (0-1.0) k/uL Nucleated RBCs (0-0) /100 WBC Manual Slide Review Anisocytosis (manual) PT (10.0-12.5) sec INR (<1.2) APTT (22.0-30.0) sec D-Dimer (<0.60) mg/L FEU Sample Site [place] ABG pH 7.25 L (7.35-7.45) ABG pCO2 38 (35-45) mmHg ABG pO2 314 H (83-108) mmHg ABG HCO3 17 L (21-25) mmol/L ABG Total CO2 18 L (19-24) mmol/L ABG O2 Saturation >100.0 H (94-97) % ABG Base Excess -9.6 mmol/L Jake Test no FiO2 100 % Sodium (137-145) mmol/L Potassium (3.5-5.1) mmol/L Chloride (98-107) mmol/L Carbon Dioxide (22-30) mmol/L Anion Gap mmol/L BUN (7-17) mg/dL Creatinine (0.52-1.04) mg/dL Est GFR (CKD-EPI)AfAm (>60 ml/min/1.73 sqM) Est GFR (CKD-EPI)NonAf (>60 ml/min/1.73 sqM) Glucose (74-99) mg/dL POC Glucose (mg/dL) 92 (70-110) mg/dL POC Glu Pocket Stitcher ID Judith Sumanth Lactic Ac Sepsis Rflx Plasma Lactic Acid Onesimo (0.7-2.0) mmol/L Calcium (8.4-10.2) mg/dL Total Bilirubin (0.2-1.3) mg/dL AST (14-36) U/L ALT (4-34) U/L Alkaline Phosphatase (38-126) U/L Ammonia (<30) umol/L Troponin I (0.000-0.034) ng/mL Total Protein (6.3-8.2) g/dL Albumin (3.5-5.0) g/dL Serum Alcohol mg/dL Influenza Type A (PCR) (Not Detectd) Influenza Type B (PCR) (Not Detectd) RSV (PCR) (Not Detectd) SARS-CoV-2 (PCR) (Not Detectd) Blood Type O Positive Blood Type Recheck O Pos Bld Type Recheck Status No Antibody Screen NEGATIVE Crossmatch See Detail Spec Expiration Date 10/02/2024 - 235409/29/24 09/29/24 Range/Units 04:54 05:05 WBC (4.50-10.00) 10*3/uL RBC (4.10-5.20) 10*6/uL Hgb (12.0-15.0) g/dL Hct (37.2-46.3) % MCV (80.0-97.0) fL MCH (27.0-32.0) pg MCHC (32.0-37.0) g/dL Plt Count (140-440) 10*3/uL MPV (9.5-12.2) fL Immature Gran % (Auto) % Neutrophils % (Manual) % Band Neuts % (Manual) % Lymphocytes % (Manual) % Monocytes % (Manual) % Immature Gran # (0.00-0.04) 10*3/uL Neutrophils # (Manual) (1.3-7.7) k/uL Lymphocytes # (Manual) (1.0-4.8) k/uL Monocytes # (Manual) (0-1.0) k/uL Nucleated RBCs (0-0) /100 WBC Manual Slide Review Anisocytosis (manual) PT (10.0-12.5) sec INR (<1.2) APTT (22.0-30.0) sec D-Dimer (<0.60) mg/L FEU Sample Site ABG pH (7.35-7.45) ABG pCO2 (35-45) mmHg ABG pO2 (83-108) mmHg ABG HCO3 (21-25) mmol/L ABG Total CO2 (19-24) mmol/L ABG O2 Saturation (94-97) % ABG Base Excess mmol/L Jake Test FiO2 % Sodium (137-145) mmol/L Potassium (3.5-5.1) mmol/L Chloride (98-107) mmol/L Carbon Dioxide (22-30) mmol/L Anion Gap mmol/L BUN (7-17) mg/dL Creatinine (0.52-1.04) mg/dL Est GFR (CKD-EPI)AfAm (>60 ml/min/1.73 sqM) Est GFR (CKD-EPI)NonAf (>60 ml/min/1.73 sqM) Glucose (74-99) mg/dL POC Glucose (mg/dL) (70-110) mg/dL POC Glu Pocket Stitcher ID Lactic Ac Sepsis Rflx Y Plasma Lactic Acid Onesimo (0.7-2.0) mmol/L Calcium (8.4-10.2) mg/dL Total Bilirubin (0.2-1.3) mg/dL AST (14-36) U/L ALT (4-34) U/L Alkaline Phosphatase (38-126) U/L Ammonia (<30) umol/L Troponin I (0.000-0.034) ng/mL Total Protein (6.3-8.2) g/dL Albumin (3.5-5.0) g/dL Serum Alcohol mg/dL Influenza Type A (PCR) Not Detected (Not Detectd) Influenza Type B (PCR) Not Detected (Not Detectd) RSV (PCR) Not Detected (Not Detectd) SARS-CoV-2 (PCR) Not Detected (Not Detectd) Blood Type Blood Type Recheck Bld Type Recheck Status Antibody Screen Crossmatch Spec Expiration Date - EKG Data -: EKG Interpreted by Me EKG Comments: 12-lead Electrocardiogram Interpretation Note EKG was reviewed and interpreted by myself. 12-lead ECG performed at 0401 is interpreted by me as revealing sinus tachycardia at a rate of 157 beats per minute. [place] is normal. [place] interval is 160 ms, QRS durations 84 ms, QTc is 378 ms.. There were no ST or T wave abnormalities to suggest myocardial ischemia or injury. R wave progression across the precordium was satisfactory. By my interpretation this EKG is non-diagnostic for acute ischemia. Critical Care Time Critical Care Time: Yes Total Critical Care Time: 61 Disposition Clinical Impression: Septic shock, Pneumonia, Enterocolitis, Acute hypoxic respiratory failure, Airway intubation performed without difficulty, Malignancy, Altered mental status Disposition: ADMITTED IP TO THIS [facility] Condition: Critical Time of Disposition: 06:55
[2024-09-29 06:14] LABS: RSV Not Detected (Not Detectd)
--- NOTE | 2024-09-29 06:27 | CT ---
EXAM: CT Head Without Intravenous Contrast CLINICAL HISTORY: ITS.REASON CT Reason: Altered mental status TECHNIQUE: Axial computed tomography images of the head/brain without intravenous contrast. CTDI is 49 mGy and DLP is 1064 mGy-cm. This CT exam was performed using one or more of the following dose reduction techniques: automated exposure control, adjustment of the mA and/or kV according to patient size, and/or use of iterative reconstruction technique. COMPARISON: CT dated 09/19/2024. FINDINGS: Brain: Encephalomalacic changes versus a prominent left-sided Virchow- Nico space. Hypodense changes are seen within the periventricular white matter. No hemorrhage. Ventricles: Unremarkable. No ventriculomegaly. Bones/joints: Unremarkable. No acute fracture. Soft tissues: Unremarkable. Sinuses: Unremarkable as visualized. No acute sinusitis. Mastoid air cells: Unremarkable as visualized. No mastoid effusion. IMPRESSION: No acute intracranial findings. No intracranial hemorrhage.
[2024-09-29] MEDS: SODIUM CHLORIDE 0.9% 1,000 ML IV STA (06:28)
--- NOTE | 2024-09-29 06:34 | CT ---
EXAM: CT Abdomen and Pelvis With Intravenous Contrast CLINICAL HISTORY: ITS.REASON CT Reason: Sepsis TECHNIQUE: Axial computed tomography images of the abdomen and pelvis with intravenous contrast. CTDI is 13.7 mGy and DLP is 713.3 mGy-cm. This CT exam was performed using one or more of the following dose reduction techniques: automated exposure control, adjustment of the mA and/or kV according to patient size, and/or use of iterative reconstruction technique. COMPARISON: CT dated 08/30/2024. FINDINGS: Lung bases: Left upper lobe pulmonary nodule measuring 7.6 cm, spiculated left lower lobe pulmonary nodule measuring 9 mm, spiculated 6. 3 mm right lower lobe pulmonary nodule recommend follow-up CT in 3-6 months time Per Fleischner criteria. No consolidation. Pleural space: Bilateral pleural effusions. ABDOMEN: Liver: Hepatomegaly and hepatic steatosis. Gallbladder and bile ducts: Unremarkable. No calcified stones. No ductal dilation. Pancreas: Unremarkable. No mass. No ductal dilation. Spleen: Unremarkable. No splenomegaly. Adrenals: Increase in size of left adrenal mass measuring 4.5 cm and previously measuring 2.4 cm. Kidneys and ureters: Increase in size of the dense lesion seen within the right suprarenal fossa previously measuring 10.1 x 8.3 cm, now measuring 11.8 x 12.6 cm. This causes mass-effect upon the right kidney. No hydronephrosis. Stomach and bowel: Colonic wall thickening most severe within the cecum and ascending colon. Diffuse of small bowel wall thickening without evidence of small bowel obstruction. Colonic diverticulosis without evidence of acute diverticulitis. PELVIS: Appendix: No findings to suggest acute appendicitis. Bladder: Bradley catheter is in place within a decompressed bladder. Reproductive: Unremarkable as visualized. ABDOMEN and PELVIS: Intraperitoneal space: Mild amount of free fluid is seen within the abdomen and pelvis. No free air. Bones/joints: Mild degenerative changes are seen within the spine and hips. No acute fracture. No dislocation. Soft tissues: Unremarkable. Vasculature: Calcifications are seen within a nondilated aorta. Lymph nodes: Unremarkable. No enlarged lymph nodes. IMPRESSION: 1. Interval increase in size of bilateral adrenal masses. 2. Findings suggestive of infectious or inflammatory enterocolitis. 3. Right lower lobe pneumonia. 4. Bilateral pleural effusions.
[2024-09-29] MEDS: LACTATED RINGERS 1,000 ML IV SCH (06:45)
--- NOTE | 2024-09-29 06:45 | CT ---
EXAM: CT Angiography Chest With Intravenous Contrast CLINICAL HISTORY: ITS.REASON CT Reason: Hypoxia TECHNIQUE: Axial computed tomographic angiography images of the chest with intravenous contrast. CTDI is 7.7 mGy and DLP is 195.3 mGy-cm. This CT exam was performed using one or more of the following dose reduction techniques: automated exposure control, adjustment of the mA and/or kV according to patient size, and/or use of iterative reconstruction technique. MIP reconstructed images were created and reviewed. COMPARISON: CT dated 08/30/2024. FINDINGS: Pulmonary arteries: Unremarkable. No pulmonary embolism. Aorta: No acute findings. No thoracic aortic aneurysm. Lungs: Consolidative changes are seen within the right lower lobe. Interval enlargement of spiculated right upper lobe pulmonary nodule measuring 1.6 cm, previously measuring 1.4 cm. New left-sided pulmonary nodules with a reimbursement representative nodule seen within the left upper lobe seen on series 401 image 106 measuring 6.5 cm. Pleural space: Bilateral pleural effusions. No pneumothorax. Heart: Unremarkable. No cardiomegaly. No significant pericardial effusion. No evidence of RV dysfunction. Bones/joints: Degenerative changes are seen within the spine and shoulders. No acute fracture. No dislocation. Soft tissues: Unremarkable. Lymph nodes: Unremarkable. No enlarged lymph nodes. Adrenals: Increase in size of bilateral adrenal masses. Tubes, lines and devices: Endotracheal tube is in place with the tip terminating above the megan. Enteric tube is in place with the tip terminating within the stomach. IMPRESSION: 1. No pulmonary artery embolism. 2. Right lower lobe pneumonia. 3. Bilateral pleural effusions 4. Increasing size of dominant spiculated nodule seen within the right upper lobe now with new left-sided pulmonary nodules concerning for metastatic disease.
[2024-09-29] MEDS ORDERED: ONDANSETRON 4 MG/2 ML VIAL IVP PRN (06:55)
[2024-09-29] MEDS ORDERED: NALOXONE 0.4 MG/ML 1 ML VIAL IV PRN (06:55)
[2024-09-29] MEDS: PIPERACILLIN-TAZOBACTAM 3.375 GM in SODIUM CHLORIDE 0.9% 100 ML IVPB SCH (07:27)
[2024-09-29] MEDS: VASOPRESSIN 60 UNIT in SODIUM CHLORIDE 0.9% 150 ML IV SCH (07:31)
--- NOTE | 2024-09-29 08:17 | US ---
EXAMINATION TYPE: US venous doppler duplex LE BI DATE OF EXAM: 09/29/2024 8:07 AM COMPARISON: NONE CLINICAL INDICATION: Female, 59 years old with history of eval for dvt; , Pain TECHNIQUE: The lower extremity deep venous system is examined utilizing real time linear array sonog christina with graded compression, color doppler sonography, and spectral doppler. SIDE PERFORMED: Bilateral FINDINGS: VESSELS IMAGED: Common Femoral Vein Deep Femoral Vein Greater Saphenous Vein * Femoral Vein Popliteal Vein Small Saphenous Vein * Proximal Calf Veins (* superficial vessels) Right Leg: Negative for DVT, Color Doppler imaging shows patency of the vessels. Spectral waveforms are within normal limits. Cystic area right popliteal fossa. Left Leg: Negative for DVT, Color Doppler imaging shows patency of the vessels. Spectral waveforms a re within normal limits. Limited visualization due to groin IV placement and extensive swelling. Unable to assess EIV/ CFV and GSV confluence. IMPRESSION: 1. No ultrasound evidence for deep venous thrombosis. 2. Popliteal fossa cyst on the right. [facility], , 09/29/2024 8:15 AM
[2024-09-29] MEDS: LACTULOSE 20 GM/30 ML CUP OG-TUBE SCH (11:05)
[2024-09-29] MEDS: PANTOPRAZOLE 40 MG/10 ML VIAL IVP SCH (11:09)
[2024-09-29] MEDS: ENOXAPARIN 40 MG/0.4 ML SYRINGE SQ SCH (11:09)
[2024-09-29] MEDS: DEXTROSE 5% IN WATER 1,000 ML with SODIUM BICARB (1 MEQ/ML) 150 ML IV SCH (11:49)
[2024-09-29 13:41] LABS: Glucose,Whole Blood 101 mg/dL (70-110)
[2024-09-29 14:46] LABS: Glucose,Whole Blood 120 mg/dL (70-110)
--- NOTE | 2024-09-29 16:27 | P.CNPUL ---
History of Present Illness Consult date: 09/29/24 History of present illness: This is a 59-year-old female patient who is currently intubated on a mechanical ventilator as the patient presented to the ICU with respiratory failure and diminished level of consciousness. The patient is known to have stage IV pulm adenocarcinoma. Initial diagnosis was back in 2021 and at that time, the patient had stage IIIA (T1N2M0) adenocarcinoma of the right lung. PD-L1 is 5% with HER-2 amplification. She started concurrent weekly carboplatin AUC 2/paclitaxel 45 mg/m2 along with daily radiation therapy on 03/01/2022 and comp leted her last cycle of chemotherapy on 04/05/2022 and last day of radiation therapy on 04/07/2022. CT chest and abdomen on 04/18/2022 revealed no evidence of disease progression, but did note consolidative changes in the right lower lobe concerning for radiation pneumonitis versus possible pneumonia. I reviewed CT imaging with Dr. Carrizales of radiation oncology, who agreed changes in the right lower lobe due to radiation. Given her improvement, we discussed proceeding with maintenance durvalumab monthly for 1 year per the PACIFIC trial. She initiated cycle 1 of consolidative durvalumab on 06/16/2022 and most completed cycle 12 on 04/20/2023. Staging CT scans on 11/14/2023 during the [facility] cyber attack noted concern for right lower lobe nodule measuring 1.1 cm x 0.7 cm. Prior staging scans also noted nodule in the right lower lobe. Is was not clear if this was new finding or consistent with prior nodule. PET/CT performed on 12/29/2023 noted to FDG avid lung lesions in the right upper lobe and right middle lobe along with right adrenal gland FDG avidity concerning for metastatic disease. Her case was discussed at [facility] multidisciplinary thoracic tumor on 01/16/2024 further recommendation for biopsy along with systemic treatment and possible SBRT to the 2 lung lesions. She eventually proceeded to have biopsy of the right adrenal gland lesion on 02/19/2024 after further consideration. This did reveal metastatic non-small cell carcinoma that was TTF-1 positive consistent with lung primary. Brain MRI on 03/08/2024 revealed no evidence of intracranial metastases.Staging CT scans performed on 03/14/2024 revealed increased size of the right adrenal gland up to 9.3 cm along with increased size of the right upper lobe lesion at 1.4 cm compared to prior imaging. Cycle 1 of Enhertu given prior HER2 amplification was started on 04/18/2024 and most recently received cycle 7 on 08/27/24. Unfortunately CT scans on 08/30/24, showed disease progression. Enhertu was stopped, and pt was scheduled to follow up with Dr. Joss Diaz on 09/23 to further discuss treatment options. Noted the patient was in the hospital last week and the patient was discharged on 09/27/2024. Patient was admitted for the evaluation of hyponatremia and debility. IV fluids, TSH, cortisol, PT OT consult, fluid restriction, and home salt tabs were ordered. Nephrology and heme-onc consulted. TSH and cortisol we re within normal limits. Patient was notably having low oral intake and encouraged to eat high-protein with protein shake supplementation and ordered Megace. Samsca was given once. Patient's sodium began to improve throughout her hospital stay. Brain CT was ordered by heme-onc for evaluation of possible metastasis showed no acute intracranial process or evidence suggesting of intracranial mass with noted remote lacunar injury. Patient notably complained of flank pain due to an adrenal mass from old imaging and radiology oncology was consulted for palliative radiation. Patient also had notable leukocytosis with concerning urinalysis and reflex urine culture grew pansensitive E. coli and Al calglicen faecalis. Patient was placed on IV antibiotics for 3 days due to no development of urinary symptoms. However patient's leukocytosis continued to increase and was placed back on IV Zosyn for empiric coverage. Infectious disease was consulted. Sputum culture and blood culture was ordered which were both negative. Patient also required 3 units of packed RBC transfusions due to anemia. Iron studies showed elevated ferritin which is consistent with chronic disease. B12 and folate were within normal limits. Patient also noted a mass on right chest. [place] xray showed pleural based density in lateral midlung previously 4 cm now at 5.7cm. PT OT consult was refused by patient and home care was offered but refused by family and patient after further discussion. Patient is cleared for discharge today with Augmentin and Bactrim for 1 week, sodium tabs increased to twice a day, MiraLAX, Dulcolax, megestrol, Percocet and ondansetron oral. Home [place] was discontinued. The patient presented back to the Emergency Department yesterday for altered mentation and ongoing respiratory difficulties. The patient was apparently seen at around 1 AM going to bed normally. Subsequently, the patient was found to be short of breath and lethargic and at time arrival to the emergency, the patient had agonal respiration and based on that, the patient was intubated and placed on a mechanical ventilator. Since arrival, the patient was given a total of 2 L of IV fluids and the patient is currently on lactated Ringer running at 125 cc an hour. The patient is also on pressors, currently on norepinephrine running at 0.28 mcg/kg/min and vasopressin was also started at 0.03 units an hour. The patient is currently on propofol running at 20 mcg/kg/min. The patient is on assist-control mode of mechanical ventilation at rate of 16, tidal volume of 400, FiO2 of 70% with a PEEP of 5. Blood gas showed a pH of 7.25 with a PCO2 of 38 and PO2 of 314. CT of the chest was done and showed no evidence of any pulmonary embolism. There was evidence of bilateral pleural effusion and extensive right lower lobe consolidation highly suspicious for an underlying pneumonia. There was also evidence of metastatic pulmonary nodules, a right upper lobe pulmonary nodule measuring 1.6 cm in size, left-sided pulmonary nodules measuring 6.5 mm in size and the patient had increasing in size of bilateral adrenal masses. CAT scan of the abdomen was also completed and the patient was found to have interval increase in the bilateral adrenal masses, and no other acute intra-abdominal abnormalities. Doppler of the lower extremity was negative for DVT. The current blood work shows a WBC count of 48.5, he moglobin of 7.1 and a platelet count of 381. INR is at 1.5 with a PT of 15.5, D-dimer is at 15.5, sodium is at 130 with a potassium level of 4.2, serum bicarb is at 11, gap of 15, BUN is 15 with a creatinine of 0.6. Lactic acid level was as high as 6.5, dropped down to 4, LFTs are abnormal with an AST of 67, ALT of 27 and a platelet count of 498. Troponins are negative. Viral screen was negative. Alcohol level was also negative. The most recent cultures are from the urine on 09/18/2024 showing E. coli and Alcaligenes. The patient is currently on a combination of Zosyn and vancomycin. Review of Systems ROS unobtainable: due to endotracheal tube Past Medical History Past Medical History: Cancer, COPD, CVA/TIA Additional Past Medical History / Comment(s): COPD, spastic colon, CVA/TIA. LUNG CANCER-RLL NSCLC. History of Any Multi-Drug Resistant Organisms: None Reported Past Surgical History: Section, Tonsillectomy Additional Past Surgical History / Comment(s): L oophorectomy due to cyst Past Anesthesia/Blood Transfusion Reactions: No Reported Reaction Past Psychological History: No Psychological Hx Reported Smoking Status: Current every day smoker Past Alcohol Use History: Unable to Obtain Past Drug Use History: Unable to Obtain - Past Family History Father History Unknown: Yes Family Medical History: No Reported History Additional Family Medical History / Comment(s): at early age from gunshot Mother Family Medical History: Cancer Additional Family Medical History / Comment(s): Mother had some kind of cancer but pt does not know what kind. She at age 65 or 67yrs. Medications and Allergies Home Medications Medication Instructions Recorded Confirmed Type Amoxic-Pot Clav 500-125 mg 1 tab PO Q12HR #14 tab 09/27/24 09/29/24 Rx [Augmentin 500-125 mg] Magnesium Hydroxide [Dulcolax Oral 5 mg PO DAILY PRN #30 ml 09/27/24 09/29/24 Rx Susp] Megestrol [Megace] 400 mg PO DAILY #14 ml 09/27/24 09/29/24 Rx Ondansetron Odt [Zofran ODT] 8 mg PO Q8HR PRN #20 tab 09/27/24 09/29/24 Rx Sodium Chloride Tab 1 gm PO BID #30 tab 09/27/24 09/29/24 Rx Sulfamethox-Tmp 800-160Mg [Bactrim 1 tab PO Q12HR #14 tab 09/27/24 09/29/24 Rx DS 800-160 mg] polyethylene glycoL 3350 [Miralax] 17 gm PO DAILY PRN #7 gm 09/27/24 09/29/24 Rx oxyCODONE-APAP 7.5-325MG [Percocet 1 tab PO Q6HR PRN 09/29/24 09/29/24 History 7.5-325 mg] Allergies Allergy/AdvReac Type Severity Reaction Status Date / Time No Known Allergies Allergy Verified 09/29/24 11:34 Physical Exam Vitals: Vital Signs Temp Pulse Pulse Resp BP BP Pulse Ox 09/29/24 10:00 123 H 19 97 09/29/24 09:55 123 H 19 96 09/29/24 09:50 123 H 19 97 09/29/24 09:45 124 H 16 96 09/29/24 09:40 124 H 16 97 09/29/24 09:35 125 H 17 97 09/29/24 09:30 125 H 17 96 09/29/24 09:25 125 H 17 96 09/29/24 09:20 126 H 17 95 09/29/24 09:15 126 H 19 86/59 96 09/29/24 09:10 126 H 17 82/59 96 09/29/24 09:05 126 H 18 82/59 97 09/29/24 09:00 126 H 16 74/57 97 09/29/24 08:55 126 H 16 91/56 98 09/29/24 08:50 126 H 16 95/55 99 09/29/24 08:45 128 H 16 90/58 100 09/29/24 08:40 129 H 16 90/45 100 09/29/24 08:35 131 H 16 102/64 09/29/24 08:32 09/29/24 08:30 138 H 16 96/51 100 09/29/24 08:25 138 H 16 106/67 100 09/29/24 08:21 138 H 16 106/52 100 09/29/24 08:20 135 H 16 101/80 100 09/29/24 08:15 137 H 16 101/61 100 09/29/24 08:10 131 H 16 94/59 100 09/29/24 08:05 134 H 16 94/63 100 09/29/24 08:00 140 H 16 91/58 100 09/29/24 07:55 134 H 16 92/57 100 09/29/24 07:50 137 H 16 82/51 100 09/29/24 07:45 134 H 16 74/49 100 09/29/24 07:40 131 H 16 82/53 100 09/29/24 07:35 131 H 16 73/47 09/29/24 07:30 130 H 16 73/47 95 09/29/24 07:25 129 H 16 73/48 93 L 09/29/24 07:22 129 H 16 107/47 94 L 09/29/24 07:15 129 H 16 78/38 83 L 09/29/24 07:14 83 L 09/29/24 06:55 129 H 20 76/38 96 09/29/24 06:00 138 H 20 119/51 96 09/29/24 05:56 09/29/24 05:00 146 H 20 99/60 100 09/29/24 04:00 154 H 20 77/53 100 09/29/24 03:56 09/29/24 03:51 28 H 09/29/24 03:45 154 H 20 77/50 100 09/29/24 03:30 154 H 20 76/57 100 09/29/24 03:11 97.5 F L 152 H 24 135/109 90 L FiO2 09/29/24 10:00 09/29/24 09:55 09/29/24 09:50 09/29/24 09:45 09/29/24 09:40 09/29/24 09:35 09/29/24 09:30 09/29/24 09:25 09/29/24 09:20 09/29/24 09:15 09/29/24 09:10 09/29/24 09:05 70 09/29/24 09:00 09/29/24 08:55 09/29/24 08:50 09/29/24 08:45 09/29/24 08:40 09/29/24 08:35 09/29/24 08:32 70 09/29/24 08:30 70 09/29/24 08:25 09/29/24 08:21 09/29/24 08:20 09/29/24 08:15 09/29/24 08:10 09/29/24 08:05 09/29/24 08:00 100 09/29/24 07:55 100 09/29/24 07:50 09/29/24 07:45 09/29/24 07:40 100 09/29/24 07:35 100 09/29/24 07:30 09/29/24 07:25 09/29/24 07:22 09/29/24 07:15 09/29/24 07:14 09/29/24 06:55 60 09/29/24 06:00 60 09/29/24 05:56 60 09/29/24 05:00 100 09/29/24 04:00 100 09/29/24 03:56 100 09/29/24 03:51 09/29/24 03:45 100 09/29/24 03:30 100 09/29/24 03:11 Intake and Output 09/28/24 09/29/24 09/29/24 22:59 06:59 14:59 Intake Total 19.555 29.828 Output Total 250 Balance -230.445 29.828 Intake: Intake, IV Titration 19.555 29.828 Amount Norepinephrine 32 mg In 1.584 10.883 Sodium Chloride 0.9% 218 ml @ 0.03 MCG/KG/MIN 0. 746 mls/hr IV .Q24H MADISYN Rx#:[id number] Norepinephrine 8 mg In 17.971 Sodium Chloride 0.9% 250 ml @ 0.03 MCG/KG/MIN 3. 081 mls/hr IV .Q24H MADISYN Rx#:[id number] propofoL 1,000 mg In 18.945 Empty Bag 1 bag @ 15 MCG/ KG/MIN 4.776 mls/hr IV . [id number] MADISYN Rx#:[id number] Output: Urine 250 Other: Weight 53.07 kg ABP, PAP, CO, CI - Last 8 Hours Arterial Blood Pressure 109/50 Arterial Blood Pressure 112/51 Arterial Blood Pressure 107/49 Arterial Blood Pressure 110/51 Arterial Blood Pressure 108/50 Arterial Blood Pressure 109/51 Arterial Blood Pressure 109/51 Arterial Blood Pressure 105/48 Arterial Blood Pressure 103/48 Arterial Blood Pressure 101/47 Arterial Blood Pressure 101/47 Arterial Blood Pressure 97/45 Arterial Blood Pressure 99/46 Arterial Blood Pressure 98/46 Arterial Blood Pressure 92/44 Arterial Blood Pressure 98/46 Arterial Blood Pressure 97/47 Arterial Blood Pressure 95/47 Arterial Blood Pressure 111/55 Arterial Blood Pressure 109/54 Arterial Blood Pressure 107/53 Arterial Blood Pressure 114/56 Arterial Blood Pressure 100/49 Arterial Blood Pressure 104/51 Arterial Blood Pressure 111/54 Arterial Blood Pressure 100/52 Arterial Blood Pressure 103/51 Arterial Blood Pressure 86/42 Arterial Blood Pressure 81/40 Arterial Blood Pressure 88/42 Arterial Blood Pressure 79/39 Arterial Blood Pressure 79/39 Arterial Blood Pressure 76/38 The patient appeared thin and frail, quite debilitated, currently on propofol, intubated on mechanical ventilator. Orogastric and orotracheal tube are both in place. Head exam is unremarkable. No scleral icterus or corneal arcus noted. Neck is without jugular venous distension, thyromegaly, or carotid bruits. Carotid upstrokes are brisk bilaterally. Lungs are clear to auscultation and percussion. Diminished breath sound bilateral especially in the right lung base Cardiac exam reveals the PMI to be normally sized and situated. Rhythm is regular. First and second heart sounds normal. No murmurs, rubs or gallops. Abdominal exam reveals normal bowel sounds, no masses, no organomegaly and no aortic enlargement. Extremities are nonedematous and both femoral and pedal pulses are diminished in lower extremities bilaterally.. Examination of the skin revealed no evidence of significant rashes, suspicious appearing nevi or other concerning lesions. Neurologically, the patient is sedated, calm and comfortable Results - Laboratory Findings CBC and BMP: 09/29/24 03:46 09/29/24 03:46 ABG ABG pH 7.25 (7.35-7.45) L 09/29/24 04:41 ABG pCO2 38 mmHg (35-45) 09/29/24 04:41 ABG pO2 314 mmHg (83-108) H 09/29/24 04:41 ABG O2 Saturation >100.0 % (94-97) H 09/29/24 04:41 PT/INR, D-dimer PT 15.5 sec (10.0-12.5) H 09/29/24 03:46 INR 1.5 (<1.2) H 09/29/24 03:46 D-Dimer 15.55 mg/L FEU (<0.60) H 09/29/24 03:46 Abnormal lab findings: Abnormal Labs 09/29/24 09/29/24 09/29/24 03:46 03:46 03:46 WBC 48.54 H RBC 2.24 L Hgb 7.1 L Hct 20.5 L Immature Gran # 0.93 H Neutrophils # (Manual) 45.62 H Lymphocytes # (Manual) 0.97 L Monocytes # (Manual) 1.94 H PT 15.5 H INR 1.5 H D-Dimer ABG pH ABG pO2 ABG HCO3 ABG Total CO2 ABG O2 Saturation Sodium 130 L Carbon Dioxide 11 L Plasma Lactic Acid Onesimo Calcium 8.0 L AST 67 H Alkaline Phosphatase 498 H Ammonia Total Protein 4.7 L Albumin 2.2 L Crossmatch 09/29/24 09/29/24 09/29/24 03:46 03:46 03:55 WBC RBC Hgb Hct Immature Gran # Neutrophils # (Manual) Lymphocytes # (Manual) Monocytes # (Manual) PT INR D-Dimer 15.55 H ABG pH ABG pO2 ABG HCO3 ABG Total CO2 ABG O2 Saturation Sodium Carbon Dioxide Plasma Lactic Acid Onesimo 6.5 H* Calcium AST Alkaline Phosphatase Ammonia 34 H Total Protein Albumin Crossmatch See Detail 09/29/24 09/29/24 04:41 08:52 WBC RBC Hgb Hct Immature Gran # Neutrophils # (Manual) Lymphocytes # (Manual) Monocytes # (Manual) PT INR D-Dimer ABG pH 7.25 L ABG pO2 314 H ABG HCO3 17 L ABG Total CO2 18 L ABG O2 Saturation >100.0 H Sodium Carbon Dioxide Plasma Lactic Acid Onesimo 3.7 H* Calcium AST Alkaline Phosphatase Ammonia Total Protein Albumin Crossmatch - Diagnostic Findings Chest x-ray: image reviewed CT scan - chest: image reviewed Assessment and Plan Plan: Septic shock, likely secondary to extensive right lower lobe pneumonia. The patient is currently intubated on a mechanical ventilator. The patient is in shock, hypotensive, received IV fluids and the patient is currently on high-dose pressors including norepinephrine and physiologic dose of vasopressin. Patient was started on a combination of Zosyn and vancomycin. Lines were established. Urine output is diminished, and the patient has severe lactic acidosis. Acute hypoxic respiratory failure secondary to above. Acute lactic acidosis Acute leukocytosis secondary to above Anemia of chronic disease, hemoglobin is at 7.1 Stage IV metastatic lung cancer. Details as discussed above. The patient has developed bilateral adrenal metastases and patient also has bilateral pulmonary nodules consistent with metastatic disease. Transaminitis in the setting of malignancy Malnutrition, secondary to malignancy COPD History of smoking Recent hospitalization for urinary tract infection, treated and the patient was discharged home to be readmitted Plan Continue ventilator support. No changes on the mechanical ventilator suggested. Will gradually wean down FiO2 as tolerated to maintain saturation above 90%. Keep the patient sedated on propofol Change IV fluids from lactated Ringer's to a bicarb infusion to be done at 125 cc an hour, a total of 150 mEq of sodium bicarb. Continue Zosyn Continue vancomycin Continue pressors and the patient is currently on a combination of norepinephrine and vasopressin physiologic dose Monitor urine output Monitor lactic acid levels Lovenox 40 mg subcu for DVT prophylaxis IV Protonix Extremely poor prognosis based on above. Cultures were sent. Will collaborate care with the medical team and oncology. Care is a very poor prognosis. Condition is extremely critical at this point. Time with Patient: Greater than 30
[2024-09-29] MEDS: VANCOMYCIN 1,000 MG in SODIUM CHLORIDE 0.9% 250 ML IVPB SCH (17:14)
[2024-09-29 17:38] LABS: Glucose,Whole Blood 141 mg/dL (70-110)
[2024-09-29] MEDS: CHLORHEXIDINE GLUCONATE 15 ML CUP MUCOUS MEM SCH (20:11)
[2024-09-29] MEDS: FUROSEMIDE 10 MG/ML 10 ML VIAL IV STA (21:44)
--- NOTE | 2024-09-29 22:18 | P.CONS ---
History of Present Illness - Reason for Consult Consult date: 09/29/24 Sepsis Requesting physician: Angelo Mayorga - Chief Complaint Mental status changes decreased level of responsiveness x 1 day - History of Present Illness Patient is a 59-year-old female with a past medical history significant for COPD CVA TIA metastatic lung cancer recent admission to this facility treated for pneumonia and UTI and was just discharged 1 day ago on Monday on oral antibiotics patient has been brought back to the hospital after the patient was found to be not acting normally around 1 AM also noticed to be lethargic and unresponsive with agonal breathing for the patient has been brought into the hospital on arrival to the EMS patient was given Narcan with very minimal improvement however she did become slightly more awake but confused patient was brought into the hospital ended up getting intubated on arrival to the ER patient was afebrile and no fever have been called subsequently patient was tachycardic mildly hypertensive currently on the ventilator 50% FiO2 patient did have a elevated white of 48.54 with a left shift creatinine 0.69 lactic acid elevated AST mildly elevated serum alcohol less than 10 influenza RSV COVID testing negative urine drug screen was not done patient did have a chest x-ray increase in size of the pleural-based lesion versus loculated pleural fluid within the right lung patient did have a abdominal pelvis CT interval increase in size of bilateral adrenal masses inflammatory or infectious enterocolitis right lower lobe pneumonia patient was started on vancomycin and Zosyn infectious disease was consulted for further management of antibiotic therapy most information has been obtained from review of the chart talking to the nursing staff as the patient could not provide any history Review of Systems Positive points has been mentioned in HPI complete review could not be obtained because of his underlying mental status Past Medical History Past Medical History: Cancer, COPD, CVA/TIA Additional Past Medical History / Comment(s): COPD, spastic colon, CVA/TIA. LUNG CANCER-RLL NSCLC. History of Any Multi-Drug Resistant Organisms: None Reported Past Surgical History: Section, Tonsillectomy Additional Past Surgical History / Comment(s): L oophorectomy due to cyst Past Anesthesia/Blood Transfusion Reactions: No Reported Reaction Past Psychological History: No Psychological Hx Reported Smoking Status: Current every day smoker Past Alcohol Use History: Unable to Obtain Past Drug Use History: Unable to Obtain - Past Family History Father History Unknown: Yes Family Medical History: No Reported History Additional Family Medical History / Comment(s): at early age from gunshot Mother Family Medical History: Cancer Additional Family Medical History / Comment(s): Mother had some kind of cancer but pt does not know what kind. She at age 65 or 67yrs. Medications and Allergies Home Medications Medication Instructions Recorded Confirmed Type Amoxic-Pot Clav 500-125 mg 1 tab PO Q12HR #14 tab 09/27/24 09/29/24 Rx [Augmentin 500-125 mg] Magnesium Hydroxide [Dulcolax Oral 5 mg PO DAILY PRN #30 ml 09/27/24 09/29/24 Rx Susp] Megestrol [Megace] 400 mg PO DAILY #14 ml 09/27/24 09/29/24 Rx Ondansetron Odt [Zofran ODT] 8 mg PO Q8HR PRN #20 tab 09/27/24 09/29/24 Rx Sodium Chloride Tab 1 gm PO BID #30 tab 09/27/24 09/29/24 Rx Sulfamethox-Tmp 800-160Mg [Bactrim 1 tab PO Q12HR #14 tab 09/27/24 09/29/24 Rx DS 800-160 mg] polyethylene glycoL 3350 [Miralax] 17 gm PO DAILY PRN #7 gm 09/27/24 09/29/24 Rx oxyCODONE-APAP 7.5-325MG [Percocet 1 tab PO Q6HR PRN 09/29/24 09/29/24 History 7.5-325 mg] Allergies Allergy/AdvReac Type Severity Reaction Status Date / Time No Known Allergies Allergy Verified 09/29/24 11:34 Physical Exam Vitals: Vital Signs Temp Pulse Pulse Resp BP BP Pulse Ox 09/29/24 12:40 96.3 F L 116 H 29 H 96 09/29/24 12:30 117 H 24 97 09/29/24 12:00 96.1 F L 124 H 18 97 09/29/24 11:45 95.9 F L 121 H 27 H 95 09/29/24 11:40 128 H 22 95 09/29/24 11:35 128 H 22 92 L 09/29/24 11:30 126 H 20 95 09/29/24 11:27 09/29/24 11:25 120 H 19 98 09/29/24 11:20 124 H 22 97 09/29/24 11:15 124 H 24 98 09/29/24 11:10 125 H 19 97 09/29/24 11:05 120 H 20 96 09/29/24 11:04 35.6 F L 122 H 18 109/50 09/29/24 11:00 120 H 21 97 09/29/24 10:55 120 H 20 97 09/29/24 10:50 121 H 19 96 09/29/24 10:45 121 H 18 96 09/29/24 10:44 96.1 F L 122 H 19 103/49 96 09/29/24 10:40 122 H 19 95 09/29/24 10:35 125 H 19 96 09/29/24 10:30 96.1 F L 122 H 20 97 09/29/24 10:20 121 H 23 97 09/29/24 10:10 123 H 19 97 09/29/24 10:00 123 H 19 97 09/29/24 09:55 123 H 19 96 09/29/24 09:50 123 H 19 97 09/29/24 09:45 124 H 16 96 09/29/24 09:40 124 H 16 97 09/29/24 09:35 125 H 17 97 09/29/24 09:30 125 H 17 96 09/29/24 09:25 125 H 17 96 09/29/24 09:20 126 H 17 95 09/29/24 09:15 126 H 19 86/59 96 09/29/24 09:10 126 H 17 82/59 96 09/29/24 09:05 126 H 18 82/59 97 09/29/24 09:00 126 H 16 74/57 97 09/29/24 08:55 126 H 16 91/56 98 09/29/24 08:50 126 H 16 95/55 99 09/29/24 08:45 128 H 16 90/58 100 09/29/24 08:40 129 H 16 90/45 100 09/29/24 08:35 131 H 16 102/64 09/29/24 08:32 09/29/24 08:30 138 H 16 96/51 100 09/29/24 08:25 138 H 16 106/67 100 09/29/24 08:21 138 H 16 106/52 100 09/29/24 08:20 135 H 16 101/80 100 09/29/24 08:15 137 H 16 101/61 100 09/29/24 08:10 131 H 16 94/59 100 09/29/24 08:05 134 H 16 94/63 100 09/29/24 08:00 140 H 16 91/58 100 09/29/24 07:55 134 H 16 92/57 100 09/29/24 07:50 137 H 16 82/51 100 09/29/24 07:45 134 H 16 74/49 100 09/29/24 07:40 131 H 16 82/53 100 09/29/24 07:35 131 H 16 73/47 09/29/24 07:30 130 H 16 73/47 95 09/29/24 07:25 129 H 16 73/48 93 L 09/29/24 07:22 129 H 16 107/47 94 L 09/29/24 07:15 129 H 16 78/38 83 L 09/29/24 07:14 83 L 09/29/24 06:55 129 H 20 76/38 96 09/29/24 06:00 138 H 20 119/51 96 09/29/24 05:56 09/29/24 05:00 146 H 20 99/60 100 09/29/24 04:00 154 H 20 77/53 100 09/29/24 03:56 09/29/24 03:51 28 H 09/29/24 03:45 154 H 20 77/50 100 09/29/24 03:30 154 H 20 76/57 100 09/29/24 03:11 97.5 F L 152 H 24 135/109 90 L FiO2 09/29/24 12:40 09/29/24 12:30 09/29/24 12:00 09/29/24 11:45 09/29/24 11:40 09/29/24 11:35 09/29/24 11:30 09/29/24 11:27 50 09/29/24 11:25 70 09/29/24 11:20 09/29/24 11:15 09/29/24 11:10 09/29/24 11:05 09/29/24 11:04 09/29/24 11:00 09/29/24 10:55 09/29/24 10:50 09/29/24 10:45 09/29/24 10:44 09/29/24 10:40 09/29/24 10:35 09/29/24 10:30 09/29/24 10:20 09/29/24 10:10 09/29/24 10:00 09/29/24 09:55 09/29/24 09:50 09/29/24 09:45 09/29/24 09:40 09/29/24 09:35 09/29/24 09:30 09/29/24 09:25 09/29/24 09:20 09/29/24 09:15 09/29/24 09:10 09/29/24 09:05 70 09/29/24 09:00 09/29/24 08:55 09/29/24 08:50 09/29/24 08:45 09/29/24 08:40 09/29/24 08:35 09/29/24 08:32 70 09/29/24 08:30 70 09/29/24 08:25 09/29/24 08:21 09/29/24 08:20 09/29/24 08:15 09/29/24 08:10 09/29/24 08:05 09/29/24 08:00 100 09/29/24 07:55 100 09/29/24 07:50 09/29/24 07:45 09/29/24 07:40 100 09/29/24 07:35 100 09/29/24 07:30 09/29/24 07:25 09/29/24 07:22 09/29/24 07:15 09/29/24 07:14 09/29/24 06:55 60 09/29/24 06:00 60 09/29/24 05:56 60 09/29/24 05:00 100 09/29/24 04:00 100 09/29/24 03:56 100 09/29/24 03:51 09/29/24 03:45 100 09/29/24 03:30 100 09/29/24 03:11 Intake and Output 09/28/24 09/29/24 09/29/24 22:59 06:59 14:59 Intake Total 19.555 375.744 Output Total 250 Balance -230.445 375.744 Intake: Intake, IV Titration 19.555 65.744 Amount Norepinephrine 32 mg In 1.584 20.982 Sodium Chloride 0.9% 218 ml @ 0.03 MCG/KG/MIN 0. 746 mls/hr IV .Q24H [facility] Rx#:[id number] Norepinephrine 8 mg In 17.971 Sodium Chloride 0.9% 250 ml @ 0.03 MCG/KG/MIN 3. 081 mls/hr IV .Q24H [facility] Rx#:[id number] propofoL 1,000 mg In 44.762 Empty Bag 1 bag @ 15 MCG/ KG/MIN 4.776 mls/hr IV . [id number] [facility] Rx#:[id number] Blood Product 310 Rc Irr As1 Unit 310 [id number] Output: Urine 250 Other: Weight 53.07 kg ABP, PAP, CO, CI - Last 8 Hours Arterial Blood Pressure 115/56 Arterial Blood Pressure 110/56 Arterial Blood Pressure 111/55 Arterial Blood Pressure 106/52 Arterial Blood Pressure 119/57 Arterial Blood Pressure 120/56 Arterial Blood Pressure 114/56 Arterial Blood Pressure 105/51 Arterial Blood Pressure 110/53 Arterial Blood Pressure 110/52 Arterial Blood Pressure 112/54 Arterial Blood Pressure 106/52 Arterial Blood Pressure 104/51 Arterial Blood Pressure 100/49 Arterial Blood Pressure 101/49 Arterial Blood Pressure 102/49 Arterial Blood Pressure 103/50 Arterial Blood Pressure 102/50 Arterial Blood Pressure 106/49 Arterial Blood Pressure 103/48 Arterial Blood Pressure 110/51 Arterial Blood Pressure 109/50 Arterial Blood Pressure 112/51 Arterial Blood Pressure 107/49 Arterial Blood Pressure 110/51 Arterial Blood Pressure 108/50 Arterial Blood Pressure 109/51 Arterial Blood Pressure 109/51 Arterial Blood Pressure 105/48 Arterial Blood Pressure 103/48 Arterial Blood Pressure 101/47 Arterial Blood Pressure 101/47 Arterial Blood Pressure 97/45 Arterial Blood Pressure 99/46 Arterial Blood Pressure 98/46 Arterial Blood Pressure 92/44 Arterial Blood Pressure 98/46 Arterial Blood Pressure 97/47 Arterial Blood Pressure 95/47 Arterial Blood Pressure 111/55 Arterial Blood Pressure 109/54 Arterial Blood Pressure 107/53 Arterial Blood Pressure 114/56 Arterial Blood Pressure 100/49 Arterial Blood Pressure 104/51 Arterial Blood Pressure 111/54 Arterial Blood Pressure 100/52 Arterial Blood Pressure 103/51 Arterial Blood Pressure 86/42 Arterial Blood Pressure 81/40 Arterial Blood Pressure 88/42 Arterial Blood Pressure 79/39 Arterial Blood Pressure 79/39 Arterial Blood Pressure 76/38 GENERAL DESCRIPTION: Middle-age female intubated on the vent HEENT: Shows Pallor , no scleral icterus. Oral mucous membrane is dry. NECK: Trachea central, no thyromegaly. LUNGS: Unlabored breathing. Decreased breath sounds at the base HEART: S1, S2, regular rate and rhythm. No loud murmur ABDOMEN: Soft, no tenderness , guarding or rigidity, no organomegaly EXTREMITIES: No edema of feet. SKIN: No rash, no masses palpable. NEUROLOGICAL: The patient is sedated on the vent Results CBC & Chem 7: 09/29/24 03:46 09/29/24 03:46 Labs: Abnormal Lab Results - Last 24 Hours (Table) 09/29/24 09/29/24 09/29/24 Range/Units 03:46 03:46 03:46 WBC 48.54 H (4.50-10.00) 10*3/uL RBC 2.24 L (4.10-5.20) 10*6/uL Hgb 7.1 L (12.0-15.0) g/dL Hct 20.5 L (37.2-46.3) % Immature Gran # 0.93 H (0.00-0.04) 10*3/uL Neutrophils # (Manual) 45.62 H (1.3-7.7) k/uL Lymphocytes # (Manual) 0.97 L (1.0-4.8) k/uL Monocytes # (Manual) 1.94 H (0-1.0) k/uL PT 15.5 H (10.0-12.5) sec INR 1.5 H (<1.2) D-Dimer (<0.60) mg/L FEU ABG pH (7.35-7.45) ABG pO2 (83-108) mmHg ABG HCO3 (21-25) mmol/L ABG Total CO2 (19-24) mmol/L ABG O2 Saturation (94-97) % Sodium 130 L (137-145) mmol/L Carbon Dioxide 11 L (22-30) mmol/L Plasma Lactic Acid Onesimo (0.7-2.0) mmol/L Calcium 8.0 L (8.4-10.2) mg/dL AST 67 H (14-36) U/L Alkaline Phosphatase 498 H (38-126) U/L Ammonia (<30) umol/L Total Protein 4.7 L (6.3-8.2) g/dL Albumin 2.2 L (3.5-5.0) g/dL Crossmatch 09/29/24 09/29/24 09/29/24 Range/Units 03:46 03:46 03:55 WBC (4.50-10.00) 10*3/uL RBC (4.10-5.20) 10*6/uL Hgb (12.0-15.0) g/dL Hct (37.2-46.3) % Immature Gran # (0.00-0.04) 10*3/uL Neutrophils # (Manual) (1.3-7.7) k/uL Lymphocytes # (Manual) (1.0-4.8) k/uL Monocytes # (Manual) (0-1.0) k/uL PT (10.0-12.5) sec INR (<1.2) D-Dimer 15.55 H (<0.60) mg/L FEU ABG pH (7.35-7.45) ABG pO2 (83-108) mmHg ABG HCO3 (21-25) mmol/L ABG Total CO2 (19-24) mmol/L ABG O2 Saturation (94-97) % Sodium (137-145) mmol/L Carbon Dioxide (22-30) mmol/L Plasma Lactic Acid Onesimo 6.5 H* (0.7-2.0) mmol/L Calcium (8.4-10.2) mg/dL AST (14-36) U/L Alkaline Phosphatase (38-126) U/L Ammonia 34 H (<30) umol/L Total Protein (6.3-8.2) g/dL Albumin (3.5-5.0) g/dL Crossmatch See Detail 09/29/24 09/29/24 Range/Units 04:41 08:52 WBC (4.50-10.00) 10*3/uL RBC (4.10-5.20) 10*6/uL Hgb (12.0-15.0) g/dL Hct (37.2-46.3) % Immature Gran # (0.00-0.04) 10*3/uL Neutrophils # (Manual) (1.3-7.7) k/uL Lymphocytes # (Manual) (1.0-4.8) k/uL Monocytes # (Manual) (0-1.0) k/uL PT (10.0-12.5) sec INR (<1.2) D-Dimer (<0.60) mg/L FEU ABG pH 7.25 L (7.35-7.45) ABG pO2 314 H (83-108) mmHg ABG HCO3 17 L (21-25) mmol/L ABG Total CO2 18 L (19-24) mmol/L ABG O2 Saturation >100.0 H (94-97) % Sodium (137-145) mmol/L Carbon Dioxide (22-30) mmol/L Plasma Lactic Acid Onesimo 3.7 H* (0.7-2.0) mmol/L Calcium (8.4-10.2) mg/dL AST (14-36) U/L Alkaline Phosphatase (38-126) U/L Ammonia (<30) umol/L Total Protein (6.3-8.2) g/dL Albumin (3.5-5.0) g/dL Crossmatch Assessment and Plan (1) Pneumonia Current Visit: Yes Status: Acute Code(s): J18.9 - PNEUMONIA, UNSPECIFIED ORGANISM SNOMED Code(s): 365767561 (2) Septic shock Current Visit: Yes Status: Acute Code(s): A41.9 - SEPSIS, UNSPECIFIED ORGANISM; R65.21 - SEVERE SEPSIS WITH SEPTIC SHOCK SNOMED Code(s): 50000226 Plan: 1patient presented to hospital with mental status changes decreased vision noticed and patient reported to have history of metastatic lung cancer and recent discharge from the hospital swelling from the source of sepsis likely pneumonia likely gram-negative gram-positive infection not entirely excluded 2-blood and sputum culture have been obtained results will be followed 3-if the patient noticed to have any diarrhea we will check a stool for C. difficile 4-for now we will empirically treat with vancomycin and Zosyn watching kidney function closely and will narrow down antibiotics on the basis of the cultures Prognosis guarded We will follow on clinical condition and cultures to further adjust medication if needed Thank you for this consultation we will follow the patient along with you Dictation was produced using [employer] dictation software. please excuse any grammatical, word or spelling errors. Time with Patient: Greater than 30
[2024-09-29 23:56] LABS: Glucose,Whole Blood 184 mg/dL (70-110)
[2024-09-30 04:48] LABS: HCT 23.0 % (37.2-46.3); HGB 8.3 g/dL (12.0-15.0); MCH 30.5 pg (27.0-32.0); MCHC 36.1 g/dL (32.0-37.0); Platelet Count 348 10*3/uL (140-440); RBC 2.72 10*6/uL (4.10-5.20); RDW 19.2 % (11.5-14.5)
[2024-09-30 04:54] LABS: MCV 84.6 fL (80.0-97.0); WBC 57.03 10*3/uL (4.50-10.00)
[2024-09-30 05:04] LABS: AST 223 U/L (14-36); African American GFR (CKD) 68 (>60 ml/min/1.73 sqM); Albumin 1.7 g/dL (3.5-5.0); Alkaline Phosphatase 521 U/L (38-126); Anion Gap 14 mmol/L; Blood Urea Nitrogen 16 mg/dL (7-17); Calcium 7.3 mg/dL (8.4-10.2); Carbon Dioxide 18 mmol/L (22-30); Chloride 97 mmol/L (98-107); Glucose 147 mg/dL (74-99); Non-African American GFR(CKD) 59 (>60 ml/min/1.73 sqM); Potassium 3.3 mmol/L (3.5-5.1); Sodium 129 mmol/L (137-145); Total Protein 4.0 g/dL (6.3-8.2)
[2024-09-30 05:10] LABS: ALT 37 U/L (4-34)
--- NOTE | 2024-09-30 06:21 | P.HPIM ---
History of Present Illness This is a pleasant lady with past medical history of stage IV lung cancer who was recently discharged from the hospital Presents because of altered mental status Patient found to be in septic shock secondary to her pneumonia Patient was intubated and placed on mechanical ventilation, She has significant leukocytosis 48,000, hemoglobin 7.1 sodium 130 15.5 pH 7.2. Lactic acid elevated 6.5 at 3.7 Ammonia 34 unremarkable less than 10 CTA of the chest is negative for PE but showed right lower lobe pneumonia, CT of the abdominal pelvis increase bilateral adrenal masses Patient was started on IV fluid antibiotics admitted to the ICU Review of Systems ROS unobtainable: due to endotracheal tube Past Medical History Past Medical History: Cancer, COPD, CVA/TIA Additional Past Medical History / Comment(s): COPD, spastic colon, CVA/TIA. LUNG CANCER-RLL NSCLC. History of Any Multi-Drug Resistant Organisms: None Reported Past Surgical History: Section, Tonsillectomy Additional Past Surgical History / Comment(s): L oophorectomy due to cyst Past Anesthesia/Blood Transfusion Reactions: No Reported Reaction Past Psychological History: No Psychological Hx Reported Smoking Status: Current every day smoker Past Alcohol Use History: Unable to Obtain Past Drug Use History: Unable to Obtain - Past Family History Father History Unknown: Yes Family Medical History: No Reported History Additional Family Medical History / Comment(s): at early age from gunshot Mother Family Medical History: Cancer Additional Family Medical History / Comment(s): Mother had some kind of cancer but pt does not know what kind. She at age 65 or 67yrs. Medications and Allergies Home Medications Medication Instructions Recorded Confirmed Type Amoxic-Pot Clav 500-125 mg 1 tab PO Q12HR #14 tab 09/27/24 09/29/24 Rx [Augmentin 500-125 mg] Magnesium Hydroxide [Dulcolax Oral 5 mg PO DAILY PRN #30 ml 09/27/24 09/29/24 Rx Susp] RX: Megestrol [Megace] 400 mg PO DAILY #14 ml 09/27/24 09/29/24 Rx RX: Ondansetron Odt [Zofran ODT] 8 mg PO Q8HR PRN #20 tab 09/27/24 09/29/24 Rx RX: Sodium Chloride Tab 1 gm PO BID #30 tab 09/27/24 09/29/24 Rx Sulfamethox-Tmp 800-160Mg [Bactrim 1 tab PO Q12HR #14 tab 09/27/24 09/29/24 Rx DS 800-160 mg] polyethylene glycoL 3350 [Miralax] 17 gm PO DAILY PRN #7 gm 09/27/24 09/29/24 Rx RX: oxyCODONE-APAP 7.5-325MG 1 tab PO Q6HR PRN 09/29/24 09/29/24 History [Percocet 7.5-325 mg] Allergies Allergy/AdvReac Type Severity Reaction Status Date / Time No Known Allergies Allergy Verified 09/29/24 11:34 Physical Exam Vitals: Vital Signs Temp Pulse Pulse Resp BP BP Pulse Ox 09/29/24 09:45 124 H 16 96 09/29/24 09:40 124 H 16 97 09/29/24 09:35 125 H 17 97 09/29/24 09:30 125 H 17 96 09/29/24 09:25 125 H 17 96 09/29/24 09:20 126 H 17 95 09/29/24 09:15 126 H 19 86/59 96 09/29/24 09:10 126 H 17 82/59 96 09/29/24 09:05 126 H 18 82/59 97 09/29/24 09:00 126 H 16 74/57 97 09/29/24 08:55 126 H 16 91/56 98 09/29/24 08:50 126 H 16 95/55 99 09/29/24 08:45 128 H 16 90/58 100 09/29/24 08:40 129 H 16 90/45 100 09/29/24 08:35 131 H 16 102/64 09/29/24 08:32 09/29/24 08:30 138 H 16 96/51 100 09/29/24 08:25 138 H 16 106/67 100 09/29/24 08:21 138 H 16 106/52 100 09/29/24 08:20 135 H 16 101/80 100 09/29/24 08:15 137 H 16 101/61 100 09/29/24 08:10 131 H 16 94/59 100 09/29/24 08:05 134 H 16 94/63 100 09/29/24 08:00 140 H 16 91/58 100 09/29/24 07:55 134 H 16 92/57 100 06/29/25 07:50 137 H 16 82/51 100 09/29/24 07:45 134 H 16 74/49 100 09/29/24 07:40 131 H 16 82/53 100 09/29/24 07:35 131 H 16 73/47 09/29/24 07:30 130 H 16 73/47 95 09/29/24 07:25 129 H 16 73/48 93 L 09/29/24 07:22 129 H 16 107/47 94 L 09/29/24 07:15 129 H 16 78/38 83 L 09/29/24 07:14 83 L 09/29/24 06:55 129 H 20 76/38 96 09/29/24 06:00 138 H 20 119/51 96 09/29/24 05:56 09/29/24 05:00 146 H 20 99/60 100 09/29/24 04:00 154 H 20 77/53 100 09/29/24 03:56 09/29/24 03:51 28 H 09/29/24 03:45 154 H 20 77/50 100 09/29/24 03:30 154 H 20 76/57 100 09/29/24 03:11 97.5 F L 152 H 24 135/109 90 L FiO2 09/29/24 09:45 09/29/24 09:40 09/29/24 09:35 09/29/24 09:30 09/29/24 09:25 09/29/24 09:20 09/29/24 09:15 09/29/24 09:10 09/29/24 09:05 70 09/29/24 09:00 09/29/24 08:55 09/29/24 08:50 09/29/24 08:45 09/29/24 08:40 09/29/24 08:35 09/29/24 08:32 70 09/29/24 08:30 70 09/29/24 08:25 09/29/24 08:21 09/29/24 08:20 09/29/24 08:15 09/29/24 08:10 09/29/24 08:05 09/29/24 08:00 100 09/29/24 07:55 100 09/29/24 07:50 09/29/24 07:45 09/29/24 07:40 100 09/29/24 07:35 100 09/29/24 07:30 09/29/24 07:25 09/29/24 07:22 09/29/24 07:15 09/29/24 07:14 09/29/24 06:55 60 09/29/24 06:00 60 09/29/24 05:56 60 09/29/24 05:00 100 09/29/24 04:00 100 09/29/24 03:56 100 09/29/24 03:51 09/29/24 03:45 100 09/29/24 03:30 100 09/29/24 03:11 Intake and Output 09/28/24 09/29/24 09/29/24 22:59 06:59 14:59 Intake Total 19.555 29.828 Output Total 250 Balance -230.445 29.828 Intake: Intake, IV Titration 19.555 29.828 Amount Norepinephrine 32 mg In 1.584 10.883 Sodium Chloride 0.9% 218 ml @ 0.03 MCG/KG/MIN 0. 746 mls/hr IV .Q24H [facility] Rx#:[id number] Norepinephrine 8 mg In 17.971 Sodium Chloride 0.9% 250 ml @ 0.03 MCG/KG/MIN 3. 081 mls/hr IV .Q24H [facility] Rx#:[id number] propofoL 1,000 mg In 18.945 Empty Bag 1 bag @ 15 MCG/ KG/MIN 4.776 mls/hr IV . [id number] [facility] Rx#:[id number] Output: Urine 250 Other: Weight 53.07 kg ABP, PAP, CO, CI - Last 8 Hours Arterial Blood Pressure 110/51 Arterial Blood Pressure 108/50 Arterial Blood Pressure 109/51 Arterial Blood Pressure 109/51 Arterial Blood Pressure 105/48 Arterial Blood Pressure 103/48 Arterial Blood Pressure 101/47 Arterial Blood Pressure 101/47 Arterial Blood Pressure 97/45 Arterial Blood Pressure 99/46 Arterial Blood Pressure 98/46 Arterial Blood Pressure 92/44 Arterial Blood Pressure 98/46 Arterial Blood Pressure 97/47 Arterial Blood Pressure 95/47 Arterial Blood Pressure 111/55 Arterial Blood Pressure 109/54 Arterial Blood Pressure 107/53 Arterial Blood Pressure 114/56 Arterial Blood Pressure 100/49 Arterial Blood Pressure 104/51 Arterial Blood Pressure 111/54 Arterial Blood Pressure 100/52 Arterial Blood Pressure 103/51 Arterial Blood Pressure 86/42 Arterial Blood Pressure 81/40 Arterial Blood Pressure 88/42 Arterial Blood Pressure 79/39 Arterial Blood Pressure 79/39 Arterial Blood Pressure 76/38 -GENERAL: The patient is intubated and sedated HEENT: Pupils are round and equally reacting to light. EOMI. No scleral icterus. No conjunctival pallor. Normocephalic, atraumatic. No pharyngeal erythema. No thyromegaly. CARDIOVASCULAR: S1 and S2 present. No murmurs, rubs, or gallops. PULMONARY: Chest is clear to auscultation, no wheezing , no crackles. ABDOMEN: Soft, nontender, nondistended, normoactive bowel sounds. No palpable organomegaly. MUSCULOSKELETAL: No joint swelling or deformity. EXTREMITIES: No cyanosis, clubbing, or pedal edema. NEUROLOGICAL: Gross neurological examination did not reveal any focal deficits. SKIN: No rashes. no petechiae. Results CBC & Chem 7: 09/30/24 03:56 09/30/24 03:56 Labs: Abnormal Lab Results - Last 24 Hours (Table) 09/29/24 09/29/24 09/29/24 Range/Units 03:46 03:46 03:46 WBC 48.54 H (4.50-10.00) 10*3/uL RBC 2.24 L (4.10-5.20) 10*6/uL Hgb 7.1 L (12.0-15.0) g/dL Hct 20.5 L (37.2-46.3) % Immature Gran # 0.93 H (0.00-0.04) 10*3/uL Neutrophils # (Manual) 45.62 H (1.3-7.7) k/uL Lymphocytes # (Manual) 0.97 L (1.0-4.8) k/uL Monocytes # (Manual) 1.94 H (0-1.0) k/uL PT 15.5 H (10.0-12.5) sec INR 1.5 H (<1.2) D-Dimer (<0.60) mg/L FEU ABG pH (7.35-7.45) ABG pO2 (83-108) mmHg ABG HCO3 (21-25) mmol/L ABG Total CO2 (19-24) mmol/L ABG O2 Saturation (94-97) % Sodium 130 L (137-145) mmol/L Carbon Dioxide 11 L (22-30) mmol/L Plasma Lactic Acid Onesimo (0.7-2.0) mmol/L Calcium 8.0 L (8.4-10.2) mg/dL AST 67 H (14-36) U/L Alkaline Phosphatase 498 H (38-126) U/L Ammonia (<30) umol/L Total Protein 4.7 L (6.3-8.2) g/dL Albumin 2.2 L (3.5-5.0) g/dL Crossmatch 09/29/24 09/29/24 09/29/24 Range/Units 03:46 03:46 03:55 WBC (4.50-10.00) 10*3/uL RBC (4.10-5.20) 10*6/uL Hgb (12.0-15.0) g/dL Hct (37.2-46.3) % Immature Gran # (0.00-0.04) 10*3/uL Neutrophils # (Manual) (1.3-7.7) k/uL Lymphocytes # (Manual) (1.0-4.8) k/uL Monocytes # (Manual) (0-1.0) k/uL PT (10.0-12.5) sec INR (<1.2) D-Dimer 15.55 H (<0.60) mg/L FEU ABG pH (7.35-7.45) ABG pO2 (83-108) mmHg ABG HCO3 (21-25) mmol/L ABG Total CO2 (19-24) mmol/L ABG O2 Saturation (94-97) % Sodium (137-145) mmol/L Carbon Dioxide (22-30) mmol/L Plasma Lactic Acid Onesimo 6.5 H* (0.7-2.0) mmol/L Calcium (8.4-10.2) mg/dL AST (14-36) U/L Alkaline Phosphatase (38-126) U/L Ammonia 34 H (<30) umol/L Total Protein (6.3-8.2) g/dL Albumin (3.5-5.0) g/dL Crossmatch See Detail 09/29/24 09/29/24 Range/Units 04:41 08:52 WBC (4.50-10.00) 10*3/uL RBC (4.10-5.20) 10*6/uL Hgb (12.0-15.0) g/dL Hct (37.2-46.3) % Immature Gran # (0.00-0.04) 10*3/uL Neutrophils # (Manual) (1.3-7.7) k/uL Lymphocytes # (Manual) (1.0-4.8) k/uL Monocytes # (Manual) (0-1.0) k/uL PT (10.0-12.5) sec INR (<1.2) D-Dimer (<0.60) mg/L FEU ABG pH 7.25 L (7.35-7.45) ABG pO2 314 H (83-108) mmHg ABG HCO3 17 L (21-25) mmol/L ABG Total CO2 18 L (19-24) mmol/L ABG O2 Saturation >100.0 H (94-97) % Sodium (137-145) mmol/L Carbon Dioxide (22-30) mmol/L Plasma Lactic Acid Onesimo 3.7 H* (0.7-2.0) mmol/L Calcium (8.4-10.2) mg/dL AST (14-36) U/L Alkaline Phosphatase (38-126) U/L Ammonia (<30) umol/L Total Protein (6.3-8.2) g/dL Albumin (3.5-5.0) g/dL Crossmatch Assessment and Plan Assessment: Severe sepsis/septic shock Right lower lobe pneumonia Stage IV lung cancer Acute hypoxic respiratory failure requiring intubation and mechanical ventilation COPD History of CVA/TIA Plan: Continue with antibiotic Zosyn and IV vancomycin On Ringer lactate 130 mL/h Vasopressor for pulmonary critical care team as needed Continue with intubation and mechanical ventilation Monitor vitals and labs Further recommendation based on the clinical course GI and DVT prophylaxis Prognosis is guarded
[2024-09-30 06:27] LABS: ABG HCO3 20 mmol/L (21-25); ABG PCO2 31 mmHg (35-45); ABG PH 7.42 (7.35-7.45); ABG PO2 112 mmHg (83-108); ABG TCO2 21 mmol/L (19-24); Allen Test Performed? Yes
[2024-09-30 06:31] LABS: Glucose,Whole Blood 186 mg/dL (70-110)
[2024-09-30] MEDS ORDERED: Potassium Replacement Protocol 1 EACH MISC MISCELLANE PRN (06:36)
[2024-09-30] MEDS ORDERED: Magnesium Replacement Protocol 1 EACH MISC MISCELLANE PRN (06:40)
[2024-09-30] MEDS: POTASSIUM BICARBONATE/CIT AC 20 MEQ TABLET.EFF NG-TUBE SCH (06:55)
[2024-09-30] MEDS: MAGNESIUM SULFATE-D5W PMX 1 GM in DEXTROSE/WATER 1 100ML.BAG IVPB SCH (06:57)
--- NOTE | 2024-09-30 07:04 | XR ---
EXAMINATION TYPE: XR chest 1V portable DATE OF EXAM: 09/30/2024 5:49 AM COMPARISON: Chest radiograph 09/29/2024 CLINICAL INDICATION: Female, 59 years old with history of Tube placement; [facility] TECHNIQUE: XR chest 1V portable Frontal and lateral views of the chest. FINDINGS: Lungs/Pleura: Patchy consolidating opacities, most pronounced at the right lung base. There is likely loculated right-sided pleural effusion.r new and/or increasing nodular densities at the left lung ba se measuring up to 25 mm. Additional metastatic nodules appears similar from prior study 08/31/2024. Pulmonary vascularity: Unremarkable. Heart/mediastinum: Cardiomediastinal silhouette is unremarkable. Musculoskeletal: No acute osseous pathology. Other findings: None Endotracheal tube 5.1 cm above the megan. Nasogastric tube in appropriate position. IMPRESSION: 1. Airspace opacities worse in the right lung base correlate for pneumonia/aspiration 2. Appropriate placement of support tubes. [facility], , 09/30/2024 7:02 AM
[2024-09-30 07:14] LABS: Bilirubin,Urine Negative (Negative); Blood,Urine Trace (Negative); Budding Yeast,Urine Occasional /hpf; Color,Urine Yellow; Glucose,Urine (UA) Negative (Negative); Ketones,Urine Negative (Negative); Leukocyte Esterase,Urine Moderate (Negative); Mucus,Urine Rare /hpf; Nitrite,Urine Negative (Negative); PH, Urine 5.0 (5.0-8.0); Protein,Urine Trace (Negative); RBC,Urine 7 /hpf (0-5); Specific Gravity,Urine 1.031 (1.001-1.035); Squamous Epithelial Cell,Urine <1 /hpf (0-4); Urobilinogen,Urine <2.0 mg/dL (<2.0); WBC,Urine 38 /hpf (0-5)
[2024-09-30 07:28] LABS: Phencyclidine Screen,Urine Not Detected (NotDetected); Urn Cannabinoid Scrn Not Detected (NotDetected)
[2024-09-30 07:29] LABS: Barbiturate Screen,Urine Not Detected (NotDetected); Benzodiazepines Screen,Urine Detected (NotDetected); Opiate Screen,Urine Detected (NotDetected); Oxycodone Screen, Urine Detected (NotDetected); Tricyclic Antidepressant,Urine Not Detected (NotDetected)
[2024-09-30 07:56] LABS: Lymphocytes # (M) 1.14 k/uL (1.0-4.8); Monocytes # (M) 0.57 k/uL (0-1.0); Neutrophils # (M) 55.32 k/uL (1.3-7.7); Neutrophils % (M) 97 %; RBC Fragments Present; Total Cells Counted 100
[2024-09-30] MEDS ORDERED: VANCOMYCIN 1,000 MG in SODIUM CHLORIDE 0.9% 250 ML IVPB SCH ×2 (09:15→22:00)
[2024-09-30 11:24] LABS: Glucose,Whole Blood 181 mg/dL (70-110)
[2024-09-30] MEDS: ALBUMIN HUMAN 25% 50 ML in EMPTY BAG 1 BAG IVPB SCH ×2 (11:27→20:25)
[2024-09-30] MEDS: SODIUM CHLORIDE 0.9% 1,000 ML IV ONE (11:30)
--- NOTE | 2024-09-30 11:37 | P.NPCON ---
History of Present Illness - Reason for Consult acute renal failure - History of Present Illness Reason for consultation: Acute kidney injury History of present illness: Patient is a 59-year-old female seen in renal consultation for acute kidney injury. Patient's creatinine on admission was 0.69 and is 1.04 today. Patient has history of lung cancer with metastasis. Patient was found down by her famil y members and was subsequently brought to the hospital by the EMS. Per history in the chart, it was noted that she was possibly down for about 6 hours. Patient was severely hypotensive and has received 4 L of fluids. She is currently maintained on bicarb drip. She also received 60 mg of IV Lasix yesterday with no response in urine output. She is currently intubated. There is concern for aspiration. She is currently maintained on Levophed and vasopressin. Patient does smoke cigarettes. She is on IV antibiotics. I do see Bactrim on her home medication list but is unclear as to if she was taking this or not. Patient also has history of hyponatremia and was taking salt tabs outpatient. Vital signs are stable. On vasopressor support. General: Resting in bed. HEENT: Intubated. LUNGS: Scattered rhonchi. HEART: Rate and Rhythm are regular. ABDOMEN: No distention. EXTREMITITES: 2+ edema. Past Medical History Past Medical History: Cancer, COPD, CVA/TIA Additional Past Medical History / Comment(s): COPD, spastic colon, CVA/TIA. LUNG CANCER-RLL NSCLC. History of Any Multi-Drug Resistant Organisms: None Reported Past Surgical History: Section, Tonsillectomy Additional Past Surgical History / Comment(s): L oophorectomy due to cyst Past Anesthesia/Blood Transfusion Reactions: No Reported Reaction Past Psychological History: No Psychological Hx Reported Smoking Status: Current every day smoker Past Alcohol Use History: Unable to Obtain Past Drug Use History: Unable to Obtain - Past Family History Father History Unknown: Yes Family Medical History: No Reported History Additional Family Medical History / Comment(s): at early age from gunshot Mother Family Medical History: Cancer Additional Family Medical History / Comment(s): Mother had some kind of cancer but pt does not know what kind. She at age 65 or 67yrs. Medications and Allergies Home Medications Medication Instructions Recorded Confirmed Type Amoxic-Pot Clav 500-125 mg 1 tab PO Q12HR #14 tab 06/27/25 06/29/25 Rx [Augmentin 500-125 mg] Magnesium Hydroxide [Dulcolax Oral 5 mg PO DAILY PRN #30 ml 09/27/24 09/29/24 Rx Susp] Megestrol [Megace] 400 mg PO DAILY #14 ml 09/27/24 09/29/24 Rx Ondansetron Odt [Zofran ODT] 8 mg PO Q8HR PRN #20 tab 09/27/24 09/29/24 Rx Sodium Chloride Tab 1 gm PO BID #30 tab 09/27/24 09/29/24 Rx Sulfamethox-Tmp 800-160Mg [Bactrim 1 tab PO Q12HR #14 tab 09/27/24 09/29/24 Rx DS 800-160 mg] polyethylene glycoL 3350 [Miralax] 17 gm PO DAILY PRN #7 gm 09/27/24 09/29/24 Rx oxyCODONE-APAP 7.5-325MG [Percocet 1 tab PO Q6HR PRN 09/29/24 09/29/24 History 7.5-325 mg] Allergies Allergy/AdvReac Type Severity Reaction Status Date / Time No Known Allergies Allergy Verified 09/29/24 11:34 Physical Exam Vitals: Vital Signs Temp Pulse Resp BP Pulse Ox FiO2 09/30/24 10:15 45 09/30/24 10:00 108 H 26 H 100 09/30/24 09:45 110 H 25 H 99 09/30/24 09:30 110 H 21 100 09/30/24 09:15 107 H 21 100 09/30/24 09:00 108 H 20 99 09/30/24 08:45 104 H 20 112/68 100 09/30/24 08:30 103 H 19 111/64 100 09/30/24 08:15 103 H 24 112/61 100 09/30/24 08:10 50 09/30/24 08:00 98.3 F 100 21 110/63 100 50 09/30/24 07:45 102 H 22 111/66 100 09/30/24 07:30 103 H 22 103/66 100 09/30/24 07:15 105 H 22 100 09/30/24 07:00 107 H 22 101/55 100 09/30/24 06:30 108 H 26 H 98 09/30/24 06:15 110 H 23 100 09/30/24 06:00 0 L 23 100 09/30/24 05:45 114 H 29 H 100 09/30/24 05:30 116 H 28 H 99 09/30/24 05:15 116 H 24 100 09/30/24 05:00 113 H 29 H 105/60 100 09/30/24 04:45 115 H 29 H 94/56 100 09/30/24 04:30 117 H 30 H 96/55 100 09/30/24 04:15 115 H 31 H 84/55 99 09/30/24 04:00 99.5 F 116 H 31 H 95/56 99 50 09/30/24 03:55 50 09/30/24 03:45 117 H 30 H 96/53 99 09/30/24 03:30 116 H 30 H 88/63 99 09/30/24 03:17 50 09/30/24 03:15 116 H 30 H 90/53 99 09/30/24 03:00 114 H 30 H 97/59 100 09/30/24 02:45 112 H 29 H 97/59 100 09/30/24 02:30 112 H 29 H 93/61 100 09/30/24 02:15 112 H 26 H 104/64 100 09/30/24 02:00 111 H 28 H 100 09/30/24 01:45 113 H 27 H 100 09/30/24 01:30 112 H 26 H 100 09/30/24 01:15 112 H 29 H 100 09/30/24 01:00 111 H 29 H 100 09/30/24 00:45 112 H 28 H 101/63 100 09/30/24 00:30 110 H 28 H 106/63 100 09/30/24 00:15 110 H 29 H 103/55 100 09/30/24 00:14 50 09/30/24 00:00 99.3 F 109 H 27 H 109/66 100 50 09/29/24 23:52 109 H 28 H 109/66 100 09/29/24 23:45 109 H 28 H 104/59 100 09/29/24 23:40 50 09/29/24 23:30 109 H 27 H 100 09/29/24 23:15 108 H 23 100 09/29/24 23:00 107 H 27 H 100 09/29/24 22:45 106 H 23 100 09/29/24 22:30 106 H 28 H 100 09/29/24 22:15 105 H 24 100 09/29/24 22:00 105 H 24 113/65 100 09/29/24 21:45 104 H 23 117/37 100 09/29/24 21:30 103 H 24 113/69 100 09/29/24 21:15 102 H 19 104/64 100 09/29/24 21:00 101 H 21 106/59 100 09/29/24 20:45 101 H 24 104/63 100 09/29/24 20:30 100 20 118/51 100 09/29/24 20:28 50 09/29/24 20:15 99 20 113/75 100 09/29/24 20:00 101 H 21 100/79 100 50 09/29/24 19:45 97.7 F 102 H 20 117/67 100 50 09/29/24 19:30 105 H 21 106/70 100 09/29/24 19:15 107 H 25 H 102/63 100 09/29/24 19:00 107 H 20 106/63 100 09/29/24 18:45 108 H 26 H 98/72 100 09/29/24 18:30 108 H 22 97/70 100 09/29/24 18:15 108 H 23 98/64 100 09/29/24 18:00 109 H 23 99/64 100 50 09/29/24 17:50 50 09/29/24 17:45 110 H 23 102/59 100 09/29/24 17:30 114 H 28 H 100/63 98 09/29/24 17:15 114 H 28 H 99/65 98 09/29/24 17:00 114 H 28 H 95/66 98 50 09/29/24 16:45 115 H 24 98/63 99 09/29/24 16:30 116 H 28 H 94/68 98 09/29/24 16:00 98.1 F 111 H 27 H 81/57 99 50 09/29/24 15:30 114 H 27 H 90/60 98 09/29/24 15:01 50 09/29/24 15:00 117 H 22 94 L 50 09/29/24 14:00 117 H 27 H 98 09/29/24 13:57 97.2 F L 114 H 26 H 109/54 98 06/29/25 13:30 112 H 26 H 97 09/29/24 13:00 129 H 25 H 101/50 94 L 09/29/24 12:40 96.3 F L 116 H 29 H 96 09/29/24 12:30 117 H 24 97 09/29/24 12:00 96.1 F L 124 H 18 97 09/29/24 11:45 95.9 F L 121 H 27 H 95 09/29/24 11:40 128 H 22 95 09/29/24 11:35 128 H 22 92 L Intake and Output 09/29/24 09/30/24 09/30/24 22:59 06:59 14:59 Intake Total 2195.933 1250.565 996.294 Output Total 130 95 45 Balance 2065.933 1155.565 951.294 Intake: IV 2023 1024 512 0.9 Normal Saline 24 24 12 Dextrose 5% in Water 1, 1000 1000 500 000 ml @ 125 mls/hr IV . Q9H12M [facility] with Sodium Bicarb (1 Meq/ml) 150 ml Rx#:[id number] Lactated Ringers 1,000 ml 1000 @ 999 mls/hr IV .Q1H1M ONE Rx#:[id number] Intake, IV Titration 171.933 226.565 444.294 Amount Magnesium Sulfate-D5w Pmx 200 1 gm In Dextrose/Water 1 100ml.bag @ 100 mls/hr IVPB Q1H [facility] Rx#: [id number] Norepinephrine 32 mg In 85.028 26.565 34.206 Sodium Chloride 0.9% 218 ml @ 0.03 MCG/KG/MIN 0. 746 mls/hr IV .Q24H [facility] Rx#:[id number] Piperacillin-Tazobactam 3 100 .375 gm In Sodium Chloride 0.9% 100 ml @ 25 mls/hr IVPB Q8H [facility] Rx#: [id number] Vasopressin 60 unit In 118.728 Sodium Chloride 0.9% 150 ml @ 0.03 UNITS/MIN 4.59 mls/hr IV .Q24H [facility] Rx#: [id number] propofoL 1,000 mg In 86.905 100.000 91.360 Empty Bag 1 bag @ 15 MCG/ KG/MIN 4.776 mls/hr IV . [id number] [facility] Rx#:[id number] Other 40 Output: Urine 130 95 45 Other: Voiding Method Indwelling Catheter Indwelling Catheter # Bowel Movements 1 Weight 56.6 kg ABP, PAP, CO, CI - Last 8 Hours Arterial Blood Pressure 110/52 Arterial Blood Pressure 104/51 Arterial Blood Pressure 104/51 Arterial Blood Pressure 112/54 Arterial Blood Pressure 112/53 Arterial Blood Pressure 112/54 Arterial Blood Pressure 121/55 Arterial Blood Pressure 121/55 Arterial Blood Pressure 115/52 Arterial Blood Pressure 122/54 Arterial Blood Pressure 118/52 Arterial Blood Pressure 118/53 Arterial Blood Pressure 116/52 Arterial Blood Pressure 110/50 Arterial Blood Pressure 110/51 Arterial Blood Pressure 111/45 Arterial Blood Pressure 110/51 Arterial Blood Pressure 107/51 Arterial Blood Pressure 117/53 Arterial Blood Pressure 110/51 Arterial Blood Pressure 108/52 Arterial Blood Pressure 107/52 Arterial Blood Pressure 99/49 Arterial Blood Pressure 103/51 Arterial Blood Pressure 108/53 Results - Lab Results Most recent lab results ABG pH 7.42 (7.35-7.45) 09/30/24 06:20 ABG pCO2 31 mmHg (35-45) L 09/30/24 06:20 ABG pO2 112 mmHg (83-108) H 09/30/24 06:20 ABG HCO3 20 mmol/L (21-25) L 09/30/24 06:20 ABG O2 Saturation 99.4 % (94-97) H 09/30/24 06:20 Calcium 7.3 mg/dL (8.4-10.2) L 09/30/24 03:56 Magnesium 1.5 mg/dL (1.6-2.3) L 09/30/24 03:56 09/30/24 03:56 09/30/24 03:56 Assessment and Plan Plan: Assessment: 1. Acute kidney injury secondary to ATN secondary to septic shock. Creatinine 1.04 today. Oliguric. 2. Hypokalemia from intracellular shifting from IV bicarb. 3. Metabolic acidosis secondary to acute kidney injury, improving with bicarb d rip. 4. Septic shock maintained on vasopressors. On IV antibiotics. 5. Hyponatremia secondary to acute kidney injury. 6. Hypomagnesemia from poor intake. 7. Lung cancer with metastasis. Plan: Maintain bicarb drip. 25 g IV albumin x 2 doses today. Magnesium replaced. Continue to monitor renal function and urine output. Follow-up cultures. Continue to assess daily for need for renal placement therapy. Prognosis guarded. Thank you for the consultation. I will continue to follow the patient with you during her hospital stay.
--- NOTE | 2024-09-30 14:02 | P.PN ---
Subjective Progress Note Date: 09/30/24 This is a pleasant lady with past medical history of stage IV lung cancer who was recently discharged from the hospital Presents because of altered mental status Patient found to be in septic shock secondary to her pneumonia Patient was intubated and placed on mechanical ventilation, She has significant leukocytosis 48,000, hemoglobin 7.1 sodium 130 15.5 pH 7.2. Lactic acid elevated 6.5 at 3.7 Ammonia 34 unremarkable less than 10 CTA of the chest is negative for PE but showed right lower lobe pneumonia, CT of the abdominal pelvis increase bilateral adrenal masses Patient was started on IV fluid antibiotics admitted to the ICU 09/30. Patient seen examined. Labs reviewed showed WBC of 57.03, hemoglobin 8.3, platelet count 348, sodium 141, potassium 3.3, BUN 16, creatinine 1.04, lactate 7 calcium 7.3, magnesium 1 point REVIEW OF SYSTEMS: Review of system cannot be obtained as patient is intubated PHYSICAL EXAMINATION: GENERAL: The patient is intubated, chronically ill looking HEENT: Pupils are round and equally reacting to light. EOMI. No scleral icterus. No conjunctival pallor. Normocephalic, atraumatic. No pharyngeal erythema. No thyromegaly. CARDIOVASCULAR: S1 and S2 present. No murmurs, rubs, or gallops. PULMONARY: Chest is clear to auscultation, no wheezing or crackles. ABDOMEN: Distended, bowel sounds not audible. No palpable organomegaly. MUSCULOSKELETAL: No joint swelling or deformity. EXTREMITIES: No cyanosis, clubbing, or pedal edema. NEUROLOGICAL: Intubated SKIN: No rashes. Assessment and plan Septic shock Bacterial pneumonia gram-positive gram-negative Acute hypoxemic respiratory failure Lactic acidosis Acute leukocytosis secondary to above Anemia of chronic disease Hyponatremia Hypokalemia Hypomagnesemia Stage IV metastatic lung cancer. Transaminitis in the setting of malignancy Malnutrition, secondary to malignancy COPD History of smoking Recent hospitalization for urinary tract infection, Monitor vital signs Monitor CBC Monitor CMP Continue telemetry monitoring Continue vent management Continue aggressive bronchopulmonary hygiene Follow-up on blood cultures follow-up on urine cultures Currently on Levophed and vasopressin Continue IV Zosyn vancomycin ICU following ID following Consulted hematology oncology Consulted surgery Patient has very poor prognosis. Labs and medication were reviewed.. Continue same treatment. Continue with s ymptomatic treatment. Resume home medication. Monitor labs and vitals. DVT and GI prophylaxis. Further recommendations as per clinical course of the patient Dictation was produced using [employer] dictation software. please excuse any grammatical, word or spelling errors. Objective - Vital Signs Vital signs: Vital Signs Temp 98.3 F 09/30/24 08:00 Pulse 108 H 09/30/24 10:00 Resp 26 H 09/30/24 10:00 BP 112/68 09/30/24 08:45 Pulse Ox 100 09/30/24 10:00 FiO2 45 09/30/24 10:15 Intake & Output 09/29/24 09/30/24 09/30/24 18:59 06:59 18:59 Intake Total 497.240 8283.394 870.728 Output Total 120 105 45 Balance 733.687 0613.394 825.728 Weight 56.6 kg Intake: IV 512 2536 512 0.9 Normal Saline 12 36 12 Dextrose 5% in Water 1, 500 1500 500 000 ml @ 125 mls/hr IV . Q9H12M [facility] with Sodium Bicarb (1 Meq/ml) 150 ml Rx#:[id number] Lactated Ringers 1,000 ml 1000 @ 999 mls/hr IV .Q1H1M ONE Rx#:[id number] Intake, IV Titration 103.188 373.394 318.728 Amount Magnesium Sulfate-D5w Pmx 200 1 gm In Dextrose/Water 1 100ml.bag @ 100 mls/hr IVPB Q1H [facility] Rx#: [id number] Norepinephrine 32 mg In 20.982 111.593 Sodium Chloride 0.9% 218 ml @ 0.03 MCG/KG/MIN 0. 746 mls/hr IV .Q24H [facility] Rx#:[id number] Piperacillin-Tazobactam 3 100 .375 gm In Sodium Chloride 0.9% 100 ml @ 25 mls/hr IVPB Q8H [facility] Rx#: [id number] Vasopressin 60 unit In 118.728 Sodium Chloride 0.9% 150 ml @ 0.03 UNITS/MIN 4.59 mls/hr IV .Q24H [facility] Rx#: [id number] propofoL 1,000 mg In 82.206 161.801 Empty Bag 1 bag @ 15 MCG/ KG/MIN 4.776 mls/hr IV . [id number] [facility] Rx#:[id number] Blood Product 310 Rc Irr As1 Unit 310 [id number] Other 40 Output: Urine 120 105 45 Other: Voiding Method Indwelling Catheter Indwelling Catheter # Bowel Movements 1 ABP, PAP, CO, CI - Last Documented Arterial Blood Pressure 110/52 - Labs CBC & Chem 7: 09/30/24 03:56 09/30/24 03:56 Labs: Abnormal Lab Results - Last 24 Hours (Table) 09/29/24 09/29/24 09/29/24 Range/Units 03:55 05:07 05:07 WBC (4.50-10.00) 10*3/uL RBC (4.10-5.20) 10*6/uL Hgb (12.0-15.0) g/dL Hct (37.2-46.3) % Immature Gran # (0.00-0.04) 10*3/uL Neutrophils # (Manual) (1.3-7.7) k/uL ABG pCO2 (35-45) mmHg ABG pO2 (83-108) mmHg ABG HCO3 (21-25) mmol/L ABG O2 Saturation (94-97) % Sodium (137-145) mmol/L Potassium (3.5-5.1) mmol/L Chloride (98-107) mmol/L Carbon Dioxide (22-30) mmol/L Glucose (74-99) mg/dL POC Glucose (mg/dL) (70-110) mg/dL Plasma Lactic Acid Onesimo (0.7-2.0) mmol/L Calcium (8.4-10.2) mg/dL Magnesium (1.6-2.3) mg/dL AST (14-36) U/L ALT (4-34) U/L Alkaline Phosphatase (38-126) U/L Total Protein (6.3-8.2) g/dL Albumin (3.5-5.0) g/dL Urine Appearance Cloudy H (Clear) Urine Protein Trace H (Negative) Urine Blood Trace H (Negative) Ur Leukocyte Esterase Moderate H (Negative) Urine RBC 7 H (0-5) /hpf Urine WBC 38 H (0-5) /hpf Urine Mucus Rare H (None) /hpf Urine Yeast (Budding) Occasional H (None) /hpf Urine Opiates Screen Detected H (NotDetected) Ur Oxycodone Screen Detected H (NotDetected) U Benzodiazepines Scrn Detected H (NotDetected) Crossmatch See Detail 09/29/24 09/29/24 09/29/24 Range/Units 12:56 14:44 16:23 WBC (4.50-10.00) 10*3/uL RBC (4.10-5.20) 10*6/uL Hgb (12.0-15.0) g/dL Hct (37.2-46.3) % Immature Gran # (0.00-0.04) 10*3/uL Neutrophils # (Manual) (1.3-7.7) k/uL ABG pCO2 (35-45) mmHg ABG pO2 (83-108) mmHg ABG HCO3 (21-25) mmol/L ABG O2 Saturation (94-97) % Sodium (137-145) mmol/L Potassium (3.5-5.1) mmol/L Chloride (98-107) mmol/L Carbon Dioxide (22-30) mmol/L Glucose (74-99) mg/dL POC Glucose (mg/dL) 120 H (70-110) mg/dL Plasma Lactic Acid Onesimo 4.0 H* 4.9 H* (0.7-2.0) mmol/L Calcium (8.4-10.2) mg/dL Magnesium (1.6-2.3) mg/dL AST (14-36) U/L ALT (4-34) U/L Alkaline Phosphatase (38-126) U/L Total Protein (6.3-8.2) g/dL Albumin (3.5-5.0) g/dL Urine Appearance (Clear) Urine Protein (Negative) Urine Blood (Negative) Ur Leukocyte Esterase (Negative) Urine RBC (0-5) /hpf Urine WBC (0-5) /hpf Urine Mucus (None) /hpf Urine Yeast (Budding) (None) /hpf Urine Opiates Screen (NotDetected) Ur Oxycodone Screen (NotDetected) U Benzodiazepines Scrn (NotDetected) Crossmatch 09/29/24 09/29/24 09/29/24 Range/Units 17:37 19:19 22:10 WBC (4.50-10.00) 10*3/uL RBC (4.10-5.20) 10*6/uL Hgb (12.0-15.0) g/dL Hct (37.2-46.3) % Immature Gran # (0.00-0.04) 10*3/uL Neutrophils # (Manual) (1.3-7.7) k/uL ABG pCO2 (35-45) mmHg ABG pO2 (83-108) mmHg ABG HCO3 (21-25) mmol/L ABG O2 Saturation (94-97) % Sodium (137-145) mmol/L Potassium (3.5-5.1) mmol/L Chloride (98-107) mmol/L Carbon Dioxide (22-30) mmol/L Glucose (74-99) mg/dL POC Glucose (mg/dL) 141 H (70-110) mg/dL Plasma Lactic Acid Onesimo 5.0 H* 4.0 H* (0.7-2.0) mmol/L Calcium (8.4-10.2) mg/dL Magnesium (1.6-2.3) mg/dL AST (14-36) U/L ALT (4-34) U/L Alkaline Phosphatase (38-126) U/L Total Protein (6.3-8.2) g/dL Albumin (3.5-5.0) g/dL Urine Appearance (Clear) Urine Protein (Negative) Urine Blood (Negative) Ur Leukocyte Esterase (Negative) Urine RBC (0-5) /hpf Urine WBC (0-5) /hpf Urine Mucus (None) /hpf Urine Yeast (Budding) (None) /hpf Urine Opiates Screen (NotDetected) Ur Oxycodone Screen (NotDetected) U Benzodiazepines Scrn (NotDetected) Crossmatch 09/29/24 09/30/24 09/30/24 Range/Units 23:55 01:42 03:56 WBC 57.03 H* (4.50-10.00) 10*3/uL RBC 2.72 L (4.10-5.20) 10*6/uL Hgb 8.3 L (12.0-15.0) g/dL Hct 23.0 L (37.2-46.3) % Immature Gran # 2.19 H (0.00-0.04) 10*3/uL Neutrophils # (Manual) 55.32 H (1.3-7.7) k/uL ABG pCO2 (35-45) mmHg ABG pO2 (83-108) mmHg ABG HCO3 (21-25) mmol/L ABG O2 Saturation (94-97) % Sodium (137-145) mmol/L Potassium (3.5-5.1) mmol/L Chloride (98-107) mmol/L Carbon Dioxide (22-30) mmol/L Glucose (74-99) mg/dL POC Glucose (mg/dL) 184 H (70-110) mg/dL Plasma Lactic Acid Onesimo 5.7 H* (0.7-2.0) mmol/L Calcium (8.4-10.2) mg/dL Magnesium (1.6-2.3) mg/dL AST (14-36) U/L ALT (4-34) U/L Alkaline Phosphatase (38-126) U/L Total Protein (6.3-8.2) g/dL Albumin (3.5-5.0) g/dL Urine Appearance (Clear) Urine Protein (Negative) Urine Blood (Negative) Ur Leukocyte Esterase (Negative) Urine RBC (0-5) /hpf Urine WBC (0-5) /hpf Urine Mucus (None) /hpf Urine Yeast (Budding) (None) /hpf Urine Opiates Screen (NotDetected) Ur Oxycodone Screen (NotDetected) U Benzodiazepines Scrn (NotDetected) Crossmatch 09/30/24 09/30/24 09/30/24 Range/Units 03:56 03:56 05:31 WBC (4.50-10.00) 10*3/uL RBC (4.10-5.20) 10*6/uL Hgb (12.0-15.0) g/dL Hct (37.2-46.3) % Immature Gran # (0.00-0.04) 10*3/uL Neutrophils # (Manual) (1.3-7.7) k/uL ABG pCO2 (35-45) mmHg ABG pO2 (83-108) mmHg ABG HCO3 (21-25) mmol/L ABG O2 Saturation (94-97) % Sodium 129 L (137-145) mmol/L Potassium 3.3 L (3.5-5.1) mmol/L Chloride 97 L (98-107) mmol/L Carbon Dioxide 18 L (22-30) mmol/L Glucose 147 H (74-99) mg/dL POC Glucose (mg/dL) (70-110) mg/dL Plasma Lactic Acid Onesimo 7.0 H* (0.7-2.0) mmol/L Calcium 7.3 L (8.4-10.2) mg/dL Magnesium 1.5 L (1.6-2.3) mg/dL AST 223 H (14-36) U/L ALT 37 H (4-34) U/L Alkaline Phosphatase 521 H (38-126) U/L Total Protein 4.0 L (6.3-8.2) g/dL Albumin 1.7 L (3.5-5.0) g/dL Urine Appearance (Clear) Urine Protein (Negative) Urine Blood (Negative) Ur Leukocyte Esterase (Negative) Urine RBC (0-5) /hpf Urine WBC (0-5) /hpf Urine Mucus (None) /hpf Urine Yeast (Budding) (None) /hpf Urine Opiates Screen (NotDetected) Ur Oxycodone Screen (NotDetected) U Benzodiazepines Scrn (NotDetected) Crossmatch 09/30/24 09/30/24 Range/Units 06:20 06:30 WBC (4.50-10.00) 10*3/uL RBC (4.10-5.20) 10*6/uL Hgb (12.0-15.0) g/dL Hct (37.2-46.3) % Immature Gran # (0.00-0.04) 10*3/uL Neutrophils # (Manual) (1.3-7.7) k/uL ABG pCO2 31 L (35-45) mmHg ABG pO2 112 H (83-108) mmHg ABG HCO3 20 L (21-25) mmol/L ABG O2 Saturation 99.4 H (94-97) % Sodium (137-145) mmol/L Potassium (3.5-5.1) mmol/L Chloride (98-107) mmol/L Carbon Dioxide (22-30) mmol/L Glucose (74-99) mg/dL POC Glucose (mg/dL) 186 H (70-110) mg/dL Plasma Lactic Acid Onesimo (0.7-2.0) mmol/L Calcium (8.4-10.2) mg/dL Magnesium (1.6-2.3) mg/dL AST (14-36) U/L ALT (4-34) U/L Alkaline Phosphatase (38-126) U/L Total Protein (6.3-8.2) g/dL Albumin (3.5-5.0) g/dL Urine Appearance (Clear) Urine Protein (Negative) Urine Blood (Negative) Ur Leukocyte Esterase (Negative) Urine RBC (0-5) /hpf Urine WBC (0-5) /hpf Urine Mucus (None) /hpf Urine Yeast (Budding) (None) /hpf Urine Opiates Screen (NotDetected) Ur Oxycodone Screen (NotDetected) U Benzodiazepines Scrn (NotDetected) Crossmatch Microbiology - Last 24 Hours (Table) 09/29/24 05:57 Gram Stain - Preliminary Sputum
--- NOTE | 2024-09-30 14:20 | P.PN ---
Subjective Progress Note Date: 09/30/24 Principal diagnosis: Septic shock secondary to pneumonia This is a 59-year-old female patient who is currently intubated on a mechanical ventilator as the patient presented to the ICU with respiratory failure and diminished level of consciousness. The patient is known to have stage IV pulm adenocarcinoma. Initial diagnosis was back in 2021 and at that time, the patient had stage IIIA (T1N2M0) adenocarcinoma of the right lung. PD-L1 is 5% with HER-2 amplification. She started concurrent weekly carboplatin AUC 2/paclitaxel 45 mg/m2 along with daily radiation therapy on 03/01/2022 and completed her last cycle of chemotherapy on 04/05/2022 and last day of radiation therapy on 04/07/2022. CT chest and abdomen on 04/18/2022 revealed no evidence of disease progression, but did note consolidative changes in the right lower lobe concerning for radiation pneumonitis versus possible pneumonia. I reviewed CT imaging with Dr. Carrizales of radiation oncology, who agreed changes in the right lower lobe due to radiation. Given her improvement, we discussed proceeding with maintenance durvalumab monthly for 1 year per the PACIFIC trial. She initiated cycle 1 of consolidative durvalumab on 06/16/2022 and most completed cycle 12 on 04/20/2023. Staging CT scans on 11/14/2023 during the [facility] cyber attack noted concern for right lower lobe nodule measuring 1.1 cm x 0.7 cm. Prior staging scans also noted nodule in the right lower lobe. Is was not clear if this was new finding or consistent with prior nodule. PET/CT performed on 12/29/2023 noted to FDG avid lung lesions in the right upper lobe and right middle lobe along with right adrenal gland FDG avidity concerning for metastatic disease. Her case was discussed at [facility] multidisciplinary thoracic tumor on 01/16/2024 further recommendation for biopsy along with systemic treatment and possible SBRT to the 2 lung lesions. She eventually proceeded to have biopsy of the right adrenal gland lesion on 02/19/2024 after further consideration. This did reveal metastatic non-small cell carcinoma that was TTF-1 positive consistent with lung primary. Brain MRI on 03/08/2024 revealed no evidence of intracranial metastases.Staging CT scans performed on 03/14/2024 revealed increased size of the right adrenal gland up to 9.3 cm along with increased size of the right upper lobe lesion at 1.4 cm compared to prior imaging. Cycle 1 of Enhertu given prior HER2 amplification was started on 04/18/2024 and most recently received cycle 7 on 08/27/24. Unfortunately CT scans on 08/30/24, showed disease progression. Enhertu was stopped, and pt was scheduled to follow up with Dr. Joss Diaz on 09/23 to further discuss treatment options. Noted the patient was in the hospital last week and the patient was discharged on 09/27/2024. Patient was admitted for the evaluation of hyponatremia and debility. IV fluids, TSH, cortisol, PT OT consult, fluid restriction, and home salt tabs were ordered. Nephrology and heme-onc consulted. TSH and cortisol were within normal limits. Patient was notably having low oral intake and encouraged to eat high-protein with protein shake supplementation and ordered Megace. Samsca was given once. Patient's sodium began to improve throughout her hospital stay. Brain CT was ordered by heme-onc for evaluation of possible metastasis showed no acute intracranial process or evidence suggesting of in tracranial mass with noted remote lacunar injury. Patient notably complained of flank pain due to an adrenal mass from old imaging and radiology oncology was consulted for palliative radiation. Patient also had notable leukocytosis with concerning urinalysis and reflex urine culture grew pansensitive E. coli and Alcalglicen faecalis. Patient was placed on IV antibiotics for 3 days due to no development of urinary symptoms. However patient's leukocytosis continued to increase and was placed back on IV Zosyn for empiric coverage. Infectious disease was consulted. Sputum culture and blood culture was ordered which were both negative. Patient also required 3 units of packed RBC transfusions due to anemia. Iron studies showed elevated ferritin which is consistent with chronic disease. B12 and folate were within normal limits. Patient also noted a mass on right chest. [place] xray showed pleural based density in lateral midlung previously 4 cm now at 5.7cm. PT OT consult was refused by patient and home care was offered but refused by family and patient after further discussion. Patient is cleared for discharge today with Augmentin and Bactrim for 1 week, sodium tabs increased to twice a day, MiraLAX, Dulcolax, megestrol, Percocet and ondansetron oral. Home [place] was discontinued. The patient presented back to the Emergency Department yesterday for altered mentation and ongoing respiratory difficulties. The patient was apparently seen at around 1 AM going to bed normally. Subsequently, the patient was found to be short of breath and lethargic and at time arrival to the emergency, the patient had agonal respiration and based on that, the patient was intubated and placed on a mechanical ventilator. Since arrival, the patient was given a total of 2 L of IV fluids and the patient is currently on lactated Ringer running at 125 cc an hour. The patient is also on pressors, currently on norepinephrine running at 0.28 mcg/kg/min and vasopressin was also started at 0.03 units an hour. The patient is currently on propofol running at 20 mcg/kg/min. The patient is on assist-control mode of mechanical ventilation at rate of 16, tidal volume of 400, FiO2 of 70% with a PEEP of 5. Blood gas showed a pH of 7.25 with a PCO2 of 38 and PO2 of 314. CT of the chest was done and showed no evidence of any pulmonary embolism. There was evidence of bilateral pleural effusion and extensive right lower lobe consolidation highly suspicious for an underlying pneumonia. There was also evidence of metastatic pulmonary nodules, a right upper lobe pulmonary nodule measuring 1.6 cm in size, left-sided pulmonary nodules measuring 6.5 mm in size and the patient had increasing in size of bilateral adrenal masses. CAT scan of the abdomen was also completed and the patient was found to have interval increase in the bilateral adrenal masses, and no other acute intra-abdominal abnormalities. Doppler of the lower extremity was negative for DVT. The current blood work shows a WBC count of 48.5, hemoglobin of 7.1 and a platelet count of 381. INR is at 1.5 with a PT of 15.5, D-dimer is at 15.5, sodium is at 130 with a potassium level of 4.2, serum bicarb is at 11, gap of 15, BUN is 15 with a creatinine of 0.6. Lactic acid level was as high as 6.5, dropped down to 4, LFTs are abnormal with an AST of 67, ALT of 27 and a platelet count of 498. Troponins are negative. Viral screen was negative. Alcohol level was also negative. The most recent cultures are from the urine on 09/18/2024 showing E. coli and Alcaligenes. The patient is currently on a combination of Zosyn and vancomycin. Seen today on 09/30/2024, patient remains in the ICU intubated mechanically ventilated, on assist-control rate of 16 tidal volume 400 FiO2 50% but cut down to 45% PEEP of 5 ABG on 50% showed a pO2 of 112 pCO2 31 pH of 7.42. Patient is quite complex she has many multiple medical problems including pneumonia, stage IV lung cancer, she has history of aspiration, history of multiple com orbidities, she is now on mechanical ventilation she is also on propofol 50 mcg/kg/min vasopressin at 0.03 units/min norepinephrine at 0.22 mcg/kg/min she is on vancomycin and Zosyn for presumptive sepsis and pneumonia patient is on enteral feeding, continues to have significantly elevated lactic acid, her urine output is becoming less and less, patient received significant amount of fluids still receiving fluid boluses, she also received 1 dose of Lasix last night, urine output remains poor, and her renal functioning is worsening hence nephrology was consulted. Apparently the patient was found on 09/29 unresponsive and this was at 2 AM apparently she was down for at least 6 hours prior to admission. Patient had multiple admissions to the hospital previously. At any rate patient is not ready for weaning, she is intubated mechanically ventilated, and her overall picture remains extremely poor and guarded. Chest x-ray was reviewed labs were reviewed medications were all reviewed and the patient is being followed by many consultants including infectious disease on the case. Objective - Vital Signs Vital signs: Vital Signs Temp 98.3 F 09/30/24 08:00 Pulse 108 H 09/30/24 10:00 Resp 26 H 09/30/24 10:00 BP 112/68 09/30/24 08:45 Pulse Ox 100 09/30/24 10:00 FiO2 45 09/30/24 11:46 Intake & Output 09/29/24 09/30/24 09/30/24 18:59 06:59 18:59 Intake Total 804.099 6647.394 1024.422 Output Total 120 105 45 Balance 178.248 6493.394 979.422 Weight 56.6 kg Intake: IV 512 2536 512 0.9 Normal Saline 12 36 12 Dextrose 5% in Water 1, 500 1500 500 000 ml @ 125 mls/hr IV . Q9H12M MADISYN with Sodium Bicarb (1 Meq/ml) 150 ml Rx#:[id number] Lactated Ringers 1,000 ml 1000 @ 999 mls/hr IV .Q1H1M ONE Rx#:[id number] Intake, IV Titration 103.188 373.394 472.422 Amount Magnesium Sulfate-D5w Pmx 200 1 gm In Dextrose/Water 1 100ml.bag @ 100 mls/hr IVPB Q1H MADISYN Rx#: [id number] Norepinephrine 32 mg In 20.982 111.593 34.206 Sodium Chloride 0.9% 218 ml @ 0.03 MCG/KG/MIN 0. 746 mls/hr IV .Q24H MADISYN Rx#:[id number] Piperacillin-Tazobactam 3 100 .375 gm In Sodium Chloride 0.9% 100 ml @ 25 mls/hr IVPB Q8H MADISYN Rx#: [id number] Vasopressin 60 unit In 118.728 Sodium Chloride 0.9% 150 ml @ 0.03 UNITS/MIN 4.59 mls/hr IV .Q24H MADISYN Rx#: [id number] propofoL 1,000 mg In 82.206 161.801 119.488 Empty Bag 1 bag @ 15 MCG/ KG/MIN 4.776 mls/hr IV . [id number] MADISYN Rx#:[id number] Blood Product 310 Rc Irr As1 Unit 310 [id number] Other 40 Output: Urine 120 105 45 Other: Voiding Method Indwelling Catheter Indwelling Catheter # Bowel Movements 1 ABP, PAP, CO, CI - Last Documented Arterial Blood Pressure 110/52 - Exam GENERAL: Reveals a 59-year-old female looks frail chronically ill,intubated mechanically ventilated, not in distress. HEENT: Pupils are round and equally reacting to light. EOMI. No scleral icterus. No conjunctival pallor. Normocephalic, atraumatic. No pharyngeal erythema. No thyromegaly. CARDIOVASCULAR: S1 and S2 present. No murmurs, rubs, or gallops. PULMONARY: Crackles at the right base no rhonchi no wheezes ABDOMEN: Slightly distended soft nontender no rebound no guarding MUSCULOSKELETAL: No obvious deformities noted cannot assess range of motion EXTREMITIES: No clubbing edema or cyanosis NEUROLOGICAL: Could not assess intubated sedated Psychiatric: Could not assess. SKIN: No rashes. - Labs CBC & Chem 7: 09/30/24 03:56 06/30/25 03:56 Labs: Abnormal Lab Results - Last 24 Hours (Table) 09/29/24 09/29/24 09/29/24 Range/Units 05:07 05:07 14:44 WBC (4.50-10.00) 10*3/uL RBC (4.10-5.20) 10*6/uL Hgb (12.0-15.0) g/dL Hct (37.2-46.3) % Immature Gran # (0.00-0.04) 10*3/uL Neutrophils # (Manual) (1.3-7.7) k/uL ABG pCO2 (35-45) mmHg ABG pO2 (83-108) mmHg ABG HCO3 (21-25) mmol/L ABG O2 Saturation (94-97) % Sodium (137-145) mmol/L Potassium (3.5-5.1) mmol/L Chloride (98-107) mmol/L Carbon Dioxide (22-30) mmol/L Glucose (74-99) mg/dL POC Glucose (mg/dL) 120 H (70-110) mg/dL Plasma Lactic Acid Onesimo (0.7-2.0) mmol/L Calcium (8.4-10.2) mg/dL Magnesium (1.6-2.3) mg/dL AST (14-36) U/L ALT (4-34) U/L Alkaline Phosphatase (38-126) U/L Total Protein (6.3-8.2) g/dL Albumin (3.5-5.0) g/dL Urine Appearance Cloudy H (Clear) Urine Protein Trace H (Negative) Urine Blood Trace H (Negative) Ur Leukocyte Esterase Moderate H (Negative) Urine RBC 7 H (0-5) /hpf Urine WBC 38 H (0-5) /hpf Urine Mucus Rare H (None) /hpf Urine Yeast (Budding) Occasional H (None) /hpf Urine Opiates Screen Detected H (NotDetected) Ur Oxycodone Screen Detected H (NotDetected) U Benzodiazepines Scrn Detected H (NotDetected) 09/29/24 09/29/24 09/29/24 Range/Units 16:23 17:37 19:19 WBC (4.50-10.00) 10*3/uL RBC (4.10-5.20) 10*6/uL Hgb (12.0-15.0) g/dL Hct (37.2-46.3) % Immature Gran # (0.00-0.04) 10*3/uL Neutrophils # (Manual) (1.3-7.7) k/uL ABG pCO2 (35-45) mmHg ABG pO2 (83-108) mmHg ABG HCO3 (21-25) mmol/L ABG O2 Saturation (94-97) % Sodium (137-145) mmol/L Potassium (3.5-5.1) mmol/L Chloride (98-107) mmol/L Carbon Dioxide (22-30) mmol/L Glucose (74-99) mg/dL POC Glucose (mg/dL) 141 H (70-110) mg/dL Plasma Lactic Acid Onesimo 4.9 H* 5.0 H* (0.7-2.0) mmol/L Calcium (8.4-10.2) mg/dL Magnesium (1.6-2.3) mg/dL AST (14-36) U/L ALT (4-34) U/L Alkaline Phosphatase (38-126) U/L Total Protein (6.3-8.2) g/dL Albumin (3.5-5.0) g/dL Urine Appearance (Clear) Urine Protein (Negative) Urine Blood (Negative) Ur Leukocyte Esterase (Negative) Urine RBC (0-5) /hpf Urine WBC (0-5) /hpf Urine Mucus (None) /hpf Urine Yeast (Budding) (None) /hpf Urine Opiates Screen (NotDetected) Ur Oxycodone Screen (NotDetected) U Benzodiazepines Scrn (NotDetected) 09/29/24 09/29/24 09/30/24 Range/Units 22:10 23:55 01:42 WBC (4.50-10.00) 10*3/uL RBC (4.10-5.20) 10*6/uL Hgb (12.0-15.0) g/dL Hct (37.2-46.3) % Immature Gran # (0.00-0.04) 10*3/uL Neutrophils # (Manual) (1.3-7.7) k/uL ABG pCO2 (35-45) mmHg ABG pO2 (83-108) mmHg ABG HCO3 (21-25) mmol/L ABG O2 Saturation (94-97) % Sodium (137-145) mmol/L Potassium (3.5-5.1) mmol/L Chloride (98-107) mmol/L Carbon Dioxide (22-30) mmol/L Glucose (74-99) mg/dL POC Glucose (mg/dL) 184 H (70-110) mg/dL Plasma Lactic Acid Onesimo 4.0 H* 5.7 H* (0.7-2.0) mmol/L Calcium (8.4-10.2) mg/dL Magnesium (1.6-2.3) mg/dL AST (14-36) U/L ALT (4-34) U/L Alkaline Phosphatase (38-126) U/L Total Protein (6.3-8.2) g/dL Albumin (3.5-5.0) g/dL Urine Appearance (Clear) Urine Protein (Negative) Urine Blood (Negative) Ur Leukocyte Esterase (Negative) Urine RBC (0-5) /hpf Urine WBC (0-5) /hpf Urine Mucus (None) /hpf Urine Yeast (Budding) (None) /hpf Urine Opiates Screen (NotDetected) Ur Oxycodone Screen (NotDetected) U Benzodiazepines Scrn (NotDetected) 09/30/24 09/30/24 09/30/24 Range/Units 03:56 03:56 03:56 WBC 57.03 H* (4.50-10.00) 10*3/uL RBC 2.72 L (4.10-5.20) 10*6/uL Hgb 8.3 L (12.0-15.0) g/dL Hct 23.0 L (37.2-46.3) % Immature Gran # 2.19 H (0.00-0.04) 10*3/uL Neutrophils # (Manual) 55.32 H (1.3-7.7) k/uL ABG pCO2 (35-45) mmHg ABG pO2 (83-108) mmHg ABG HCO3 (21-25) mmol/L ABG O2 Saturation (94-97) % Sodium 129 L (137-145) mmol/L Potassium 3.3 L (3.5-5.1) mmol/L Chloride 97 L (98-107) mmol/L Carbon Dioxide 18 L (22-30) mmol/L Glucose 147 H (74-99) mg/dL POC Glucose (mg/dL) (70-110) mg/dL Plasma Lactic Acid Onesimo (0.7-2.0) mmol/L Calcium 7.3 L (8.4-10.2) mg/dL Magnesium 1.5 L (1.6-2.3) mg/dL AST 223 H (14-36) U/L ALT 37 H (4-34) U/L Alkaline Phosphatase 521 H (38-126) U/L Total Protein 4.0 L (6.3-8.2) g/dL Albumin 1.7 L (3.5-5.0) g/dL Urine Appearance (Clear) Urine Protein (Negative) Urine Blood (Negative) Ur Leukocyte Esterase (Negative) Urine RBC (0-5) /hpf Urine WBC (0-5) /hpf Urine Mucus (None) /hpf Urine Yeast (Budding) (None) /hpf Urine Opiates Screen (NotDetected) Ur Oxycodone Screen (NotDetected) U Benzodiazepines Scrn (NotDetected) 09/30/24 09/30/24 09/30/24 Range/Units 05:31 06:20 06:30 WBC (4.50-10.00) 10*3/uL RBC (4.10-5.20) 10*6/uL Hgb (12.0-15.0) g/dL Hct (37.2-46.3) % Immature Gran # (0.00-0.04) 10*3/uL Neutrophils # (Manual) (1.3-7.7) k/uL ABG pCO2 31 L (35-45) mmHg ABG pO2 112 H (83-108) mmHg ABG HCO3 20 L (21-25) mmol/L ABG O2 Saturation 99.4 H (94-97) % Sodium (137-145) mmol/L Potassium (3.5-5.1) mmol/L Chloride (98-107) mmol/L Carbon Dioxide (22-30) mmol/L Glucose (74-99) mg/dL POC Glucose (mg/dL) 186 H (70-110) mg/dL Plasma Lactic Acid Onesimo 7.0 H* (0.7-2.0) mmol/L Calcium (8.4-10.2) mg/dL Magnesium (1.6-2.3) mg/dL AST (14-36) U/L ALT (4-34) U/L Alkaline Phosphatase (38-126) U/L Total Protein (6.3-8.2) g/dL Albumin (3.5-5.0) g/dL Urine Appearance (Clear) Urine Protein (Negative) Urine Blood (Negative) Ur Leukocyte Esterase (Negative) Urine RBC (0-5) /hpf Urine WBC (0-5) /hpf Urine Mucus (None) /hpf Urine Yeast (Budding) (None) /hpf Urine Opiates Screen (NotDetected) Ur Oxycodone Screen (NotDetected) U Benzodiazepines Scrn (NotDetected) 09/30/24 09/30/24 09/30/24 Range/Units 10:24 11:23 13:00 WBC (4.50-10.00) 10*3/uL RBC (4.10-5.20) 10*6/uL Hgb (12.0-15.0) g/dL Hct (37.2-46.3) % Immature Gran # (0.00-0.04) 10*3/uL Neutrophils # (Manual) (1.3-7.7) k/uL ABG pCO2 (35-45) mmHg ABG pO2 (83-108) mmHg ABG HCO3 (21-25) mmol/L ABG O2 Saturation (94-97) % Sodium (137-145) mmol/L Potassium (3.5-5.1) mmol/L Chloride (98-107) mmol/L Carbon Dioxide (22-30) mmol/L Glucose (74-99) mg/dL POC Glucose (mg/dL) 181 H (70-110) mg/dL Plasma Lactic Acid Onesimo 6.4 H* 7.6 H* (0.7-2.0) mmol/L Calcium (8.4-10.2) mg/dL Magnesium (1.6-2.3) mg/dL AST (14-36) U/L ALT (4-34) U/L Alkaline Phosphatase (38-126) U/L Total Protein (6.3-8.2) g/dL Albumin (3.5-5.0) g/dL Urine Appearance (Clear) Urine Protein (Negative) Urine Blood (Negative) Ur Leukocyte Esterase (Negative) Urine RBC (0-5) /hpf Urine WBC (0-5) /hpf Urine Mucus (None) /hpf Urine Yeast (Budding) (None) /hpf Urine Opiates Screen (NotDetected) Ur Oxycodone Screen (NotDetected) U Benzodiazepines Scrn (NotDetected) Microbiology - Last 24 Hours (Table) 09/29/24 05:05 Blood Culture - Preliminary Blood 09/29/24 05:57 Gram Stain - Preliminary Sputum Sputum Culture - Preliminary Assessment and Plan Assessment: Impression: Acute hypoxic respiratory failure secondary to pneumonia, could be healthcare acquired pneumonia considering her recent hospitalization or could be aspiration pneumonia Septic shock secondary to above Acute lactic acidosis Acute kidney injury Anemia of chronic disease Stage IV metastatic lung cancer Malnutrition secondary to malignancy/severe protein calorie malnutrition History of underlying COPD Tobacco dependence syndrome Recent hospitalization for urinary tract infection Transaminitis in the setting of malignancy/metastatic disease Recommendation: Continue ventilatory support Continue hemodynamic support utilizing norepinephrine and vasopressin Continue IV fluids however considering her renal functioning and poor urine output patient may benefit from gentle diuresis Continue Zosyn and vancomycin Continue nutritional support/enteral feeding Continue to monitor lactic acid Continue GI and DVT prophylaxis/IV Protonix and subcu Lovenox Overall prognostic picture is extremely poor and guarded Patient is critically ill Critical care time is 37 minutes Time with Patient: Greater than 30
[2024-09-30 17:33] LABS: Glucose,Whole Blood 161 mg/dL (70-110)
--- NOTE | 2024-09-30 17:40 | P.GSCN ---
History of Present Illness Consult date: 09/30/24 Reason for Consult: Abdominal distention History of present illness: 59-year-old female with stage IV lung cancer. Patient has metastatic disease to the adrenal glands. Patient has been on palliative chemotherapy. Unfortunately recent study showed progression of her known malignancy. Patient was found by the family recently to be unresponsive. She was brought to the hospital for that reason. Apparently she was complaining of difficulty breathing and back pain. Some abdominal discomfort as well. Patient with significant leukocytosis during this hospital stay. Urinalysis suggested possible urinary infection. Patient was placed on the ventilator because of agonal breathing shortly after arrival. Has been on pressors. CAT scan of the chest abdomen pelvis was performed. CAT scan shows enlargement of the retroperitoneal masses as well as mild wall thickening of the small bowel and colon possibly on the basis of infectious or ischemic enterocolitis. Remains in the ICU today. We were consulted because of the patient's abdominal distention. Stool studies negative. Lactic acid remains significantly elevated. Review of Systems ROS unobtainable: due to endotracheal tube Past Medical History Past Medical History: Cancer, COPD, CVA/TIA Additional Past Medical History / Comment(s): COPD, spastic colon, CVA/TIA. LUNG CANCER-RLL NSCLC. History of Any Multi-Drug Resistant Organisms: None Reported Past Surgical History: Section, Tonsillectomy Additional Past Surgical History / Comment(s): L oophorectomy due to cyst Past Anesthesia/Blood Transfusion Reactions: No Reported Reaction Past Psychological History: No Psychological Hx Reported Smoking Status: Current every day smoker Past Alcohol Use History: Unable to Obtain Past Drug Use History: Unable to Obtain - Past Family History Father History Unknown: Yes Family Medical History: No Reported History Additional Family Medical History / Comment(s): at early age from gunshot Mother Family Medical History: Cancer Additional Family Medical History / Comment(s): Mother had some kind of cancer but pt does not know what kind. She at age 65 or 67yrs. Medications and Allergies Home Medications Medication Instructions Recorded Confirmed Type Amoxic-Pot Clav 500-125 mg 1 tab PO Q12HR #14 tab 09/27/24 09/29/24 Rx [Augmentin 500-125 mg] Magnesium Hydroxide [Dulcolax Oral 5 mg PO DAILY PRN #30 ml 09/27/24 09/29/24 Rx Susp] Megestrol [Megace] 400 mg PO DAILY #14 ml 09/27/24 09/29/24 Rx Ondansetron Odt [Zofran ODT] 8 mg PO Q8HR PRN #20 tab 09/27/24 09/29/24 Rx Sodium Chloride Tab 1 gm PO BID #30 tab 09/27/24 09/29/24 Rx Sulfamethox-Tmp 800-160Mg [Bactrim 1 tab PO Q12HR #14 tab 09/27/24 09/29/24 Rx DS 800-160 mg] polyethylene glycoL 3350 [Miralax] 17 gm PO DAILY PRN #7 gm 09/27/24 09/29/24 Rx oxyCODONE-APAP 7.5-325MG [Percocet 1 tab PO Q6HR PRN 09/29/24 09/29/24 History 7.5-325 mg] Allergies Allergy/AdvReac Type Severity Reaction Status Date / Time No Known Allergies Allergy Verified 09/29/24 11:34 Surgical - Exam Vital Signs Temp Pulse Resp BP Pulse Ox 97.5 F L 152 H 24 135/109 90 L 09/29/24 03:11 09/29/24 03:11 09/29/24 03:11 09/29/24 03:11 09/29/24 03:11 Physical exam: General: Elderly female, appears older than stated age, malnourished appearing and cachectic HEENT: Normocephalic, sclerae nonicteric, intubated Abdomen: Mild distention with firm right upper quadrant, no appreciable tenderness currently Extremities: No edema Neuro: Intubated Results - Labs 09/30/24 03:56 09/30/24 03:56 Abnormal Lab Results - Last 24 Hours (Table) 09/29/24 09/29/24 09/29/24 Range/Units 05:07 05:07 17:37 WBC (4.50-10.00) 10*3/uL RBC (4.10-5.20) 10*6/uL Hgb (12.0-15.0) g/dL Hct (37.2-46.3) % Immature Gran # (0.00-0.04) 10*3/uL Neutrophils # (Manual) (1.3-7.7) k/uL ABG pCO2 (35-45) mmHg ABG pO2 (83-108) mmHg ABG HCO3 (21-25) mmol/L ABG O2 Saturation (94-97) % Sodium (137-145) mmol/L Potassium (3.5-5.1) mmol/L Chloride (98-107) mmol/L Carbon Dioxide (22-30) mmol/L Glucose (74-99) mg/dL POC Glucose (mg/dL) 141 H (70-110) mg/dL Plasma Lactic Acid Onesimo (0.7-2.0) mmol/L Calcium (8.4-10.2) mg/dL Magnesium (1.6-2.3) mg/dL AST (14-36) U/L ALT (4-34) U/L Alkaline Phosphatase (38-126) U/L Total Protein (6.3-8.2) g/dL Albumin (3.5-5.0) g/dL Urine Appearance Cloudy H (Clear) Urine Protein Trace H (Negative) Urine Blood Trace H (Negative) Ur Leukocyte Esterase Moderate H (Negative) Urine RBC 7 H (0-5) /hpf Urine WBC 38 H (0-5) /hpf Urine Mucus Rare H (None) /hpf Urine Yeast (Budding) Occasional H (None) /hpf Urine Opiates Screen Detected H (NotDetected) Ur Oxycodone Screen Detected H (NotDetected) U Benzodiazepines Scrn Detected H (NotDetected) 09/29/24 09/29/24 09/29/24 Range/Units 19:19 22:10 23:55 WBC (4.50-10.00) 10*3/uL RBC (4.10-5.20) 10*6/uL Hgb (12.0-15.0) g/dL Hct (37.2-46.3) % Immature Gran # (0.00-0.04) 10*3/uL Neutrophils # (Manual) (1.3-7.7) k/uL ABG pCO2 (35-45) mmHg ABG pO2 (83-108) mmHg ABG HCO3 (21-25) mmol/L ABG O2 Saturation (94-97) % Sodium (137-145) mmol/L Potassium (3.5-5.1) mmol/L Chloride (98-107) mmol/L Carbon Dioxide (22-30) mmol/L Glucose (74-99) mg/dL POC Glucose (mg/dL) 184 H (70-110) mg/dL Plasma Lactic Acid Onesmio 5.0 H* 4.0 H* (0.7-2.0) mmol/L Calcium (8.4-10.2) mg/dL Magnesium (1.6-2.3) mg/dL AST (14-36) U/L ALT (4-34) U/L Alkaline Phosphatase (38-126) U/L Total Protein (6.3-8.2) g/dL Albumin (3.5-5.0) g/dL Urine Appearance (Clear) Urine Protein (Negative) Urine Blood (Negative) Ur Leukocyte Esterase (Negative) Urine RBC (0-5) /hpf Urine WBC (0-5) /hpf Urine Mucus (None) /hpf Urine Yeast (Budding) (None) /hpf Urine Opiates Screen (NotDetected) Ur Oxycodone Screen (NotDetected) U Benzodiazepines Scrn (NotDetected) 09/30/24 09/30/24 09/30/24 Range/Units 01:42 03:56 03:56 WBC 57.03 H* (4.50-10.00) 10*3/uL RBC 2.72 L (4.10-5.20) 10*6/uL Hgb 8.3 L (12.0-15.0) g/dL Hct 23.0 L (37.2-46.3) % Immature Gran # 2.19 H (0.00-0.04) 10*3/uL Neutrophils # (Manual) 55.32 H (1.3-7.7) k/uL ABG pCO2 (35-45) mmHg ABG pO2 (83-108) mmHg ABG HCO3 (21-25) mmol/L ABG O2 Saturation (94-97) % Sodium 129 L (137-145) mmol/L Potassium 3.3 L (3.5-5.1) mmol/L Chloride 97 L (98-107) mmol/L Carbon Dioxide 18 L (22-30) mmol/L Glucose 147 H (74-99) mg/dL POC Glucose (mg/dL) (70-110) mg/dL Plasma Lactic Acid Onesimo 5.7 H* (0.7-2.0) mmol/L Calcium 7.3 L (8.4-10.2) mg/dL Magnesium (1.6-2.3) mg/dL AST 223 H (14-36) U/L ALT 37 H (4-34) U/L Alkaline Phosphatase 521 H (38-126) U/L Total Protein 4.0 L (6.3-8.2) g/dL Albumin 1.7 L (3.5-5.0) g/dL Urine Appearance (Clear) Urine Protein (Negative) Urine Blood (Negative) Ur Leukocyte Esterase (Negative) Urine RBC (0-5) /hpf Urine WBC (0-5) /hpf Urine Mucus (None) /hpf Urine Yeast (Budding) (None) /hpf Urine Opiates Screen (NotDetected) Ur Oxycodone Screen (NotDetected) U Benzodiazepines Scrn (NotDetected) 09/30/24 09/30/24 09/30/24 Range/Units 03:56 05:31 06:20 WBC (4.50-10.00) 10*3/uL RBC (4.10-5.20) 10*6/uL Hgb (12.0-15.0) g/dL Hct (37.2-46.3) % Immature Gran # (0.00-0.04) 10*3/uL Neutrophils # (Manual) (1.3-7.7) k/uL ABG pCO2 31 L (35-45) mmHg ABG pO2 112 H (83-108) mmHg ABG HCO3 20 L (21-25) mmol/L ABG O2 Saturation 99.4 H (94-97) % Sodium (137-145) mmol/L Potassium (3.5-5.1) mmol/L Chloride (98-107) mmol/L Carbon Dioxide (22-30) mmol/L Glucose (74-99) mg/dL POC Glucose (mg/dL) (70-110) mg/dL Plasma Lactic Acid Onesimo 7.0 H* (0.7-2.0) mmol/L Calcium (8.4-10.2) mg/dL Magnesium 1.5 L (1.6-2.3) mg/dL AST (14-36) U/L ALT (4-34) U/L Alkaline Phosphatase (38-126) U/L Total Protein (6.3-8.2) g/dL Albumin (3.5-5.0) g/dL Urine Appearance (Clear) Urine Protein (Negative) Urine Blood (Negative) Ur Leukocyte Esterase (Negative) Urine RBC (0-5) /hpf Urine WBC (0-5) /hpf Urine Mucus (None) /hpf Urine Yeast (Budding) (None) /hpf Urine Opiates Screen (NotDetected) Ur Oxycodone Screen (NotDetected) U Benzodiazepines Scrn (NotDetected) 09/30/24 09/30/24 09/30/24 Range/Units 06:30 10:24 11:23 WBC (4.50-10.00) 10*3/uL RBC (4.10-5.20) 10*6/uL Hgb (12.0-15.0) g/dL Hct (37.2-46.3) % Immature Gran # (0.00-0.04) 10*3/uL Neutrophils # (Manual) (1.3-7.7) k/uL ABG pCO2 (35-45) mmHg ABG pO2 (83-108) mmHg ABG HCO3 (21-25) mmol/L ABG O2 Saturation (94-97) % Sodium (137-145) mmol/L Potassium (3.5-5.1) mmol/L Chloride (98-107) mmol/L Carbon Dioxide (22-30) mmol/L Glucose (74-99) mg/dL POC Glucose (mg/dL) 186 H 181 H (70-110) mg/dL Plasma Lactic Acid Onesimo 6.4 H* (0.7-2.0) mmol/L Calcium (8.4-10.2) mg/dL Magnesium (1.6-2.3) mg/dL AST (14-36) U/L ALT (4-34) U/L Alkaline Phosphatase (38-126) U/L Total Protein (6.3-8.2) g/dL Albumin (3.5-5.0) g/dL Urine Appearance (Clear) Urine Protein (Negative) Urine Blood (Negative) Ur Leukocyte Esterase (Negative) Urine RBC (0-5) /hpf Urine WBC (0-5) /hpf Urine Mucus (None) /hpf Urine Yeast (Budding) (None) /hpf Urine Opiates Screen (NotDetected) Ur Oxycodone Screen (NotDetected) U Benzodiazepines Scrn (NotDetected) 09/30/24 09/30/24 Range/Units 13:00 17:32 WBC (4.50-10.00) 10*3/uL RBC (4.10-5.20) 10*6/uL Hgb (12.0-15.0) g/dL Hct (37.2-46.3) % Immature Gran # (0.00-0.04) 10*3/uL Neutrophils # (Manual) (1.3-7.7) k/uL ABG pCO2 (35-45) mmHg ABG pO2 (83-108) mmHg ABG HCO3 (21-25) mmol/L ABG O2 Saturation (94-97) % Sodium (137-145) mmol/L Potassium (3.5-5.1) mmol/L Chloride (98-107) mmol/L Carbon Dioxide (22-30) mmol/L Glucose (74-99) mg/dL POC Glucose (mg/dL) 161 H (70-110) mg/dL Plasma Lactic Acid Onesimo 7.6 H* (0.7-2.0) mmol/L Calcium (8.4-10.2) mg/dL Magnesium (1.6-2.3) mg/dL AST (14-36) U/L ALT (4-34) U/L Alkaline Phosphatase (38-126) U/L Total Protein (6.3-8.2) g/dL Albumin (3.5-5.0) g/dL Urine Appearance (Clear) Urine Protein (Negative) Urine Blood (Negative) Ur Leukocyte Esterase (Negative) Urine RBC (0-5) /hpf Urine WBC (0-5) /hpf Urine Mucus (None) /hpf Urine Yeast (Budding) (None) /hpf Urine Opiates Screen (NotDetected) Ur Oxycodone Screen (NotDetected) U Benzodiazepines Scrn (NotDetected) Microbiology - Last 24 Hours (Table) 09/29/24 05:05 Blood Culture - Preliminary Blood 09/29/24 05:57 Gram Stain - Preliminary Sputum Sputum Culture - Preliminary Diabetes panel 09/30/24 Range/Units 03:56 Sodium 129 L (137-145) mmol/L Potassium 3.3 L (3.5-5.1) mmol/L Chloride 97 L (98-107) mmol/L Carbon Dioxide 18 L (22-30) mmol/L BUN 16 (7-17) mg/dL Creatinine 1.04 (0.52-1.04) mg/dL Glucose 147 H (74-99) mg/dL Calcium 7.3 L (8.4-10.2) mg/dL AST 223 H (14-36) U/L ALT 37 H (4-34) U/L Alkaline Phosphatase 521 H (38-126) U/L Total Protein 4.0 L (6.3-8.2) g/dL Albumin 1.7 L (3.5-5.0) g/dL Calcium panel 09/30/24 Range/Units 03:56 Calcium 7.3 L (8.4-10.2) mg/dL Albumin 1.7 L (3.5-5.0) g/dL Pituitary panel 09/30/24 Range/Units 03:56 Sodium 129 L (137-145) mmol/L Potassium 3.3 L (3.5-5.1) mmol/L Chloride 97 L (98-107) mmol/L Carbon Dioxide 18 L (22-30) mmol/L BUN 16 (7-17) mg/dL Creatinine 1.04 (0.52-1.04) mg/dL Glucose 147 H (74-99) mg/dL Calcium 7.3 L (8.4-10.2) mg/dL Adrenal panel 09/30/24 Range/Units 03:56 Sodium 129 L (137-145) mmol/L Potassium 3.3 L (3.5-5.1) mmol/L Chloride 97 L (98-107) mmol/L Carbon Dioxide 18 L (22-30) mmol/L BUN 16 (7-17) mg/dL Creatinine 1.04 (0.52-1.04) mg/dL Glucose 147 H (74-99) mg/dL Calcium 7.3 L (8.4-10.2) mg/dL Total Bilirubin 1.0 (0.2-1.3) mg/dL AST 223 H (14-36) U/L ALT 37 H (4-34) U/L Alkaline Phosphatase 521 H (38-126) U/L Total Protein 4.0 L (6.3-8.2) g/dL Albumin 1.7 L (3.5-5.0) g/dL Assessment and Plan (1) Abdominal pain Narrative/Plan: 59-year-old female with abdominal distention and discomfort. Most of the patient's pain seems to be related to the patient's retroperitoneal metastatic disease. The patient's thickening of the small bowel and colon could be related to ischemic or infectious process. Certainly given the patient's low blood pressure low flow ischemia remains a possibility. No definitive indications for surgical intervention and I do not think the patient would tolerate surgery at this time. This was discussed with the patient's at the bedside. He appears to understand the severity of her illness. Continue aggressive medical management of the patient's sepsis with ventilatory support, as needed pressors, broad-spectrum antibiotics. May start low-dose tube feeds to see how the patient tolerates. Patient's family considering extent of care issues. Continue following lab work. Current Visit: No Status: Acute Code(s): R10.9 - UNSPECIFIED ABDOMINAL PAIN SNOMED Code(s): 76968070
[2024-09-30] MEDS: ASPIRIN 81 MG PO SCH (20:17)
[2024-09-30 23:57] LABS: Glucose,Whole Blood 160 mg/dL (70-110)
[2024-10-01 04:29] LABS: ABG HCO3 25 mmol/L (21-25); ABG PCO2 32 mmHg (35-45); ABG PH 7.50 (7.35-7.45); ABG PO2 85 mmHg (83-108); ABG TCO2 26 mmol/L (19-24); Allen Test Performed? Yes
[2024-10-01 05:19] LABS: MCH 29.9 pg (27.0-32.0); MCHC 35.4 g/dL (32.0-37.0); MCV 84.4 fL (80.0-97.0); Platelet Count 257 10*3/uL (140-440); RBC 2.31 10*6/uL (4.10-5.20); RDW 18.8 % (11.5-14.5); WBC 42.87 10*3/uL (4.50-10.00)
[2024-10-01 05:29] LABS: African American GFR (CKD) 69 (>60 ml/min/1.73 sqM); Anion Gap 15 mmol/L; Blood Urea Nitrogen 17 mg/dL (7-17); Calcium 7.4 mg/dL (8.4-10.2); Carbon Dioxide 24 mmol/L (22-30); Chloride 92 mmol/L (98-107); Glucose 124 mg/dL (74-99); Non-African American GFR(CKD) 60 (>60 ml/min/1.73 sqM); Potassium 3.1 mmol/L (3.5-5.1); Sodium 131 mmol/L (137-145)
--- NOTE | 2024-10-01 05:48 | XR ---
EXAM: XR Chest, 1 View CLINICAL HISTORY: ITS.REASON XR Reason: Tube placement TECHNIQUE: Frontal view of the chest. COMPARISON: X-ray dated 09/30/2024. FINDINGS: Lungs: Stable confluent bilateral lower lobe airspace opacities. Stable pleural-based density seen within the lateral mid to lower lung. Pleural space: Stable right-sided pleural effusion. No pneumothorax. Heart: Unremarkable. No cardiomegaly. Mediastinum: Unremarkable. Normal mediastinal contour. Bones/joints: Unremarkable. No acute fracture. Vasculature: Calcifications overlie the aorta. Tubes, lines and devices: Stable placement of endotracheal tube and enteric tube. IMPRESSION: Stable chest
[2024-10-01 05:50] LABS: HCT 19.5 % (37.2-46.3); HGB 6.9 g/dL (12.0-15.0)
[2024-10-01] MEDS: POTASSIUM BICARBONATE/CIT AC 20 MEQ TABLET.EFF NG-TUBE SCH ×2 (06:16→22:52)
[2024-10-01 06:49] LABS: Glucose,Whole Blood 148 mg/dL (70-110)
[2024-10-01] MEDS: MAGNESIUM SULFATE-D5W PMX 1 GM in DEXTROSE/WATER 1 100ML.BAG IVPB ONE (06:51)
[2024-10-01 07:39] LABS: Eosinophils # (M) 0.43 k/uL (0-0.7); Lymphocytes # (M) 0.43 k/uL (1.0-4.8); Monocytes # (M) 0.43 k/uL (0-1.0); Neutrophils # (M) 41.58 k/uL (1.3-7.7); Neutrophils % (M) 77 %; Target Cells Present; Total Cells Counted 100
--- NOTE | 2024-10-01 09:51 | P.PN ---
Subjective Patient is seen in follow-up for acute kidney injury. Renal function stable. On Levophed and vasopressin. Intubated. Receiving tube feeds. Receiving blood transfusion. Also on IV fluids. Vital signs are stable. On vasopressor support. General: Resting in bed. HEENT: Intubated. LUNGS: No audible rhonchi or wheezes. HEART: Rate and Rhythm are regular. ABDOMEN: No distention. EXTREMITITES: 2+ edema. Objective - Vital Signs Vital signs: Vital Signs Temp 97.9 F 10/01/24 08:17 Pulse 92 10/01/24 08:17 Resp 19 10/01/24 08:17 BP 102/50 10/01/24 08:17 Pulse Ox 100 10/01/24 08:17 FiO2 45 10/01/24 09:32 Intake & Output 09/30/24 10/01/24 10/01/24 18:59 06:59 18:59 Intake Total 3366.231 2496.227 588 Output Total 80 650 75 Balance 3286.231 1846.227 513 Weight 56.6 kg 56 kg Intake: IV 2666 2269 238 0.9 Normal Saline 92 130 10 Albumin Human 25% 50 ml 100 600 In Empty Bag 1 bag @ 50 mls/hr IVPB Q1H MADISYN Rx#: [id number] Dextrose 5% in Water 1, 1250 1500 125 000 ml @ 125 mls/hr IV . Q9H12M MADISYN with Sodium Bicarb (1 Meq/ml) 150 ml Rx#:[id number] Magnesium Sulfate-D5w Pmx 100 100 1 gm In Dextrose/Water 1 100ml.bag @ 100 mls/hr IVPB Q1H MADISYN Rx#: [id number] Piperacillin-Tazobactam 3 100 .375 gm In Sodium Chloride 0.9% 100 ml @ 25 mls/hr IVPB Q8H MADISYN Rx#: [id number] Pressure Bag 24 39 3 Sodium Chloride 0.9% 1, 1000 000 ml @ 999 mls/hr IV . Q1H1M ONE Rx#:[id number] Intake, IV Titration 530.231 97.227 Amount Magnesium Sulfate-D5w Pmx 200 1 gm In Dextrose/Water 1 100ml.bag @ 100 mls/hr IVPB Q1H MADISYN Rx#: [id number] Norepinephrine 32 mg In 76.388 36.723 Sodium Chloride 0.9% 218 ml @ 0.03 MCG/KG/MIN 0. 746 mls/hr IV .Q24H MADISYN Rx#:[id number] Vasopressin 60 unit In 118.728 Sodium Chloride 0.9% 150 ml @ 0.03 UNITS/MIN 4.59 mls/hr IV .Q24H MADISYN Rx#: [id number] propofoL 1,000 mg In 135.115 60.504 Empty Bag 1 bag @ 15 MCG/ KG/MIN 4.776 mls/hr IV . [id number] MADISYN Rx#:[id number] Tube Feeding 40 130 10 Blood Product 310 Unit 0 Other 130 30 Output: Urine 80 650 75 Other: Voiding Method Indwelling Catheter Indwelling Catheter # Bowel Movements 1 1 ABP, PAP, CO, CI - Last Documented Arterial Blood Pressure 100/49 - Labs CBC & Chem 7: 10/01/24 04:30 10/01/24 04:30 Labs: Abnormal Lab Results - Last 24 Hours (Table) 09/29/24 09/30/24 09/30/24 Range/Units 03:55 10:24 11:23 WBC (4.50-10.00) 10*3/uL RBC (4.10-5.20) 10*6/uL Hgb (12.0-15.0) g/dL Hct (37.2-46.3) % Immature Gran # (0.00-0.04) 10*3/uL Neutrophils # (Manual) (1.3-7.7) k/uL Lymphocytes # (Manual) (1.0-4.8) k/uL ABG pH (7.35-7.45) ABG pCO2 (35-45) mmHg ABG Total CO2 (19-24) mmol/L ABG O2 Saturation (94-97) % Hemoglobin (11.4-16.0) gm/dL Sodium (137-145) mmol/L Potassium (3.5-5.1) mmol/L Chloride (98-107) mmol/L Glucose (74-99) mg/dL POC Glucose (mg/dL) 181 H (70-110) mg/dL Plasma Lactic Acid Onesimo 6.4 H* (0.7-2.0) mmol/L Calcium (8.4-10.2) mg/dL Crossmatch See Detail 06/09/30/24 09/30/24 Range/Units 13:00 17:32 23:55 WBC (4.50-10.00) 10*3/uL RBC (4.10-5.20) 10*6/uL Hgb (12.0-15.0) g/dL Hct (37.2-46.3) % Immature Gran # (0.00-0.04) 10*3/uL Neutrophils # (Manual) (1.3-7.7) k/uL Lymphocytes # (Manual) (1.0-4.8) k/uL ABG pH (7.35-7.45) ABG pCO2 (35-45) mmHg ABG Total CO2 (19-24) mmol/L ABG O2 Saturation (94-97) % Hemoglobin (11.4-16.0) gm/dL Sodium (137-145) mmol/L Potassium (3.5-5.1) mmol/L Chloride (98-107) mmol/L Glucose (74-99) mg/dL POC Glucose (mg/dL) 161 H 160 H (70-110) mg/dL Plasma Lactic Acid Onesimo 7.6 H* (0.7-2.0) mmol/L Calcium (8.4-10.2) mg/dL Crossmatch 10/01/24 10/01/24 10/01/24 Range/Units 04:25 04:30 04:30 WBC 42.87 H (4.50-10.00) 10*3/uL RBC 2.31 L (4.10-5.20) 10*6/uL Hgb 6.9 L* (12.0-15.0) g/dL Hct 19.5 L* (37.2-46.3) % Immature Gran # 2.24 H (0.00-0.04) 10*3/uL Neutrophils # (Manual) 41.58 H (1.3-7.7) k/uL Lymphocytes # (Manual) 0.43 L (1.0-4.8) k/uL ABG pH 7.50 H (7.35-7.45) ABG pCO2 32 L (35-45) mmHg ABG Total CO2 26 H (19-24) mmol/L ABG O2 Saturation 97.9 H (94-97) % Hemoglobin 7.2 L (11.4-16.0) gm/dL Sodium 131 L (137-145) mmol/L Potassium 3.1 L (3.5-5.1) mmol/L Chloride 92 L (98-107) mmol/L Glucose 124 H (74-99) mg/dL POC Glucose (mg/dL) (70-110) mg/dL Plasma Lactic Acid Onesimo (0.7-2.0) mmol/L Calcium 7.4 L (8.4-10.2) mg/dL Crossmatch 10/01/24 Range/Units 06:48 WBC (4.50-10.00) 10*3/uL RBC (4.10-5.20) 10*6/uL Hgb (12.0-15.0) g/dL Hct (37.2-46.3) % Immature Gran # (0.00-0.04) 10*3/uL Neutrophils # (Manual) (1.3-7.7) k/uL Lymphocytes # (Manual) (1.0-4.8) k/uL ABG pH (7.35-7.45) ABG pCO2 (35-45) mmHg ABG Total CO2 (19-24) mmol/L ABG O2 Saturation (94-97) % Hemoglobin (11.4-16.0) gm/dL Sodium (137-145) mmol/L Potassium (3.5-5.1) mmol/L Chloride (98-107) mmol/L Glucose (74-99) mg/dL POC Glucose (mg/dL) 148 H (70-110) mg/dL Plasma Lactic Acid Onesimo (0.7-2.0) mmol/L Calcium (8.4-10.2) mg/dL Crossmatch Microbiology - Last 24 Hours (Table) 09/29/24 05:05 Blood Culture - Preliminary Blood 09/29/24 05:57 Gram Stain - Preliminary Sputum Sputum Culture - Preliminary Assessment and Plan Plan: Assessment: 1. Acute kidney injury secondary to ATN secondary to septic shock. Creatinine stable at 1.03 today. Now nonoliguric. 2. Hypokalemia from intracellular shifting from IV bicarb. Replaced. 3. Metabolic acidosis secondary to acute kidney injury, improving with bicarb drip. 4. Septic shock maintained on vasopressors. On IV antibiotics. 5. Hyponatremia secondary to acute kidney injury. Hypervolemic. 6. Hypomagnesemia from poor intake. Replaced. Better. 7. Lung cancer with metastasis. 8. Acute blood loss anemia receiving blood transfusion. Plan: Stop bicarb drip. Lasix 40 mg IV once post blood transfusion. Status post IV albumin given September 30, 2024. Continue to monitor renal function and urine output. Follow-up cultures. Continue to assess daily for need for renal placement therapy. Prognosis guarded.
--- NOTE | 2024-10-01 10:00 | P.PN ---
Subjective Progress Note Date: 09/30/24 Principal diagnosis: Reason for follow-up is sepsis Patient is a 59-year-old female with a past medical history significant for COPD CVA TIA metastatic lung cancer recent admission to this facility treated for pneumonia and UTI has been brought to the hospital the tin ent was found to be unresponsive mental status patient ended up get intubated and admitted to ICU concerning for sepsis/pneumonia/enterocolitis. On today's evaluation that is 09/30/2024, patient has been afebrile, patient remains to be intubated although vent patient FiO2 is currently at 45% no sign ificant purulent secretion through the ET or any other changes reported patient is currently on a pressor support. Patient did have worsening of the white count which is up to 57.03 creatinine 1.04 lactic acid is 7.6 cultures currently pending Objective - Vital Signs Vital signs: Vital Signs Temp 98.3 F 09/30/24 08:00 Pulse 108 H 09/30/24 10:00 Resp 26 H 09/30/24 10:00 BP 112/68 09/30/24 08:45 Pulse Ox 100 09/30/24 10:00 FiO2 45 09/30/24 15:29 Intake & Output 09/29/24 09/30/24 09/30/24 18:59 06:59 18:59 Intake Total 342.451 3325.394 1059.170 Output Total 120 105 45 Balance 455.228 3466.394 1014.170 Weight 56.6 kg 56.6 kg Intake: IV 512 2536 512 0.9 Normal Saline 12 36 12 Dextrose 5% in Water 1, 500 1500 500 000 ml @ 125 mls/hr IV . Q9H12M MADISYN with Sodium Bicarb (1 Meq/ml) 150 ml Rx#:[id number] Lactated Ringers 1,000 ml 1000 @ 999 mls/hr IV .Q1H1M ONE Rx#:[id number] Intake, IV Titration 103.188 373.394 507.170 Amount Magnesium Sulfate-D5w Pmx 200 1 gm In Dextrose/Water 1 100ml.bag @ 100 mls/hr IVPB Q1H MADISYN Rx#: [id number] Norepinephrine 32 mg In 20.982 111.593 65.637 Sodium Chloride 0.9% 218 ml @ 0.03 MCG/KG/MIN 0. 746 mls/hr IV .Q24H MADISYN Rx#:[id number] Piperacillin-Tazobactam 3 100 .375 gm In Sodium Chloride 0.9% 100 ml @ 25 mls/hr IVPB Q8H MADISYN Rx#: [id number] Vasopressin 60 unit In 118.728 Sodium Chloride 0.9% 150 ml @ 0.03 UNITS/MIN 4.59 mls/hr IV .Q24H MADISYN Rx#: [id number] propofoL 1,000 mg In 82.206 161.801 122.805 Empty Bag 1 bag @ 15 MCG/ KG/MIN 4.776 mls/hr IV . [id number] MADISYN Rx#:[id number] Blood Product 310 Rc Irr As1 Unit 310 [id number] Other 40 Output: Urine 120 105 45 Other: Voiding Method Indwelling Catheter Indwelling Catheter # Bowel Movements 1 ABP, PAP, CO, CI - Last Documented Arterial Blood Pressure 110/52 - Exam GENERAL DESCRIPTION: Middle-age female intubated on the vent RESPIRATORY SYSTEM: Unlabored breathing , decreased breath sounds at bases HEART: S1 S2 regular rate and rhythm , ABDOMEN: Distention especially on the right side EXTREMITIES: No edema feet - Labs CBC & Chem 7: 10/01/24 04:30 10/01/24 04:30 Labs: Abnormal Lab Results - Last 24 Hours (Table) 09/29/24 09/29/24 09/29/24 Range/Units 05:07 05:07 16:23 WBC (4.50-10.00) 10*3/uL RBC (4.10-5.20) 10*6/uL Hgb (12.0-15.0) g/dL Hct (37.2-46.3) % Immature Gran # (0.00-0.04) 10*3/uL Neutrophils # (Manual) (1.3-7.7) k/uL ABG pCO2 (35-45) mmHg ABG pO2 (83-108) mmHg ABG HCO3 (21-25) mmol/L ABG O2 Saturation (94-97) % Sodium (137-145) mmol/L Potassium (3.5-5.1) mmol/L Chloride (98-107) mmol/L Carbon Dioxide (22-30) mmol/L Glucose (74-99) mg/dL POC Glucose (mg/dL) (70-110) mg/dL Plasma Lactic Acid Onesimo 4.9 H* (0.7-2.0) mmol/L Calcium (8.4-10.2) mg/dL Magnesium (1.6-2.3) mg/dL AST (14-36) U/L ALT (4-34) U/L Alkaline Phosphatase (38-126) U/L Total Protein (6.3-8.2) g/dL Albumin (3.5-5.0) g/dL Urine Appearance Cloudy H (Clear) Urine Protein Trace H (Negative) Urine Blood Trace H (Negative) Ur Leukocyte Esterase Moderate H (Negative) Urine RBC 7 H (0-5) /hpf Urine WBC 38 H (0-5) /hpf Urine Mucus Rare H (None) /hpf Urine Yeast (Budding) Occasional H (None) /hpf Urine Opiates Screen Detected H (NotDetected) Ur Oxycodone Screen Detected H (NotDetected) U Benzodiazepines Scrn Detected H (NotDetected) 09/29/24 09/29/24 09/29/24 Range/Units 17:37 19:19 22:10 WBC (4.50-10.00) 10*3/uL RBC (4.10-5.20) 10*6/uL Hgb (12.0-15.0) g/dL Hct (37.2-46.3) % Immature Gran # (0.00-0.04) 10*3/uL Neutrophils # (Manual) (1.3-7.7) k/uL ABG pCO2 (35-45) mmHg ABG pO2 (83-108) mmHg ABG HCO3 (21-25) mmol/L ABG O2 Saturation (94-97) % Sodium (137-145) mmol/L Potassium (3.5-5.1) mmol/L Chloride (98-107) mmol/L Carbon Dioxide (22-30) mmol/L Glucose (74-99) mg/dL POC Glucose (mg/dL) 141 H (70-110) mg/dL Plasma Lactic Acid Onesimo 5.0 H* 4.0 H* (0.7-2.0) mmol/L Calcium (8.4-10.2) mg/dL Magnesium (1.6-2.3) mg/dL AST (14-36) U/L ALT (4-34) U/L Alkaline Phosphatase (38-126) U/L Total Protein (6.3-8.2) g/dL Albumin (3.5-5.0) g/dL Urine Appearance (Clear) Urine Protein (Negative) Urine Blood (Negative) Ur Leukocyte Esterase (Negative) Urine RBC (0-5) /hpf Urine WBC (0-5) /hpf Urine Mucus (None) /hpf Urine Yeast (Budding) (None) /hpf Urine Opiates Screen (NotDetected) Ur Oxycodone Screen (NotDetected) U Benzodiazepines Scrn (NotDetected) 09/29/24 09/30/24 09/30/24 Range/Units 23:55 01:42 03:56 WBC 57.03 H* (4.50-10.00) 10*3/uL RBC 2.72 L (4.10-5.20) 10*6/uL Hgb 8.3 L (12.0-15.0) g/dL Hct 23.0 L (37.2-46.3) % Immature Gran # 2.19 H (0.00-0.04) 10*3/uL Neutrophils # (Manual) 55.32 H (1.3-7.7) k/uL ABG pCO2 (35-45) mmHg ABG pO2 (83-108) mmHg ABG HCO3 (21-25) mmol/L ABG O2 Saturation (94-97) % Sodium (137-145) mmol/L Potassium (3.5-5.1) mmol/L Chloride (98-107) mmol/L Carbon Dioxide (22-30) mmol/L Glucose (74-99) mg/dL POC Glucose (mg/dL) 184 H (70-110) mg/dL Plasma Lactic Acid Onesimo 5.7 H* (0.7-2.0) mmol/L Calcium (8.4-10.2) mg/dL Magnesium (1.6-2.3) mg/dL AST (14-36) U/L ALT (4-34) U/L Alkaline Phosphatase (38-126) U/L Total Protein (6.3-8.2) g/dL Albumin (3.5-5.0) g/dL Urine Appearance (Clear) Urine Protein (Negative) Urine Blood (Negative) Ur Leukocyte Esterase (Negative) Urine RBC (0-5) /hpf Urine WBC (0-5) /hpf Urine Mucus (None) /hpf Urine Yeast (Budding) (None) /hpf Urine Opiates Screen (NotDetected) Ur Oxycodone Screen (NotDetected) U Benzodiazepines Scrn (NotDetected) 09/30/24 09/30/24 09/30/24 Range/Units 03:56 03:56 05:31 WBC (4.50-10.00) 10*3/uL RBC (4.10-5.20) 10*6/uL Hgb (12.0-15.0) g/dL Hct (37.2-46.3) % Immature Gran # (0.00-0.04) 10*3/uL Neutrophils # (Manual) (1.3-7.7) k/uL ABG pCO2 (35-45) mmHg ABG pO2 (83-108) mmHg ABG HCO3 (21-25) mmol/L ABG O2 Saturation (94-97) % Sodium 129 L (137-145) mmol/L Potassium 3.3 L (3.5-5.1) mmol/L Chloride 97 L (98-107) mmol/L Carbon Dioxide 18 L (22-30) mmol/L Glucose 147 H (74-99) mg/dL POC Glucose (mg/dL) (70-110) mg/dL Plasma Lactic Acid Onesimo 7.0 H* (0.7-2.0) mmol/L Calcium 7.3 L (8.4-10.2) mg/dL Magnesium 1.5 L (1.6-2.3) mg/dL AST 223 H (14-36) U/L ALT 37 H (4-34) U/L Alkaline Phosphatase 521 H (38-126) U/L Total Protein 4.0 L (6.3-8.2) g/dL Albumin 1.7 L (3.5-5.0) g/dL Urine Appearance (Clear) Urine Protein (Negative) Urine Blood (Negative) Ur Leukocyte Esterase (Negative) Urine RBC (0-5) /hpf Urine WBC (0-5) /hpf Urine Mucus (None) /hpf Urine Yeast (Budding) (None) /hpf Urine Opiates Screen (NotDetected) Ur Oxycodone Screen (NotDetected) U Benzodiazepines Scrn (NotDetected) 09/30/24 09/30/24 09/30/24 Range/Units 06:20 06:30 10:24 WBC (4.50-10.00) 10*3/uL RBC (4.10-5.20) 10*6/uL Hgb (12.0-15.0) g/dL Hct (37.2-46.3) % Immature Gran # (0.00-0.04) 10*3/uL Neutrophils # (Manual) (1.3-7.7) k/uL ABG pCO2 31 L (35-45) mmHg ABG pO2 112 H (83-108) mmHg ABG HCO3 20 L (21-25) mmol/L ABG O2 Saturation 99.4 H (94-97) % Sodium (137-145) mmol/L Potassium (3.5-5.1) mmol/L Chloride (98-107) mmol/L Carbon Dioxide (22-30) mmol/L Glucose (74-99) mg/dL POC Glucose (mg/dL) 186 H (70-110) mg/dL Plasma Lactic Acid Onesimo 6.4 H* (0.7-2.0) mmol/L Calcium (8.4-10.2) mg/dL Magnesium (1.6-2.3) mg/dL AST (14-36) U/L ALT (4-34) U/L Alkaline Phosphatase (38-126) U/L Total Protein (6.3-8.2) g/dL Albumin (3.5-5.0) g/dL Urine Appearance (Clear) Urine Protein (Negative) Urine Blood (Negative) Ur Leukocyte Esterase (Negative) Urine RBC (0-5) /hpf Urine WBC (0-5) /hpf Urine Mucus (None) /hpf Urine Yeast (Budding) (None) /hpf Urine Opiates Screen (NotDetected) Ur Oxycodone Screen (NotDetected) U Benzodiazepines Scrn (NotDetected) 09/30/24 09/30/24 Range/Units 11:23 13:00 WBC (4.50-10.00) 10*3/uL RBC (4.10-5.20) 10*6/uL Hgb (12.0-15.0) g/dL Hct (37.2-46.3) % Immature Gran # (0.00-0.04) 10*3/uL Neutrophils # (Manual) (1.3-7.7) k/uL ABG pCO2 (35-45) mmHg ABG pO2 (83-108) mmHg ABG HCO3 (21-25) mmol/L ABG O2 Saturation (94-97) % Sodium (137-145) mmol/L Potassium (3.5-5.1) mmol/L Chloride (98-107) mmol/L Carbon Dioxide (22-30) mmol/L Glucose (74-99) mg/dL POC Glucose (mg/dL) 181 H (70-110) mg/dL Plasma Lactic Acid Onesimo 7.6 H* (0.7-2.0) mmol/L Calcium (8.4-10.2) mg/dL Magnesium (1.6-2.3) mg/dL AST (14-36) U/L ALT (4-34) U/L Alkaline Phosphatase (38-126) U/L Total Protein (6.3-8.2) g/dL Albumin (3.5-5.0) g/dL Urine Appearance (Clear) Urine Protein (Negative) Urine Blood (Negative) Ur Leukocyte Esterase (Negative) Urine RBC (0-5) /hpf Urine WBC (0-5) /hpf Urine Mucus (None) /hpf Urine Yeast (Budding) (None) /hpf Urine Opiates Screen (NotDetected) Ur Oxycodone Screen (NotDetected) U Benzodiazepines Scrn (NotDetected) Microbiology - Last 24 Hours (Table) 09/29/24 05:05 Blood Culture - Preliminary Blood 09/29/24 05:57 Gram Stain - Preliminary Sputum Sputum Culture - Preliminary Assessment and Plan (1) Pneumonia Current Visit: Yes Status: Acute Code(s): J18.9 - PNEUMONIA, UNSPECIFIED ORGANISM SNOMED Code(s): 156428994 (2) Septic shock Current Visit: Yes Status: Acute Code(s): A41.9 - SEPSIS, UNSPECIFIED ORGANISM; R65.21 - SEVERE SEPSIS WITH SEPTIC SHOCK SNOMED Code(s): 04468072 Plan: 1patient presented to hospital with mental status changes decreased vision noticed and patient reported to have history of metastatic lung cancer and recent discharge from the hospital swelling from the source of sepsis likely pneumonia likely gram-negative gram-positive infection not entirely excluded 2-blood and sputum culture have been obtained which are currently pending 3- patient noticed to have worsening of the white count also noticed to have a significant abnormal distention and induration on the right side concerning for possible abdominal source question of ischemia General Surgery has been consulted we will continue patient on Zosyn discontinue vancomycin to decrease risk of nephrotoxicity prognosis remains to be guarded Dictation was produced using [employer] dictation software. please excuse any grammatical, word or spelling errors. Time with Patient: Less than 30
[2024-10-01] MEDS: SODIUM CHLORIDE 0.9% 1,000 ML IV SCH (11:10)
[2024-10-01 11:46] LABS: Glucose,Whole Blood 155 mg/dL (70-110)
[2024-10-01] MEDS: FUROSEMIDE 10 MG/ML 4 ML VIAL IV STA (13:04)
--- NOTE | 2024-10-01 14:03 | P.PN ---
Subjective Progress Note Date: 10/01/24 Principal diagnosis: Septic shock secondary to pneumonia This is a 59-year-old female patient who is currently intubated on a mechanical ventilator as the patient presented to the ICU with respiratory failure and diminished level of consciousness. The patient is known to have stage IV pulm adenocarcinoma. Initial diagnosis was back in 2021 and at that time, the patient had stage IIIA (T1N2M0) adenocarcinoma of the right lung. PD-L1 is 5% with HER-2 amplification. She started concurrent weekly carboplatin AUC 2/paclitaxel 45 mg/m2 along with daily radiation therapy on 03/01/2022 and completed her last cycle of chemotherapy on 04/05/2022 and last day of radiation therapy on 04/07/2022. CT chest and abdomen on 04/18/2022 revealed no evidence of disease progression, but did note consolidative changes in the right lower lobe concerning for radiation pneumonitis versus possible pneumonia. I reviewed CT imaging with Dr. Carrizales of radiation oncology, who agreed changes in the right lower lobe due to radiation. Given her improvement, we discussed proceeding with maintenance durvalumab monthly for 1 year per the PACIFIC trial. She initiated cycle 1 of consolidative durvalumab on 06/16/2022 and most completed cycle 12 on 04/20/2023. Staging CT scans on 11/14/2023 during the [facility] cyber attack noted concern for right lower lobe nodule measuring 1.1 cm x 0.7 cm. Prior staging scans also noted nodule in the right lower lobe. Is was not clear if this was new finding or consistent with prior nodule. PET/CT performed on 12/29/2023 noted to FDG avid lung lesions in the right upper lobe and right middle lobe along with right adrenal gland FDG avidity concerning for metastatic disease. Her case was discussed at [facility] multidisciplinary thoracic tumor on 01/16/2024 further recommendation for biopsy along with systemic treatment and possible SBRT to the 2 lung lesions. She eventually proceeded to have biopsy of the right adrenal gland lesion on 02/19/2024 after further consideration. This did reveal metastatic non-small cell carcinoma that was TTF-1 positive consistent with lung primary. Brain MRI on 03/08/2024 revealed no evidence of intracranial metastases.Staging CT scans performed on 03/14/2024 revealed increased size of the right adrenal gland up to 9.3 cm along with increased size of the right upper lobe lesion at 1.4 cm compared to prior imaging. Cycle 1 of Enhertu given prior HER2 amplification was started on 04/18/2024 and most recently received cycle 7 on 08/27/24. Unfortunately CT scans on 08/30/24, showed disease progression. Enhertu was stopped, and pt was scheduled to follow up with Dr. Joss Diaz on 09/23 to further discuss treatment options. Noted the patient was in the hospital last week and the patient was discharged on 09/27/2024. Patient was admitted for the evaluation of hyponatremia and debility. IV fluids, TSH, cortisol, PT OT consult, fluid restriction, and home salt tabs were ordered. Nephrology and heme-onc consulted. TSH and cortisol were within normal limits. Patient was notably having low oral intake and encouraged to eat high-protein with protein shake supplementation and ordered Megace. Samsca was given once. Patient's sodium began to improve throughout her hospital stay. Brain CT was ordered by heme-onc for evaluation of possible metastasis showed no acute intracranial process or evidence suggesting of in tracranial mass with noted remote lacunar injury. Patient notably complained of flank pain due to an adrenal mass from old imaging and radiology oncology was consulted for palliative radiation. Patient also had notable leukocytosis with concerning urinalysis and reflex urine culture grew pansensitive E. coli and Alcalglicen faecalis. Patient was placed on IV antibiotics for 3 days due to no development of urinary symptoms. However patient's leukocytosis continued to increase and was placed back on IV Zosyn for empiric coverage. Infectious disease was consulted. Sputum culture and blood culture was ordered which were both negative. Patient also required 3 units of packed RBC transfusions due to anemia. Iron studies showed elevated ferritin which is consistent with chronic disease. B12 and folate were within normal limits. Patient also noted a mass on right chest. [place] xray showed pleural based density in lateral midlung previously 4 cm now at 5.7cm. PT OT consult was refused by patient and home care was offered but refused by family and patient after further discussion. Patient is cleared for discharge today with Augmentin and Bactrim for 1 week, sodium tabs increased to twice a day, MiraLAX, Dulcolax, megestrol, Percocet and ondansetron oral. Home [place] was discontinued. The patient presented back to the Emergency Department yesterday for altered mentation and ongoing respiratory difficulties. The patient was apparently seen at around 1 AM going to bed normally. Subsequently, the patient was found to be short of breath and lethargic and at time arrival to the emergency, the patient had agonal respiration and based on that, the patient was intubated and placed on a mechanical ventilator. Since arrival, the patient was given a total of 2 L of IV fluids and the patient is currently on lactated Ringer running at 125 cc an hour. The patient is also on pressors, currently on norepinephrine running at 0.28 mcg/kg/min and vasopressin was also started at 0.03 units an hour. The patient is currently on propofol running at 20 mcg/kg/min. The patient is on assist-control mode of mechanical ventilation at rate of 16, tidal volume of 400, FiO2 of 70% with a PEEP of 5. Blood gas showed a pH of 7.25 with a PCO2 of 38 and PO2 of 314. CT of the chest was done and showed no evidence of any pulmonary embolism. There was evidence of bilateral pleural effusion and extensive right lower lobe consolidation highly suspicious for an underlying pneumonia. There was also evidence of metastatic pulmonary nodules, a right upper lobe pulmonary nodule measuring 1.6 cm in size, left-sided pulmonary nodules measuring 6.5 mm in size and the patient had increasing in size of bilateral adrenal masses. CAT scan of the abdomen was also completed and the patient was found to have interval increase in the bilateral adrenal masses, and no other acute intra-abdominal abnormalities. Doppler of the lower extremity was negative for DVT. The current blood work shows a WBC count of 48.5, hemoglobin of 7.1 and a platelet count of 381. INR is at 1.5 with a PT of 15.5, D-dimer is at 15.5, sodium is at 130 with a potassium level of 4.2, serum bicarb is at 11, gap of 15, BUN is 15 with a creatinine of 0.6. Lactic acid level was as high as 6.5, dropped down to 4, LFTs are abnormal with an AST of 67, ALT of 27 and a platelet count of 498. Troponins are negative. Viral screen was negative. Alcohol level was also negative. The most recent cultures are from the urine on 09/18/2024 showing E. coli and Alcaligenes. The patient is currently on a combination of Zosyn and vancomycin. Seen today on 09/30/2024, patient remains in the ICU intubated mechanically ventilated, on assist-control rate of 16 tidal volume 400 FiO2 50% but cut down to 45% PEEP of 5 ABG on 50% showed a pO2 of 112 pCO2 31 pH of 7.42. Patient is quite complex she has many multiple medical problems including pneumonia, stage IV lung cancer, she has history of aspiration, history of multiple com orbidities, she is now on mechanical ventilation she is also on propofol 50 mcg/kg/min vasopressin at 0.03 units/min norepinephrine at 0.22 mcg/kg/min she is on vancomycin and Zosyn for presumptive sepsis and pneumonia patient is on enteral feeding, continues to have significantly elevated lactic acid, her urine output is becoming less and less, patient received significant amount of fluids still receiving fluid boluses, she also received 1 dose of Lasix last night, urine output remains poor, and her renal functioning is worsening hence nephrology was consulted. Apparently the patient was found on 09/29 unresponsive and this was at 2 AM apparently she was down for at least 6 hours prior to admission. Patient had multiple admissions to the hospital previously. At any rate patient is not ready for weaning, she is intubated mechanically ventilated, and her overall picture remains extremely poor and guarded. Chest x-ray was reviewed labs were reviewed medications were all reviewed and the patient is being followed by many consultants including infectious disease on the case. Patient was seen today on 10/01/2024, remains in the ICU intubated mechanically ventilated, on assist-control rate of 16 tidal volume 400 FiO2 45% and PEEP of 5 ABG showed a pO2 of 85 pCO2 32 pH of 7.5. Patient is off sedation this morning, has been off sedation since yesterday. Still requiring norepinephrine at 0.12, she is also on vasopressin at 0.03 units/min. Patient is not ready for any form of weaning as she seems to be difficult to arouse, does not follow any instructions. Her electrolytes showed low potassium of 3.1 BUN is 17 creatinine 1.03 patient received albumin yesterday and she seemed to respond well to albumin with good urine output after albumin infusion. Hemoglobin today is low at 6.9, and she will be receiving a unit of packed RBCs. Followed by Cher. Patient developed a bit of acute kidney injury secondary to ATN secondary to septic shock, today's creatinine is 1.03 and the patient is nonoliguric. Her metabolic acidosis is correcting nicely and improved with bicarb drip. Chest x- ray today showed bilateral lower lobe airspace opacities with stable pleural- based density within the lateral mid to lower lung there is a stable right-sided pleural effusion. Not much of a change noted on her chest x-ray. Patient was also seen by general surgery for her abdominal distention and discomfort, felt that the patient may have retroperitoneal metastatic disease and also raised the possibility of slow ischemia but the patient is not a good surgical candidate. And did not recommend any surgical intervention. Objective - Vital Signs Vital signs: Vital Signs Temp 98.0 F 10/01/24 11:10 Pulse 89 10/01/24 11:10 Resp 19 10/01/24 11:10 BP 100/51 10/01/24 11:10 Pulse Ox 99 10/01/24 11:10 FiO2 45 10/01/24 13:27 Intake & Output 09/30/24 10/01/24 10/01/24 18:59 06:59 18:59 Intake Total 3366.231 2496.227 990.993 Output Total 80 650 75 Balance 3286.231 1846.227 915.993 Weight 56.6 kg 56 kg Intake: IV 2666 2269 238 0.9 Normal Saline 92 130 10 Albumin Human 25% 50 ml 100 600 In Empty Bag 1 bag @ 50 mls/hr IVPB Q1H MADISYN Rx#: [id number] Dextrose 5% in Water 1, 1250 1500 125 000 ml @ 125 mls/hr IV . Q9H12M MADISYN with Sodium Bicarb (1 Meq/ml) 150 ml Rx#:[id number] Magnesium Sulfate-D5w Pmx 100 100 1 gm In Dextrose/Water 1 100ml.bag @ 100 mls/hr IVPB Q1H MADISYN Rx#: [id number] Piperacillin-Tazobactam 3 100 .375 gm In Sodium Chloride 0.9% 100 ml @ 25 mls/hr IVPB Q8H MADISYN Rx#: [id number] Pressure Bag 24 39 3 Sodium Chloride 0.9% 1, 1000 000 ml @ 999 mls/hr IV . Q1H1M ONE Rx#:[id number] Intake, IV Titration 530.231 97.227 92.993 Amount Magnesium Sulfate-D5w Pmx 200 1 gm In Dextrose/Water 1 100ml.bag @ 100 mls/hr IVPB Q1H MADISYN Rx#: [id number] Norepinephrine 32 mg In 76.388 36.723 26.386 Sodium Chloride 0.9% 218 ml @ 0.03 MCG/KG/MIN 0. 746 mls/hr IV .Q24H MADISYN Rx#:[id number] Vasopressin 60 unit In 118.728 Sodium Chloride 0.9% 150 ml @ 0.03 UNITS/MIN 4.59 mls/hr IV .Q24H MADISYN Rx#: [id number] propofoL 1,000 mg In 135.115 60.504 66.607 Empty Bag 1 bag @ 15 MCG/ KG/MIN 4.776 mls/hr IV . [id number] MADISYN Rx#:[id number] Tube Feeding 40 130 10 Blood Product 620 Rc Irr As1 Unit 310 [id number] Other 130 30 Output: Urine 80 650 75 Other: Voiding Method Indwelling Catheter Indwelling Catheter # Bowel Movements 1 1 ABP, PAP, CO, CI - Last Documented Arterial Blood Pressure 100/49 - Exam GENERAL: Reveals a 59-year-old female looks frail chronically ill,intubated mechanically ventilated, HEENT: Pupils are round and equally reacting to light. EOMI. No scleral icterus. No conjunctival pallor. Normocephalic, atraumatic. No pharyngeal erythema. No thyromegaly. CARDIOVASCULAR: S1 and S2 present. No murmurs, rubs, or gallops. PULMONARY: Crackles at the right base no rhonchi no wheezes ABDOMEN: Slightly distended soft nontender no rebound no guarding MUSCULOSKELETAL: No obvious deformities noted cannot assess range of motion EXTREMITIES: No clubbing edema or cyanosis NEUROLOGICAL: Patient is not following any instructions not even responding to d eep painful stimuli. Psychiatric: Could not assess. SKIN: No rashes. - Labs CBC & Chem 7: 10/01/24 04:30 10/01/24 10:49 Labs: Abnormal Lab Results - Last 24 Hours (Table) 09/29/24 09/30/24 09/30/24 Range/Units 03:55 17:32 23:55 WBC (4.50-10.00) 10*3/uL RBC (4.10-5.20) 10*6/uL Hgb (12.0-15.0) g/dL Hct (37.2-46.3) % Immature Gran # (0.00-0.04) 10*3/uL Neutrophils # (Manual) (1.3-7.7) k/uL Lymphocytes # (Manual) (1.0-4.8) k/uL ABG pH (7.35-7.45) ABG pCO2 (35-45) mmHg ABG Total CO2 (19-24) mmol/L ABG O2 Saturation (94-97) % Hemoglobin (11.4-16.0) gm/dL Sodium (137-145) mmol/L Potassium (3.5-5.1) mmol/L Chloride (98-107) mmol/L Glucose (74-99) mg/dL POC Glucose (mg/dL) 161 H 160 H (70-110) mg/dL Calcium (8.4-10.2) mg/dL Crossmatch See Detail 10/01/24 10/01/24 10/01/24 Range/Units 04:25 04:30 04:30 WBC 42.87 H (4.50-10.00) 10*3/uL RBC 2.31 L (4.10-5.20) 10*6/uL Hgb 6.9 L* (12.0-15.0) g/dL Hct 19.5 L* (37.2-46.3) % Immature Gran # 2.24 H (0.00-0.04) 10*3/uL Neutrophils # (Manual) 41.58 H (1.3-7.7) k/uL Lymphocytes # (Manual) 0.43 L (1.0-4.8) k/uL ABG pH 7.50 H (7.35-7.45) ABG pCO2 32 L (35-45) mmHg ABG Total CO2 26 H (19-24) mmol/L ABG O2 Saturation 97.9 H (94-97) % Hemoglobin 7.2 L (11.4-16.0) gm/dL Sodium 131 L (137-145) mmol/L Potassium 3.1 L (3.5-5.1) mmol/L Chloride 92 L (98-107) mmol/L Glucose 124 H (74-99) mg/dL POC Glucose (mg/dL) (70-110) mg/dL Calcium 7.4 L (8.4-10.2) mg/dL Crossmatch 10/01/24 10/01/24 Range/Units 06:48 11:45 WBC (4.50-10.00) 10*3/uL RBC (4.10-5.20) 10*6/uL Hgb (12.0-15.0) g/dL Hct (37.2-46.3) % Immature Gran # (0.00-0.04) 10*3/uL Neutrophils # (Manual) (1.3-7.7) k/uL Lymphocytes # (Manual) (1.0-4.8) k/uL ABG pH (7.35-7.45) ABG pCO2 (35-45) mmHg ABG Total CO2 (19-24) mmol/L ABG O2 Saturation (94-97) % Hemoglobin (11.4-16.0) gm/dL Sodium (137-145) mmol/L Potassium (3.5-5.1) mmol/L Chloride (98-107) mmol/L Glucose (74-99) mg/dL POC Glucose (mg/dL) 148 H 155 H (70-110) mg/dL Calcium (8.4-10.2) mg/dL Crossmatch Microbiology - Last 24 Hours (Table) 09/29/24 05:05 Blood Culture - Preliminary Blood 09/29/24 05:57 Gram Stain - Final Sputum Sputum Culture - Final Assessment and Plan Assessment: Impression: Acute hypoxic respiratory failure secondary to pneumonia, could be healthcare acquired pneumonia considering her recent hospitalization or could be aspiration pneumonia Septic shock secondary to above Acute lactic acidosis Acute kidney injury/acute tubular necrosis Anemia of chronic disease Stage IV metastatic lung cancer Malnutrition secondary to malignancy/severe protein calorie malnutrition History of underlying COPD Tobacco dependence syndrome Recent hospitalization for urinary tract infection Transaminitis in the setting of malignancy/metastatic disease Recommendation: Continue ventilatory support, not ready for any weaning Continue hemodynamic support presently on vasopressin and norepinephrine to maintain adequate blood pressure Continue IV fluids, continue to monitor her urine output, patient improved with albumin infusions given yesterday by nephrology Transfuse patient for low hemoglobin Continue Zosyn empirically Continue nutritional support/enteral feeding Continue to monitor electrolytes and renal profile on a daily basis Continue GI and DVT prophylaxis/IV Protonix and subcu Lovenox Overall prognostic picture is extremely poor and guarded Patient is critically ill Critical care time is 35 minutes Time with Patient: Greater than 30
--- NOTE | 2024-10-01 14:05 | P.PN ---
Subjective Progress Note Date: 10/01/24 This is a pleasant lady with past medical history of stage IV lung cancer who was recently discharged from the hospital Presents because of altered mental status Patient found to be in septic shock secondary to her pneumonia Patient was intubated and placed on mechanical ventilation, She has significant leukocytosis 48,000, hemoglobin 7.1 sodium 130 15.5 pH 7.2. Lactic acid elevated 6.5 at 3.7 Ammonia 34 unremarkable less than 10 CTA of the chest is negative for PE but showed right lower lobe pneumonia, CT of the abdominal pelvis increase bilateral adrenal masses Patient was started on IV fluid antibiotics admitted to the ICU 09/30. Patient seen examined. Labs reviewed showed WBC of 57.03, hemoglobin 8.3, platelet count 348, sodium 141, potassium 3.3, BUN 16, creatinine 1.04, lactate 7 calcium 7.3, magnesium 1 point 10/01. Patient seen and examined. Continues to be intubated. Currently on Levophed and vasopressin. Currently on tube feeding, getting 2 units of packed red blood cells REVIEW OF SYSTEMS: Review of system cannot be obtained as patient is intubated PHYSICAL EXAMINATION: GENERAL: The patient is intubated, chronically ill looking HEENT: Pupils are round and equally reacting to light. EOMI. No scleral icterus. No conjunctival pallor. Normocephalic, atraumatic. No pharyngeal erythema. No thyromegaly. CARDIOVASCULAR: S1 and S2 present. No murmurs, rubs, or gallops. PULMONARY: Chest is clear to auscultation, no wheezing or crackles. ABDOMEN: Distended, bowel sounds not audible. No palpable organomegaly. MUSCULOSKELETAL: No joint swelling or deformity. EXTREMITIES: No cyanosis, clubbing, or pedal edema. NEUROLOGICAL: Intubated SKIN: No rashes. Assessment and plan Septic shock Bacterial pneumonia gram-positive gram-negative Acute hypoxemic respiratory failure Lactic acidosis Acute leukocytosis secondary to above Anemia of chronic disease Hyponatremia Hypokalemia Hypomagnesemia Stage IV metastatic lung cancer. Transaminitis in the setting of malignancy Malnutrition, secondary to malignancy COPD History of smoking Recent hospitalization for urinary tract infection, Monitor vital signs Monitor CBC Monitor CMP Continue telemetry monitoring Continue vent management Continue aggressive bronchopulmonary hygiene 2 units of packed red blood cells ordered Follow-up on blood cultures follow-up on urine cultures Currently on Levophed and vasopressin Continue IV Zosyn vancomycin ICU following ID following Hematology-oncology following Surgery following Patient has very poor prognosis. Labs and medication were reviewed.. Continue same treatment. Continue with symptomatic treatment. Resume home medication. Monitor labs and vitals. DVT and GI prophylaxis. Further recommendations as per clinical course of the patient Dictation was produced using Zayo dictation software. please excuse any grammatical, word or spelling errors. Objective - Vital Signs Vital signs: Vital Signs Temp 98.0 F 10/01/24 11:10 Pulse 89 10/01/24 11:10 Resp 19 10/01/24 11:10 BP 100/51 10/01/24 11:10 Pulse Ox 99 10/01/24 11:10 FiO2 45 10/01/24 13:27 Intake & Output 09/30/24 10/01/24 10/01/24 18:59 06:59 18:59 Intake Total 3366.231 2496.227 990.993 Output Total 80 650 75 Balance 3286.231 1846.227 915.993 Weight 56.6 kg 56 kg Intake: IV 2666 2269 238 0.9 Normal Saline 92 130 10 Albumin Human 25% 50 ml 100 600 In Empty Bag 1 bag @ 50 mls/hr IVPB Q1H MADISYN Rx#: [id number] Dextrose 5% in Water 1, 1250 1500 125 000 ml @ 125 mls/hr IV . Q9H12M MADISYN with Sodium Bicarb (1 Meq/ml) 150 ml Rx#:[id number] Magnesium Sulfate-D5w Pmx 100 100 1 gm In Dextrose/Water 1 100ml.bag @ 100 mls/hr IVPB Q1H MADISYN Rx#: [id number] Piperacillin-Tazobactam 3 100 .375 gm In Sodium Chloride 0.9% 100 ml @ 25 mls/hr IVPB Q8H MADISYN Rx#: [id number] Pressure Bag 24 39 3 Sodium Chloride 0.9% 1, 1000 000 ml @ 999 mls/hr IV . Q1H1M ONE Rx#:[id number] Intake, IV Titration 530.231 97.227 92.993 Amount Magnesium Sulfate-D5w Pmx 200 1 gm In Dextrose/Water 1 100ml.bag @ 100 mls/hr IVPB Q1H MADISYN Rx#: [id number] Norepinephrine 32 mg In 76.388 36.723 26.386 Sodium Chloride 0.9% 218 ml @ 0.03 MCG/KG/MIN 0. 746 mls/hr IV .Q24H MADISYN Rx#:[id number] Vasopressin 60 unit In 118.728 Sodium Chloride 0.9% 150 ml @ 0.03 UNITS/MIN 4.59 mls/hr IV .Q24H MADISYN Rx#: [id number] propofoL 1,000 mg In 135.115 60.504 66.607 Empty Bag 1 bag @ 15 MCG/ KG/MIN 4.776 mls/hr IV . [id number] MADISYN Rx#:[id number] Tube Feeding 40 130 10 Blood Product 620 Rc Irr As1 Unit 310 [id number] Other 130 30 Output: Urine 80 650 75 Other: Voiding Method Indwelling Catheter Indwelling Catheter # Bowel Movements 1 1 ABP, PAP, CO, CI - Last Documented Arterial Blood Pressure 100/49 - Labs CBC & Chem 7: 10/01/24 04:30 10/01/24 10:49 Labs: Abnormal Lab Results - Last 24 Hours (Table) 09/29/24 09/30/24 09/30/24 Range/Units 03:55 17:32 23:55 WBC (4.50-10.00) 10*3/uL RBC (4.10-5.20) 10*6/uL Hgb (12.0-15.0) g/dL Hct (37.2-46.3) % Immature Gran # (0.00-0.04) 10*3/uL Neutrophils # (Manual) (1.3-7.7) k/uL Lymphocytes # (Manual) (1.0-4.8) k/uL ABG pH (7.35-7.45) ABG pCO2 (35-45) mmHg ABG Total CO2 (19-24) mmol/L ABG O2 Saturation (94-97) % Hemoglobin (11.4-16.0) gm/dL Sodium (137-145) mmol/L Potassium (3.5-5.1) mmol/L Chloride (98-107) mmol/L Glucose (74-99) mg/dL POC Glucose (mg/dL) 161 H 160 H (70-110) mg/dL Calcium (8.4-10.2) mg/dL Crossmatch See Detail 10/01/24 10/01/2410/01/25 Range/Units 04:25 04:30 04:30 WBC 42.87 H (4.50-10.00) 10*3/uL RBC 2.31 L (4.10-5.20) 10*6/uL Hgb 6.9 L* (12.0-15.0) g/dL Hct 19.5 L* (37.2-46.3) % Immature Gran # 2.24 H (0.00-0.04) 10*3/uL Neutrophils # (Manual) 41.58 H (1.3-7.7) k/uL Lymphocytes # (Manual) 0.43 L (1.0-4.8) k/uL ABG pH 7.50 H (7.35-7.45) ABG pCO2 32 L (35-45) mmHg ABG Total CO2 26 H (19-24) mmol/L ABG O2 Saturation 97.9 H (94-97) % Hemoglobin 7.2 L (11.4-16.0) gm/dL Sodium 131 L (137-145) mmol/L Potassium 3.1 L (3.5-5.1) mmol/L Chloride 92 L (98-107) mmol/L Glucose 124 H (74-99) mg/dL POC Glucose (mg/dL) (70-110) mg/dL Calcium 7.4 L (8.4-10.2) mg/dL Crossmatch 10/01/24 10/01/24 Range/Units 06:48 11:45 WBC (4.50-10.00) 10*3/uL RBC (4.10-5.20) 10*6/uL Hgb (12.0-15.0) g/dL Hct (37.2-46.3) % Immature Gran # (0.00-0.04) 10*3/uL Neutrophils # (Manual) (1.3-7.7) k/uL Lymphocytes # (Manual) (1.0-4.8) k/uL ABG pH (7.35-7.45) ABG pCO2 (35-45) mmHg ABG Total CO2 (19-24) mmol/L ABG O2 Saturation (94-97) % Hemoglobin (11.4-16.0) gm/dL Sodium (137-145) mmol/L Potassium (3.5-5.1) mmol/L Chloride (98-107) mmol/L Glucose (74-99) mg/dL POC Glucose (mg/dL) 148 H 155 H (70-110) mg/dL Calcium (8.4-10.2) mg/dL Crossmatch Microbiology - Last 24 Hours (Table) 09/29/24 05:05 Blood Culture - Preliminary Blood 09/29/24 05:57 Gram Stain - Final Sputum Sputum Culture - Final
[2024-10-01 15:19] LABS: HCT 26.6 % (37.2-46.3); MCH 30.2 pg (27.0-32.0); MCHC 36.8 g/dL (32.0-37.0); MCV 82.1 fL (80.0-97.0); Platelet Count 228 10*3/uL (140-440); RBC 3.24 10*6/uL (4.10-5.20); RDW 17.3 % (11.5-14.5); WBC 44.61 10*3/uL (4.50-10.00)
[2024-10-01 15:23] LABS: HGB 9.8 g/dL (12.0-15.0)
--- NOTE | 2024-10-01 16:20 | P.CONS ---
History of Present Illness - Reason for Consult Consult date: 10/01/24 metastatic NSCLC Requesting physician: Vignesh Morocho - Chief Complaint AMS, agonal breathing - History of Present Illness Ms. Villeda is a 59-year-old female patient of Dr. Rodolfo Diaz diagnosed with stage IV lung cancer (malignancy history as below). Patient was admitted 08/29 w ith complaints of weakness and lightheadedness-postchemotherapy. She was seen by Nephrology, Pulmonology, treated for abnormal electrolytes, including hyponatremia. She did require transfusion. Patient had progression noted on imaging. The plan was to change treatment. Patient was unfortunately readmitted within few weeks on 09/19, complaints of weakness and shortness of breath. She was seen by Nephrology, ID. She was also seen by Radiation Oncology for assessment for palliative radiation for right flank pain, suspected pain was related to the enlarged right adrenal gland. Patient was discharged 09/27. Unfortunately she was brought back to the hospital 09/29, family reported that she was behaving normally prior to going to bed, she was brought to the emergency department lethargic, relatively unresponsive, respiratory distress and agonal respirations. Patient is seen today in the intensive care unit, sedated and mechanically ventilated. Nursing does report sedation holidays and patient did respond appropriately to commands. Malignancy history: Initially diagnosed late 2021. Patient was admitted to the hospital for symptoms of a TIA. CTA of the chest done 12/28/2021 noted incidental 3 cm spiculated in the RLL, no hilar or mediastinal LAD was seen. Additional 7 mm stellate density in the superior right lower lobe was also observed. On pre- bronchoscopy CT chest on 12/29/21, subcarinal LAD measuring 1.9 cm along with enlarged hilar lymph nodes were observed. Biopsy of RLL mass path positive for adenocarcinoma, staging PET/CT showing locally advanced disease, stage IIIA (T1N2M0) adenocarcinoma of the right lung. PD-L1 is 5% with HER-2 amplification. She started concurrent chemo/XRT 03/01/2022 and completed her last cycle of chemotherapy on 04/05/2022 and last day of radiation therapy on 04/07/2022. Treatment f/u CT 04/18/2022 revealed no evidence of disease progression, but did note consolidative changes in the right lower lobe concerning for radiation pneu monitis versus possible pneumonia. Reviewed with Rad Onc, consensus was changes in the right lower lobe due to radiation. Pt improved, treatment plan to proceeded with maintenance durvalumab monthly, x 1 year per the PACIFIC trial, completed 12 cycles 04/20/2023. F/U CT scans on 11/14/23, during the [facility] cyber attack, noted concern for right lower lobe nodule measuring 1.1 cm x 0.7 cm. Prior staging scans also noted nodule in the right lower lobe. Is was not clear if this was new finding or consistent with prior nodule. PET/CT performed on 12/29/2023 noted to FDG avid lung lesions in the right upper lobe and right middle lobe along with right adrenal gland FDG avidity concerning for metastatic disease. Her case was discussed at [facility] multidisciplinary thoracic tumor on 01/16/2024 further recommendation for biopsy along with systemic treatment and possible SBRT to the 2 lung lesions. She eventually proceeded to have biopsy of the right adrenal gland lesion on 02/19/2024 after further consideration. This did reveal metastatic non-small cell carcinoma that was TTF-1 positive consis tent with lung primary. Brain MRI on 03/08/2024 revealed no evidence of intracranial metastases. Staging CT scans performed on 03/14/2024 revealed increased size of the right adrenal gland up to 9.3 cm along with increased size of the right upper lobe lesion at 1.4 cm compared to prior imaging. Cycle 1 of Enhertu given prior HER2 amplification was started on 04/18/2024, she received [address] scan 08/30/24 showed disease progression. She was supposed to be seen by Primary Onc to discuss treatment but she was readmitted. Salvage single agent taxotere was discussed as a treatment option, pt was interested. She has not been out of the hospital long enough to start treatment. Review of Systems ROS unobtainable: due to endotracheal tube Past Medical History Past Medical History: Cancer, COPD, CVA/TIA Additional Past Medical History / Comment(s): COPD, spastic colon, CVA/TIA. LUNG CANCER-RLL NSCLC. History of Any Multi-Drug Resistant Organisms: None Reported Past Surgical History: Section, Tonsillectomy Additional Past Surgical History / Comment(s): L oophorectomy due to cyst Past Anesthesia/Blood Transfusion Reactions: No Reported Reaction Past Psychological History: No Psychological Hx Reported Smoking Status: Current every day smoker Past Alcohol Use History: Unable to Obtain Past Drug Use History: Unable to Obtain - Past Family History Father History Unknown: Yes Family Medical History: No Reported History Additional Family Medical History / Comment(s): at early age from gunshot Mother Family Medical History: Cancer Additional Family Medical History / Comment(s): Mother had some kind of cancer but pt does not know what kind. She at age 65 or 67yrs. Medications and Allergies Home Medications Medication Instructions Recorded Confirmed Type Amoxic-Pot Clav 500-125 mg 1 tab PO Q12HR #14 tab 09/27/24 09/29/24 Rx [Augmentin 500-125 mg] Magnesium Hydroxide [Dulcolax Oral 5 mg PO DAILY PRN #30 ml 09/27/24 09/29/24 Rx Susp] Megestrol [Megace] 400 mg PO DAILY #14 ml 09/27/24 09/29/24 Rx Ondansetron Odt [Zofran ODT] 8 mg PO Q8HR PRN #20 tab 09/27/24 09/29/24 Rx Sodium Chloride Tab 1 gm PO BID #30 tab 09/27/24 09/29/24 Rx Sulfamethox-Tmp 800-160Mg [Bactrim 1 tab PO Q12HR #14 tab 09/27/24 09/29/24 Rx DS 800-160 mg] polyethylene glycoL 3350 [Miralax] 17 gm PO DAILY PRN #7 gm 09/27/24 09/29/24 Rx oxyCODONE-APAP 7.5-325MG [Percocet 1 tab PO Q6HR PRN 09/29/24 09/29/24 History 7.5-325 mg] Allergies Allergy/AdvReac Type Severity Reaction Status Date / Time No Known Allergies Allergy Verified 09/29/24 11:34 Physical Exam Vitals: Vital Signs Temp Pulse Resp BP Pulse Ox FiO2 10/01/24 11:10 98.0 F 89 19 100/51 99 10/01/24 09:32 45 10/01/24 08:17 97.9 F 92 19 102/50 100 10/01/24 08:00 97.5 F L 92 20 100 45 10/01/24 07:57 97.5 F L 92 17 99/48 10/01/24 07:45 92 19 99 10/01/24 07:30 92 19 100 10/01/24 07:15 92 16 100 10/01/24 07:00 93 19 99 10/01/24 06:45 92 21 99 10/01/24 06:30 91 20 100 10/01/24 06:15 93 19 100 10/01/24 06:00 90 18 100 10/01/24 05:45 90 18 100 10/01/24 05:30 91 22 100 10/01/24 05:15 90 17 100 10/01/24 05:00 91 18 100 10/01/24 04:45 95 23 100 10/01/24 04:30 91 18 99 10/01/24 04:15 90 18 100 10/01/24 04:00 92 22 100 45 10/01/24 03:45 92 21 99 10/01/24 03:30 95 22 99 10/01/24 03:25 45 10/01/24 03:15 94 20 98 10/01/24 03:00 26 H 96 10/01/24 02:45 21 100 10/01/24 02:30 95 21 99 10/01/24 02:15 95 22 98 10/01/24 02:00 91 19 99 10/01/24 01:45 93 24 99 10/01/24 01:30 90 21 99 10/01/24 01:15 92 21 98 10/01/24 01:00 92 21 99 10/01/24 00:45 97.5 F L 95 21 99 10/01/24 00:30 96 18 98 10/01/24 00:15 96 20 94 L 10/01/24 00:11 45 10/01/24 00:00 97 18 94 L 45 09/30/24 23:45 99 16 95 09/30/24 23:30 101 H 16 95 09/30/24 23:15 94 16 96 09/30/24 23:00 93 16 98 09/30/24 22:45 94 16 97 09/30/24 22:30 92 16 97 09/30/24 22:15 92 16 97 09/30/24 22:00 90 16 99 09/30/24 21:45 100 16 94 L 09/30/24 21:30 93 16 96 09/30/24 21:19 92 16 99 09/30/24 21:00 90 16 99 09/30/24 20:45 93 16 100 09/30/24 20:39 45 09/30/24 20:30 96 16 98 09/30/24 20:15 93 16 98 09/30/24 20:00 93 16 98 45 09/30/24 19:45 92 16 98 09/30/24 19:30 91 16 98 09/30/24 19:15 93 16 99 09/30/24 19:00 94 21 97 09/30/24 18:45 98 19 97 09/30/24 18:30 103 H 24 98 09/30/24 18:15 104 H 25 H 97 09/30/24 18:00 101 H 27 H 97 09/30/24 17:45 97 09/30/24 17:30 102 H 22 97 09/30/24 17:15 43 H 97 09/30/24 17:00 101 H 25 H 99 09/30/24 16:45 93 25 H 89 L 09/30/24 16:30 93 24 100 09/30/24 16:15 93 23 100 09/30/24 16:00 98.7 F 90 23 100 45 09/30/24 15:45 91 22 100 09/30/24 15:30 90 22 100 09/30/24 15:29 45 09/30/24 15:15 89 22 100 09/30/24 15:00 90 22 100 09/30/24 14:45 89 19 100 09/30/24 14:30 90 21 99 09/30/24 14:15 90 22 92 L 09/30/24 14:00 23 100 09/30/24 13:45 93 16 100 09/30/24 13:30 92 19 93 L 09/30/24 13:15 93 21 100 09/30/24 13:00 94 18 100 09/30/24 12:45 97 21 98/50 100 09/30/24 12:30 101 H 22 100 09/30/24 12:15 101 H 22 99 09/30/24 12:00 97.6 F 101 H 25 H 100 45 09/30/24 11:46 45 09/30/24 11:45 101 H 21 98/50 100 Intake and Output 09/30/24 10/01/24 10/01/24 22:59 06:59 14:59 Intake Total 0860.258 8690.978 986.706 Output Total 160 505 75 Balance 975.381 2946.978 911.706 Intake: IV 879 1692 238 0.9 Normal Saline 80 90 10 Albumin Human 25% 50 ml 150 450 In Empty Bag 1 bag @ 50 mls/hr IVPB Q1H [facility] Rx#: [id number] Dextrose 5% in Water 1, 625 1125 125 000 ml @ 125 mls/hr IV . Q9H12M [facility] with Sodium Bicarb (1 Meq/ml) 150 ml Rx#:[id number] Magnesium Sulfate-D5w Pmx 100 1 gm In Dextrose/Water 1 100ml.bag @ 100 mls/hr IVPB Q1H [facility] Rx#: [id number] Pressure Bag 24 27 3 Intake, IV Titration 71.211 79.978 88.706 Amount Norepinephrine 32 mg In 42.182 36.723 22.099 Sodium Chloride 0.9% 218 ml @ 0.03 MCG/KG/MIN 0. 746 mls/hr IV .Q24H [facility] Rx#:[id number] propofoL 1,000 mg In 29.029 43.255 66.607 Empty Bag 1 bag @ 15 MCG/ KG/MIN 4.776 mls/hr IV . [id number] [facility] Rx#:[id number] Tube Feeding 80 90 10 Blood Product 620 Rc Irr As1 Unit 310 [id number] Other 90 30 Output: Urine 160 505 75 Other: Voiding Method Indwelling Catheter Indwelling Catheter # Bowel Movements 1 Weight 56 kg ABP, PAP, CO, CI - Last 8 Hours Arterial Blood Pressure 100/49 Arterial Blood Pressure 98/48 Arterial Blood Pressure 100/47 Arterial Blood Pressure 102/48 Arterial Blood Pressure 99/45 Arterial Blood Pressure 96/45 Arterial Blood Pressure 105/49 Arterial Blood Pressure 93/43 Arterial Blood Pressure 103/48 Arterial Blood Pressure 96/45 Arterial Blood Pressure 105/48 Arterial Blood Pressure 96/45 Arterial Blood Pressure 100/46 Arterial Blood Pressure 102/46 Arterial Blood Pressure 109/50 Arterial Blood Pressure 112/50 Arterial Blood Pressure 103/47 Arterial Blood Pressure 99/44 - Constitutional General appearance: no acute distress, thin (petite) - EENT pinpoint pupils Eyes: anicteric sclerae - Respiratory mech vent, air exchange appreciated - Cardiovascular Rhythm: regular leg Peripheral Edema: bilateral: 2+ - Gastrointestinal General gastrointestinal: decreased bowel sounds, hepatomegaly - Psychiatric Psychiatric: no A&O x's 3, no appropriate affect, no intact judgment & insight Results CBC & Chem 7: 10/01/24 15:00 10/01/24 10:49 Labs: Abnormal Lab Results - Last 24 Hours (Table) 09/29/24 09/30/24 09/30/24 Range/Units 03:55 13:00 17:32 WBC (4.50-10.00) 10*3/uL RBC (4.10-5.20) 10*6/uL Hgb (12.0-15.0) g/dL Hct (37.2-46.3) % Immature Gran # (0.00-0.04) 10*3/uL Neutrophils # (Manual) (1.3-7.7) k/uL Lymphocytes # (Manual) (1.0-4.8) k/uL ABG pH (7.35-7.45) ABG pCO2 (35-45) mmHg ABG Total CO2 (19-24) mmol/L ABG O2 Saturation (94-97) % Hemoglobin (11.4-16.0) gm/dL Sodium (137-145) mmol/L Potassium (3.5-5.1) mmol/L Chloride (98-107) mmol/L Glucose (74-99) mg/dL POC Glucose (mg/dL) 161 H (70-110) mg/dL Plasma Lactic Acid Onesimo 7.6 H* (0.7-2.0) mmol/L Calcium (8.4-10.2) mg/dL Crossmatch See Detail 09/30/24 10/01/24 10/01/24 Range/Units 23:55 04:25 04:30 WBC (4.50-10.00) 10*3/uL RBC (4.10-5.20) 10*6/uL Hgb (12.0-15.0) g/dL Hct (37.2-46.3) % Immature Gran # (0.00-0.04) 10*3/uL Neutrophils # (Manual) (1.3-7.7) k/uL Lymphocytes # (Manual) (1.0-4.8) k/uL ABG pH 7.50 H (7.35-7.45) ABG pCO2 32 L (35-45) mmHg ABG Total CO2 26 H (19-24) mmol/L ABG O2 Saturation 97.9 H (94-97) % Hemoglobin 7.2 L (11.4-16.0) gm/dL Sodium 131 L (137-145) mmol/L Potassium 3.1 L (3.5-5.1) mmol/L Chloride 92 L (98-107) mmol/L Glucose 124 H (74-99) mg/dL POC Glucose (mg/dL) 160 H (70-110) mg/dL Plasma Lactic Acid Onesimo (0.7-2.0) mmol/L Calcium 7.4 L (8.4-10.2) mg/dL Crossmatch 10/01/24 10/01/24 Range/Units 04:30 06:48 WBC 42.87 H (4.50-10.00) 10*3/uL RBC 2.31 L (4.10-5.20) 10*6/uL Hgb 6.9 L* (12.0-15.0) g/dL Hct 19.5 L* (37.2-46.3) % Immature Gran # 2.24 H (0.00-0.04) 10*3/uL Neutrophils # (Manual) 41.58 H (1.3-7.7) k/uL Lymphocytes # (Manual) 0.43 L (1.0-4.8) k/uL ABG pH (7.35-7.45) ABG pCO2 (35-45) mmHg ABG Total CO2 (19-24) mmol/L ABG O2 Saturation (94-97) % Hemoglobin (11.4-16.0) gm/dL Sodium (137-145) mmol/L Potassium (3.5-5.1) mmol/L Chloride (98-107) mmol/L Glucose (74-99) mg/dL POC Glucose (mg/dL) 148 H (70-110) mg/dL Plasma Lactic Acid Onesimo (0.7-2.0) mmol/L Calcium (8.4-10.2) mg/dL Crossmatch Microbiology - Last 24 Hours (Table) 09/29/24 05:57 Gram Stain - Final Sputum Sputum Culture - Final 09/29/24 05:05 Blood Culture - Preliminary Blood CT scan - abdomen: report reviewed CT scan - chest: report reviewed CT Scan - head: report reviewed CT scan - pelvis: report reviewed Venous US: report reviewed Assessment and Plan (1) Acute hypoxic respiratory failure Current Visit: Yes Status: Acute Priority: High Code(s): J96.01 - ACUTE RESPIRATORY FAILURE WITH HYPOXIA SNOMED Code(s): 27490462 (2) Pneumonia Current Visit: Yes Status: Acute Priority: High Code(s): J18.9 - PNEUMONIA, UNSPECIFIED ORGANISM SNOMED Code(s): 810074643 (3) Metastatic non-small cell lung cancer Current Visit: Yes Status: Acute Priority: High Code(s): C34.90 - MALIGNANT NEOPLASM OF UNSP PART OF UNSP BRONCHUS OR LUNG SNOMED Code(s): 641549739 (4) Leukocytosis Current Visit: Yes Status: Acute Priority: Medium Code(s): D72.829 - ELEVATED WHITE BLOOD CELL COUNT, UNSPECIFIED SNOMED Code(s): 772014731 (5) Anemia Current Visit: Yes Status: Acute Priority: Medium Code(s): D64.9 - ANEMIA, UNSPECIFIED SNOMED Code(s): 340902421 Plan: Acute hypoxic respiratory failure - Patient is in the intensive care unit, sedated, mechanically ventilated - When seen, she was on vasopressors, these were being weaned off. - Defer management of the same to the Critical Care team Pneumonia - Patient on treatment for the same-suspect underlying cause of patient's presenting symptoms - Defer to Critical Care/Infectious Disease for management of the same Metastatic non-small cell lung cancer - Diagnosis and treatment as documented in HPI - Patient most recently had disease progression on targeted agent. Plans were to start single agent chemotherapy with Taxotere. -Concerns for patient's general overall condition and ability to tolerate treatment, considering recent frequent hospitalizations and now requiring intubation. Disease may be such that even aggressive treatment may not be able to get ahead of it. There are plans for a family meeting in the morning to discuss the same. Will address code status - It is completely reasonable to continue to treat patient for pneumonia for a few days and to see if that she can be removed from the ventilator and participate in decisions regarding how she would like to proceed. It sounds as though the Critical Care team is on the same page in allowing patient some time to be treated. Will continue to follow for the same. Leukocytosis - Infection, malignancy are contributing to leukocytosis, mostly neutrophilia. No acute intervention at this time. White blood cell count is elevated but, currently stable Anemia - Anemia secondary to treatment of disease as well as malignancy - Patient has been transfused, with an appropriate response in hemoglobin -Continue to transfuse for hemoglobin less than 7 or if patient is symptomatic
[2024-10-01 17:47] LABS: Glucose,Whole Blood 119 mg/dL (70-110)
--- NOTE | 2024-10-01 18:11 | P.PN ---
Subjective Progress Note Date: 10/01/24 Principal diagnosis: Abdominal pain Patient remains on the ventilator. White blood cell count remains elevated. Tolerating tube feeds and having bowel movements. Tube feeds are at 10 cc. No residuals. Abdomen remains firm in the right upper quadrant throughout the evening and morning per nursing staff. Objective - Vital Signs Vital signs: Vital Signs Temp 98.1 F 10/01/24 16:00 Pulse 106 H 10/01/24 17:15 Resp 15 10/01/24 17:15 BP 100/51 10/01/24 11:10 Pulse Ox 96 10/01/24 17:15 FiO2 45 10/01/24 16:00 Intake & Output 09/30/24 10/01/24 10/01/24 18:59 06:59 18:59 Intake Total 3366.231 2496.227 1831.973 Output Total 80 650 567 Balance 3286.231 1402.544 7834.973 Weight 56.6 kg 56 kg Intake: IV 2666 2269 764 0.9 Normal Saline 92 130 40 Albumin Human 25% 50 ml 100 600 In Empty Bag 1 bag @ 50 mls/hr IVPB Q1H [facility] Rx#: [id number] Dextrose 5% in Water 1, 1250 1500 250 000 ml @ 125 mls/hr IV . Q9H12M [facility] with Sodium Bicarb (1 Meq/ml) 150 ml Rx#:[id number] Magnesium Sulfate-D5w Pmx 100 100 1 gm In Dextrose/Water 1 100ml.bag @ 100 mls/hr IVPB Q1H [facility] Rx#: [id number] Piperacillin-Tazobactam 3 100 100 .375 gm In Sodium Chloride 0.9% 100 ml @ 25 mls/hr IVPB Q8H [facility] Rx#: [id number] Pressure Bag 24 39 24 Sodium Chloride 0.9% 1, 250 000 ml @ 50 mls/hr IV . Q20H [facility] Rx#:[id number] Sodium Chloride 0.9% 1, 1000 000 ml @ 999 mls/hr IV . Q1H1M [facility] Rx#:[id number] Intake, IV Titration 530.231 97.227 277.973 Amount Magnesium Sulfate-D5w Pmx 200 1 gm In Dextrose/Water 1 100ml.bag @ 100 mls/hr IVPB Q1H [facility] Rx#: [id number] Norepinephrine 32 mg In 76.388 36.723 32.901 Sodium Chloride 0.9% 218 ml @ 0.03 MCG/KG/MIN 0. 746 mls/hr IV .Q24H [facility] Rx#:[id number] Vasopressin 60 unit In 118.728 143.438 Sodium Chloride 0.9% 150 ml @ 0.03 UNITS/MIN 4.59 mls/hr IV .Q24H [facility] Rx#: [id number] propofoL 1,000 mg In 135.115 60.504 101.634 Empty Bag 1 bag @ 15 MCG/ KG/MIN 4.776 mls/hr IV . [id number] [facility] Rx#:[id number] Tube Feeding 40 130 80 Blood Product 620 Rc Irr As1 Unit 310 [id number] Other 130 90 Output: Urine 80 650 567 Other: Voiding Method Indwelling Catheter Indwelling Catheter # Bowel Movements 1 1 ABP, PAP, CO, CI - Last Documented Arterial Blood Pressure 110/56 - Exam Abdomen: Soft, mild distention, right upper quadrant fullness/firmness with mild tenderness - Labs CBC & Chem 7: 10/01/24 15:00 10/01/24 10:49 Labs: Abnormal Lab Results - Last 24 Hours (Table) 09/29/24 09/30/24 10/01/24 Range/Units 03:55 23:55 04:25 WBC (4.50-10.00) 10*3/uL RBC (4.10-5.20) 10*6/uL Hgb (12.0-15.0) g/dL Hct (37.2-46.3) % Immature Gran # (0.00-0.04) 10*3/uL Neutrophils # (Manual) (1.3-7.7) k/uL Lymphocytes # (Manual) (1.0-4.8) k/uL ABG pH 7.50 H (7.35-7.45) ABG pCO2 32 L (35-45) mmHg ABG Total CO2 26 H (19-24) mmol/L ABG O2 Saturation 97.9 H (94-97) % Hemoglobin 7.2 L (11.4-16.0) gm/dL Sodium (137-145) mmol/L Potassium (3.5-5.1) mmol/L Chloride (98-107) mmol/L Glucose (74-99) mg/dL POC Glucose (mg/dL) 160 H (70-110) mg/dL Calcium (8.4-10.2) mg/dL Crossmatch See Detail 10/01/24 10/01/24 10/01/24 Range/Units 04:30 04:30 06:48 WBC 42.87 H (4.50-10.00) 10*3/uL RBC 2.31 L (4.10-5.20) 10*6/uL Hgb 6.9 L* (12.0-15.0) g/dL Hct 19.5 L* (37.2-46.3) % Immature Gran # 2.24 H (0.00-0.04) 10*3/uL Neutrophils # (Manual) 41.58 H (1.3-7.7) k/uL Lymphocytes # (Manual) 0.43 L (1.0-4.8) k/uL ABG pH (7.35-7.45) ABG pCO2 (35-45) mmHg ABG Total CO2 (19-24) mmol/L ABG O2 Saturation (94-97) % Hemoglobin (11.4-16.0) gm/dL Sodium 131 L (137-145) mmol/L Potassium 3.1 L (3.5-5.1) mmol/L Chloride 92 L (98-107) mmol/L Glucose 124 H (74-99) mg/dL POC Glucose (mg/dL) 148 H (70-110) mg/dL Calcium 7.4 L (8.4-10.2) mg/dL Crossmatch 10/01/24 10/01/24 Range/Units 11:45 15:00 WBC 44.61 H (4.50-10.00) 10*3/uL RBC 3.24 L (4.10-5.20) 10*6/uL Hgb 9.8 L D (12.0-15.0) g/dL Hct 26.6 L (37.2-46.3) % Immature Gran # (0.00-0.04) 10*3/uL Neutrophils # (Manual) (1.3-7.7) k/uL Lymphocytes # (Manual) (1.0-4.8) k/uL ABG pH (7.35-7.45) ABG pCO2 (35-45) mmHg ABG Total CO2 (19-24) mmol/L ABG O2 Saturation (94-97) % Hemoglobin (11.4-16.0) gm/dL Sodium (137-145) mmol/L Potassium (3.5-5.1) mmol/L Chloride (98-107) mmol/L Glucose (74-99) mg/dL POC Glucose (mg/dL) 155 H (70-110) mg/dL Calcium (8.4-10.2) mg/dL Crossmatch Microbiology - Last 24 Hours (Table) 09/29/24 05:05 Blood Culture - Preliminary Blood 09/29/24 05:57 Gram Stain - Final Sputum Sputum Culture - Final Assessment and Plan (1) Abdominal pain Narrative/Plan: 59-year-old female with advanced malignancy and abdominal distention with discomfort. Significant leukocytosis. Source of sepsis remain unclear. Follow cultures. Tolerating tube feeds at 10 cc will advance to 25 cc/h. Apparently oncology plans to have meetings with family tomorrow regarding possible hospice. Continue medical support for now. Current Visit: No Status: Acute Code(s): R10.9 - UNSPECIFIED ABDOMINAL PAIN SNOMED Code(s): 31377527
[2024-10-01 23:38] LABS: Glucose,Whole Blood 118 mg/dL (70-110)
[2024-10-02 05:34] LABS: Basophils # (A) 0.17 10*3/uL (0.00-0.10); Basophils % (A) 0.5 %; Eosinophils # (A) 0.11 10*3/uL (0.04-0.35); Eosinophils % (A) 0.3 %; HCT 26.2 % (37.2-46.3); HGB 9.4 g/dL (12.0-15.0); Lymphocytes # (A) 0.70 10*3/uL (0.90-5.00); Lymphocytes % (A) 2.1 %; MCH 29.1 pg (27.0-32.0); MCHC 35.9 g/dL (32.0-37.0); MCV 81.1 fL (80.0-97.0); Monocytes # (A) 1.15 10*3/uL (0.20-1.00); Monocytes % (A) 3.4 %; Neutrophils # (A) 31.11 10*3/uL (1.80-7.70); Platelet Count 202 10*3/uL (140-440); RBC 3.23 10*6/uL (4.10-5.20); RDW 17.9 % (11.5-14.5); WBC 33.62 10*3/uL (4.50-10.00)
[2024-10-02 05:36] LABS: Glucose,Whole Blood 121 mg/dL (70-110)
[2024-10-02 05:44] LABS: ABG HCO3 29 mmol/L (21-25); ABG PCO2 35 mmHg (35-45); ABG PH 7.52 (7.35-7.45); ABG PO2 94 mmHg (83-108); ABG TCO2 30 mmol/L (19-24); Allen Test Performed? Yes
[2024-10-02 05:50] LABS: Neutrophils % (A) 92.6 %
[2024-10-02 05:53] LABS: African American GFR (CKD) 76 (>60 ml/min/1.73 sqM); Anion Gap 10 mmol/L; Blood Urea Nitrogen 17 mg/dL (7-17); Calcium 7.6 mg/dL (8.4-10.2); Carbon Dioxide 27 mmol/L (22-30); Chloride 96 mmol/L (98-107); Glucose 104 mg/dL (74-99); Magnesium 1.8 mg/dL (1.6-2.3); Non-African American GFR(CKD) 66 (>60 ml/min/1.73 sqM); Potassium 3.7 mmol/L (3.5-5.1); Sodium 133 mmol/L (137-145)
[2024-10-02] MEDS: POTASSIUM BICARBONATE/CIT AC 20 MEQ TABLET.EFF NG-TUBE SCH (06:17)
[2024-10-02] MEDS: MAGNESIUM SULFATE-D5W PMX 1 GM in DEXTROSE/WATER 1 100ML.BAG IVPB ONE (06:18)
--- NOTE | 2024-10-02 07:22 | XR ---
EXAMINATION TYPE: XR chest 1V portable DATE OF EXAM: 10/02/2024 5:35 AM COMPARISON: Chest radiographs from 09/30/2024, CTA chest 09/29/2024 TECHNIQUE: XR chest 1V portable Portable AP radiograph of the chest. CLINICAL INDICATION:Female, 59 years old with history of Tube placement; FINDINGS: Patient is rotated which limits evaluation. Lungs/Pleura: Similar bibasilar patchy consolidative opacities. Small bilateral pleural effusions wit h right lateral mid pleural loculated pleural effusion versus pleural-based metastasis. Additional kn own pulmonary metastases are better appreciated on prior CT. No pneumothorax. Pulmonary vascularity: Unremarkable. Heart/mediastinum: Cardiomediastinal silhouette is unremarkable. Musculoskeletal: No acute osseous pathology. Other findings: None Lines/Tubes: Endotracheal tube with distal tip 4.8 cm above the megan Nasogastric tube with its distal tip and side-port projecting under the diaphragm. IMPRESSION: 1. Stable support tubes. 2. Small bilateral pleural effusions with bibasilar airspace opacities which may represent atelectas is versus infiltrates. 3. Similar right lateral pleural loculated effusion versus metastasis. Additional known pulmonary me tastasis are better appreciated on prior CT. [facility], , 10/02/2024 7:19 AM
--- NOTE | 2024-10-02 07:52 | P.PN ---
Subjective Progress Note Date: 10/01/24 Principal diagnosis: Reason for follow-up is sepsis Patient is a 59-year-old female with a past medical history significant for COPD CVA TIA metastatic lung cancer recent admission to this facility treated for pneumonia and UTI has been brought to the hospital the tin ent was found to be unresponsive mental status patient ended up get intubated and admitted to ICU concerning for sepsis/pneumonia/enterocolitis. On today's evaluation that is 10/01/2024, Patient is afebrile this morning patient remains to be debated on the vent FiO2 is currently at 45% no significan t purulent secretion through the ET requiring low-dose pressor support no other changes reported by the nursing staff. Patient was found 44.61 creatinine is 1.03 blood and sputum cultures currently pending Objective - Vital Signs Vital signs: Vital Signs Temp 98.0 F 10/01/24 11:10 Pulse 89 10/01/24 11:10 Resp 19 10/01/24 11:10 BP 100/51 10/01/24 11:10 Pulse Ox 99 10/01/24 11:10 FiO2 45 10/01/24 09:32 Intake & Output 09/30/24 10/01/24 10/01/24 18:59 06:59 18:59 Intake Total 3366.231 2496.227 988.895 Output Total 80 650 75 Balance 3286.231 1846.227 913.895 Weight 56.6 kg 56 kg Intake: IV 2666 2269 238 0.9 Normal Saline 92 130 10 Albumin Human 25% 50 ml 100 600 In Empty Bag 1 bag @ 50 mls/hr IVPB Q1H [facility] Rx#: [id number] Dextrose 5% in Water 1, 1250 1500 125 000 ml @ 125 mls/hr IV . Q9H12M [facility] with Sodium Bicarb (1 Meq/ml) 150 ml Rx#:[id number] Magnesium Sulfate-D5w Pmx 100 100 1 gm In Dextrose/Water 1 100ml.bag @ 100 mls/hr IVPB Q1H [facility] Rx#: [id number] Piperacillin-Tazobactam 3 100 .375 gm In Sodium Chloride 0.9% 100 ml @ 25 mls/hr IVPB Q8H [facility] Rx#: [id number] Pressure Bag 24 39 3 Sodium Chloride 0.9% 1, 1000 000 ml @ 999 mls/hr IV . Q1H1M ONE Rx#:[id number] Intake, IV Titration 530.231 97.227 90.895 Amount Magnesium Sulfate-D5w Pmx 200 1 gm In Dextrose/Water 1 100ml.bag @ 100 mls/hr IVPB Q1H [facility] Rx#: [id number] Norepinephrine 32 mg In 76.388 36.723 24.288 Sodium Chloride 0.9% 218 ml @ 0.03 MCG/KG/MIN 0. 746 mls/hr IV .Q24H [facility] Rx#:[id number] Vasopressin 60 unit In 118.728 Sodium Chloride 0.9% 150 ml @ 0.03 UNITS/MIN 4.59 mls/hr IV .Q24H [facility] Rx#: [id number] propofoL 1,000 mg In 135.115 60.504 66.607 Empty Bag 1 bag @ 15 MCG/ KG/MIN 4.776 mls/hr IV . [id number] [facility] Rx#:[id number] Tube Feeding 40 130 10 Blood Product 620 Rc Irr As1 Unit 310 [id number] Other 130 30 Output: Urine 80 650 75 Other: Voiding Method Indwelling Catheter Indwelling Catheter # Bowel Movements 1 1 ABP, PAP, CO, CI - Last Documented Arterial Blood Pressure 100/49 - Exam GENERAL DESCRIPTION: Middle-age female intubated on the vent RESPIRATORY SYSTEM: Unlabored breathing , decreased breath sounds at bases HEART: S1 S2 regular rate and rhythm , ABDOMEN: Distention especially on the right side EXTREMITIES: No edema feet - Labs CBC & Chem 7: 10/02/24 05:00 10/02/24 05:00 Labs: Abnormal Lab Results - Last 24 Hours (Table) 09/29/24 09/30/24 09/30/24 Range/Units 03:55 13:00 17:32 WBC (4.50-10.00) 10*3/uL RBC (4.10-5.20) 10*6/uL Hgb (12.0-15.0) g/dL Hct (37.2-46.3) % Immature Gran # (0.00-0.04) 10*3/uL Neutrophils # (Manual) (1.3-7.7) k/uL Lymphocytes # (Manual) (1.0-4.8) k/uL ABG pH (7.35-7.45) ABG pCO2 (35-45) mmHg ABG Total CO2 (19-24) mmol/L ABG O2 Saturation (94-97) % Hemoglobin (11.4-16.0) gm/dL Sodium (137-145) mmol/L Potassium (3.5-5.1) mmol/L Chloride (98-107) mmol/L Glucose (74-99) mg/dL POC Glucose (mg/dL) 161 H (70-110) mg/dL Plasma Lactic Acid Onesimo 7.6 H* (0.7-2.0) mmol/L Calcium (8.4-10.2) mg/dL Crossmatch See Detail 09/30/24 10/01/24 10/01/24 Range/Units 23:55 04:25 04:30 WBC (4.50-10.00) 10*3/uL RBC (4.10-5.20) 10*6/uL Hgb (12.0-15.0) g/dL Hct (37.2-46.3) % Immature Gran # (0.00-0.04) 10*3/uL Neutrophils # (Manual) (1.3-7.7) k/uL Lymphocytes # (Manual) (1.0-4.8) k/uL ABG pH 7.50 H (7.35-7.45) ABG pCO2 32 L (35-45) mmHg ABG Total CO2 26 H (19-24) mmol/L ABG O2 Saturation 97.9 H (94-97) % Hemoglobin 7.2 L (11.4-16.0) gm/dL Sodium 131 L (137-145) mmol/L Potassium 3.1 L (3.5-5.1) mmol/L Chloride 92 L (98-107) mmol/L Glucose 124 H (74-99) mg/dL POC Glucose (mg/dL) 160 H (70-110) mg/dL Plasma Lactic Acid Onesimo (0.7-2.0) mmol/L Calcium 7.4 L (8.4-10.2) mg/dL Crossmatch 10/01/24 10/01/24 10/01/24 Range/Units 04:30 06:48 11:45 WBC 42.87 H (4.50-10.00) 10*3/uL RBC 2.31 L (4.10-5.20) 10*6/uL Hgb 6.9 L* (12.0-15.0) g/dL Hct 19.5 L* (37.2-46.3) % Immature Gran # 2.24 H (0.00-0.04) 10*3/uL Neutrophils # (Manual) 41.58 H (1.3-7.7) k/uL Lymphocytes # (Manual) 0.43 L (1.0-4.8) k/uL ABG pH (7.35-7.45) ABG pCO2 (35-45) mmHg ABG Total CO2 (19-24) mmol/L ABG O2 Saturation (94-97) % Hemoglobin (11.4-16.0) gm/dL Sodium (137-145) mmol/L Potassium (3.5-5.1) mmol/L Chloride (98-107) mmol/L Glucose (74-99) mg/dL POC Glucose (mg/dL) 148 H 155 H (70-110) mg/dL Plasma Lactic Acid Onesimo (0.7-2.0) mmol/L Calcium (8.4-10.2) mg/dL Crossmatch Microbiology - Last 24 Hours (Table) 09/29/24 05:57 Gram Stain - Final Sputum Sputum Culture - Final 09/29/24 05:05 Blood Culture - Preliminary Blood Assessment and Plan (1) Pneumonia Current Visit: Yes Status: Acute Priority: High Code(s): J18.9 - PNEUMONIA, UNSPECIFIED ORGANISM SNOMED Code(s): 480374672 (2) Septic shock Current Visit: Yes Status: Acute Code(s): A41.9 - SEPSIS, UNSPECIFIED ORGANISM; R65.21 - SEVERE SEPSIS WITH SEPTIC SHOCK SNOMED Code(s): 39097566 Plan: 1patient presented to hospital with mental status changes decreased vision noticed and patient reported to have history of metastatic lung cancer and rec ent discharge from the hospital swelling from the source of sepsis likely pneumonia likely gram-negative gram-positive infection not entirely excluded 2-blood and sputum culture have been obtained which are currently pending 3- patient is afebrile patient white count is trending down patient is currently being treated with Zosyn to continue and monitor clinical course closely Dictation was produced using [employer] software. please excuse any grammatical, word or spelling errors. Time with Patient: Less than 30
--- NOTE | 2024-10-02 09:48 | P.PN ---
Subjective Patient is seen in follow-up for acute kidney injury. Renal function improved. On Levophed and vasopressin. Intubated. Receiving tube feeds. Nonoliguric. Vital signs are stable. On vasopressor support. General: Resting in bed. HEENT: Intubated. LUNGS: No audible rhonchi or wheezes. HEART: Rate and Rhythm are regular. ABDOMEN: No distention. EXTREMITITES: 2+ edema. Objective - Vital Signs Vital signs: Vital Signs Temp 97.9 F 10/02/24 00:15 Pulse 86 10/02/24 07:00 Resp 19 10/02/24 07:00 BP 73/49 10/02/24 04:15 Pulse Ox 96 10/02/24 07:00 FiO2 45 10/02/24 09:29 Intake & Output 10/01/24 10/02/24 10/02/24 18:59 06:59 18:59 Intake Total 2057.639 989.866 22.952 Output Total 1017 1155 Balance 1040.639 -165.134 22.952 Weight 59.7 kg Intake: IV 953 819 0.9 Normal Saline 70 130 Dextrose 5% in Water 1, 250 000 ml @ 125 mls/hr IV . Q9H12M [facility] with Sodium Bicarb (1 Meq/ml) 150 ml Rx#:[id number] Magnesium Sulfate-D5w Pmx 100 1 gm In Dextrose/Water 1 100ml.bag @ 100 mls/hr IVPB Q1H [facility] Rx#: [id number] Piperacillin-Tazobactam 3 100 .375 gm In Sodium Chloride 0.9% 100 ml @ 25 mls/hr IVPB Q8H [facility] Rx#: [id number] Pressure Bag 33 39 Sodium Chloride 0.9% 1, 400 650 000 ml @ 50 mls/hr IV . Q20H [facility] Rx#:[id number] Intake, IV Titration 284.639 40.866 22.952 Amount Norepinephrine 32 mg In 38.108 22.952 Sodium Chloride 0.9% 218 ml @ 0.03 MCG/KG/MIN 0. 746 mls/hr IV .Q24H [facility] Rx#:[id number] Vasopressin 60 unit In 143.438 Sodium Chloride 0.9% 150 ml @ 0.03 UNITS/MIN 4.59 mls/hr IV .Q24H [facility] Rx#: [id number] propofoL 1,000 mg In 103.093 40.866 Empty Bag 1 bag @ 15 MCG/ KG/MIN 4.776 mls/hr IV . [id number] [facility] Rx#:[id number] Tube Feeding 110 130 Blood Product 620 Rc Irr As1 Unit 310 [id number] Other 90 Output: Urine 1017 1155 Other: Voiding Method Indwelling Catheter Indwelling Catheter # Bowel Movements 1 1 ABP, PAP, CO, CI - Last Documented Arterial Blood Pressure 89/46 - Labs CBC & Chem 7: 10/02/24 05:00 10/02/24 05:00 Labs: Abnormal Lab Results - Last 24 Hours (Table) 09/29/24 10/01/24 10/01/24 Range/Units 03:55 11:45 15:00 WBC 44.61 H (4.50-10.00) 10*3/uL RBC 3.24 L (4.10-5.20) 10*6/uL Hgb 9.8 L D (12.0-15.0) g/dL Hct 26.6 L (37.2-46.3) % Immature Gran # (0.00-0.04) 10*3/uL Neutrophils # (1.80-7.70) 10*3/uL Lymphocytes # (0.90-5.00) 10*3/uL Monocytes # (0.20-1.00) 10*3/uL Basophils # (0.00-0.10) 10*3/uL ABG pH (7.35-7.45) ABG HCO3 (21-25) mmol/L ABG Total CO2 (19-24) mmol/L ABG O2 Saturation (94-97) % Hemoglobin (11.4-16.0) gm/dL Sodium (137-145) mmol/L Potassium (3.5-5.1) mmol/L Chloride (98-107) mmol/L Glucose (74-99) mg/dL POC Glucose (mg/dL) 155 H (70-110) mg/dL Calcium (8.4-10.2) mg/dL Crossmatch See Detail 10/01/24 10/01/24 10/01/24 Range/Units 17:46 21:23 23:37 WBC (4.50-10.00) 10*3/uL RBC (4.10-5.20) 10*6/uL Hgb (12.0-15.0) g/dL Hct (37.2-46.3) % Immature Gran # (0.00-0.04) 10*3/uL Neutrophils # (1.80-7.70) 10*3/uL Lymphocytes # (0.90-5.00) 10*3/uL Monocytes # (0.20-1.00) 10*3/uL Basophils # (0.00-0.10) 10*3/uL ABG pH (7.35-7.45) ABG HCO3 (21-25) mmol/L ABG Total CO2 (19-24) mmol/L ABG O2 Saturation (94-97) % Hemoglobin (11.4-16.0) gm/dL Sodium (137-145) mmol/L Potassium 3.3 L (3.5-5.1) mmol/L Chloride (98-107) mmol/L Glucose (74-99) mg/dL POC Glucose (mg/dL) 119 H 118 H (70-110) mg/dL Calcium (8.4-10.2) mg/dL Crossmatch 10/02/24 10/02/24 10/02/24 Range/Units 05:00 05:00 05:34 WBC 33.62 H (4.50-10.00) 10*3/uL RBC 3.23 L (4.10-5.20) 10*6/uL Hgb 9.4 L (12.0-15.0) g/dL Hct 26.2 L (37.2-46.3) % Immature Gran # 0.38 H (0.00-0.04) 10*3/uL Neutrophils # 31.11 H (1.80-7.70) 10*3/uL Lymphocytes # 0.70 L (0.90-5.00) 10*3/uL Monocytes # 1.15 H (0.20-1.00) 10*3/uL Basophils # 0.17 H (0.00-0.10) 10*3/uL ABG pH (7.35-7.45) ABG HCO3 (21-25) mmol/L ABG Total CO2 (19-24) mmol/L ABG O2 Saturation (94-97) % Hemoglobin (11.4-16.0) gm/dL Sodium 133 L (137-145) mmol/L Potassium (3.5-5.1) mmol/L Chloride 96 L (98-107) mmol/L Glucose 104 H (74-99) mg/dL POC Glucose (mg/dL) 121 H (70-110) mg/dL Calcium 7.6 L (8.4-10.2) mg/dL Crossmatch 10/02/24 Range/Units 05:41 WBC (4.50-10.00) 10*3/uL RBC (4.10-5.20) 10*6/uL Hgb (12.0-15.0) g/dL Hct (37.2-46.3) % Immature Gran # (0.00-0.04) 10*3/uL Neutrophils # (1.80-7.70) 10*3/uL Lymphocytes # (0.90-5.00) 10*3/uL Monocytes # (0.20-1.00) 10*3/uL Basophils # (0.00-0.10) 10*3/uL ABG pH 7.52 H (7.35-7.45) ABG HCO3 29 H (21-25) mmol/L ABG Total CO2 30 H (19-24) mmol/L ABG O2 Saturation 98.4 H (94-97) % Hemoglobin 9.6 L (11.4-16.0) gm/dL Sodium (137-145) mmol/L Potassium (3.5-5.1) mmol/L Chloride (98-107) mmol/L Glucose (74-99) mg/dL POC Glucose (mg/dL) (70-110) mg/dL Calcium (8.4-10.2) mg/dL Crossmatch Microbiology - Last 24 Hours (Table) 09/29/24 05:05 Blood Culture - Preliminary Blood 09/29/24 05:57 Gram Stain - Final Sputum Sputum Culture - Final Assessment and Plan Plan: Assessment: 1. Acute kidney injury secondary to ATN secondary to septic shock. Creatinine improved to 0.95 today. Nonoliguric. 2. Hypokalemia from intracellular shifting from IV bicarb. Replaced. Better. 3. Metabolic acidosis secondary to acute kidney injury, status post bicarb drip. Better. 4. Septic shock maintained on vasopressors. On IV antibiotics. 5. Hyponatremia secondary to acute kidney injury. Hypervolemic. 6. Hypomagnesemia from poor intake. Replaced. Better. 7. Lung cancer with metastasis. 8. Acute blood loss anemia receiving blood transfusion. Hemoglobin improved, Plan: Hep-Lock IV fluids. Status post IV Lasix given October 01, 2024. Continue to monitor renal function and urine output. Prognosis guarded.
[2024-10-02 11:22] LABS: Glucose,Whole Blood 121 mg/dL (70-110)
--- NOTE | 2024-10-02 12:28 | P.PN ---
Subjective Progress Note Date: 10/02/24 Principal diagnosis: Reason for follow-up is sepsis Patient is a 59-year-old female with a past medical history significant for COPD CVA TIA metastatic lung cancer recent admission to this facility treated for pneumonia and UTI has been brought to the hospital the tin ent was found to be unresponsive mental status patient ended up get intubated and admitted to ICU concerning for sepsis/pneumonia/enterocolitis. On today's evaluation that is 10/02/2024,the patient remains to be afebrile the patient remains to be intubated on the vent FiO2 is currently stable at 45% no significant purulent secretion through the ET or in procedure room 40 still requiring high-dose pressor support. Patient white count is down to 33.62 creatinine is 0.95 blood and sputum cultures so far negative Objective - Vital Signs Vital signs: Vital Signs Temp 97.9 F 10/02/24 00:15 Pulse 86 10/02/24 07:00 Resp 19 10/02/24 07:00 BP 73/49 10/02/24 04:15 Pulse Ox 96 10/02/24 07:00 FiO2 45 10/02/24 09:29 Intake & Output 10/01/24 10/02/24 10/02/24 18:59 06:59 18:59 Intake Total 2057.639 989.866 136.493 Output Total 1017 1155 Balance 1040.639 -165.134 136.493 Weight 59.7 kg 59.7 kg Intake: IV 953 819 0.9 Normal Saline 70 130 Dextrose 5% in Water 1, 250 000 ml @ 125 mls/hr IV . Q9H12M [facility] with Sodium Bicarb (1 Meq/ml) 150 ml Rx#:[id number] Magnesium Sulfate-D5w Pmx 100 1 gm In Dextrose/Water 1 100ml.bag @ 100 mls/hr IVPB Q1H [facility] Rx#: [id number] Piperacillin-Tazobactam 3 100 .375 gm In Sodium Chloride 0.9% 100 ml @ 25 mls/hr IVPB Q8H [facility] Rx#: [id number] Pressure Bag 33 39 Sodium Chloride 0.9% 1, 400 650 000 ml @ 50 mls/hr IV . Q20H [facility] Rx#:[id number] Intake, IV Titration 284.639 40.866 136.493 Amount Norepinephrine 32 mg In 38.108 44.676 Sodium Chloride 0.9% 218 ml @ 0.03 MCG/KG/MIN 0. 746 mls/hr IV .Q24H [facility] Rx#:[id number] Vasopressin 60 unit In 143.438 Sodium Chloride 0.9% 150 ml @ 0.03 UNITS/MIN 4.59 mls/hr IV .Q24H [facility] Rx#: [id number] propofoL 1,000 mg In 103.093 40.866 91.817 Empty Bag 1 bag @ 15 MCG/ KG/MIN 4.776 mls/hr IV . [id number] [facility] Rx#:[id number] Tube Feeding 110 130 Blood Product 620 Rc Irr As1 Unit 310 [id number] Other 90 Output: Urine 1017 1155 Other: Voiding Method Indwelling Catheter Indwelling Catheter # Bowel Movements 1 1 ABP, PAP, CO, CI - Last Documented Arterial Blood Pressure 89/46 - Exam GENERAL DESCRIPTION: Middle-age female intubated on the vent RESPIRATORY SYSTEM: Unlabored breathing , decreased breath sounds at bases HEART: S1 S2 regular rate and rhythm , ABDOMEN: Distention especially on the right side EXTREMITIES: No edema feet - Labs CBC & Chem 7: 10/02/24 05:00 10/02/24 11:30 Labs: Abnormal Lab Results - Last 24 Hours (Table) 10/01/24 10/01/24 10/01/24 Range/Units 15:00 17:46 21:23 WBC 44.61 H (4.50-10.00) 10*3/uL RBC 3.24 L (4.10-5.20) 10*6/uL Hgb 9.8 L D (12.0-15.0) g/dL Hct 26.6 L (37.2-46.3) % Immature Gran # (0.00-0.04) 10*3/uL Neutrophils # (1.80-7.70) 10*3/uL Lymphocytes # (0.90-5.00) 10*3/uL Monocytes # (0.20-1.00) 10*3/uL Basophils # (0.00-0.10) 10*3/uL ABG pH (7.35-7.45) ABG HCO3 (21-25) mmol/L ABG Total CO2 (19-24) mmol/L ABG O2 Saturation (94-97) % Hemoglobin (11.4-16.0) gm/dL Sodium (137-145) mmol/L Potassium 3.3 L (3.5-5.1) mmol/L Chloride (98-107) mmol/L Glucose (74-99) mg/dL POC Glucose (mg/dL) 119 H (70-110) mg/dL Calcium (8.4-10.2) mg/dL 10/01/24 10/02/24 10/02/24 Range/Units 23:37 05:00 05:00 WBC 33.62 H (4.50-10.00) 10*3/uL RBC 3.23 L (4.10-5.20) 10*6/uL Hgb 9.4 L (12.0-15.0) g/dL Hct 26.2 L (37.2-46.3) % Immature Gran # 0.38 H (0.00-0.04) 10*3/uL Neutrophils # 31.11 H (1.80-7.70) 10*3/uL Lymphocytes # 0.70 L (0.90-5.00) 10*3/uL Monocytes # 1.15 H (0.20-1.00) 10*3/uL Basophils # 0.17 H (0.00-0.10) 10*3/uL ABG pH (7.35-7.45) ABG HCO3 (21-25) mmol/L ABG Total CO2 (19-24) mmol/L ABG O2 Saturation (94-97) % Hemoglobin (11.4-16.0) gm/dL Sodium 133 L (137-145) mmol/L Potassium (3.5-5.1) mmol/L Chloride 96 L (98-107) mmol/L Glucose 104 H (74-99) mg/dL POC Glucose (mg/dL) 118 H (70-110) mg/dL Calcium 7.6 L (8.4-10.2) mg/dL 10/02/24 10/02/24 10/02/24 Range/Units 05:34 05:41 11:21 WBC (4.50-10.00) 10*3/uL RBC (4.10-5.20) 10*6/uL Hgb (12.0-15.0) g/dL Hct (37.2-46.3) % Immature Gran # (0.00-0.04) 10*3/uL Neutrophils # (1.80-7.70) 10*3/uL Lymphocytes # (0.90-5.00) 10*3/uL Monocytes # (0.20-1.00) 10*3/uL Basophils # (0.00-0.10) 10*3/uL ABG pH 7.52 H (7.35-7.45) ABG HCO3 29 H (21-25) mmol/L ABG Total CO2 30 H (19-24) mmol/L ABG O2 Saturation 98.4 H (94-97) % Hemoglobin 9.6 L (11.4-16.0) gm/dL Sodium (137-145) mmol/L Potassium (3.5-5.1) mmol/L Chloride (98-107) mmol/L Glucose (74-99) mg/dL POC Glucose (mg/dL) 121 H 121 H (70-110) mg/dL Calcium (8.4-10.2) mg/dL Microbiology - Last 24 Hours (Table) 09/29/24 05:05 Blood Culture - Preliminary Blood 09/29/24 05:57 Gram Stain - Final Sputum Sputum Culture - Final Assessment and Plan (1) Pneumonia Current Visit: Yes Status: Acute Priority: High Code(s): J18.9 - PNEU MONIA, UNSPECIFIED ORGANISM SNOMED Code(s): 161149518 (2) Septic shock Current Visit: Yes Status: Acute Code(s): A41.9 - SEPSIS, UNSPECIFIED ORGANISM; R65.21 - SEVERE SEPSIS WITH SEPTIC SHOCK SNOMED Code(s): 29299101 Plan: 1patient presented to hospital with mental status changes decreased vision noticed and patient reported to have history of metastatic lung cancer and recent discharge from the hospital swelling from the source of sepsis likely pneumonia likely gram-negative gram-positive infection not entirely excluded 2-blood and sputum culture have been obtained which are so far negative 3- patient is afebrile patient white count is trending down still requiring high-dose pressor support 4patient to continue with Zosyn, prognosis guarded daughter at the bedside updated about her care Dictation was produced using [employer] dictation software. please excuse any grammatical, word or spelling errors. Time with Patient: Less than 30
[2024-10-02] MEDS: HYDROmorphone 1 MG/ML 1 ML SYRINGE IVP PRN (13:41)
--- NOTE | 2024-10-02 13:55 | P.PN ---
Subjective Progress Note Date: 10/02/24 Principal diagnosis: Pneumonia, weakness, resp failure. Metastatic NSCLC Pt remains sedated and ventilated, she is on 2 vasopressors. She follows commands when sedation is withheld. Multiple family members at bedside Objective - Vital Signs Vital signs: Vital Signs Temp 97.7 F 10/02/24 12:00 Pulse 105 H 10/02/24 12:45 Resp 24 10/02/24 12:45 BP 95/55 10/02/24 12:00 Pulse Ox 96 10/02/24 12:45 FiO2 45 10/02/24 12:00 Intake & Output 10/01/24 10/02/24 10/02/24 18:59 06:59 18:59 Intake Total 2057.639 989.866 333.454 Output Total 1017 1155 345 Balance 1040.639 -165.134 -11.546 Weight 59.7 kg 59.7 kg Intake: IV 953 819 159 0.9 Normal Saline 70 130 30 Dextrose 5% in Water 1, 250 000 ml @ 125 mls/hr IV . Q9H12M [facility] with Sodium Bicarb (1 Meq/ml) 150 ml Rx#:[id number] Magnesium Sulfate-D5w Pmx 100 1 gm In Dextrose/Water 1 100ml.bag @ 100 mls/hr IVPB Q1H [facility] Rx#: [id number] Piperacillin-Tazobactam 3 100 .375 gm In Sodium Chloride 0.9% 100 ml @ 25 mls/hr IVPB Q8H [facility] Rx#: [id number] Pressure Bag 33 39 9 Sodium Chloride 0.9% 1, 400 650 120 000 ml @ 20 mls/hr IV . Q24H [facility] Rx#:[id number] Intake, IV Titration 284.639 40.866 144.454 Amount Norepinephrine 32 mg In 38.108 44.676 Sodium Chloride 0.9% 218 ml @ 0.03 MCG/KG/MIN 0. 746 mls/hr IV .Q24H [facility] Rx#:[id number] Vasopressin 60 unit In 143.438 Sodium Chloride 0.9% 150 ml @ 0.03 UNITS/MIN 4.59 mls/hr IV .Q24H [facility] Rx#: [id number] propofoL 1,000 mg In 103.093 40.866 99.778 Empty Bag 1 bag @ 15 MCG/ KG/MIN 4.776 mls/hr IV . [id number] [facility] Rx#:[id number] Tube Feeding 110 130 30 Blood Product 620 Rc Irr As1 Unit 310 [id number] Other 90 Output: Urine 1017 1155 345 Other: Voiding Method Indwelling Catheter Indwelling Catheter Indwelling Catheter # Bowel Movements 1 1 ABP, PAP, CO, CI - Last Documented Arterial Blood Pressure 124/64 - Constitutional General appearance: Present: no acute distress, thin (petite) - Respiratory Details: ventilated - Cardiovascular Rhythm: regular - Neurologic Neurologic: Absent: CNII-XII intact, focal deficits - Musculoskeletal Musculoskeletal: Absent: gait normal, generalized weakness, strength equal bilaterally, right sided weakness, left sided weakness - Psychiatric Psychiatric: Absent: A&O x's 3, appropriate affect, intact judgment & insight - Labs CBC & Chem 7: 10/02/24 05:00 10/02/24 11:30 Labs: Abnormal Lab Results - Last 24 Hours (Table) 10/01/24 10/01/24 10/01/24 Range/Units 15:00 17:46 21:23 WBC 44.61 H (4.50-10.00) 10*3/uL RBC 3.24 L (4.10-5.20) 10*6/uL Hgb 9.8 L D (12.0-15.0) g/dL Hct 26.6 L (37.2-46.3) % Immature Gran # (0.00-0.04) 10*3/uL Neutrophils # (1.80-7.70) 10*3/uL Lymphocytes # (0.90-5.00) 10*3/uL Monocytes # (0.20-1.00) 10*3/uL Basophils # (0.00-0.10) 10*3/uL ABG pH (7.35-7.45) ABG HCO3 (21-25) mmol/L ABG Total CO2 (19-24) mmol/L ABG O2 Saturation (94-97) % Hemoglobin (11.4-16.0) gm/dL Sodium (137-145) mmol/L Potassium 3.3 L (3.5-5.1) mmol/L Chloride (98-107) mmol/L Glucose (74-99) mg/dL POC Glucose (mg/dL) 119 H (70-110) mg/dL Calcium (8.4-10.2) mg/dL 10/01/24 10/02/24 10/02/24 Range/Units 23:37 05:00 05:00 WBC 33.62 H (4.50-10.00) 10*3/uL RBC 3.23 L (4.10-5.20) 10*6/uL Hgb 9.4 L (12.0-15.0) g/dL Hct 26.2 L (37.2-46.3) % Immature Gran # 0.38 H (0.00-0.04) 10*3/uL Neutrophils # 31.11 H (1.80-7.70) 10*3/uL Lymphocytes # 0.70 L (0.90-5.00) 10*3/uL Monocytes # 1.15 H (0.20-1.00) 10*3/uL Basophils # 0.17 H (0.00-0.10) 10*3/uL ABG pH (7.35-7.45) ABG HCO3 (21-25) mmol/L ABG Total CO2 (19-24) mmol/L ABG O2 Saturation (94-97) % Hemoglobin (11.4-16.0) gm/dL Sodium 133 L (137-145) mmol/L Potassium (3.5-5.1) mmol/L Chloride 96 L (98-107) mmol/L Glucose 104 H (74-99) mg/dL POC Glucose (mg/dL) 118 H (70-110) mg/dL Calcium 7.6 L (8.4-10.2) mg/dL 10/02/24 10/02/24 10/02/24 Range/Units 05:34 05:41 11:21 WBC (4.50-10.00) 10*3/uL RBC (4.10-5.20) 10*6/uL Hgb (12.0-15.0) g/dL Hct (37.2-46.3) % Immature Gran # (0.00-0.04) 10*3/uL Neutrophils # (1.80-7.70) 10*3/uL Lymphocytes # (0.90-5.00) 10*3/uL Monocytes # (0.20-1.00) 10*3/uL Basophils # (0.00-0.10) 10*3/uL ABG pH 7.52 H (7.35-7.45) ABG HCO3 29 H (21-25) mmol/L ABG Total CO2 30 H (19-24) mmol/L ABG O2 Saturation 98.4 H (94-97) % Hemoglobin 9.6 L (11.4-16.0) gm/dL Sodium (137-145) mmol/L Potassium (3.5-5.1) mmol/L Chloride (98-107) mmol/L Glucose (74-99) mg/dL POC Glucose (mg/dL) 121 H 121 H (70-110) mg/dL Calcium (8.4-10.2) mg/dL Microbiology - Last 24 Hours (Table) 09/29/24 05:05 Blood Culture - Preliminary Blood 09/29/24 05:57 Gram Stain - Final Sputum Sputum Culture - Final Assessment and Plan (1) Acute hypoxic respiratory failure Current Visit: Yes Status: Acute Priority: High Code(s): J96.01 - ACUTE RESPIRATORY FAILURE WITH HYPOXIA SNOMED Code(s): 83249572 (2) Pneumonia Current Visit: Yes Status: Acute Priority: High Code(s): J18.9 - PNEUMONIA, UNSPECIFIED ORGANISM SNOMED Code(s): 064890980 (3) Metastatic non-small cell lung cancer Current Visit: Yes Status: Acute Priority: High Code(s): C34.90 - MALIGNAN T NEOPLASM OF UNSP PART OF UNSP BRONCHUS OR LUNG SNOMED Code(s): 744476416 (4) Leukocytosis Current Visit: Yes Status: Acute Priority: Medium Code(s): D72.829 - ELEVATED WHITE BLOOD CELL COUNT, UNSPECIFIED SNOMED Code(s): 058631405 (5) Anemia Current Visit: Yes Status: Acute Priority: Medium Code(s): D64.9 - ANEMIA, UNSPECIFIED SNOMED Code(s): 844393302 Plan: Acute hypoxic respiratory failure - Patient is in the intensive care unit, sedated, mechanically ventilated -She requires 2 vasopressors currently to maintain BP. - Pulm/Critical care team saw pt, not seeing much improvements Pneumonia - Patient on treatment for the same-suspect underlying cause of patient's presenting symptoms - Defer to Critical Care/Infectious Disease for management of the same Metastatic non-small cell lung cancer - Diagnosis and treatment as documented in consult - Patient most recently had disease progression on targeted agent. Plans were to start single agent chemotherapy with Taxotere. -Concerns for patient's general overall condition and ability to tolerate treatment, considering recent frequent hospitalizations and now requiring intubation. Disease may be such that even aggressive treatment may not be able to get ahead of it. There are plans for a family meeting in the morning to discuss the same. Will address code status - It is completely reasonable to continue to treat patient for pneumonia for a few days and to see if that she can be removed from the ventilator and participate in decisions regarding how she would like to proceed. -reviewed all of the above with pt family. They verbalized understanding and do recognize the likely futility of chemotherapy, greater risk of pt having chemo side effects than any meaningful benefit of treatment. Did recommend no extraordinary measures in case of cardo-respiratory failure. Family did report to Nursing that they agree with no code, code status updated. They would like to cont to treat for now and see if pt can be extubated and go home with hospice. Medical team doing what they can to try and get pt to that point. -Agree with plan of care Leukocytosis - Infection, malignancy are contributing to leukocytosis, mostly neutrophilia. No acute intervention at this time. Slowly improving Anemia - Anemia secondary to treatment of disease as well as malignancy - Patient has been transfused, with an appropriate response in hemoglobin. Stable Hgb today -Continue to transfuse for hemoglobin less than 7 or if patient is symptomatic
--- NOTE | 2024-10-02 15:12 | P.PN ---
Subjective Progress Note Date: 10/02/24 Principal diagnosis: Septic shock secondary to pneumonia This is a 59-year-old female patient who is currently intubated on a mechanical ventilator as the patient presented to the ICU with respiratory failure and diminished level of consciousness. The patient is known to have stage IV pulm adenocarcinoma. Initial diagnosis was back in 2021 and at that time, the patient had stage IIIA (T1N2M0) adenocarcinoma of the right lung. PD-L1 is 5% with HER-2 amplification. She started concurrent weekly carboplatin AUC 2/paclitaxel 45 mg/m2 along with daily radiation therapy on 03/01/2022 and completed her last cycle of chemotherapy on 04/05/2022 and last day of radiation therapy on 04/07/2022. CT chest and abdomen on 04/18/2022 revealed no evidence of disease progression, but did note consolidative changes in the right lower lobe concerning for radiation pneumonitis versus possible pneumonia. I reviewed CT imaging with Dr. Carrizales of radiation oncology, who agreed changes in the right lower lobe due to radiation. Given her improvement, we discussed proceeding with maintenance durvalumab monthly for 1 year per the PACIFIC trial. She initiated cycle 1 of consolidative durvalumab on 06/16/2022 and most completed cycle 12 on 04/20/2023. Staging CT scans on 11/14/2023 during the [facility] cyber attack noted concern for right lower lobe nodule measuring 1.1 cm x 0.7 cm. Prior staging scans also noted nodule in the right lower lobe. Is was not clear if this was new finding or consistent with prior nodule. PET/CT performed on 12/29/2023 noted to FDG avid lung lesions in the right upper lobe and right middle lobe along with right adrenal gland FDG avidity concerning for metastatic disease. Her case was discussed at [facility] multidisciplinary thoracic tumor on 01/16/2024 further recommendation for biopsy along with systemic treatment and possible SBRT to the 2 lung lesions. She eventually proceeded to have biopsy of the right adrenal gland lesion on 02/19/2024 after further consideration. This did reveal metastatic non-small cell carcinoma that was TTF-1 positive consistent with lung primary. Brain MRI on 03/08/2024 revealed no evidence of intracranial metastases.Staging CT scans performed on 03/14/2024 revealed increased size of the right adrenal gland up to 9.3 cm along with increased size of the right upper lobe lesion at 1.4 cm compared to prior imaging. Cycle 1 of Enhertu given prior HER2 amplification was started on 04/18/2024 and most recently received cycle 7 on 08/27/24. Unfortunately CT scans on 08/30/24, showed disease progression. Enhertu was stopped, and pt was scheduled to follow up with Dr. Joss Diaz on 09/23 to further discuss treatment options. Noted the patient was in the hospital last week and the patient was discharged on 09/27/2024. Patient was admitted for the evaluation of hyponatremia and debility. IV fluids, TSH, cortisol, PT OT consult, fluid restriction, and home salt tabs were ordered. Nephrology and heme-onc consulted. TSH and cortisol were within normal limits. Patient was notably having low oral intake and encouraged to eat high-protein with protein shake supplementation and ordered Megace. Samsca was given once. Patient's sodium began to improve throughout her hospital stay. Brain CT was ordered by heme-onc for evaluation of possible metastasis showed no acute intracranial process or evidence suggesting of in tracranial mass with noted remote lacunar injury. Patient notably complained of flank pain due to an adrenal mass from old imaging and radiology oncology was consulted for palliative radiation. Patient also had notable leukocytosis with concerning urinalysis and reflex urine culture grew pansensitive E. coli and Alcalg[place]en faecalis. Patient was placed on IV antibiotics for 3 days due to no development of urinary symptoms. However patient's leukocytosis continued to increase and was placed back on IV Zosyn for empiric coverage. Infectious disease was consulted. Sputum culture and blood culture was ordered which were both negative. Patient also required 3 units of packed RBC transfusions due to anemia. Iron studies showed elevated ferritin which is consistent with chronic disease. B12 and folate were within normal limits. Patient also noted a mass on right chest. [place] xray showed pleural based density in lateral midlung previously 4 cm now at 5.7cm. PT OT consult was refused by patient and home care was offered but refused by family and patient after further discussion. Patient is cleared for discharge today with Augmentin and Bactrim for 1 week, sodium tabs increased to twice a day, MiraLAX, Dulcolax, megestrol, Percocet and ondansetron oral. Home [place] was discontinued. The patient presented back to the Emergency Department yesterday for altered mentation and ongoing respiratory difficulties. The patient was apparently seen at around 1 AM going to bed normally. Subsequently, the patient was found to be short of breath and lethargic and at time arrival to the emergency, the patient had agonal respiration and based on that, the patient was intubated and placed on a mechanical ventilator. Since arrival, the patient was given a total of 2 L of IV fluids and the patient is currently on lactated Ringer running at 125 cc an hour. The patient is also on pressors, currently on norepinephrine running at 0.28 mcg/kg/min and vasopressin was also started at 0.03 units an hour. The patient is currently on propofol running at 20 mcg/kg/min. The patient is on assist-control mode of mechanical ventilation at rate of 16, tidal volume of 400, FiO2 of 70% with a PEEP of 5. Blood gas showed a pH of 7.25 with a PCO2 of 38 and PO2 of 314. CT of the chest was done and showed no evidence of any pulmonary embolism. There was evidence of bilateral pleural effusion and extensive right lower lobe consolidation highly suspicious for an underlying pneumonia. There was also evidence of metastatic pulmonary nodules, a right upper lobe pulmonary nodule measuring 1.6 cm in size, left-sided pulmonary nodules measuring 6.5 mm in size and the patient had increasing in size of bilateral adrenal masses. CAT scan of the abdomen was also completed and the patient was found to have interval increase in the bilateral adrenal masses, and no other acute intra-abdominal abnormalities. Doppler of the lower extremity was negative for DVT. The current blood work shows a WBC count of 48.5, hemoglobin of 7.1 and a platelet count of 381. INR is at 1.5 with a PT of 15.5, D-dimer is at 15.5, sodium is at 130 with a potassium level of 4.2, serum bicarb is at 11, gap of 15, BUN is 15 with a creatinine of 0.6. Lactic acid level was as high as 6.5, dropped down to 4, LFTs are abnormal with an AST of 67, ALT of 27 and a platelet count of 498. Troponins are negative. Viral screen was negative. Alcohol level was also negative. The most recent cultures are from the urine on 09/18/2024 showing E. coli and Alcaligenes. The patient is currently on a combination of Zosyn and vancomycin. Seen today on 09/30/2024, patient remains in the ICU intubated mechanically ventilated, on assist-control rate of 16 tidal volume 400 FiO2 50% but cut down to 45% PEEP of 5 ABG on 50% showed a pO2 of 112 pCO2 31 pH of 7.42. Patient is quite complex she has many multiple medical problems including pneumonia, stage IV lung cancer, she has history of aspiration, history of multiple com orbidities, she is now on mechanical ventilation she is also on propofol 50 mcg/kg/min vasopressin at 0.03 units/min norepinephrine at 0.22 mcg/kg/min she is on vancomycin and Zosyn for presumptive sepsis and pneumonia patient is on enteral feeding, continues to have significantly elevated lactic acid, her urine output is becoming less and less, patient received significant amount of fluids still receiving fluid boluses, she also received 1 dose of Lasix last night, urine output remains poor, and her renal functioning is worsening hence nephrology was consulted. Apparently the patient was found on 09/29 unresponsive and this was at 2 AM apparently she was down for at least 6 hours prior to admission. Patient had multiple admissions to the hospital previously. At any rate patient is not ready for weaning, she is intubated mechanically ventilated, and her overall picture remains extremely poor and guarded. Chest x-ray was reviewed labs were reviewed medications were all reviewed and the patient is being followed by many consultants including infectious disease on the case. Patient was seen today on 10/01/2024, remains in the ICU intubated mechanically ventilated, on assist-control rate of 16 tidal volume 400 FiO2 45% and PEEP of 5 ABG showed a pO2 of 85 pCO2 32 pH of 7.5. Patient is off sedation this morning, has been off sedation since yesterday. Still requiring norepinephrine at 0.12, she is also on vasopressin at 0.03 units/min. Patient is not ready for any form of weaning as she seems to be difficult to arouse, does not follow any instructions. Her electrolytes showed low potassium of 3.1 BUN is 17 creatinine 1.03 patient received albumin yesterday and she seemed to respond well to albumin with good urine output after albumin infusion. Hemoglobin today is low at 6.9, and she will be receiving a unit of packed RBCs. Followed by Cher. Patient developed a bit of acute kidney injury secondary to ATN secondary to septic shock, today's creatinine is 1.03 and the patient is nonoliguric. Her metabolic acidosis is correcting nicely and improved with bicarb drip. Chest x- ray today showed bilateral lower lobe airspace opacities with stable pleural- based density within the lateral mid to lower lung there is a stable right-sided pleural effusion. Not much of a change noted on her chest x-ray. Patient was also seen by general surgery for her abdominal distention and discomfort, felt that the patient may have retroperitoneal metastatic disease and also raised the possibility of slow ischemia but the patient is not a good surgical candidate. And did not recommend any surgical intervention. Patient was seen today on 10/02/2024, remains in the ICU, intubated and mechanically ventilated, on assist-control rate of 16 tidal volume 400 FiO2 45% PEEP of 5 ABG showed a pO2 of 94 pCO2 35 pH of 7.52 patient still requiring norepinephrine at 0.2 mcg/kg/min still requiring vasopressin at 0.03 units per minute, patient is on IV fluid at KVO, still receiving Zosyn empirically. Family is at bedside, and I discussed her condition and her prognosis with the f amily members, and they also had a discussion with the oncology staff, CODE STATUS was changed from full code to DNR CODE STATUS however the family would like to continue present supportive care measures, eventually the patient could be considered for hospice down the line, but will try in the meantime to continue present supportive care meds and hopefully could get her extubated in the next couple of days. Patient is arousable, follows simple instructions, she seems to be profoundly weak. Continues to have high leukocytosis with WC count of 33.6 hemoglobin 9.4 her ABG as noted earlier, basic metabolic profile is normal, renal profile is normal blood sugar is 121. Magnesium 1.8. Chest x-ray showed stable support tubes, small bilateral pleural effusions with airspace opacities bilaterally, there is also a right lateral loculated pleural effusion. Objective - Vital Signs Vital signs: Vital Signs Temp 97.7 F 10/02/24 12:00 Pulse 105 H 10/02/24 12:45 Resp 24 10/02/24 12:45 BP 95/55 10/02/24 12:00 Pulse Ox 96 10/02/24 12:45 FiO2 45 10/02/24 12:00 Intake & Output 10/01/24 10/02/24 10/02/24 18:59 06:59 18:59 Intake Total 2057.639 989.866 549.048 Output Total 1017 1155 535 Balance 1040.639 -165.134 14.048 Weight 59.7 kg 59.7 kg Intake: IV 953 819 258 0.9 Normal Saline 70 130 60 Dextrose 5% in Water 1, 250 000 ml @ 125 mls/hr IV . Q9H12M [facility] with Sodium Bicarb (1 Meq/ml) 150 ml Rx#:[id number] Magnesium Sulfate-D5w Pmx 100 1 gm In Dextrose/Water 1 100ml.bag @ 100 mls/hr IVPB Q1H [facility] Rx#: [id number] Piperacillin-Tazobactam 3 100 .375 gm In Sodium Chloride 0.9% 100 ml @ 25 mls/hr IVPB Q8H [facility] Rx#: [id number] Pressure Bag 33 39 18 Sodium Chloride 0.9% 1, 400 650 180 000 ml @ 20 mls/hr IV . Q24H [facility] Rx#:[id number] Intake, IV Titration 284.639 40.866 171.048 Amount Norepinephrine 32 mg In 38.108 56.730 Sodium Chloride 0.9% 218 ml @ 0.03 MCG/KG/MIN 0. 746 mls/hr IV .Q24H [facility] Rx#:[id number] Vasopressin 60 unit In 143.438 Sodium Chloride 0.9% 150 ml @ 0.03 UNITS/MIN 4.59 mls/hr IV .Q24H [facility] Rx#: [id number] propofoL 1,000 mg In 103.093 40.866 114.318 Empty Bag 1 bag @ 15 MCG/ KG/MIN 4.776 mls/hr IV . [id number] [facility] Rx#:[id number] Tube Feeding 110 130 60 Blood Product 620 Rc Irr As1 Unit 310 [id number] Other 90 60 Output: Urine 1017 1155 535 Other: Voiding Method Indwelling Catheter Indwelling Catheter Indwelling Catheter # Bowel Movements 1 1 ABP, PAP, CO, CI - Last Documented Arterial Blood Pressure 124/64 - Exam GENERAL: Reveals a 59-year-old female looks frail chronically ill,intubated mechanically ventilated, arousable, follows simple instructions HEENT: Pupils are round and equally reacting to light. EOMI. No scleral icterus. No conjunctival pallor. Normocephalic, atraumatic. No pharyngeal erythema. No thyromegaly. CARDIOVASCULAR: S1 and S2 present. No murmurs, rubs, or gallops. PULMONARY: Crackles at the right base no rhonchi no wheezes ABDOMEN: Slightly distended soft nontender no rebound no guarding MUSCULOSKELETAL: No obvious deformities noted cannot assess range of motion EXTREMITIES: No clubbing edema or cyanosis NEUROLOGICAL: Arousable follows simple instructions generally profoundly weak Psychiatric: Could not fully assess. SKIN: No rashes. - Labs CBC & Chem 7: 10/02/24 05:00 10/02/24 11:30 Labs: Abnormal Lab Results - Last 24 Hours (Table) 10/01/24 10/01/24 10/01/24 Range/Units 15:00 17:46 21:23 WBC 44.61 H (4.50-10.00) 10*3/uL RBC 3.24 L (4.10-5.20) 10*6/uL Hgb 9.8 L D (12.0-15.0) g/dL Hct 26.6 L (37.2-46.3) % Immature Gran # (0.00-0.04) 10*3/uL Neutrophils # (1.80-7.70) 10*3/uL Lymphocytes # (0.90-5.00) 10*3/uL Monocytes # (0.20-1.00) 10*3/uL Basophils # (0.00-0.10) 10*3/uL ABG pH (7.35-7.45) ABG HCO3 (21-25) mmol/L ABG Total CO2 (19-24) mmol/L ABG O2 Saturation (94-97) % Hemoglobin (11.4-16.0) gm/dL Sodium (137-145) mmol/L Potassium 3.3 L (3.5-5.1) mmol/L Chloride (98-107) mmol/L Glucose (74-99) mg/dL POC Glucose (mg/dL) 119 H (70-110) mg/dL Calcium (8.4-10.2) mg/dL 10/01/24 10/02/24 10/02/24 Range/Units 23:37 05:00 05:00 WBC 33.62 H (4.50-10.00) 10*3/uL RBC 3.23 L (4.10-5.20) 10*6/uL Hgb 9.4 L (12.0-15.0) g/dL Hct 26.2 L (37.2-46.3) % Immature Gran # 0.38 H (0.00-0.04) 10*3/uL Neutrophils # 31.11 H (1.80-7.70) 10*3/uL Lymphocytes # 0.70 L (0.90-5.00) 10*3/uL Monocytes # 1.15 H (0.20-1.00) 10*3/uL Basophils # 0.17 H (0.00-0.10) 10*3/uL ABG pH (7.35-7.45) ABG HCO3 (21-25) mmol/L ABG Total CO2 (19-24) mmol/L ABG O2 Saturation (94-97) % Hemoglobin (11.4-16.0) gm/dL Sodium 133 L (137-145) mmol/L Potassium (3.5-5.1) mmol/L Chloride 96 L (98-107) mmol/L Glucose 104 H (74-99) mg/dL POC Glucose (mg/dL) 118 H (70-110) mg/dL Calcium 7.6 L (8.4-10.2) mg/dL 10/02/24 10/02/24 10/02/24 Range/Units 05:34 05:41 11:21 WBC (4.50-10.00) 10*3/uL RBC (4.10-5.20) 10*6/uL Hgb (12.0-15.0) g/dL Hct (37.2-46.3) % Immature Gran # (0.00-0.04) 10*3/uL Neutrophils # (1.80-7.70) 10*3/uL Lymphocytes # (0.90-5.00) 10*3/uL Monocytes # (0.20-1.00) 10*3/uL Basophils # (0.00-0.10) 10*3/uL ABG pH 7.52 H (7.35-7.45) ABG HCO3 29 H (21-25) mmol/L ABG Total CO2 30 H (19-24) mmol/L ABG O2 Saturation 98.4 H (94-97) % Hemoglobin 9.6 L (11.4-16.0) gm/dL Sodium (137-145) mmol/L Potassium (3.5-5.1) mmol/L Chloride (98-107) mmol/L Glucose (74-99) mg/dL POC Glucose (mg/dL) 121 H 121 H (70-110) mg/dL Calcium (8.4-10.2) mg/dL Microbiology - Last 24 Hours (Table) 09/29/24 05:05 Blood Culture - Preliminary Blood 09/29/24 05:57 Gram Stain - Final Sputum Sputum Culture - Final Assessment and Plan Assessment: Impression: Acute hypoxic respiratory failure secondary to pneumonia, could be healthcare acquired pneumonia considering her recent hospitalization or could be aspiration pneumonia Septic shock secondary to above Acute lactic acidosis Acute kidney injury/acute tubular necrosis Anemia of chronic disease Stage IV metastatic lung cancer Malnutrition secondary to malignancy/severe protein calorie malnutrition History of underlying COPD Tobacco dependence syndrome Recent hospitalization for urinary tract infection Transaminitis in the setting of malignancy/metastatic disease Recommendation: Continue ventilatory support, I do not believe the patient is quite ready for weaning trials will likely start that tomorrow assuming the patient is on a lower dose of pressors presently remains on norepinephrine and vasopressin Continue hemodynamic support presently on vasopressin and norepinephrine to maintain adequate blood pressure Continue IV fluids, continue to monitor her urine output, patient improved with albumin infusions Transfuse patient for low hemoglobin Continue Zosyn empirically Continue nutritional support/enteral feeding Continue to monitor electrolytes and renal profile on a daily basis Continue GI and DVT prophylaxis/IV Protonix and subcu Lovenox Overall prognostic picture is extremely poor and guarded updated her family on her condition at bedside, And made aware of her poor prognostic picture as noted above and her multiple comorbidities. Appreciate oncology input on her malignancy and prognosis. Apparently this was conveyed to the family by oncology. Patient is critically ill Critical care time is 35 minutes Time with Patient: Greater than 30
--- NOTE | 2024-10-02 15:17 | P.PN ---
Subjective Progress Note Date: 10/02/24 SURGICAL PROGRESS NOTE CHIEF COMPLAINT: Abdominal pain HISTORY OF PRESENT ILLNESS: Patient is in the ICU remaining on mechanical ventilation. She is also on levo and vasopressin. She is on tube feeds at 25 mL/h. She continues to have firmness in the right upper quadrant. Family did have a meeting with oncology service and CODE STATUS was changed to DNR. Afebrile. Mildly tachycardic. WBC 33 PHYSICAL EXAM: VITAL SIGNS: Reviewed. GENERAL: no acute distress. On mechanical ventilation ABDOMEN: Soft. Nondistended. Abdomen distended with a firmness noted in the right upper quadrant ASSESSMENT: 1. Advanced malignancy and abdominal distention with abdominal pain 2. Retroperitoneal metastatic disease 3. Stage IV lung cancer 4. Thickening of small bowel and colon could be related to ischemic or infectious process PLAN: - Oncology service had family meeting and CODE STATUS changed to DNR - Continue supportive care - Continue ICU management Physician Therapeutic Radiologist note has been reviewed by physician. Signing provider agrees with the documented findings, assessment, and plan of care. I have personally seen and examined the patient, reviewed the STEEL RIGGER /PAs history, exam and MDM and agree with the assessment and plan as written. Based on total visit time, I have performed more than 50% of the visit. As above: Patient tolerating tube feeds at 25 cc/h. White blood cell count impr josette. Tentative plans for extubation with home hospice. May advance tube feeds as tolerates. Objective - Vital Signs Vital signs: Vital Signs Temp 97.7 F 10/02/24 12:00 Pulse 105 H 10/02/24 12:45 Resp 24 10/02/24 12:45 BP 95/55 10/02/24 12:00 Pulse Ox 96 10/02/24 12:45 FiO2 45 10/02/24 12:00 Intake & Output 10/01/24 10/02/24 10/02/24 18:59 06:59 18:59 Intake Total 2057.639 989.866 549.048 Output Total 1017 1155 535 Balance 1040.639 -165.134 14.048 Weight 59.7 kg 59.7 kg Intake: IV 953 819 258 0.9 Normal Saline 70 130 60 Dextrose 5% in Water 1, 250 000 ml @ 125 mls/hr IV . Q9H12M [facility] with Sodium Bicarb (1 Meq/ml) 150 ml Rx#:[id number] Magnesium Sulfate-D5w Pmx 100 1 gm In Dextrose/Water 1 100ml.bag @ 100 mls/hr IVPB Q1H [facility] Rx#: [id number] Piperacillin-Tazobactam 3 100 .375 gm In Sodium Chloride 0.9% 100 ml @ 25 mls/hr IVPB Q8H [facility] Rx#: [id number] Pressure Bag 33 39 18 Sodium Chloride 0.9% 1, 400 650 180 000 ml @ 20 mls/hr IV . Q24H [facility] Rx#:[id number] Intake, IV Titration 284.639 40.866 171.048 Amount Norepinephrine 32 mg In 38.108 56.730 Sodium Chloride 0.9% 218 ml @ 0.03 MCG/KG/MIN 0. 746 mls/hr IV .Q24H [facility] Rx#:[id number] Vasopressin 60 unit In 143.438 Sodium Chloride 0.9% 150 ml @ 0.03 UNITS/MIN 4.59 mls/hr IV .Q24H [facility] Rx#: [id number] propofoL 1,000 mg In 103.093 40.866 114.318 Empty Bag 1 bag @ 15 MCG/ KG/MIN 4.776 mls/hr IV . [id number] [facility] Rx#:[id number] Tube Feeding 110 130 60 Blood Product 620 Rc Irr As1 Unit 310 [id number] Other 90 60 Output: Urine 1017 1155 535 Other: Voiding Method Indwelling Catheter Indwelling Catheter Indwelling Catheter # Bowel Movements 1 1 ABP, PAP, CO, CI - Last Documented Arterial Blood Pressure 124/64 - Labs CBC & Chem 7: 10/02/24 05:00 10/02/24 11:30 Labs: Abnormal Lab Results - Last 24 Hours (Table) 10/01/24 10/01/24 10/01/24 Range/Units 15:00 17:46 21:23 WBC 44.61 H (4.50-10.00) 10*3/uL RBC 3.24 L (4.10-5.20) 10*6/uL Hgb 9.8 L D (12.0-15.0) g/dL Hct 26.6 L (37.2-46.3) % Immature Gran # (0.00-0.04) 10*3/uL Neutrophils # (1.80-7.70) 10*3/uL Lymphocytes # (0.90-5.00) 10*3/uL Monocytes # (0.20-1.00) 10*3/uL Basophils # (0.00-0.10) 10*3/uL ABG pH (7.35-7.45) ABG HCO3 (21-25) mmol/L ABG Total CO2 (19-24) mmol/L ABG O2 Saturation (94-97) % Hemoglobin (11.4-16.0) gm/dL Sodium (137-145) mmol/L Potassium 3.3 L (3.5-5.1) mmol/L Chloride (98-107) mmol/L Glucose (74-99) mg/dL POC Glucose (mg/dL) 119 H (70-110) mg/dL Calcium (8.4-10.2) mg/dL 10/01/24 10/02/24 10/02/24 Range/Units 23:37 05:00 05:00 WBC 33.62 H (4.50-10.00) 10*3/uL RBC 3.23 L (4.10-5.20) 10*6/uL Hgb 9.4 L (12.0-15.0) g/dL Hct 26.2 L (37.2-46.3) % Immature Gran # 0.38 H (0.00-0.04) 10*3/uL Neutrophils # 31.11 H (1.80-7.70) 10*3/uL Lymphocytes # 0.70 L (0.90-5.00) 10*3/uL Monocytes # 1.15 H (0.20-1.00) 10*3/uL Basophils # 0.17 H (0.00-0.10) 10*3/uL ABG pH (7.35-7.45) ABG HCO3 (21-25) mmol/L ABG Total CO2 (19-24) mmol/L ABG O2 Saturation (94-97) % Hemoglobin (11.4-16.0) gm/dL Sodium 133 L (137-145) mmol/L Potassium (3.5-5.1) mmol/L Chloride 96 L (98-107) mmol/L Glucose 104 H (74-99) mg/dL POC Glucose (mg/dL) 118 H (70-110) mg/dL Calcium 7.6 L (8.4-10.2) mg/dL 10/02/24 10/02/24 10/02/24 Range/Units 05:34 05:41 11:21 WBC (4.50-10.00) 10*3/uL RBC (4.10-5.20) 10*6/uL Hgb (12.0-15.0) g/dL Hct (37.2-46.3) % Immature Gran # (0.00-0.04) 10*3/uL Neutrophils # (1.80-7.70) 10*3/uL Lymphocytes # (0.90-5.00) 10*3/uL Monocytes # (0.20-1.00) 10*3/uL Basophils # (0.00-0.10) 10*3/uL ABG pH 7.52 H (7.35-7.45) ABG HCO3 29 H (21-25) mmol/L ABG Total CO2 30 H (19-24) mmol/L ABG O2 Saturation 98.4 H (94-97) % Hemoglobin 9.6 L (11.4-16.0) gm/dL Sodium (137-145) mmol/L Potassium (3.5-5.1) mmol/L Chloride (98-107) mmol/L Glucose (74-99) mg/dL POC Glucose (mg/dL) 121 H 121 H (70-110) mg/dL Calcium (8.4-10.2) mg/dL Microbiology - Last 24 Hours (Table) 09/29/24 05:05 Blood Culture - Preliminary Blood 09/29/24 05:57 Gram Stain - Final Sputum Sputum Culture - Final
[2024-10-02 18:04] LABS: Glucose,Whole Blood 121 mg/dL (70-110)
[2024-10-02 23:20] LABS: Glucose,Whole Blood 132 mg/dL (70-110)
[2024-10-03 05:56] LABS: Glucose,Whole Blood 142 mg/dL (70-110)
[2024-10-03 05:58] LABS: ABG HCO3 31 mmol/L (21-25); ABG PCO2 40 mmHg (35-45); ABG PH 7.49 (7.35-7.45); ABG PO2 80 mmHg (83-108); ABG TCO2 32 mmol/L (19-24)
[2024-10-03 05:59] LABS: Basophils # (A) 0.17 10*3/uL (0.00-0.10); Basophils % (A) 0.7 %; Eosinophils # (A) 0.15 10*3/uL (0.04-0.35); Eosinophils % (A) 0.6 %; HCT 24.0 % (37.2-46.3); HGB 8.6 g/dL (12.0-15.0); Lymphocytes # (A) 0.70 10*3/uL (0.90-5.00); Lymphocytes % (A) 2.9 %; MCH 30.0 pg (27.0-32.0); MCHC 35.8 g/dL (32.0-37.0); MCV 83.6 fL (80.0-97.0); Monocytes # (A) 1.42 10*3/uL (0.20-1.00); Monocytes % (A) 5.8 %; Neutrophils # (A) 21.64 10*3/uL (1.80-7.70); Neutrophils % (A) 88.6 %; Platelet Count 143 10*3/uL (140-440); RBC 2.87 10*6/uL (4.10-5.20); RDW 17.4 % (11.5-14.5); WBC 24.42 10*3/uL (4.50-10.00)
[2024-10-03 06:13] LABS: African American GFR (CKD) 75 (>60 ml/min/1.73 sqM); Anion Gap 9 mmol/L; Blood Urea Nitrogen 20 mg/dL (7-17); Calcium 8.0 mg/dL (8.4-10.2); Carbon Dioxide 30 mmol/L (22-30); Chloride 93 mmol/L (98-107); Glucose 114 mg/dL (74-99); Magnesium 1.9 mg/dL (1.6-2.3); Non-African American GFR(CKD) 65 (>60 ml/min/1.73 sqM); Potassium 3.7 mmol/L (3.5-5.1); Sodium 132 mmol/L (137-145)
[2024-10-03 06:22] LABS: Allen Test Performed? No
[2024-10-03] MEDS: MAGNESIUM SULFATE-D5W PMX 1 GM in DEXTROSE/WATER 1 100ML.BAG IVPB ONE (06:48)
[2024-10-03] MEDS: POTASSIUM BICARBONATE/CIT AC 20 MEQ TABLET.EFF NG-TUBE SCH ×2 (06:48→21:30)
--- NOTE | 2024-10-03 07:29 | XR ---
EXAMINATION TYPE: XR chest 1V portable DATE OF EXAM: 10/03/2024 5:29 AM COMPARISON: Multiple radiographs, with the most recent on 10/02/2024, CT chest abdomen pelvis 08/30/2024 TECHNIQUE: XR chest 1V portable Portable AP radiograph of the chest. CLINICAL INDICATION:Female, 59 years old with history of Mechanical ventilation; FINDINGS: Lungs/Pleura: Similar bibasilar patchy consolidative opacities. Small bilateral pleural effusions wit h right lateral mid pleural loculated pleural effusion versus pleural-based metastasis. Additional kn own pulmonary metastases are better appreciated on prior CT. No pneumothorax. Pulmonary vascularity: Unremarkable. Heart/mediastinum: Cardiomediastinal silhouette is unremarkable. Atherosclerotic calcifications are seen in the aorta. Musculoskeletal: No acute osseous pathology. Other findings: None Lines/Tubes: Endotracheal tube with distal tip 4.7 cm above the megan Nasogastric tube with its distal tip and side-port projecting under the diaphragm and projecting over the gastric lumen. IMPRESSION: 1. Stable support tubes. 2. Small bilateral pleural effusions with bibasilar airspace opacities which may represent atelectas is/scarring versus infiltrates. 3. Similar right lateral pleural loculated effusion versus metastasis. Additional known pulmonary me tastasis are better appreciated on prior CT. [facility], , 10/03/2024 7:27 AM
[2024-10-03] MEDS: FUROSEMIDE 10 MG/ML 2 ML VIAL IV ONE (09:49)
[2024-10-03] MEDS: FUROSEMIDE 10 MG/ML 10 ML VIAL IV STA (09:54)
--- NOTE | 2024-10-03 10:11 | P.PN ---
Subjective Patient is seen in follow-up for acute kidney injury. Renal function improved. On Levophed and vasopressin. Intubated. Receiving tube feeds. Nonoliguric. Possible extubation today. Vital signs are stable. On vasopressor support. General: Resting in bed. HEENT: Intubated. LUNGS: No audible rhonchi or wheezes. HEART: Rate and Rhythm are regular. ABDOMEN: No distention. EXTREMITITES: 2+ edema. Objective - Vital Signs Vital signs: Vital Signs Temp 98.2 F 10/03/24 08:00 Pulse 110 H 10/03/24 10:00 Resp 19 10/03/24 10:00 BP 87/51 10/03/24 09:15 Pulse Ox 96 10/03/24 10:00 FiO2 45 10/03/24 10:00 Intake & Output 10/02/24 10/03/24 10/03/24 18:59 06:59 18:59 Intake Total 1059.048 965.904 212.611 Output Total 795 600 245 Balance 264.048 365.904 -32.389 Weight 59.7 kg 61.7 kg Intake: IV 523 396 69 0.9 Normal Saline 110 120 Piperacillin-Tazobactam 3 100 .375 gm In Sodium Chloride 0.9% 100 ml @ 25 mls/hr IVPB Q8H [facility] Rx#: [id number] Pressure Bag 33 36 9 Sodium Chloride 0.9% 1, 280 240 60 000 ml @ 20 mls/hr IV . Q24H [facility] Rx#:[id number] Intake, IV Titration 171.048 269.904 13.611 Amount Norepinephrine 32 mg In 56.730 58.738 Sodium Chloride 0.9% 218 ml @ 0.03 MCG/KG/MIN 0. 746 mls/hr IV .Q24H [facility] Rx#:[id number] Vasopressin 60 unit In 135.864 Sodium Chloride 0.9% 150 ml @ 0.03 UNITS/MIN 4.59 mls/hr IV .Q24H [facility] Rx#: [id number] propofoL 1,000 mg In 114.318 75.302 13.611 Empty Bag 1 bag @ 15 MCG/ KG/MIN 4.776 mls/hr IV . [id number] [facility] Rx#:[id number] Tube Feeding 275 300 100 Other 90 30 Output: Urine 795 600 245 Other: Voiding Method Indwelling Catheter Indwelling Catheter Indwelling Catheter # Bowel Movements 1 ABP, PAP, CO, CI - Last Documented Arterial Blood Pressure 104/53 - Labs CBC & Chem 7: 10/03/24 05:30 10/03/24 05:30 Labs: Abnormal Lab Results - Last 24 Hours (Table) 10/02/24 10/02/24 10/02/24 Range/Units 11:21 18:04 23:18 WBC (4.50-10.00) 10*3/uL RBC (4.10-5.20) 10*6/uL Hgb (12.0-15.0) g/dL Hct (37.2-46.3) % Immature Gran # (0.00-0.04) 10*3/uL Neutrophils # (1.80-7.70) 10*3/uL Lymphocytes # (0.90-5.00) 10*3/uL Monocytes # (0.20-1.00) 10*3/uL Basophils # (0.00-0.10) 10*3/uL ABG pH (7.35-7.45) ABG pO2 (83-108) mmHg ABG HCO3 (21-25) mmol/L ABG Total CO2 (19-24) mmol/L ABG O2 Saturation (94-97) % Hemoglobin (11.4-16.0) gm/dL Sodium (137-145) mmol/L Chloride (98-107) mmol/L BUN (7-17) mg/dL Glucose (74-99) mg/dL POC Glucose (mg/dL) 121 H 121 H 132 H (70-110) mg/dL Calcium (8.4-10.2) mg/dL 10/03/24 10/03/24 10/03/24 Range/Units 05:30 05:30 05:55 WBC 24.42 H (4.50-10.00) 10*3/uL RBC 2.87 L (4.10-5.20) 10*6/uL Hgb 8.6 L (12.0-15.0) g/dL Hct 24.0 L (37.2-46.3) % Immature Gran # 0.34 H (0.00-0.04) 10*3/uL Neutrophils # 21.64 H (1.80-7.70) 10*3/uL Lymphocytes # 0.70 L (0.90-5.00) 10*3/uL Monocytes # 1.42 H (0.20-1.00) 10*3/uL Basophils # 0.17 H (0.00-0.10) 10*3/uL ABG pH 7.49 H (7.35-7.45) ABG pO2 80 L (83-108) mmHg ABG HCO3 31 H (21-25) mmol/L ABG Total CO2 32 H (19-24) mmol/L ABG O2 Saturation 97.2 H (94-97) % Hemoglobin 9.2 L (11.4-16.0) gm/dL Sodium 132 L (137-145) mmol/L Chloride 93 L (98-107) mmol/L BUN 20 H (7-17) mg/dL Glucose 114 H (74-99) mg/dL POC Glucose (mg/dL) (70-110) mg/dL Calcium 8.0 L (8.4-10.2) mg/dL 10/03/24 Range/Units 05:55 WBC (4.50-10.00) 10*3/uL RBC (4.10-5.20) 10*6/uL Hgb (12.0-15.0) g/dL Hct (37.2-46.3) % Immature Gran # (0.00-0.04) 10*3/uL Neutrophils # (1.80-7.70) 10*3/uL Lymphocytes # (0.90-5.00) 10*3/uL Monocytes # (0.20-1.00) 10*3/uL Basophils # (0.00-0.10) 10*3/uL ABG pH (7.35-7.45) ABG pO2 (83-108) mmHg ABG HCO3 (21-25) mmol/L ABG Total CO2 (19-24) mmol/L ABG O2 Saturation (94-97) % Hemoglobin (11.4-16.0) gm/dL Sodium (137-145) mmol/L Chloride (98-107) mmol/L BUN (7-17) mg/dL Glucose (74-99) mg/dL POC Glucose (mg/dL) 142 H (70-110) mg/dL Calcium (8.4-10.2) mg/dL Microbiology - Last 24 Hours (Table) 10/01/24 16:45 Urine Culture - Final Urine,Voided 09/29/24 05:05 Blood Culture - Preliminary Blood Assessment and Plan Plan: Assessment: 1. Acute kidney injury secondary to ATN secondary to septic shock. Improved. Nonoliguric. 2. Hypokalemia from intracellular shifting from IV bicarb. Replaced. Better. 3. Metabolic acidosis secondary to acute kidney injury, status post bicarb drip. Better. 4. Septic shock maintained on vasopressors. On IV antibiotics. 5. Hyponatremia secondary to acute kidney injury. Hypervolemic. 6. Hypomagnesemia from poor intake. Replaced. Better. 7. Lung cancer with metastasis. 8. Acute blood loss anemia receiving blood transfusion. Hemoglobin improved. Plan: Lasix 60 mg IV once today. Wean FiO2 and vasopressors. Continue to monitor renal function and urine output. Prognosis guarded.
[2024-10-03 11:24] LABS: Glucose,Whole Blood 110 mg/dL (70-110)
--- NOTE | 2024-10-03 11:32 | P.PN ---
Subjective Progress Note Date: 10/03/24 SURGICAL PROGRESS NOTE CHIEF COMPLAINT: Abdominal pain HISTORY OF PRESENT ILLNESS: Patient is in the ICU remaining on mechanical ventilation. She is undergoing a weaning trial. CODE STATUS is DNR. She is on levo and vasopressin. She is on tube feeds nutrition. WBC down from 33-24 PHYSICAL EXAM: VITAL SIGNS: Reviewed. GENERAL: no acute distress. On mechanical ventilation ABDOMEN: Soft. Nondistended. Abdomen a little less distended with a firmness noted in the right upper quadrant ASSESSMENT: 1. Advanced malignancy and abdominal distention with abdominal pain 2. Retroperitoneal metastatic disease 3. Stage IV lung cancer 4. Thickening of small bowel and colon could be related to ischemic or infectious process PLAN: -CODE STATUS DNR -Tentative plans for extubation with home with hospice -Advance tube feeds as tolerated Physician Mold Burner note has been reviewed by physician. Signing provider agrees with the documented findings, assessment, and plan of care. I have personally seen and examined the patient, reviewed the TIMBER RIDER /PAs history, exam and MDM and agree with the assessment and plan as written. Based on total visit time, I have performed more than 50% of the visit. As above: Patient remains on the ventilator. Currently on CPAP. Remains on pressors. White blood cell count improved. Apparently family decided to hold off on hospice for now. No appreciable tenderness on exam. Objective - Vital Signs Vital signs: Vital Signs Temp 98.2 F 10/03/24 08:00 Pulse 88 10/03/24 11:00 Resp 13 10/03/24 11:00 BP 87/51 10/03/24 09:15 Pulse Ox 97 10/03/24 11:00 FiO2 45 10/03/24 11:00 Intake & Output 10/02/24 10/03/24 10/03/24 18:59 06:59 18:59 Intake Total 1059.048 965.904 252.928 Output Total 795 600 470 Balance 264.048 365.904 -217.072 Weight 59.7 kg 61.7 kg Intake: IV 523 396 104 0.9 Normal Saline 110 120 Piperacillin-Tazobactam 3 100 .375 gm In Sodium Chloride 0.9% 100 ml @ 25 mls/hr IVPB Q8H [facility] Rx#: [id number] Pressure Bag 33 36 24 Sodium Chloride 0.9% 1, 280 240 80 000 ml @ 20 mls/hr IV . Q24H [facility] Rx#:[id number] Intake, IV Titration 171.048 269.904 18.928 Amount Norepinephrine 32 mg In 56.730 58.738 3.274 Sodium Chloride 0.9% 218 ml @ 0.03 MCG/KG/MIN 0. 746 mls/hr IV .Q24H [facility] Rx#:[id number] Vasopressin 60 unit In 135.864 Sodium Chloride 0.9% 150 ml @ 0.03 UNITS/MIN 4.59 mls/hr IV .Q24H [facility] Rx#: [id number] propofoL 1,000 mg In 114.318 75.302 15.654 Empty Bag 1 bag @ 15 MCG/ KG/MIN 4.776 mls/hr IV . [id number] [facility] Rx#:[id number] Tube Feeding 275 300 100 Other 90 30 Output: Urine 795 600 470 Other: Voiding Method Indwelling Catheter Indwelling Catheter Indwelling Catheter # Bowel Movements 1 ABP, PAP, CO, CI - Last Documented Arterial Blood Pressure 88/46 - Labs CBC & Chem 7: 10/03/24 05:30 10/03/24 05:30 Labs: Abnormal Lab Results - Last 24 Hours (Table) 10/02/24 10/02/24 10/03/24 Range/Units 18:04 23:18 05:30 WBC 24.42 H (4.50-10.00) 10*3/uL RBC 2.87 L (4.10-5.20) 10*6/uL Hgb 8.6 L (12.0-15.0) g/dL Hct 24.0 L (37.2-46.3) % Immature Gran # 0.34 H (0.00-0.04) 10*3/uL Neutrophils # 21.64 H (1.80-7.70) 10*3/uL Lymphocytes # 0.70 L (0.90-5.00) 10*3/uL Monocytes # 1.42 H (0.20-1.00) 10*3/uL Basophils # 0.17 H (0.00-0.10) 10*3/uL ABG pH (7.35-7.45) ABG pO2 (83-108) mmHg ABG HCO3 (21-25) mmol/L ABG Total CO2 (19-24) mmol/L ABG O2 Saturation (94-97) % Hemoglobin (11.4-16.0) gm/dL Sodium (137-145) mmol/L Chloride (98-107) mmol/L BUN (7-17) mg/dL Glucose (74-99) mg/dL POC Glucose (mg/dL) 121 H 132 H (70-110) mg/dL Calcium (8.4-10.2) mg/dL 10/03/24 10/03/24 10/03/24 Range/Units 05:30 05:55 05:55 WBC (4.50-10.00) 10*3/uL RBC (4.10-5.20) 10*6/uL Hgb (12.0-15.0) g/dL Hct (37.2-46.3) % Immature Gran # (0.00-0.04) 10*3/uL Neutrophils # (1.80-7.70) 10*3/uL Lymphocytes # (0.90-5.00) 10*3/uL Monocytes # (0.20-1.00) 10*3/uL Basophils # (0.00-0.10) 10*3/uL ABG pH 7.49 H (7.35-7.45) ABG pO2 80 L (83-108) mmHg ABG HCO3 31 H (21-25) mmol/L ABG Total CO2 32 H (19-24) mmol/L ABG O2 Saturation 97.2 H (94-97) % Hemoglobin 9.2 L (11.4-16.0) gm/dL Sodium 132 L (137-145) mmol/L Chloride 93 L (98-107) mmol/L BUN 20 H (7-17) mg/dL Glucose 114 H (74-99) mg/dL POC Glucose (mg/dL) 142 H (70-110) mg/dL Calcium 8.0 L (8.4-10.2) mg/dL Microbiology - Last 24 Hours (Table) 10/01/24 16:45 Urine Culture - Final Urine,Voided 09/29/24 05:05 Blood Culture - Preliminary Blood
--- NOTE | 2024-10-03 13:21 | P.PN ---
Subjective Progress Note Date: 10/03/24 This is a pleasant lady with past medical history of stage IV lung cancer who was recently discharged from the hospital Presents because of altered mental status Patient found to be in septic shock secondary to her pneumonia Patient was intubated and placed on mechanical ventilation, She has significant leukocytosis 48,000, hemoglobin 7.1 sodium 130 15.5 pH 7.2. Lactic acid elevated 6.5 at 3.7 Ammonia 34 unremarkable less than 10 CTA of the chest is negative for PE but showed right lower lobe pneumonia, CT of the abdominal pelvis increase bilateral adrenal masses Patient was started on IV fluid antibiotics admitted to the ICU 09/30. Patient seen examined. Labs reviewed showed WBC of 57.03, hemoglobin 8.3, platelet count 348, sodium 141, potassium 3.3, BUN 16, creatinine 1.04, lactate 7 calcium 7.3, magnesium 1 point 10/01. Patient seen and examined. Continues to be intubated. Currently on Levophed and vasopressin. Currently on tube feeding, getting 2 units of packed red blood cells 10/02. Patient seen examined. Labs reviewed this morning showing WBCs are 3.62, hemonine 0.4, platelet count 202, sodium 133, potassium 3.7, BUN 17, creatinine 0.95 10/03. Patient seen and examined. Labs reviewedShowing WBC 24.42, hemoglobin 8.6, sodium 132, potassium 3.7, BUN 20, creatinine 0.96, glucose 114. Currently on Levophed and vasopressin. REVIEW OF SYSTEMS: Review of system cannot be obtained as patient is intubated PHYSICAL EXAMINATION: GENERAL: The patient is intubated, chronically ill looking HEENT: Pupils are round and equally reacting to light. EOMI. No scleral icterus. No conjunctival pallor. Normocephalic, atraumatic. No pharyngeal erythema. No thyromegaly. CARDIOVASCULAR: S1 and S2 present. No murmurs, rubs, or gallops. PULMONARY: Chest is clear to auscultation, no wheezing or crackles. ABDOMEN: Distended, bowel sounds not audible. No palpable organomegaly. MUSCULOSKELETAL: No joint swelling or deformity. EXTREMITIES: No cyanosis, clubbing, or pedal edema. NEUROLOGICAL: Intubated SKIN: No rashes. Assessment and plan Septic shock Bacterial pneumonia gram-positive gram-negative Acute hypoxemic respiratory failure Lactic acidosis Acute leukocytosis secondary to above Anemia of chronic disease Hyponatremia Hypokalemia Hypomagnesemia Stage IV metastatic lung cancer. Transaminitis in the setting of malignancy Malnutrition, secondary to malignancy COPD History of smoking Recent hospitalization for urinary tract infection, Monitor vital signs Monitor CBC Monitor CMP Continue telemetry monitoring Continue vent management Continue aggressive bronchopulmonary hygiene Follow-up on blood cultures follow-up on urine cultures Currently on Levophed and vasopressin Continue IV Zosyn ICU following ID following Hematology-oncology following Surgery following Patient has very poor prognosis. Labs and medication were reviewed.. Continue same treatment. Continue with symptomatic treatment. Resume home medication. Monitor labs and vitals. DVT and GI prophylaxis. Further recommendations as per clinical course of the patient Dictation was produced using [employer] dictation software. please excuse any grammatical, word or spelling errors. Objective - Vital Signs Vital signs: Vital Signs Temp 98.2 F 10/03/24 08:00 Pulse 84 10/03/24 12:00 Resp 14 10/03/24 12:00 BP 85/53 10/03/24 12:00 Pulse Ox 99 10/03/24 12:00 FiO2 45 10/03/24 12:25 Intake & Output 10/02/24 10/03/24 10/03/24 18:59 06:59 18:59 Intake Total 1059.048 965.904 378.928 Output Total 795 600 670 Balance 264.048 365.904 -291.072 Weight 59.7 kg 61.7 kg Intake: IV 523 396 130 0.9 Normal Saline 110 120 Piperacillin-Tazobactam 3 100 .375 gm In Sodium Chloride 0.9% 100 ml @ 25 mls/hr IVPB Q8H [facility] Rx#: [id number] Pressure Bag 33 36 30 Sodium Chloride 0.9% 1, 280 240 100 000 ml @ 20 mls/hr IV . Q24H [facility] Rx#:[id number] Intake, IV Titration 171.048 269.904 18.928 Amount Norepinephrine 32 mg In 56.730 58.738 3.274 Sodium Chloride 0.9% 218 ml @ 0.03 MCG/KG/MIN 0. 746 mls/hr IV .Q24H [facility] Rx#:[id number] Vasopressin 60 unit In 135.864 Sodium Chloride 0.9% 150 ml @ 0.03 UNITS/MIN 4.59 mls/hr IV .Q24H [facility] Rx#: [id number] propofoL 1,000 mg In 114.318 75.302 15.654 Empty Bag 1 bag @ 15 MCG/ KG/MIN 4.776 mls/hr IV . [id number] [facility] Rx#:[id number] Tube Feeding 275 300 170 Other 90 60 Output: Urine 795 600 670 Other: Voiding Method Indwelling Catheter Indwelling Catheter Indwelling Catheter # Bowel Movements 1 ABP, PAP, CO, CI - Last Documented Arterial Blood Pressure 93/46 - Labs CBC & Chem 7: 10/03/24 05:30 10/03/24 05:30 Labs: Abnormal Lab Results - Last 24 Hours (Table) 10/02/24 10/02/24 10/03/24 Range/Units 18:04 23:18 05:30 WBC 24.42 H (4.50-10.00) 10*3/uL RBC 2.87 L (4.10-5.20) 10*6/uL Hgb 8.6 L (12.0-15.0) g/dL Hct 24.0 L (37.2-46.3) % Immature Gran # 0.34 H (0.00-0.04) 10*3/uL Neutrophils # 21.64 H (1.80-7.70) 10*3/uL Lymphocytes # 0.70 L (0.90-5.00) 10*3/uL Monocytes # 1.42 H (0.20-1.00) 10*3/uL Basophils # 0.17 H (0.00-0.10) 10*3/uL ABG pH (7.35-7.45) ABG pO2 (83-108) mmHg ABG HCO3 (21-25) mmol/L ABG Total CO2 (19-24) mmol/L ABG O2 Saturation (94-97) % Hemoglobin (11.4-16.0) gm/dL Sodium (137-145) mmol/L Chloride (98-107) mmol/L BUN (7-17) mg/dL Glucose (74-99) mg/dL POC Glucose (mg/dL) 121 H 132 H (70-110) mg/dL Calcium (8.4-10.2) mg/dL 10/03/24 10/03/24 10/03/24 Range/Units 05:30 05:55 05:55 WBC (4.50-10.00) 10*3/uL RBC (4.10-5.20) 10*6/uL Hgb (12.0-15.0) g/dL Hct (37.2-46.3) % Immature Gran # (0.00-0.04) 10*3/uL Neutrophils # (1.80-7.70) 10*3/uL Lymphocytes # (0.90-5.00) 10*3/uL Monocytes # (0.20-1.00) 10*3/uL Basophils # (0.00-0.10) 10*3/uL ABG pH 7.49 H (7.35-7.45) ABG pO2 80 L (83-108) mmHg ABG HCO3 31 H (21-25) mmol/L ABG Total CO2 32 H (19-24) mmol/L ABG O2 Saturation 97.2 H (94-97) % Hemoglobin 9.2 L (11.4-16.0) gm/dL Sodium 132 L (137-145) mmol/L Chloride 93 L (98-107) mmol/L BUN 20 H (7-17) mg/dL Glucose 114 H (74-99) mg/dL POC Glucose (mg/dL) 142 H (70-110) mg/dL Calcium 8.0 L (8.4-10.2) mg/dL Microbiology - Last 24 Hours (Table) 10/01/24 16:45 Urine Culture - Final Urine,Voided 09/29/24 05:05 Blood Culture - Preliminary Blood
[2024-10-03 13:32] VITALS: BMI 23.3
--- NOTE | 2024-10-03 14:49 | P.PN ---
Subjective Progress Note Date: 10/03/24 Principal diagnosis: Septic shock secondary to pneumonia This is a 59-year-old female patient who is currently intubated on a mechanical ventilator as the patient presented to the ICU with respiratory failure and diminished level of consciousness. The patient is known to have stage IV pulm adenocarcinoma. Initial diagnosis was back in 2021 and at that time, the patient had stage IIIA (T1N2M0) adenocarcinoma of the right lung. PD-L1 is 5% with HER-2 amplification. She started concurrent weekly carboplatin AUC 2/paclitaxel 45 mg/m2 along with daily radiation therapy on 03/01/2022 and completed her last cycle of chemotherapy on 04/05/2022 and last day of radiation therapy on 04/07/2022. CT chest and abdomen on 04/18/2022 revealed no evidence of disease progression, but did note consolidative changes in the right lower lobe concerning for radiation pneumonitis versus possible pneumonia. I reviewed CT imaging with Dr. Carrizales of radiation oncology, who agreed changes in the right lower lobe due to radiation. Given her improvement, we discussed proceeding with maintenance durvalumab monthly for 1 year per the PACIFIC trial. She initiated cycle 1 of consolidative durvalumab on 06/16/2022 and most completed cycle 12 on 04/20/2023. Staging CT scans on 11/14/2023 during the [facility] cyber attack noted concern for right lower lobe nodule measuring 1.1 cm x 0.7 cm. Prior staging scans also noted nodule in the right lower lobe. Is was not clear if this was new finding or consistent with prior nodule. PET/CT performed on 12/29/2023 noted to FDG avid lung lesions in the right upper lobe and right middle lobe along with right adrenal gland FDG avidity concerning for metastatic disease. Her case was discussed at [facility] multidisciplinary thoracic tumor on 01/16/2024 further recommendation for biopsy along with systemic treatment and possible SBRT to the 2 lung lesions. She eventually proceeded to have biopsy of the right adrenal gland lesion on 02/19/2024 after further consideration. This did reveal metastatic non-small cell carcinoma that was TTF-1 positive consistent with lung primary. Brain MRI on 03/08/2024 revealed no evidence of intracranial metastases.Staging CT scans performed on 03/14/2024 revealed increased size of the right adrenal gland up to 9.3 cm along with increased size of the right upper lobe lesion at 1.4 cm compared to prior imaging. Cycle 1 of Enhertu given prior HER2 amplification was started on 04/18/2024 and most recently received cycle 7 on 08/27/24. Unfortunately CT scans on 08/30/24, showed disease progression. Enhertu was stopped, and pt was scheduled to follow up with Dr. Joss Diaz on 09/23 to further discuss treatment options. Noted the patient was in the hospital last week and the patient was discharged on 09/27/2024. Patient was admitted for the evaluation of hyponatremia and debility. IV fluids, TSH, cortisol, PT OT consult, fluid restriction, and home salt tabs were ordered. Nephrology and heme-onc consulted. TSH and cortisol were within normal limits. Patient was notably having low oral intake and encouraged to eat high-protein with protein shake supplementation and ordered Megace. Samsca was given once. Patient's sodium began to improve throughout her hospital stay. Brain CT was ordered by heme-onc for evaluation of possible metastasis showed no acute intracranial process or evidence suggesting of in tracranial mass with noted remote lacunar injury. Patient notably complained of flank pain due to an adrenal mass from old imaging and radiology oncology was consulted for palliative radiation. Patient also had notable leukocytosis with concerning urinalysis and reflex urine culture grew pansensitive E. coli and Alcalglicen faecalis. Patient was placed on IV antibiotics for 3 days due to no development of urinary symptoms. However patient's leukocytosis continued to increase and was placed back on IV Zosyn for empiric coverage. Infectious disease was consulted. Sputum culture and blood culture was ordered which were both negative. Patient also required 3 units of packed RBC transfusions due to anemia. Iron studies showed elevated ferritin which is consistent with chronic disease. B12 and folate were within normal limits. Patient also noted a mass on right chest. [place] xray showed pleural based density in lateral midlung previously 4 cm now at 5.7cm. PT OT consult was refused by patient and home care was offered but refused by family and patient after further discussion. Patient is cleared for discharge today with Augmentin and Bactrim for 1 week, sodium tabs increased to twice a day, MiraLAX, Dulcolax, megestrol, Percocet and ondansetron oral. Home Rozet was discontinued. The patient presented back to the Emergency Department yesterday for altered mentation and ongoing respiratory difficulties. The patient was apparently seen at around 1 AM going to bed normally. Subsequently, the patient was found to be short of breath and lethargic and at time arrival to the emergency, the patient had agonal respiration and based on that, the patient was intubated and placed on a mechanical ventilator. Since arrival, the patient was given a total of 2 L of IV fluids and the patient is currently on lactated Ringer running at 125 cc an hour. The patient is also on pressors, currently on norepinephrine running at 0.28 mcg/kg/min and vasopressin was also started at 0.03 units an hour. The patient is currently on propofol running at 20 mcg/kg/min. The patient is on assist-control mode of mechanical ventilation at rate of 16, tidal volume of 400, FiO2 of 70% with a PEEP of 5. Blood gas showed a pH of 7.25 with a PCO2 of 38 and PO2 of 314. CT of the chest was done and showed no evidence of any pulmonary embolism. There was evidence of bilateral pleural effusion and extensive right lower lobe consolidation highly suspicious for an underlying pneumonia. There was also evidence of metastatic pulmonary nodules, a right upper lobe pulmonary nodule measuring 1.6 cm in size, left-sided pulmonary nodules measuring 6.5 mm in size and the patient had increasing in size of bilateral adrenal masses. CAT scan of the abdomen was also completed and the patient was found to have interval increase in the bilateral adrenal masses, and no other acute intra-abdominal abnormalities. Doppler of the lower extremity was negative for DVT. The current blood work shows a WBC count of 48.5, hemoglobin of 7.1 and a platelet count of 381. INR is at 1.5 with a PT of 15.5, D-dimer is at 15.5, sodium is at 130 with a potassium level of 4.2, serum bicarb is at 11, gap of 15, BUN is 15 with a creatinine of 0.6. Lactic acid level was as high as 6.5, dropped down to 4, LFTs are abnormal with an AST of 67, ALT of 27 and a platelet count of 498. Troponins are negative. Viral screen was negative. Alcohol level was also negative. The most recent cultures are from the urine on 09/18/2024 showing E. coli and Alcaligenes. The patient is currently on a combination of Zosyn and vancomycin. Seen today on 09/30/2024, patient remains in the ICU intubated mechanically ventilated, on assist-control rate of 16 tidal volume 400 FiO2 50% but cut down to 45% PEEP of 5 ABG on 50% showed a pO2 of 112 pCO2 31 pH of 7.42. Patient is quite complex she has many multiple medical problems including pneumonia, stage IV lung cancer, she has history of aspiration, history of multiple com orbidities, she is now on mechanical ventilation she is also on propofol 50 mcg/kg/min vasopressin at 0.03 units/min norepinephrine at 0.22 mcg/kg/min she is on vancomycin and Zosyn for presumptive sepsis and pneumonia patient is on enteral feeding, continues to have significantly elevated lactic acid, her urine output is becoming less and less, patient received significant amount of fluids still receiving fluid boluses, she also received 1 dose of Lasix last night, urine output remains poor, and her renal functioning is worsening hence nephrology was consulted. Apparently the patient was found on 09/29 unresponsive and this was at 2 AM apparently she was down for at least 6 hours prior to admission. Patient had multiple admissions to the hospital previously. At any rate patient is not ready for weaning, she is intubated mechanically ventilated, and her overall picture remains extremely poor and guarded. Chest x-ray was reviewed labs were reviewed medications were all reviewed and the patient is being followed by many consultants including infectious disease on the case. Patient was seen today on 10/01/2024, remains in the ICU intubated mechanically ventilated, on assist-control rate of 16 tidal volume 400 FiO2 45% and PEEP of 5 ABG showed a pO2 of 85 pCO2 32 pH of 7.5. Patient is off sedation this morning, has been off sedation since yesterday. Still requiring norepinephrine at 0.12, she is also on vasopressin at 0.03 units/min. Patient is not ready for any form of weaning as she seems to be difficult to arouse, does not follow any instructions. Her electrolytes showed low potassium of 3.1 BUN is 17 creatinine 1.03 patient received albumin yesterday and she seemed to respond well to albumin with good urine output after albumin infusion. Hemoglobin today is low at 6.9, and she will be receiving a unit of packed RBCs. Followed by Cher. Patient developed a bit of acute kidney injury secondary to ATN secondary to septic shock, today's creatinine is 1.03 and the patient is nonoliguric. Her metabolic acidosis is correcting nicely and improved with bicarb drip. Chest x- ray today showed bilateral lower lobe airspace opacities with stable pleural- based density within the lateral mid to lower lung there is a stable right-sided pleural effusion. Not much of a change noted on her chest x-ray. Patient was also seen by general surgery for her abdominal distention and discomfort, felt that the patient may have retroperitoneal metastatic disease and also raised the possibility of slow ischemia but the patient is not a good surgical candidate. And did not recommend any surgical intervention. Patient was seen today on 10/02/2024, remains in the ICU, intubated and mechanically ventilated, on assist-control rate of 16 tidal volume 400 FiO2 45% PEEP of 5 ABG showed a pO2 of 94 pCO2 35 pH of 7.52 patient still requiring norepinephrine at 0.2 mcg/kg/min still requiring vasopressin at 0.03 units per minute, patient is on IV fluid at KVO, still receiving Zosyn empirically. Family is at bedside, and I [facility] her condition and [facility], and they also had a discussion with the oncology staff, CODE STATUS was changed from full code to DNR CODE STATUS however the family would like to continue present supportive care measures, eventually the patient could be considered for hospice down the line, but will try in the meantime to continue present supportive care meds and hopefully could get her extubated in the next couple of days. Patient is arousable, follows simple instructions, she seems to be profoundly weak. Continues to have high leukocytosis with WC count of 33.6 hemoglobin 9.4 her ABG as noted earlier, basic metabolic profile is normal, renal profile is normal blood sugar is 121. Magnesium 1.8. Chest x-ray showed stable support tubes, small bilateral pleural effusions with airspace opacities bilaterally, there is also a right lateral loculated pleural effusion. Seen today on 10/03/2024, remains in the ICU intubated mechanically ventilated, chest x-ray continues to show evidence of bibasilar airspace disease/opacities and small bilateral pleural effusions. Patient seems to be a bit restless and a gitated, she is now off sedation, and I will give the patient a trial of weaning with a pressure support and CPAP, and decide how well is this going to be tolerated, and decide whether to wean and extubate, however need to further clarify her CODE STATUS and whether to reintubate if the patient fails weaning/extubation. Her ventilator settings at present are assist-control rate of 16 tidal volume 400 FiO2 45% PEEP of 5 ABG showed a pO2 of 80 pCO2 40 pH of 7.45 remains on Lasix and she has received Lasix earlier today 60 mg IV push x 1. This was ordered by nephrology. Patient is requiring norepinephrine at 0.06 she is still requiring vasopressin at 0.03. Patient presented with a picture of sepsis, septic shock, and pneumonia. Objective - Vital Signs Vital signs: Vital Signs Temp 97.7 F 10/03/24 12:00 Pulse 93 10/03/24 14:30 Resp 19 10/03/24 14:30 BP 92/63 10/03/24 14:00 Pulse Ox 99 10/03/24 14:30 FiO2 45 10/03/24 13:00 Intake & Output 10/02/24 10/03/24 10/03/24 18:59 06:59 18:59 Intake Total 1059.048 965.904 600.928 Output Total 795 600 980 Balance 264.048 365.904 -379.072 Weight 59.7 kg 61.7 kg 61.7 kg Intake: IV 523 396 282 0.9 Normal Saline 110 120 Piperacillin-Tazobactam 3 100 100 .375 gm In Sodium Chloride 0.9% 100 ml @ 25 mls/hr IVPB Q8H [facility] Rx#: [id number] Pressure Bag 33 36 42 Sodium Chloride 0.9% 1, 280 240 140 000 ml @ 20 mls/hr IV . Q24H [facility] Rx#:[id number] Intake, IV Titration 171.048 269.904 18.928 Amount Norepinephrine 32 mg In 56.730 58.738 3.274 Sodium Chloride 0.9% 218 ml @ 0.03 MCG/KG/MIN 0. 746 mls/hr IV .Q24H [facility] Rx#:[id number] Vasopressin 60 unit In 135.864 Sodium Chloride 0.9% 150 ml @ 0.03 UNITS/MIN 4.59 mls/hr IV .Q24H [facility] Rx#: [id number] propofoL 1,000 mg In 114.318 75.302 15.654 Empty Bag 1 bag @ 15 MCG/ KG/MIN 4.776 mls/hr IV . [id number] [facility] Rx#:[id number] Tube Feeding 275 300 240 Other 90 60 Output: Urine 795 600 980 Other: Voiding Method Indwelling Catheter Indwelling Catheter Indwelling Catheter # Bowel Movements 1 ABP, PAP, CO, CI - Last Documented Arterial Blood Pressure 97/50 - Exam GENERAL: Reveals a 59-year-old female looks frail chronically ill,intubated mechanically ventilated, awake, follows simple instructions but generally weak and seems to be a bit restless. HEENT: Pupils are round and equally reacting to light. EOMI. No scleral icterus. No conjunctival pallor. Normocephalic, atraumatic. No pharyngeal erythema. No thyromegaly. CARDIOVASCULAR: S1 and S2 present. No murmurs, rubs, or gallops. PULMONARY: Continues to have crackles at the bases no rhonchi no wheezes ABDOMEN: Slightly distended soft nontender no rebound no guarding MUSCULOSKELETAL: No obvious deformities noted cannot assess range of motion EXTREMITIES: No clubbing edema or cyanosis NEUROLOGICAL: Arousable, follows simple instructions but at times seems to be restless Psychiatric: Restless but follows simple instructions. SKIN: No rashes. - Labs CBC & Chem 7: 10/03/24 05:30 10/03/24 05:30 Labs: Abnormal Lab Results - Last 24 Hours (Table) 10/02/24 10/02/24 10/03/24 Range/Units 18:04 23:18 05:30 WBC 24.42 H (4.50-10.00) 10*3/uL RBC 2.87 L (4.10-5.20) 10*6/uL Hgb 8.6 L (12.0-15.0) g/dL Hct 24.0 L (37.2-46.3) % Immature Gran # 0.34 H (0.00-0.04) 10*3/uL Neutrophils # 21.64 H (1.80-7.70) 10*3/uL Lymphocytes # 0.70 L (0.90-5.00) 10*3/uL Monocytes # 1.42 H (0.20-1.00) 10*3/uL Basophils # 0.17 H (0.00-0.10) 10*3/uL ABG pH (7.35-7.45) ABG pO2 (83-108) mmHg ABG HCO3 (21-25) mmol/L ABG Total CO2 (19-24) mmol/L ABG O2 Saturation (94-97) % Hemoglobin (11.4-16.0) gm/dL Sodium (137-145) mmol/L Chloride (98-107) mmol/L BUN (7-17) mg/dL Glucose (74-99) mg/dL POC Glucose (mg/dL) 121 H 132 H (70-110) mg/dL Calcium (8.4-10.2) mg/dL 10/03/24 10/03/24 10/03/24 Range/Units 05:30 05:55 05:55 WBC (4.50-10.00) 10*3/uL RBC (4.10-5.20) 10*6/uL Hgb (12.0-15.0) g/dL Hct (37.2-46.3) % Immature Gran # (0.00-0.04) 10*3/uL Neutrophils # (1.80-7.70) 10*3/uL Lymphocytes # (0.90-5.00) 10*3/uL Monocytes # (0.20-1.00) 10*3/uL Basophils # (0.00-0.10) 10*3/uL ABG pH 7.49 H (7.35-7.45) ABG pO2 80 L (83-108) mmHg ABG HCO3 31 H (21-25) mmol/L ABG Total CO2 32 H (19-24) mmol/L ABG O2 Saturation 97.2 H (94-97) % Hemoglobin 9.2 L (11.4-16.0) gm/dL Sodium 132 L (137-145) mmol/L Chloride 93 L (98-107) mmol/L BUN 20 H (7-17) mg/dL Glucose 114 H (74-99) mg/dL POC Glucose (mg/dL) 142 H (70-110) mg/dL Calcium 8.0 L (8.4-10.2) mg/dL Microbiology - Last 24 Hours (Table) 10/01/24 16:45 Urine Culture - Final Urine,Voided 09/29/24 05:05 Blood Culture - Preliminary Blood Assessment and Plan Assessment: Impression: Acute hypoxic respiratory failure secondary to pneumonia, bibasilar, possible aspiration pneumonia or healthcare associated pneumonia Septic shock secondary to above Acute lactic acidosis Acute kidney injury/acute tubular necrosis Anemia of chronic disease Stage IV metastatic lung cancer Malnutrition secondary to malignancy/severe protein calorie malnutrition History of underlying COPD Tobacco dependence syndrome Recent hospitalization for urinary tract infection Transaminitis in the setting of malignancy/metastatic disease Recommendation: Continue ventilatory support, however will try pressure support and CPAP on this patient today and determine how well she could tolerate weaning although she is not quite ready to be extubated as she is still requiring pressors Continue hemodynamic support presently on vasopressin and norepinephrine to maintain adequate blood pressure Continue IV fluids, continue to monitor her urine output, patient improved with albumin infusions patient is receiving intermittent Lasix Transfuse patient for low hemoglobin Continue Zosyn empirically Continue nutritional support/enteral feeding Continue to monitor daily labs Continue GI and DVT prophylaxis/IV Protonix and subcu Lovenox Yesterday discussed her condition with family may have to rediscuss today her overall status and to make a final decision whether to extubate and whether to reintubate if the patient fails extubation Patient remains critically ill Critical care time is 33 minutes Time with Patient: Greater than 30
--- NOTE | 2024-10-03 15:15 | P.PN ---
Subjective Progress Note Date: 10/03/24 Principal diagnosis: Reason for follow-up is sepsis Patient is a 59-year-old female with a past medical history significant for COPD CVA TIA metastatic lung cancer recent admission to this facility treated for pneumonia and UTI has been brought to the hospital the tin ent was found to be unresponsive mental status patient ended up get intubated and admitted to ICU concerning for sepsis/pneumonia/enterocolitis. On today's evaluation that is 10/03/2024,the patient remains to be afebrile, patient is on ventilator with an FiO2 of 45% patient is requiring pressor supp ort to maintain her blood pressure remains to be sedated no significant diarrhea has been reported. Patient white count is down to 24.42 creatinine is 0.96 culture has been negative so far Objective - Vital Signs Vital signs: Vital Signs Temp 97.7 F 10/03/24 12:00 Pulse 93 10/03/24 14:30 Resp 19 10/03/24 14:30 BP 92/63 10/03/24 14:00 Pulse Ox 99 10/03/24 14:30 FiO2 45 10/03/24 13:00 Intake & Output 10/02/24 10/03/24 10/03/24 18:59 06:59 18:59 Intake Total 1059.048 965.904 600.928 Output Total 795 600 980 Balance 264.048 365.904 -379.072 Weight 59.7 kg 61.7 kg 61.7 kg Intake: IV 523 396 282 0.9 Normal Saline 110 120 Piperacillin-Tazobactam 3 100 100 .375 gm In Sodium Chloride 0.9% 100 ml @ 25 mls/hr IVPB Q8H [facility] Rx#: [id number] Pressure Bag 33 36 42 Sodium Chloride 0.9% 1, 280 240 140 000 ml @ 20 mls/hr IV . Q24H [facility] Rx#:[id number] Intake, IV Titration 171.048 269.904 18.928 Amount Norepinephrine 32 mg In 56.730 58.738 3.274 Sodium Chloride 0.9% 218 ml @ 0.03 MCG/KG/MIN 0. 746 mls/hr IV .Q24H [facility] Rx#:[id number] Vasopressin 60 unit In 135.864 Sodium Chloride 0.9% 150 ml @ 0.03 UNITS/MIN 4.59 mls/hr IV .Q24H [facility] Rx#: [id number] propofoL 1,000 mg In 114.318 75.302 15.654 Empty Bag 1 bag @ 15 MCG/ KG/MIN 4.776 mls/hr IV . [id number] [facility] Rx#:[id number] Tube Feeding 275 300 240 Other 90 60 Output: Urine 795 600 980 Other: Voiding Method Indwelling Catheter Indwelling Catheter Indwelling Catheter # Bowel Movements 1 ABP, PAP, CO, CI - Last Documented Arterial Blood Pressure 97/50 - Exam GENERAL DESCRIPTION: Middle-age female intubated on the vent RESPIRATORY SYSTEM: Unlabored breathing , decreased breath sounds at bases HEART: S1 S2 regular rate and rhythm , ABDOMEN: Distention especially on the right side EXTREMITIES: No edema feet - Labs CBC & Chem 7: 10/03/24 05:30 10/03/24 05:30 Labs: Abnormal Lab Results - Last 24 Hours (Table) 10/02/24 10/02/24 10/03/24 Range/Units 18:04 23:18 05:30 WBC 24.42 H (4.50-10.00) 10*3/uL RBC 2.87 L (4.10-5.20) 10*6/uL Hgb 8.6 L (12.0-15.0) g/dL Hct 24.0 L (37.2-46.3) % Immature Gran # 0.34 H (0.00-0.04) 10*3/uL Neutrophils # 21.64 H (1.80-7.70) 10*3/uL Lymphocytes # 0.70 L (0.90-5.00) 10*3/uL Monocytes # 1.42 H (0.20-1.00) 10*3/uL Basophils # 0.17 H (0.00-0.10) 10*3/uL ABG pH (7.35-7.45) ABG pO2 (83-108) mmHg ABG HCO3 (21-25) mmol/L ABG Total CO2 (19-24) mmol/L ABG O2 Saturation (94-97) % Hemoglobin (11.4-16.0) gm/dL Sodium (137-145) mmol/L Chloride (98-107) mmol/L BUN (7-17) mg/dL Glucose (74-99) mg/dL POC Glucose (mg/dL) 121 H 132 H (70-110) mg/dL Calcium (8.4-10.2) mg/dL 10/03/24 10/03/24 10/03/24 Range/Units 05:30 05:55 05:55 WBC (4.50-10.00) 10*3/uL RBC (4.10-5.20) 10*6/uL Hgb (12.0-15.0) g/dL Hct (37.2-46.3) % Immature Gran # (0.00-0.04) 10*3/uL Neutrophils # (1.80-7.70) 10*3/uL Lymphocytes # (0.90-5.00) 10*3/uL Monocytes # (0.20-1.00) 10*3/uL Basophils # (0.00-0.10) 10*3/uL ABG pH 7.49 H (7.35-7.45) ABG pO2 80 L (83-108) mmHg ABG HCO3 31 H (21-25) mmol/L ABG Total CO2 32 H (19-24) mmol/L ABG O2 Saturation 97.2 H (94-97) % Hemoglobin 9.2 L (11.4-16.0) gm/dL Sodium 132 L (137-145) mmol/L Chloride 93 L (98-107) mmol/L BUN 20 H (7-17) mg/dL Glucose 114 H (74-99) mg/dL POC Glucose (mg/dL) 142 H (70-110) mg/dL Calcium 8.0 L (8.4-10.2) mg/dL Microbiology - Last 24 Hours (Table) 10/01/24 16:45 Urine Culture - Final Urine,Voided 09/29/24 05:05 Blood Culture - Preliminary Blood Assessment and Plan (1) Pneumonia Current Visit: Yes Status: Acute Priority: High Code(s): J18.9 - PNEUMONIA, UNSPECIFIED ORGANISM SNOMED Code(s): 990092221 (2) Septic shock Current Visit: Yes Status: Acute Code(s): A41.9 - SEPSIS, UNSPECIFIED ORGANISM; R65.21 - SEVERE SEPSIS WITH SEPTIC SHOCK SNOMED Code(s): 38543181 Plan: 1patient presented to hospital with mental status changes decreased vision noticed and patient reported to have history of metastatic lung cancer and recent discharge from the hospital swelling from the source of sepsis likely pneumonia likely gram-negative gram-positive infection not entirely excluded 2-blood and sputum culture have been obtained which are so far negative 3- patient is afebrile patient white count is trending down to 24,000, the patient is still critically ill and requiring high-dose pressor support, covered with Zosyn to continue to monitor clinical course closely Dictation was produced using [employer] dictation software. please excuse any grammatical, word or spelling errors. Time with Patient: Less than 30
--- NOTE | 2024-10-03 15:15 | P.CONS ---
History of Present Illness - Reason for Consult Consult date: 10/03/24 wound care - History of Present Illness This is a 59-year-old patient being seen in the ICU for aUnstageable pressure ulcer. Patient has a unstageable pressure ulcer to the sacrum measuring approximately 4 x 5 x 0.1 cm wound base is ecchymotic with no granulation wound edges are attached to the wound base no tunneling or undermining noted. Patient is currently intubated. Review of systems: Unable to obtain due to intubation Physical exam: General Appearance: Alert, cooperative, no distress, appears stated age. Skin: See HPI all other Skin color, texture, tugor normal, no rashes or lesions. Assessment: 1. Unstageable pressure ulcer sacrum - L89.150 Plan: 1. Apply zinc barrier cream and bordered foam to the site as needed and daily. Turn patient every 2 hours. Thank you for the consultation any questions please contact the wound care center DNP note has been reviewed and discussed with Dr. Zimmerman and the impression and plan of care has been directed as dictated. . Past Medical History Past Medical History: Cancer, COPD, CVA/TIA Additional Past Medical History / Comment(s): COPD, spastic colon, CVA/TIA. LUNG CANCER-RLL NSCLC. History of Any Multi-Drug Resistant Organisms: None Reported Past Surgical History: Section, Tonsillectomy Additional Past Surgical History / Comment(s): L oophorectomy due to cyst Past Anesthesia/Blood Transfusion Reactions: No Reported Reaction Past Psychological History: No Psychological Hx Reported Smoking Status: Current every day smoker Past Alcohol Use History: Unable to Obtain Past Drug Use History: Unable to Obtain - Past Family History Father History Unknown: Yes Family Medical History: No Reported History Additional Family Medical History / Comment(s): at early age from gunshot Mother Family Medical History: Cancer Additional Family Medical History / Comment(s): Mother had some kind of cancer but pt does not know what kind. She at age 65 or 67yrs. Medications and Allergies Home Medications Medication Instructions Recorded Confirmed Type Amoxic-Pot Clav 500-125 mg 1 tab PO Q12HR #14 tab 09/27/24 09/29/24 Rx [Augmentin 500-125 mg] Magnesium Hydroxide [Dulcolax Oral 5 mg PO DAILY PRN #30 ml 09/27/24 09/29/24 Rx Susp] Megestrol [Megace] 400 mg PO DAILY #14 ml 09/27/24 09/29/24 Rx Ondansetron Odt [Zofran ODT] 8 mg PO Q8HR PRN #20 tab 09/27/24 09/29/24 Rx Sodium Chloride Tab 1 gm PO BID #30 tab 09/27/24 09/29/24 Rx Sulfamethox-Tmp 800-160Mg [Bactrim 1 tab PO Q12HR #14 tab 09/27/24 09/29/24 Rx DS 800-160 mg] polyethylene glycoL 3350 [Miralax] 17 gm PO DAILY PRN #7 gm 09/27/24 09/29/24 Rx oxyCODONE-APAP 7.5-325MG [Percocet 1 tab PO Q6HR PRN 09/29/24 09/29/24 History 7.5-325 mg] Allergies Allergy/AdvReac Type Severity Reaction Status Date / Time No Known Allergies Allergy Verified 09/29/24 11:34 Physical Exam Vitals: Vital Signs Temp Pulse Resp BP Pulse Ox FiO2 10/03/24 15:00 92 18 90/55 99 10/03/24 14:45 96 19 99 10/03/24 14:30 93 19 99 10/03/24 14:15 93 18 98 10/03/24 14:00 93 18 92/63 99 10/03/24 13:45 96 20 98 10/03/24 13:30 89 17 98 10/03/24 13:15 91 17 92/63 98 10/03/24 13:00 95 18 98 45 10/03/24 12:45 94 16 97 10/03/24 12:30 93 18 99 10/03/24 12:25 45 10/03/24 12:15 84 13 98 10/03/24 12:00 97.7 F 84 14 85/53 99 45 10/03/24 11:51 15 45 10/03/24 11:45 84 13 85/53 99 10/03/24 11:30 84 13 85/53 98 10/03/24 11:15 81 13 85/53 96 10/03/24 11:00 88 13 97 45 10/03/24 10:45 97 14 97 10/03/24 10:30 109 H 18 94 L 10/03/24 10:15 108 H 19 94 L 10/03/24 10:00 110 H 19 96 45 10/03/24 09:45 25 H 93 L 10/03/24 09:30 101 H 16 95 10/03/24 09:16 45 10/03/24 09:15 106 H 18 87/51 95 10/03/24 09:00 96 16 97 50 10/03/24 08:45 89 16 98 10/03/24 08:30 85 27 H 98 10/03/24 08:15 84 16 81/46 97 10/03/24 08:00 98.2 F 89 16 98 45 10/03/24 07:57 45 10/03/24 07:45 95 16 92/48 97 10/03/24 07:30 94 16 98 10/03/24 07:15 98 16 92/48 97 10/03/24 07:00 105 H 18 96 10/03/24 06:45 102 H 19 97 10/03/24 06:30 105 H 23 97 10/03/24 06:15 94 16 98 10/03/24 06:00 100 17 97 10/03/24 05:45 96 17 98 10/03/24 05:30 104 H 20 97 10/03/24 05:15 98 23 91/62 96 10/03/24 05:00 100 15 82/48 96 10/03/24 04:45 94 16 82/48 97 10/03/24 04:31 45 10/03/24 04:30 96 17 82/48 97 10/03/24 04:15 90 16 82/48 97 10/03/24 04:00 92 16 82/53 97 45 10/03/24 03:45 92 16 82/53 97 10/03/24 03:30 88 16 82/53 97 10/03/24 03:15 94 16 82/53 97 10/03/24 03:00 97 16 83/49 97 10/03/24 02:45 96 16 83/49 97 10/03/24 02:30 96 16 97 10/03/24 02:15 98 16 83/49 97 10/03/24 02:00 96 16 97 10/03/24 01:45 98 16 96 10/03/24 01:30 98.9 F 99 16 96 10/03/24 01:15 97 16 85/51 96 10/03/24 01:00 99 16 89/56 96 10/03/24 00:47 45 10/03/24 00:45 102 H 16 89/56 96 10/03/24 00:30 96 16 89/56 97 10/03/24 00:15 98 16 89/56 97 10/03/24 00:00 99 16 97 45 10/02/24 23:45 101 H 16 97 10/02/24 23:30 102 H 16 97 10/02/24 23:15 107 H 16 81/51 97 02 23:00 108 H 16 97 10/02/24 22:45 106 H 16 96 10/02/24 22:30 108 H 16 97 10/02/24 22:15 111 H 16 91/55 96 10/02/24 22:00 117 H 16 96 10/02/24 21:45 118 H 19 95 10/02/24 21:30 98 18 97 10/02/24 21:15 97 18 93/53 96 10/02/24 21:00 99 18 96 10/02/24 20:45 98 17 96 10/02/24 20:30 100 16 96 10/02/24 20:27 45 10/02/24 20:15 105 H 18 90/52 96 10/02/24 20:00 98.8 F 103 H 18 96 45 10/02/24 19:45 104 H 18 96 10/02/24 19:30 107 H 19 96 10/02/24 19:15 106 H 17 89/54 96 10/02/24 19:00 105 H 17 92/56 95 45 10/02/24 18:45 103 H 18 96 45 10/02/24 18:30 101 H 17 95 45 10/02/24 18:15 98 17 96 45 10/02/24 18:00 101 H 16 104/65 96 45 10/02/24 17:45 99 17 96 45 10/02/24 17:30 101 H 16 96 45 10/02/24 17:15 100 16 97 45 10/02/24 17:00 98 16 104/65 97 45 10/02/24 16:52 45 10/02/24 16:45 101 H 16 97 45 10/02/24 16:30 100 16 97 45 10/02/24 16:15 98 17 97 45 10/02/24 16:00 97.7 F 98 16 106/59 97 45 10/02/24 15:45 96 16 97 45 10/02/24 15:30 98 16 97 45 10/02/24 15:15 96 16 96 45 Intake and Output 10/03/24 10/03/24 10/03/24 06:59 14:59 22:59 Intake Total 563.217 600.928 61 Output Total 400 980 75 Balance 163.217 -379.072 -14 Intake: IV 264 282 26 0.9 Normal Saline 80 Piperacillin-Tazobactam 3 100 .375 gm In Sodium Chloride 0.9% 100 ml @ 25 mls/hr IVPB Q8H [facility] Rx#: [id number] Pressure Bag 24 42 6 Sodium Chloride 0.9% 1, 160 140 20 000 ml @ 20 mls/hr IV . Q24H [facility] Rx#:[id number] Intake, IV Titration 99.217 18.928 Amount Norepinephrine 32 mg In 23.915 3.274 Sodium Chloride 0.9% 218 ml @ 0.03 MCG/KG/MIN 0. 746 mls/hr IV .Q24H [facility] Rx#:[id number] propofoL 1,000 mg In 75.302 15.654 Empty Bag 1 bag @ 15 MCG/ KG/MIN 4.776 mls/hr IV . [id number] [facility] Rx#:[id number] Tube Feeding 200 240 35 Other 60 Output: Urine 400 980 75 Other: Voiding Method Indwelling Catheter Indwelling Catheter Weight 61.7 kg 61.7 kg ABP, PAP, CO, CI - Last 8 Hours Arterial Blood Pressure 91/46 Arterial Blood Pressure 100/52 Arterial Blood Pressure 97/50 Arterial Blood Pressure 95/49 Arterial Blood Pressure 96/50 Arterial Blood Pressure 96/50 Arterial Blood Pressure 96/49 Arterial Blood Pressure 98/50 Arterial Blood Pressure 96/49 Arterial Blood Pressure 95/49 Arterial Blood Pressure 97/49 Arterial Blood Pressure 95/46 Arterial Blood Pressure 93/46 Arterial Blood Pressure 92/45 Arterial Blood Pressure 93/45 Arterial Blood Pressure 96/46 Arterial Blood Pressure 88/46 Arterial Blood Pressure 84/42 Arterial Blood Pressure 91/44 Arterial Blood Pressure 104/53 Arterial Blood Pressure 104/53 Arterial Blood Pressure 111/57 Arterial Blood Pressure 104/54 Arterial Blood Pressure 102/52 Arterial Blood Pressure 98/52 Arterial Blood Pressure 96/51 Arterial Blood Pressure 94/52 Arterial Blood Pressure 87/47 Arterial Blood Pressure 91/50 Arterial Blood Pressure 89/46 Arterial Blood Pressure 88/45 Arterial Blood Pressure 95/47 Results CBC & Chem 7: 10/03/24 05:30 10/03/24 05:30 Labs: Abnormal Lab Results - Last 24 Hours (Table) 10/02/24 10/02/24 10/03/24 Range/Units 18:04 23:18 05:30 WBC 24.42 H (4.50-10.00) 10*3/uL RBC 2.87 L (4.10-5.20) 10*6/uL Hgb 8.6 L (12.0-15.0) g/dL Hct 24.0 L (37.2-46.3) % Immature Gran # 0.34 H (0.00-0.04) 10*3/uL Neutrophils # 21.64 H (1.80-7.70) 10*3/uL Lymphocytes # 0.70 L (0.90-5.00) 10*3/uL Monocytes # 1.42 H (0.20-1.00) 10*3/uL Basophils # 0.17 H (0.00-0.10) 10*3/uL ABG pH (7.35-7.45) ABG pO2 (83-108) mmHg ABG HCO3 (21-25) mmol/L ABG Total CO2 (19-24) mmol/L ABG O2 Saturation (94-97) % Hemoglobin (11.4-16.0) gm/dL Sodium (137-145) mmol/L Chloride (98-107) mmol/L BUN (7-17) mg/dL Glucose (74-99) mg/dL POC Glucose (mg/dL) 121 H 132 H (70-110) mg/dL Calcium (8.4-10.2) mg/dL 10/03/24 10/03/24 10/03/24 Range/Units 05:30 05:55 05:55 WBC (4.50-10.00) 10*3/uL RBC (4.10-5.20) 10*6/uL Hgb (12.0-15.0) g/dL Hct (37.2-46.3) % Immature Gran # (0.00-0.04) 10*3/uL Neutrophils # (1.80-7.70) 10*3/uL Lymphocytes # (0.90-5.00) 10*3/uL Monocytes # (0.20-1.00) 10*3/uL Basophils # (0.00-0.10) 10*3/uL ABG pH 7.49 H (7.35-7.45) ABG pO2 80 L (83-108) mmHg ABG HCO3 31 H (21-25) mmol/L ABG Total CO2 32 H (19-24) mmol/L ABG O2 Saturation 97.2 H (94-97) % Hemoglobin 9.2 L (11.4-16.0) gm/dL Sodium 132 L (137-145) mmol/L Chloride 93 L (98-107) mmol/L BUN 20 H (7-17) mg/dL Glucose 114 H (74-99) mg/dL POC Glucose (mg/dL) 142 H (70-110) mg/dL Calcium 8.0 L (8.4-10.2) mg/dL Microbiology - Last 24 Hours (Table) 10/01/24 16:45 Urine Culture - Final Urine,Voided 09/29/24 05:05 Blood Culture - Preliminary Blood
[2024-10-03 17:29] LABS: Glucose,Whole Blood 131 mg/dL (70-110)
[2024-10-03] MEDS: ZINC OXIDE PASTE (Z-GUARD) 1 APPLIC TOPICAL PRN (21:44)
[2024-10-04 00:34] LABS: Glucose,Whole Blood 154 mg/dL (70-110)
[2024-10-04] MEDS: ARTIFICIAL TEARS-HYPROMELLOSE DROPS 15 ML BTL BOTH EYES PRN (01:08)
[2024-10-04 04:52] LABS: Glucose,Whole Blood 156 mg/dL (70-110)
[2024-10-04 05:02] LABS: Basophils # (A) 0.15 10*3/uL (0.00-0.10); Basophils % (A) 0.7 %; Eosinophils # (A) 0.24 10*3/uL (0.04-0.35); Eosinophils % (A) 1.2 %; HCT 23.7 % (37.2-46.3); HGB 8.5 g/dL (12.0-15.0); Lymphocytes # (A) 0.80 10*3/uL (0.90-5.00); Lymphocytes % (A) 3.8 %; MCH 29.9 pg (27.0-32.0); MCHC 35.9 g/dL (32.0-37.0); MCV 83.5 fL (80.0-97.0); Monocytes # (A) 1.40 10*3/uL (0.20-1.00); Monocytes % (A) 6.7 %; Neutrophils # (A) 17.60 10*3/uL (1.80-7.70); Neutrophils % (A) 84.7 %; Platelet Count 145 10*3/uL (140-440); RBC 2.84 10*6/uL (4.10-5.20); RDW 17.2 % (11.5-14.5); WBC 20.80 10*3/uL (4.50-10.00)
[2024-10-04 05:35] LABS: ABG HCO3 32 mmol/L (21-25); ABG PCO2 40 mmHg (35-45); ABG PH 7.51 (7.35-7.45); ABG PO2 98 mmHg (83-108); ABG TCO2 33 mmol/L (19-24)
[2024-10-04 05:36] LABS: African American GFR (CKD) 79 (>60 ml/min/1.73 sqM); Anion Gap 7 mmol/L; Blood Urea Nitrogen 23 mg/dL (7-17); Calcium 8.1 mg/dL (8.4-10.2); Carbon Dioxide 31 mmol/L (22-30); Chloride 94 mmol/L (98-107); Glucose 130 mg/dL (74-99); Magnesium 1.8 mg/dL (1.6-2.3); Non-African American GFR(CKD) 69 (>60 ml/min/1.73 sqM); Potassium 3.9 mmol/L (3.5-5.1); Sodium 132 mmol/L (137-145)
[2024-10-04 06:21] LABS: Allen Test Performed? No
[2024-10-04] MEDS: POTASSIUM BICARBONATE/CIT AC 20 MEQ TABLET.EFF NG-TUBE SCH (06:23)
[2024-10-04] MEDS: MAGNESIUM SULFATE-D5W PMX 1 GM in DEXTROSE/WATER 1 100ML.BAG IVPB ONE (06:46)
--- NOTE | 2024-10-04 07:59 | XR ---
EXAMINATION TYPE: XR chest 1V portable DATE OF EXAM: 10/04/2024 5:16 AM COMPARISON: Chest radiograph from one day prior. CLINICAL INDICATION: Female, 59 years old with history of tube placement; [facility] TECHNIQUE: XR chest 1V portable Frontal and lateral views of the chest. FINDINGS: Lungs/Pleura: Patchy consolidating opacities, most pronounced at the right lung base. There is likely loculated right-sided pleural effusion.r new and/or increasing nodular densities at the left lung ba se measuring up to 25 mm. Additional metastatic nodules appears similar. Pulmonary vascularity: Unremarkable. Heart/mediastinum: Cardiomediastinal silhouette is unremarkable. Musculoskeletal: No acute osseous pathology. Other findings: None Endotracheal tube 3.4 cm above the megan. Nasogastric tube in appropriate position. IMPRESSION: 1. Airspace opacities worse in the right lung base correlate for pneumonia/aspiration 2. Appropriate placement of support tubes. [facility], , 10/04/2024 7:56 AM
[2024-10-04] MEDS: FUROSEMIDE 10 MG/ML 4 ML VIAL IV SCH (09:10)
--- NOTE | 2024-10-04 09:27 | P.PN ---
Subjective Patient is seen in follow-up for acute kidney injury. Renal function at baseline. On Levophed and vasopressin. Intubated. Tube feeds currently held. Nonoliguric. Plan to reattempt extubation today. Vital signs are stable. On vasopressor support. General: Resting in bed. HEENT: Intubated. LUNGS: No audible rhonchi or wheezes. HEART: Rate and Rhythm are regular. ABDOMEN: No distention. EXTREMITITES: 2+ edema. Objective - Vital Signs Vital signs: Vital Signs Temp 98.1 F 10/04/24 08:00 Pulse 98 10/04/24 08:45 Resp 22 10/04/24 08:45 BP 88/56 10/03/24 19:00 Pulse Ox 96 10/04/24 08:45 FiO2 45 10/04/24 08:00 Intake & Output 10/03/24 10/04/24 10/04/24 18:59 06:59 18:59 Intake Total 576.561 5823.008 282 Output Total 1395 795 145 Balance -126.459 4371.008 137 Weight 61.7 kg 61.4 kg Intake: IV 386 1412 152 Piperacillin-Tazobactam 3 100 1100 100 .375 gm In Sodium Chloride 0.9% 100 ml @ 25 mls/hr IVPB Q8H [facility] Rx#: [id number] Pressure Bag 66 72 12 Sodium Chloride 0.9% 1, 220 240 40 000 ml @ 20 mls/hr IV . Q24H [facility] Rx#:[id number] Intake, IV Titration 84.048 284.008 Amount Norepinephrine 32 mg In 3.274 33.550 Sodium Chloride 0.9% 218 ml @ 0.03 MCG/KG/MIN 0. 746 mls/hr IV .Q24H [facility] Rx#:[id number] Vasopressin 60 unit In 139.842 Sodium Chloride 0.9% 150 ml @ 0.03 UNITS/MIN 4.59 mls/hr IV .Q24H [facility] Rx#: [id number] propofoL 1,000 mg In 80.774 110.616 Empty Bag 1 bag @ 15 MCG/ KG/MIN 4.776 mls/hr IV . [id number] [facility] Rx#:[id number] Tube Feeding 380 585 100 Other 90 90 30 Output: Urine 1395 795 145 Other: Voiding Method Self-Catheterization Indwelling Catheter # Bowel Movements 1 ABP, PAP, CO, CI - Last Documented Arterial Blood Pressure 109/58 - Labs CBC & Chem 7: 10/04/24 04:50 10/04/24 04:50 Labs: Abnormal Lab Results - Last 24 Hours (Table) 10/03/24 10/03/24 10/04/24 Range/Units 17:27 19:24 00:32 WBC (4.50-10.00) 10*3/uL RBC (4.10-5.20) 10*6/uL Hgb (12.0-15.0) g/dL Hct (37.2-46.3) % Immature Gran # (0.00-0.04) 10*3/uL Neutrophils # (1.80-7.70) 10*3/uL Lymphocytes # (0.90-5.00) 10*3/uL Monocytes # (0.20-1.00) 10*3/uL Basophils # (0.00-0.10) 10*3/uL ABG pH (7.35-7.45) ABG HCO3 (21-25) mmol/L ABG Total CO2 (19-24) mmol/L ABG O2 Saturation (94-97) % Hemoglobin (11.4-16.0) gm/dL Sodium (137-145) mmol/L Potassium 3.4 L (3.5-5.1) mmol/L Chloride (98-107) mmol/L Carbon Dioxide (22-30) mmol/L BUN (7-17) mg/dL Glucose (74-99) mg/dL POC Glucose (mg/dL) 131 H 154 H (70-110) mg/dL Calcium (8.4-10.2) mg/dL 10/04/24 10/04/24 10/04/24 Range/Units 04:49 04:50 04:50 WBC 20.80 H (4.50-10.00) 10*3/uL RBC 2.84 L (4.10-5.20) 10*6/uL Hgb 8.5 L (12.0-15.0) g/dL Hct 23.7 L (37.2-46.3) % Immature Gran # 0.61 H (0.00-0.04) 10*3/uL Neutrophils # 17.60 H (1.80-7.70) 10*3/uL Lymphocytes # 0.80 L (0.90-5.00) 10*3/uL Monocytes # 1.40 H (0.20-1.00) 10*3/uL Basophils # 0.15 H (0.00-0.10) 10*3/uL ABG pH (7.35-7.45) ABG HCO3 (21-25) mmol/L ABG Total CO2 (19-24) mmol/L ABG O2 Saturation (94-97) % Hemoglobin (11.4-16.0) gm/dL Sodium 132 L (137-145) mmol/L Potassium (3.5-5.1) mmol/L Chloride 94 L (98-107) mmol/L Carbon Dioxide 31 H (22-30) mmol/L BUN 23 H (7-17) mg/dL Glucose 130 H (74-99) mg/dL POC Glucose (mg/dL) 156 H (70-110) mg/dL Calcium 8.1 L (8.4-10.2) mg/dL 10/04/24 Range/Units 05:23 WBC (4.50-10.00) 10*3/uL RBC (4.10-5.20) 10*6/uL Hgb (12.0-15.0) g/dL Hct (37.2-46.3) % Immature Gran # (0.00-0.04) 10*3/uL Neutrophils # (1.80-7.70) 10*3/uL Lymphocytes # (0.90-5.00) 10*3/uL Monocytes # (0.20-1.00) 10*3/uL Basophils # (0.00-0.10) 10*3/uL ABG pH 7.51 H (7.35-7.45) ABG HCO3 32 H (21-25) mmol/L ABG Total CO2 33 H (19-24) mmol/L ABG O2 Saturation 98.5 H (94-97) % Hemoglobin 8.6 L (11.4-16.0) gm/dL Sodium (137-145) mmol/L Potassium (3.5-5.1) mmol/L Chloride (98-107) mmol/L Carbon Dioxide (22-30) mmol/L BUN (7-17) mg/dL Glucose (74-99) mg/dL POC Glucose (mg/dL) (70-110) mg/dL Calcium (8.4-10.2) mg/dL Microbiology - Last 24 Hours (Table) 10/01/24 16:45 Urine Culture - Final Urine,Voided Assessment and Plan Plan: Assessment: 1. Acute kidney injury secondary to ATN secondary to septic shock. Improved. Nonoliguric. 2. Hypokalemia from intracellular shifting from IV bicarb. Replaced. Better. 3. Metabolic acidosis secondary to acute kidney injury, status post bicarb drip. Better. 4. Septic shock maintained on vasopressors. On IV antibiotics. 5. Hyponatremia secondary to acute kidney injury. Hypervolemic. 6. Hypomagnesemia from poor intake. Replaced. Better. 7. Lung cancer with metastasis. 8. Acute blood loss anemia receiving blood transfusion. Hemoglobin improved. 9. Volume overload. Plan: Add IV Lasix 40 mg twice daily. Wean FiO2 and vasopressors. Continue to monitor renal function and urine output. Prognosis guarded.
[2024-10-04] MEDS ORDERED: LORazepam 1 MG/0.5 ML VIAL IV PRN ×2 (09:38→17:04)
[2024-10-04] MEDS ORDERED: MORPHINE SULFATE 4 MG/ML SYRINGE IVP PRN (09:38)
--- NOTE | 2024-10-04 09:54 | P.PN ---
Progress Note - Text Progress Note Date: 10/04/24 Patient assessed earlier this morning. White blood cell count improved to 20. Patient remains on the ventilator. Further discussion with the family has led to the decision to proceed with comfort care measures. Certainly that is appropriate given the patient's stage of malignancy. Will sign off. Please call if needed.
[2024-10-04] MEDS: MORPHINE SULFATE 100 MG in SODIUM CHLORIDE 0.9% 90 ML IV SCH (10:07)
[2024-10-04 12:25] VITALS: RESP 15
--- NOTE | 2024-10-04 13:51 | P.PN ---
Subjective Progress Note Date: 10/04/24 Principal diagnosis: Septic shock secondary to pneumonia This is a 59-year-old female patient who is currently intubated on a mechanical ventilator as the patient presented to the ICU with respiratory failure and diminished level of consciousness. The patient is known to have stage IV pulm adenocarcinoma. Initial diagnosis was back in 2021 and at that time, the patient had stage IIIA (T1N2M0) adenocarcinoma of the right lung. PD-L1 is 5% with HER-2 amplification. She started concurrent weekly carboplatin AUC 2/paclitaxel 45 mg/m2 along with daily radiation therapy on 03/01/2022 and completed her last cycle of chemotherapy on 04/05/2022 and last day of radiation therapy on 04/07/2022. CT chest and abdomen on 04/18/2022 revealed no evidence of disease progression, but did note consolidative changes in the right lower lobe concerning for radiation pneumonitis versus possible pneumonia. I reviewed CT imaging with Dr. Carrizales of radiation oncology, who agreed changes in the right lower lobe due to radiation. Given her improvement, we discussed proceeding with maintenance durvalumab monthly for 1 year per the PACIFIC trial. She initiated cycle 1 of consolidative durvalumab on 06/16/2022 and most completed cycle 12 on 04/20/2023. Staging CT scans on 11/14/2023 during the [facility] cyber attack noted concern for right lower lobe nodule measuring 1.1 cm x 0.7 cm. Prior staging scans also noted nodule in the right lower lobe. Is was not clear if this was new finding or consistent with prior nodule. PET/CT performed on 12/29/2023 noted to FDG avid lung lesions in the right upper lobe and right middle lobe along with right adrenal gland FDG avidity concerning for metastatic disease. Her case was discussed at [facility] multidisciplinary thoracic tumor on 01/16/2024 further recommendation for biopsy along with systemic treatment and possible SBRT to the 2 lung lesions. She eventually proceeded to have biopsy of the right adrenal gland lesion on 02/19/2024 after further consideration. This did reveal metastatic non-small cell carcinoma that was TTF-1 positive consistent with lung primary. Brain MRI on 03/08/2024 revealed no evidence of intracranial metastases.Staging CT scans performed on 03/14/2024 revealed increased size of the right adrenal gland up to 9.3 cm along with increased size of the right upper lobe lesion at 1.4 cm compared to prior imaging. Cycle 1 of Enhertu given prior HER2 amplification was started on 04/18/2024 and most recently received cycle 7 on 08/27/24. Unfortunately CT scans on 08/30/24, showed disease progression. Enhertu was stopped, and pt was scheduled to follow up with Dr. Joss Diaz on 09/23 to further discuss treatment options. Noted the patient was in the hospital last week and the patient was discharged on 09/27/2024. Patient was admitted for the evaluation of hyponatremia and debility. IV fluids, TSH, cortisol, PT OT consult, fluid restriction, and home salt tabs were ordered. Nephrology and heme-onc consulted. TSH and cortisol were within normal limits. Patient was notably having low oral intake and encouraged to eat high-protein with protein shake supplementation and ordered Megace. Samsca was given once. Patient's sodium began to improve throughout her hospital stay. Brain CT was ordered by heme-onc for evaluation of possible metastasis showed no acute intracranial process or evidence suggesting of in tracranial mass with noted remote lacunar injury. Patient notably complained of flank pain due to an adrenal mass from old imaging and radiology oncology was consulted for palliative radiation. Patient also had notable leukocytosis with concerning urinalysis and reflex urine culture grew pansensitive E. coli and Alcalglicen faecalis. Patient was placed on IV antibiotics for 3 days due to no development of urinary symptoms. However patient's leukocytosis continued to increase and was placed back on IV Zosyn for empiric coverage. Infectious disease was consulted. Sputum culture and blood culture was ordered which were both negative. Patient also required 3 units of packed RBC transfusions due to anemia. Iron studies showed elevated ferritin which is consistent with chronic disease. B12 and folate were within normal limits. Patient also noted a mass on right chest. [place] xray showed pleural based density in lateral midlung previously 4 cm now at 5.7cm. PT OT consult was refused by patient and home care was offered but refused by family and patient after further discussion. Patient is cleared for discharge today with Augmentin and Bactrim for 1 week, sodium tabs increased to twice a day, MiraLAX, Dulcolax, megestrol, Percocet and ondansetron oral. Home [place] was discontinued. The patient presented back to the Emergency Department yesterday for altered mentation and ongoing respiratory difficulties. The patient was apparently seen at around 1 AM going to bed normally. Subsequently, the patient was found to be short of breath and lethargic and at time arrival to the emergency, the patient had agonal respiration and based on that, the patient was intubated and placed on a mechanical ventilator. Since arrival, the patient was given a total of 2 L of IV fluids and the patient is currently on lactated Ringer running at 125 cc an hour. The patient is also on pressors, currently on norepinephrine running at 0.28 mcg/kg/min and vasopressin was also started at 0.03 units an hour. The patient is currently on propofol running at 20 mcg/kg/min. The patient is on assist-control mode of mechanical ventilation at rate of 16, tidal volume of 400, FiO2 of 70% with a PEEP of 5. Blood gas showed a pH of 7.25 with a PCO2 of 38 and PO2 of 314. CT of the chest was done and showed no evidence of any pulmonary embolism. There was evidence of bilateral pleural effusion and extensive right lower lobe consolidation highly suspicious for an underlying pneumonia. There was also evidence of metastatic pulmonary nodules, a right upper lobe pulmonary nodule measuring 1.6 cm in size, left-sided pulmonary nodules measuring 6.5 mm in size and the patient had increasing in size of bilateral adrenal masses. CAT scan of the abdomen was also completed and the patient was found to have interval increase in the bilateral adrenal masses, and no other acute intra-abdominal abnormalities. Doppler of the lower extremity was negative for DVT. The current blood work shows a WBC count of 48.5, hemoglobin of 7.1 and a platelet count of 381. INR is at 1.5 with a PT of 15.5, D-dimer is at 15.5, sodium is at 130 with a potassium level of 4.2, serum bicarb is at 11, gap of 15, BUN is 15 with a creatinine of 0.6. Lactic acid level was as high as 6.5, dropped down to 4, LFTs are abnormal with an AST of 67, ALT of 27 and a platelet count of 498. Troponins are negative. Viral screen was negative. Alcohol level was also negative. The most recent cultures are from the urine on 09/18/2024 showing E. coli and Alcaligenes. The patient is currently on a combination of Zosyn and vancomycin. Seen today on 09/30/2024, patient remains in the ICU intubated mechanically ventilated, on assist-control rate of 16 tidal volume 400 FiO2 50% but cut down to 45% PEEP of 5 ABG on 50% showed a pO2 of 112 pCO2 31 pH of 7.42. Patient is quite complex she has many multiple medical problems including pneumonia, stage IV lung cancer, she has history of aspiration, history of multiple com orbidities, she is now on mechanical ventilation she is also on propofol 50 mcg/kg/min vasopressin at 0.03 units/min norepinephrine at 0.22 mcg/kg/min she is on vancomycin and Zosyn for presumptive sepsis and pneumonia patient is on enteral feeding, continues to have significantly elevated lactic acid, her urine output is becoming less and less, patient received significant amount of fluids still receiving fluid boluses, she also received 1 dose of Lasix last night, urine output remains poor, and her renal functioning is worsening hence nephrology was consulted. Apparently the patient was found on 09/29 unresponsive and this was at 2 AM apparently she was down for at least 6 hours prior to admission. Patient had multiple admissions to the hospital previously. At any rate patient is not ready for weaning, she is intubated mechanically ventilated, and her overall picture remains extremely poor and guarded. Chest x-ray was reviewed labs were reviewed medications were all reviewed and the patient is being followed by many consultants including infectious disease on the case. Patient was seen today on 10/01/2024, remains in the ICU intubated mechanically ventilated, on assist-control rate of 16 tidal volume 400 FiO2 45% and PEEP of 5 ABG showed a pO2 of 85 pCO2 32 pH of 7.5. Patient is off sedation this morning, has been off sedation since yesterday. Still requiring norepinephrine at 0.12, she is also on vasopressin at 0.03 units/min. Patient is not ready for any form of weaning as she seems to be difficult to arouse, does not follow any instructions. Her electrolytes showed low potassium of 3.1 BUN is 17 creatinine 1.03 patient received albumin yesterday and she seemed to respond well to albumin with good urine output after albumin infusion. Hemoglobin today is low at 6.9, and she will be receiving a unit of packed RBCs. Followed by Cher. Patient developed a bit of acute kidney injury secondary to ATN secondary to septic shock, today's creatinine is 1.03 and the patient is nonoliguric. Her metabolic acidosis is correcting nicely and improved with bicarb drip. Chest x- ray today showed bilateral lower lobe airspace opacities with stable pleural- based density within the lateral mid to lower lung there is a stable right-sided pleural effusion. Not much of a change noted on her chest x-ray. Patient was also seen by general surgery for her abdominal distention and discomfort, felt that the patient may have retroperitoneal metastatic disease and also raised the possibility of slow ischemia but the patient is not a good surgical candidate. And did not recommend any surgical intervention. Patient was seen today on 10/02/2024, remains in the ICU, intubated and mechanically ventilated, on assist-control rate of 16 tidal volume 400 FiO2 45% PEEP of 5 ABG showed a pO2 of 94 pCO2 35 pH of 7.52 patient still requiring norepinephrine at 0.2 mcg/kg/min still requiring vasopressin at 0.03 units per minute, patient is on IV fluid at KVO, still receiving Zosyn empirically. Family is at bedside, and I discussed her condition and her prognosis [facility], and they also had a discussion with the oncology staff, CODE STATUS was changed from full code to DNR CODE STATUS however the family would like to continue present supportive care measures, eventually the patient could be considered for hospice down the line, but will try in the meantime to continue present supportive care meds and hopefully could get her extubated in the next couple of days. Patient is arousable, follows simple instructions, she seems to be profoundly weak. Continues to have high leukocytosis with WC count of 33.6 hemoglobin 9.4 her ABG as noted earlier, basic metabolic profile is normal, renal profile is normal blood sugar is 121. Magnesium 1.8. Chest x-ray showed stable support tubes, small bilateral pleural effusions with airspace opacities bilaterally, there is also a right lateral loculated pleural effusion. Seen today on 10/03/2024, remains in the ICU intubated mechanically ventilated, chest x-ray continues to show evidence of bibasilar airspace disease/opacities and small bilateral pleural effusions. Patient seems to be a bit restless and a gitated, she is now off sedation, and I will give the patient a trial of weaning with a pressure support and CPAP, and decide how well is this going to be tolerated, and decide whether to wean and extubate, however need to further clarify her CODE STATUS and whether to reintubate if the patient fails weaning/extubation. Her ventilator settings at present are assist-control rate of 16 tidal volume 400 FiO2 45% PEEP of 5 ABG showed a pO2 of 80 pCO2 40 pH of 7.45 remains on Lasix and she has received Lasix earlier today 60 mg IV push x 1. This was ordered by nephrology. Patient is requiring norepinephrine at 0.06 she is still requiring vasopressin at 0.03. Patient presented with a picture of sepsis, septic shock, and pneumonia. Seen today on 10/04/2024, patient remains in the ICU, intubated mechanically ventilated, family is at bedside, patient is on assist-control rate of 16 tidal volume 400 FiO2 45% PEEP of 5. Patient is on norepinephrine at 0.05 propofol at 35 mcg/kg/min vasopressin at 0.03 units/min, IV fluids at KVO. Still receiving Lasix 40 mg twice daily remains on Zosyn. ABG today showed a pO2 of 98 pCO2 40 pH 7.51. Patient did tolerate yesterday pressure support and CPAP, however today she was given a short trial and she became restless agitated, and she was moving very small tidal volumes. Chest x-ray is showing worsening of bilateral airspace disease. Family was updated on her condition, and we discussed the option of weaning and comfort care measures we also discussed the option of continuing the same treatment for now, and eventually consider a trach and PEG. Family definitely would like comfort care measures, hence I proceeded to comfort care measures as per their wishes. Patient will be extubated and she will be placed on comfort care measures at this point. Labs remain abnormal WC is 20.8 hemoglobin 8.5 electrolytes are normal BUN is 23 creatinine 0.92 Objective - Vital Signs Vital signs: Vital Signs Temp 98 F 10/04/24 12:00 Pulse 126 H 10/04/24 12:00 Resp 15 10/04/24 12:00 BP 88/56 10/03/24 19:00 Pulse Ox 87 L 10/04/24 12:00 FiO2 45 10/04/24 09:20 Intake & Output 10/03/24 10/04/24 10/04/24 18:59 06:59 18:59 Intake Total 026.981 2672.008 428.386 Output Total 1395 795 420 Balance -849.993 2279.008 8.386 Weight 61.7 kg 61.4 kg Intake: IV 386 1412 224 Piperacillin-Tazobactam 3 100 1100 100 .375 gm In Sodium Chloride 0.9% 100 ml @ 25 mls/hr IVPB Q8H MADISYN Rx#: [id number] Pressure Bag 66 72 24 Sodium Chloride 0.9% 1, 220 240 100 000 ml @ 20 mls/hr IV . Q24H MADISYN Rx#:[id number] Intake, IV Titration 84.048 284.008 74.386 Amount Morphine Sulfate 100 mg 0.433 In Sodium Chloride 0.9% 90 ml @ 2 MG/HR 2 mls/hr IV .Q24H MADISYN Rx#: [id number] Norepinephrine 32 mg In 3.274 33.550 12.005 Sodium Chloride 0.9% 218 ml @ 0.03 MCG/KG/MIN 0. 746 mls/hr IV .Q24H [facility]ADISYN Rx#:[id number] Vasopressin 60 unit In 139.842 27.77 Sodium Chloride 0.9% 150 ml @ 0.03 UNITS/MIN 4.59 mls/hr IV .Q24H MADISYN Rx#: [id number] propofoL 1,000 mg In 80.774 110.616 34.178 Empty Bag 1 bag @ 15 MCG/ KG/MIN 4.776 mls/hr IV . [id number] MADISYN Rx#:[id number] Tube Feeding 380 585 100 Other 90 90 30 Output: Urine 1395 795 420 Other: Voiding Method Self-Catheterization Indwelling Catheter Indwelling Catheter # Bowel Movements 1 ABP, PAP, CO, CI - Last Documented Arterial Blood Pressure 101/53 - Exam GENERAL: Reveals a 59-year-old female looks frail chronically ill,intubated mechanically ventilated, arousable, follows simple instructions but profoundly weak HEENT: Pupils are round and equally reacting to light. EOMI. No scleral icterus. No conjunctival pallor. Normocephalic, atraumatic. No pharyngeal erythema. No thyromegaly. CARDIOVASCULAR: S1 and S2 present. No murmurs, rubs, or gallops. PULMONARY: Continues to have crackles at the bases no rhonchi no wheezes ABDOMEN: Slightly distended soft nontender no rebound no guarding MUSCULOSKELETAL: No obvious deformities noted cannot assess range of motion EXTREMITIES: No clubbing edema or cyanosis NEUROLOGICAL: Arousable, follows simple instructions, profoundly weak no gross focal deficit Psychiatric: Could not fully assess SKIN: No rashes. - Labs CBC & Chem 7: 10/04/24 04:50 10/04/24 04:50 Labs: Abnormal Lab Results - Last 24 Hours (Table) 10/03/24 10/03/24 10/04/24 Range/Units 17:27 19:24 00:32 WBC (4.50-10.00) 10*3/uL RBC (4.10-5.20) 10*6/uL Hgb (12.0-15.0) g/dL Hct (37.2-46.3) % Immature Gran # (0.00-0.04) 10*3/uL Neutrophils # (1.80-7.70) 10*3/uL Lymphocytes # (0.90-5.00) 10*3/uL Monocytes # (0.20-1.00) 10*3/uL Basophils # (0.00-0.10) 10*3/uL ABG pH (7.35-7.45) ABG HCO3 (21-25) mmol/L ABG Total CO2 (19-24) mmol/L ABG O2 Saturation (94-97) % Hemoglobin (11.4-16.0) gm/dL Sodium (137-145) mmol/L Potassium 3.4 L (3.5-5.1) mmol/L Chloride (98-107) mmol/L Carbon Dioxide (22-30) mmol/L BUN (7-17) mg/dL Glucose (74-99) mg/dL POC Glucose (mg/dL) 131 H 154 H (70-110) mg/dL Calcium (8.4-10.2) mg/dL 10/04/24 10/04/24 10/04/24 Range/Units 04:49 04:50 04:50 WBC 20.80 H (4.50-10.00) 10*3/uL RBC 2.84 L (4.10-5.20) 10*6/uL Hgb 8.5 L (12.0-15.0) g/dL Hct 23.7 L (37.2-46.3) % Immature Gran # 0.61 H (0.00-0.04) 10*3/uL Neutrophils # 17.60 H (1.80-7.70) 10*3/uL Lymphocytes # 0.80 L (0.90-5.00) 10*3/uL Monocytes # 1.40 H (0.20-1.00) 10*3/uL Basophils # 0.15 H (0.00-0.10) 10*3/uL ABG pH (7.35-7.45) ABG HCO3 (21-25) mmol/L ABG Total CO2 (19-24) mmol/L ABG O2 Saturation (94-97) % Hemoglobin (11.4-16.0) gm/dL Sodium 132 L (137-145) mmol/L Potassium (3.5-5.1) mmol/L Chloride 94 L (98-107) mmol/L Carbon Dioxide 31 H (22-30) mmol/L BUN 23 H (7-17) mg/dL Glucose 130 H (74-99) mg/dL POC Glucose (mg/dL) 156 H (70-110) mg/dL Calcium 8.1 L (8.4-10.2) mg/dL 10/04/24 Range/Units 05:23 WBC (4.50-10.00) 10*3/uL RBC (4.10-5.20) 10*6/uL Hgb (12.0-15.0) g/dL Hct (37.2-46.3) % Immature Gran # (0.00-0.04) 10*3/uL Neutrophils # (1.80-7.70) 10*3/uL Lymphocytes # (0.90-5.00) 10*3/uL Monocytes # (0.20-1.00) 10*3/uL Basophils # (0.00-0.10) 10*3/uL ABG pH 7.51 H (7.35-7.45) ABG HCO3 32 H (21-25) mmol/L ABG Total CO2 33 H (19-24) mmol/L ABG O2 Saturation 98.5 H (94-97) % Hemoglobin 8.6 L (11.4-16.0) gm/dL Sodium (137-145) mmol/L Potassium (3.5-5.1) mmol/L Chloride (98-107) mmol/L Carbon Dioxide (22-30) mmol/L BUN (7-17) mg/dL Glucose (74-99) mg/dL POC Glucose (mg/dL) (70-110) mg/dL Calcium (8.4-10.2) mg/dL Microbiology - Last 24 Hours (Table) 09/29/24 05:05 Blood Culture - Final Blood Assessment and Plan Assessment: Impression: Acute hypoxic respiratory failure secondary to pneumonia, bibasilar, possible aspiration pneumonia or healthcare associated pneumonia Septic shock secondary to above Acute lactic acidosis Acute kidney injury/acute tubular necrosis Anemia of chronic disease Stage IV metastatic lung cancer Malnutrition secondary to malignancy/severe protein calorie malnutrition History of underlying COPD Tobacco dependence syndrome Recent hospitalization for urinary tract infection Transaminitis in the setting of malignancy/metastatic disease Recommendation: Continue ventilatory support, family is deciding possibly to go with comfort care measures, and will proceed as such based on family's wishes Discontinue vasopressin and norepinephrine if family decides to go with comfort care Discontinue antibiotics if family decides to go with comfort care Continue nutritional support/enteral feeding Continue to monitor daily labs Patient condition was discussed with family, and I believe the family is inclined to proceed with comfort care. Patient remains critically ill Critical care time is 32 minutes Time with Patient: Greater than 30
--- NOTE | 2024-10-04 15:32 | P.PN ---
Subjective Progress Note Date: 10/04/24 This is a pleasant lady with past medical history of stage IV lung cancer who was recently discharged from the hospital Presents because of altered mental status Patient found to be in septic shock secondary to her pneumonia Patient was intubated and placed on mechanical ventilation, She has significant leukocytosis 48,000, hemoglobin 7.1 sodium 130 15.5 pH 7.2. Lactic acid elevated 6.5 at 3.7 Ammonia 34 unremarkable less than 10 CTA of the chest is negative for PE but showed right lower lobe pneumonia, CT of the abdominal pelvis increase bilateral adrenal masses Patient was started on IV fluid antibiotics admitted to the ICU 09/30. Patient seen examined. Labs reviewed showed WBC of 57.03, hemoglobin 8.3, platelet count 348, sodium 141, potassium 3.3, BUN 16, creatinine 1.04, lactate 7 calcium 7.3, magnesium 1 point 10/01. Patient seen and examined. Continues to be intubated. Currently on Levophed and vasopressin. Currently on tube feeding, getting 2 units of packed red blood cells 10/02. Patient seen examined. Labs reviewed this morning showing WBCs are 3.62, hemonine 0.4, platelet count 202, sodium 133, potassium 3.7, BUN 17, creatinine 0.95 10/03. Patient seen and examined. Labs reviewedShowing WBC 24.42, hemoglobin 8.6, sodium 132, potassium 3.7, BUN 20, creatinine 0.96, glucose 114. Currently on Levophed and vasopressin. 10/04. Patient seen and examined. Critical care team discussed with patient's family, plan for patient to go for for comfort care today REVIEW OF SYSTEMS: Review of system cannot be obtained as patient is intubated PHYSICAL EXAMINATION: GENERAL: The patient is intubated, chronically ill looking HEENT: Pupils are round and equally reacting to light. EOMI. No scleral icterus. No conjunctival pallor. Normocephalic, atraumatic. No pharyngeal erythema. No thyromegaly. CARDIOVASCULAR: S1 and S2 present. No murmurs, rubs, or gallops. PULMONARY: Chest is clear to auscultation, no wheezing or crackles. ABDOMEN: Distended, bowel sounds not audible. No palpable organomegaly. MUSCULOSKELETAL: No joint swelling or deformity. EXTREMITIES: No cyanosis, clubbing, or pedal edema. NEUROLOGICAL: Intubated SKIN: No rashes. Assessment and plan Septic shock Bacterial pneumonia gram-positive gram-negative Acute hypoxemic respiratory failure Lactic acidosis Acute leukocytosis secondary to above Anemia of chronic disease Hyponatremia Hypokalemia Hypomagnesemia Stage IV metastatic lung cancer. Transaminitis in the setting of malignancy Malnutrition, secondary to malignancy COPD History of smoking Recent hospitalization for urinary tract infection, Monitor vital signs Monitor CBC Monitor CMP Continue telemetry monitoring Continue vent management Continue aggressive bronchopulmonary hygiene Follow-up on blood cultures follow-up on urine cultures Currently on Levophed and vasopressin Continue IV Zosyn ICU following ID following Hematology-oncology following Surgery following Patient has very poor prognosis. Patient has been made comfort care, continue comfort care measures per protocol Labs and medication were reviewed.. Continue same treatment. Continue with symptomatic treatment. Resume home medication. Monitor labs and vitals. DVT and GI prophylaxis. Further recommendations as per clinical course of the patient Dictation was produced using [employer] dictation software. please excuse any grammatical, word or spelling errors. Objective - Vital Signs Vital signs: Vital Signs Temp 98 F 10/04/24 12:00 Pulse 126 H 10/04/24 12:00 Resp 15 10/04/24 12:00 BP 88/56 10/03/24 19:00 Pulse Ox 87 L 10/04/24 12:00 FiO2 45 10/04/24 09:20 Intake & Output 10/03/24 10/04/24 10/04/24 18:59 06:59 18:59 Intake Total 826.659 2169.008 428.386 Output Total 1395 795 420 Balance -935.800 2876.008 8.386 Weight 61.7 kg 61.4 kg Intake: IV 386 1412 224 Piperacillin-Tazobactam 3 100 1100 100 .375 gm In Sodium Chloride 0.9% 100 ml @ 25 mls/hr IVPB Q8H [facility] Rx#: [id number] Pressure Bag 66 72 24 Sodium Chloride 0.9% 1, 220 240 100 000 ml @ 20 mls/hr IV . Q24H [facility] Rx#:[id number] Intake, IV Titration 84.048 284.008 74.386 Amount Morphine Sulfate 100 mg 0.433 In Sodium Chloride 0.9% 90 ml @ 2 MG/HR 2 mls/hr IV .Q24H [facility] Rx#: [id number] Norepinephrine 32 mg In 3.274 33.550 12.005 Sodium Chloride 0.9% 218 ml @ 0.03 MCG/KG/MIN 0. 746 mls/hr IV .Q24H [facility] Rx#:[id number] Vasopressin 60 unit In 139.842 27.77 Sodium Chloride 0.9% 150 ml @ 0.03 UNITS/MIN 4.59 mls/hr IV .Q24H [facility] Rx#: [id number] propofoL 1,000 mg In 80.774 110.616 34.178 Empty Bag 1 bag @ 15 MCG/ KG/MIN 4.776 mls/hr IV . [id number] [facility] Rx#:[id number] Tube Feeding 380 585 100 Other 90 90 30 Output: Urine 1395 795 420 Other: Voiding Method Self-Catheterization Indwelling Catheter Indwelling Catheter # Bowel Movements 1 ABP, PAP, CO, CI - Last Documented Arterial Blood Pressure 101/53 - Labs CBC & Chem 7: 10/04/24 04:50 10/04/24 04:50 Labs: Abnormal Lab Results - Last 24 Hours (Table) 10/03/24 10/03/24 10/04/24 Range/Units 17:27 19:24 00:32 WBC (4.50-10.00) 10*3/uL RBC (4.10-5.20) 10*6/uL Hgb (12.0-15.0) g/dL Hct (37.2-46.3) % Immature Gran # (0.00-0.04) 10*3/uL Neutrophils # (1.80-7.70) 10*3/uL Lymphocytes # (0.90-5.00) 10*3/uL Monocytes # (0.20-1.00) 10*3/uL Basophils # (0.00-0.10) 10*3/uL ABG pH (7.35-7.45) ABG HCO3 (21-25) mmol/L ABG Total CO2 (19-24) mmol/L ABG O2 Saturation (94-97) % Hemoglobin (11.4-16.0) gm/dL Sodium (137-145) mmol/L Potassium 3.4 L (3.5-5.1) mmol/L Chloride (98-107) mmol/L Carbon Dioxide (22-30) mmol/L BUN (7-17) mg/dL Glucose (74-99) mg/dL POC Glucose (mg/dL) 131 H 154 H (70-110) mg/dL Calcium (8.4-10.2) mg/dL 10/04/24 10/04/24 10/04/24 Range/Units 04:49 04:50 04:50 WBC 20.80 H (4.50-10.00) 10*3/uL RBC 2.84 L (4.10-5.20) 10*6/uL Hgb 8.5 L (12.0-15.0) g/dL Hct 23.7 L (37.2-46.3) % Immature Gran # 0.61 H (0.00-0.04) 10*3/uL Neutrophils # 17.60 H (1.80-7.70) 10*3/uL Lymphocytes # 0.80 L (0.90-5.00) 10*3/uL Monocytes # 1.40 H (0.20-1.00) 10*3/uL Basophils # 0.15 H (0.00-0.10) 10*3/uL ABG pH (7.35-7.45) ABG HCO3 (21-25) mmol/L ABG Total CO2 (19-24) mmol/L ABG O2 Saturation (94-97) % Hemoglobin (11.4-16.0) gm/dL Sodium 132 L (137-145) mmol/L Potassium (3.5-5.1) mmol/L Chloride 94 L (98-107) mmol/L Carbon Dioxide 31 H (22-30) mmol/L BUN 23 H (7-17) mg/dL Glucose 130 H (74-99) mg/dL POC Glucose (mg/dL) 156 H (70-110) mg/dL Calcium 8.1 L (8.4-10.2) mg/dL 10/04/24 Range/Units 05:23 WBC (4.50-10.00) 10*3/uL RBC (4.10-5.20) 10*6/uL Hgb (12.0-15.0) g/dL Hct (37.2-46.3) % Immature Gran # (0.00-0.04) 10*3/uL Neutrophils # (1.80-7.70) 10*3/uL Lymphocytes # (0.90-5.00) 10*3/uL Monocytes # (0.20-1.00) 10*3/uL Basophils # (0.00-0.10) 10*3/uL ABG pH 7.51 H (7.35-7.45) ABG HCO3 32 H (21-25) mmol/L ABG Total CO2 33 H (19-24) mmol/L ABG O2 Saturation 98.5 H (94-97) % Hemoglobin 8.6 L (11.4-16.0) gm/dL Sodium (137-145) mmol/L Potassium (3.5-5.1) mmol/L Chloride (98-107) mmol/L Carbon Dioxide (22-30) mmol/L BUN (7-17) mg/dL Glucose (74-99) mg/dL POC Glucose (mg/dL) (70-110) mg/dL Calcium (8.4-10.2) mg/dL Microbiology - Last 24 Hours (Table) 09/29/24 05:05 Blood Culture - Final Blood
[2024-10-04 16:28] VITALS: BP 68/44; PULSE 113; TEMP 97.4
[2024-10-04] MEDS ORDERED: ATROPINE OPHTH SOLN 1% 5ML BTL SUBLINGUAL PRN (17:04)
[2024-10-04] MEDS ORDERED: GLYCOPYRROLATE 0.2 MG/ML 2 ML VIAL IVP PRN (17:04)
[2024-10-04] MEDS: SCOPOLAMINE 1 MG/72 HR PATCH TRANSDERM SCH (18:04)
[2024-10-04] MEDS: DRY MOUTH SPRAY 59 SPRAY/59 ML SPRAY MUCOUS MEM PRN (23:15)
--- NOTE | 2024-10-05 16:46 | P.DS ---
Providers Date of admission: 09/29/24 06:55 Expected date of discharge: 10/05/24 Attending physician: Mac Hogan Consults: 09/29/24 06:55 Consult Physician Stat Consulting Provider: Vasiliy Flores Consult Reason/Comments: ICU care, pneumonia Do you want consulting provider notified?: Already Contacted 09/29/24 07:03 Consult Physician Routine Consulting Provider: Ezekiel Ravi Consult Reason/Comments: enterocolitis, pneumonia, sepsis Do you want consulting provider notified?: Yes 09/30/24 10:18 Consult Physician Routine Consulting Provider: Marco Infante Consult Reason/Comments: Acute kidney injury Do you want consulting provider notified?: Yes 09/30/24 13:36 Consult Physician Routine Consulting Provider: Joss Diaz Consult Reason/Comments: Stage 4 Lung CA Do you want consulting provider notified?: Yes Primary care physician: Stated None Hospital Course: Discharge diagnoses; Septic shock Bacterial pneumonia gram-positive gram-negative Acute hypoxemic respiratory failure Lactic acidosis Acute leukocytosis secondary to above Anemia of chronic disease Hyponatremia Hypokalemia Hypomagnesemia Stage IV metastatic lung cancer. Transaminitis in the setting of malignancy Malnutrition, secondary to malignancy COPD History of smoking Recent hospitalization for urinary tract infection, Hospital course; This is a pleasant lady with past medical history of stage IV lung cancer who was recently discharged from the hospital Presents because of altered mental status Patient found to be in septic shock secondary to her pneumonia Patient was intubated and placed on mechanical ventilation, She has significant leukocytosis 48,000, hemoglobin 7.1 sodium 130 15.5 pH 7.2. Lactic acid elevated 6.5 at 3.7 Ammonia 34 unremarkable less than 10 CTA of the chest is negative for PE but showed right lower lobe pneumonia, CT of the abdominal pelvis increase bilateral adrenal masses Patient was started on IV fluid antibiotics admitted to the ICU 09/30. Patient seen examined. Labs reviewed showed WBC of 57.03, hemoglobin 8.3, platelet count 348, sodium 141, potassium 3.3, BUN 16, creatinine 1.04, lactate 7 calcium 7.3, magnesium 1 point 10/01. Patient seen and examined. Continues to be intubated. Currently on Levophed and vasopressin. Currently on tube feeding, getting 2 units of packed red blood cells 10/02. Patient seen examined. Labs reviewed this morning showing WBCs are 3.62, hemonine 0.4, platelet count 202, sodium 133, potassium 3.7, BUN 17, creatinine 0.95 10/03. Patient seen and examined. Labs reviewedShowing WBC 24.42, hemoglobin 8.6, sodium 132, potassium 3.7, BUN 20, creatinine 0.96, glucose 114. Currently on Levophed and vasopressin. 10/04. Patient seen and examined. Critical care team discussed with patient's family, plan for patient to go for for comfort care today 10/05. Patient was on comfort care measures.Patient was pronounced on 10/05/2024 at 6:55 AM. Dictation was produced using [employer] dictation software. please excuse any grammatical, word or spelling errors. Patient Condition at Discharge: Critical Plan - Discharge Summary Discharge Rx Participant: Yes New Discharge Prescriptions: No Action Amoxic-Pot Clav 500-125 mg [Augmentin 500-125 mg] 1 tab PO Q12HR #14 tab Sulfamethox-Tmp 800-160Mg [Bactrim DS 800-160 mg] 1 tab PO Q12HR #14 tab Sodium Chloride Tab 1 gm PO BID #30 tab polyethylene glycoL 3350 [Miralax] 17 gm PO DAILY PRN #7 gm PRN Reason: Constipation Megestrol [Megace] 400 mg PO DAILY #14 ml Ondansetron Odt [Zofran ODT] 8 mg PO Q8HR PRN #20 tab PRN Reason: Nausea And Vomiting Magnesium Hydroxide [Dulcolax Oral Susp] 5 mg PO DAILY PRN #30 ml PRN Reason: Constipation oxyCODONE-APAP 7.5-325MG [Percocet 7.5-325 mg] 1 tab PO Q6HR PRN PRN Reason: Pain Discharge Medication List Amoxic-Pot Clav 500-125 mg [Augmentin 500-125 mg] 1 tab PO Q12HR #14 tab 09/27/24 [Rx] Magnesium Hydroxide [Dulcolax Oral Susp] 5 mg PO DAILY PRN #30 ml 09/27/24 [Rx] Megestrol [Megace] 400 mg PO DAILY #14 ml 09/27/24 [Rx] Ondansetron Odt [Zofran ODT] 8 mg PO Q8HR PRN #20 tab 09/27/24 [Rx] Sodium Chloride Tab 1 gm PO BID #30 tab 09/27/24 [Rx] Sulfamethox-Tmp 800-160Mg [Bactrim DS 800-160 mg] 1 tab PO Q12HR #14 tab 09/27/24 [Rx] polyethylene glycoL 3350 [Miralax] 17 gm PO DAILY PRN #7 gm 09/27/24 [Rx] oxyCODONE-APAP 7.5-325MG [Percocet 7.5-325 mg] 1 tab PO Q6HR PRN 09/29/24 [History] Follow up Appointment(s)/Referral(s): None,Stated [Primary Care Provider] - 1-2 days Discharge Disposition: - Preliminary Cause of Preliminary Cause of : pneumonia
== END 2024-10-05 09:18 | disposition expired | DRG 870 ==
LOC: EC 03:10 → 2SICU 06:55 → 4SSUR 10-04 16:18
PROVIDERS: ADMIT Hospitalist; ATTEND Hospitalist
PROC: 5A1955Z Respiratory Ventilation, Greater than 96 Consecutive Hours (ICD-10-PCS; principal; 2024-09-29)
PROC: 0BH18EZ Insertion of Endotracheal Airway into Trachea, Via Natural or Artificial Opening Endoscopic (ICD-10-PCS; 2024-09-29)
PROC: 30233N1 Transfusion of Nonautologous Red Blood Cells into Peripheral Vein, Percutaneous Approach (ICD-10-PCS; 2024-09-29)
PROC: 03HY32Z Insertion of Monitoring Device into Upper Artery, Percutaneous Approach (ICD-10-PCS; 2024-09-29)
PROC: 4A133B1 Monitoring of Arterial Pressure, Peripheral, Percutaneous Approach (ICD-10-PCS; 2024-09-29)
PROC: 4A133J1 Monitoring of Arterial Pulse, Peripheral, Percutaneous Approach (ICD-10-PCS; 2024-09-29)
PROC: 3E043XZ Introduction of Vasopressor into Central Vein, Percutaneous Approach (ICD-10-PCS; 2024-09-29)
PROC: 06HY33Z Insertion of Infusion Device into Lower Vein, Percutaneous Approach (ICD-10-PCS; 2024-09-29)
DX: A41.50 Gram-negative sepsis, unspecified (principal); N17.0 Acute kidney failure with tubular necrosis; R65.21 Severe sepsis with septic shock; J96.01 Acute respiratory failure with hypoxia; J15.69 Pneumonia due to other Gram-negative bacteria; E43 Unspecified severe protein-calorie malnutrition; C78.00 Secondary malignant neoplasm of unspecified lung; Z66 Do not resuscitate; Z51.5 Encounter for palliative care; C78.6 Secondary malignant neoplasm of retroperitoneum and peritoneum; C79.70 Secondary malignant neoplasm of unspecified adrenal gland; C34.11 Malignant neoplasm of upper lobe, right bronchus or lung; J91.8 Pleural effusion in other conditions classified elsewhere; J44.0 Chronic obstructive pulmonary disease with (acute) lower respiratory infection; D63.0 Anemia in neoplastic disease; E87.21 Acute metabolic acidosis; D62 Acute posthemorrhagic anemia; E87.1 Hypo-osmolality and hyponatremia; L89.150 Pressure ulcer of sacral region, unstageable; E83.42 Hypomagnesemia; E87.6 Hypokalemia; E87.70 Fluid overload, unspecified; K52.9 Noninfective gastroenteritis and colitis, unspecified; F17.210 Nicotine dependence, cigarettes, uncomplicated; R74.01 Elevation of levels of liver transaminase levels; Z68.23 Body mass index [BMI] 23.0-23.9, adult; Z86.73 Personal history of transient ischemic attack (TIA), and cerebral infarction without residual deficits; Z79.899 Other long term (current) drug therapy; Z86.19 Personal history of other infectious and parasitic diseases
CPT/HCPCS: 36415; 36430; 70450; 71045; 71275; 74177; 80048; 80053; 80306; 80320; 81001; 82140; 82550; 82805; 83605; 83735; 84132; 84484; 85025; 85027; 85379; 85610; 85730; 86850; 86900; 86901; 86920; 87040; 87070; 87086; 87205; 87324; 87636; 93005; 93970; 94002; 94003; 96365; 96366; 96367; 96368; 96372; 96375; 99291